=== PATIENT | female | born 1940 | race Caucasian/White ===

== ENCOUNTER → 2019-04-14 12:28 | Outpatient (BNVA) | payer MEDICARE, BC, SELFPAY | PROVIDERS: PCP Family Medicine; Visit Provider Nurse Practitioner Gerontology | DX: R31.29 Other microscopic hematuria (principal) | CPT/HCPCS: 81003; 99213 ==

== ENCOUNTER 2019-04-14 14:59 | Outpatient (REF) | payer MEDICARE, BC, SELFPAY ==
[2019-04-14 16:39] LABS: Bacteria Few HPF (Negative); C & S Indicated? No; Casts Negative LPF (Negative); Crystals Negative HPF (Negative); Epithelial Cells Few HPF (Negative); Mucus Moderate (Negative); RBC 0-2 (0-2); WBC 0-2 HPF (0-5)
== END 2019-04-14 15:19 ==
LOC: LBN 14:59
PROVIDERS: PCP Family Medicine; Visit Provider Nurse Practitioner Gerontology
DX: R31.29 Other microscopic hematuria (principal)
CPT/HCPCS: 81015

== ENCOUNTER → 2020-04-12 12:43 | Outpatient (BNVA) | payer MEDICARE, BC, SELFPAY | PROVIDERS: PCP Family Medicine; Visit Provider Nurse Practitioner Gerontology | DX: R31.29 Other microscopic hematuria (principal) | CPT/HCPCS: 81003; 99213 ==

== ENCOUNTER 2020-04-12 13:47 | Outpatient (REF) | payer MEDICARE, BC, SELFPAY ==
[2020-04-12 14:37] LABS: Bilirubin Negative (Negative); Blood Trace-intact (Negative); Clarity Clear (Clear); Glucose Negative (Negative); Ketones Negative (Negative); Leukocyte Esterase Trace (Negative); Nitrite Negative (Negative); Specific Gravity 1.015 (1.005-1.025); Urobilinogen 0.2 EU/dL (Up TO 0.2); pH 5.5 (5-8)
[2020-04-12 14:48] LABS: RBC 0-2 HPF (0-2)
[2020-04-12 14:49] LABS: Bacteria Few HPF (Negative); C & S Indicated? No/Sq. Contamination; Casts Negative LPF (Negative); Crystals Negative HPF (Negative); Epithelial Cells Moderate HPF (Negative); Mucus Negative (Negative)
== END 2020-04-12 14:07 ==
LOC: LBN 13:47
PROVIDERS: PCP Family Medicine; Visit Provider Nurse Practitioner Gerontology
DX: R31.29 Other microscopic hematuria (principal)
CPT/HCPCS: 81003; 81015

== ENCOUNTER 2020-09-28 21:17 | Outpatient (REF) | payer MEDICARE, BC, SELFPAY ==
[2020-09-28 21:44] LABS: Bilirubin Negative (Negative); Blood Small (Negative); Clarity Cloudy (Clear); Glucose Negative (Negative); Ketones Negative (Negative); Leukocyte Esterase Negative (Negative); Nitrite Negative (Negative); Urobilinogen 0.2 EU/dL (Up TO 0.2)
[2020-09-28 21:56] LABS: Bacteria Negative HPF (Negative); C & S Indicated? No; Casts Negative LPF (Negative); Crystals Negative HPF (Negative); Epithelial Cells Few HPF (Negative); Mucus Negative (Negative); RBC 0-2 HPF (0-2); WBC 0-2 HPF (0-5)
== END 2020-09-28 21:37 ==
LOC: LBN 21:17
PROVIDERS: PCP Family Medicine; Visit Provider Nurse Practitioner Family
DX: R35.0 Frequency of micturition (principal)
CPT/HCPCS: 81003; 81015; 87086

== ENCOUNTER 2020-10-09 13:55 | Outpatient (REF) | payer MEDICARE, BC, SELFPAY ==
[2020-10-12 15:09] LABS: HSV 1 DNA Result Negative (Negative); Specimen Description Vaginal Lesion
[2020-10-12 15:10] LABS: HSV 2 DNA Result Positive (Negative)
== END 2020-10-09 14:15 ==
LOC: LBN 13:55
PROVIDERS: PCP Family Medicine
DX: N89.8 Other specified noninflammatory disorders of vagina (principal)
CPT/HCPCS: 87529

== ENCOUNTER 2020-11-21 02:35 | Outpatient (CLI) | payer MEDICARE, BC, SELFPAY ==
[2020-11-22 04:04] LABS: COVID-19 RT-PCR UVMMC Result Negative (Negative)
== END 2020-11-21 02:55 ==
PROVIDERS: PCP Family Medicine; Visit Provider Internal Medicine Cardiovascular Disease
DX: Z11.59 Encounter for screening for other viral diseases (principal); Z01.810 Encounter for preprocedural cardiovascular examination
CPT/HCPCS: U0003

== ENCOUNTER 2020-11-27 00:44 | Outpatient (CLI) | payer MEDICARE, BC, SELFPAY ==
--- NOTE | 2020-11-27 06:45 | DI.NM_ITS ---
APPROVED REPORT Exam: Pharmacologic Patient Location: Out-Patient Room/Bed: Stress Nurse: Asia Colindres RN Ordering Provider:KENNY GARCIA, Contact Number: BMI: 24.97 Baseline Rhythm: LBBB, 1DHB Indications: Dyspnea on exertion, chest pain, HTN, reduced EF. Medical History Medical History: Anxiety, reduced EF, MICHEL, Cardiomyopathy, HTN Cardiac Medications: Losartan, Metoprolol tartrate, Omeprazole. Allergies: Sertraline. Cardiac Risk Factors: FHX of CAD, HTN, Smoking (former) Previous Cardiac Procedures: None. Pretest Chest Pain Characteristics: None. Exercise History: Sedentary Physical Disabilities: None. Lung Sounds: Clear to auscultation Heart Sounds: Regular Stress Test Details Test: Pharmacologic stress testing performed using 0.4 mg of regadenoson per 5 mL given IV over 10 s econds. Reason for pharmacologic stress test: LBBB. Nuclear Acquisition: Rest Tc-99m/Stress Tc-99m 1 day Rest Isotope: Tc-99m Sestamibi. Dose: 10.3 Date: 11/27/50 Injection Time: 0835 Stress Isotope: Tc-99m Sestamibi. Dose: 31.5 Date: 11/27/20 Injection Time: 1000 HR Resting HR Supine: 63 bpm Max Heart Rate (APMHR): 139.530293 bpm Target HR (85% APMHR): 118.092426 bpm Max HR Achieved: 80 bpm % of APMHR: 57.55 Recovery HR: 77 bpm BP Resting BP Supine: 130/80 mmHg Max BP: 134/80 mmHg Recovery BP: 134/80 mmHg ECG Resting ECst degree AV block, LBBB Ectopy: None. Stress ECst degree AV block, LBBB ST Change: No significant ST segment changes noted. Arrhythmia: None. Recovery ECst degree AV block, LBBB Recovery ST Change: No significant ST segment changes noted. Recovery Arrhythmia: None. Stress ECG Conclusion 1. This is a pharmacological stress test. 2. The patient no symptoms suggestive of ischemia during injection. 3. The ECG portion of this exam is nondiagnostic. Stress Test Summary STAGE HR BP Symptoms NOTES Supine 63 130/80 1 min post Lexiscan injection 79 MENG, nausea, chest tightness 3 min post Lexiscan injection 80 128/86 Symptoms resolved. 6 min post Lexiscan injection 77 134/80 MPI Conclusion The ejection fraction was 44% with stress. There were no wall motion abnormalities. There was no evidence of ischemia on the imaging portion of the exam. This represents a normal SPECT stress test. Radiologist Interpretation Radiologist Interpretation by: George Marshall MD Interpretation Date/Time: 11/27/2020 15:36:15
--- NOTE | 2020-11-27 06:45 | DI.US_ITS ---
APPROVED REPORT EXAM: Comprehensive 2D, Doppler, and color-flow Echocardiogram Patient Location: Out-Patient Daycare Worker: Delores Coyle RDCS (AE) Indications: Reduced EF, Hypokinesis, Hypertension, SOB, Chest Pain Other Information Study Quality: Fair Conclusion Left Ventricle : The left ventricle is normal size. Left ventricular systolic function is mildly redu yolanda. There is normal left ventricular wall thickness. There is global hypokinesis of the left ventric le. The diastolic function is abnormal. LVEF is 42%. Right Ventricle : The right ventricle is normal size. The right ventricular systolic function is norm al. The RVSP is 20.7 mmHg. Atria : The left atrium size is normal. The right atrium size is normal. Mitral Valve : Mild mitral annular calcification. Mild mitral regurgitation. No evidence of mitral va lve stenosis. Great Vessels : The aortic root is normal in size. The ascending aorta is mildly dilated. IVC is norm al in size and collapses >50% with inspiration. Please see remainder of study for further details. Paired to study from 12/29/2017, there is no significant change. Wall motion Left Ventricle The left ventricle is normal size. Left ventricular systolic function is mildly reduced. There is nor mal left ventricular wall thickness. There is global hypokinesis of the left ventricle. The diastolic function is abnormal. There is no ventricular septal defect visualized. LVEF is 42%. Right Ventricle The right ventricle is normal size. The right ventricular systolic function is normal. The RVSP is 20 .7 mmHg. Atria The left atrium size is normal. The right atrium size is normal. The interatrial septum is intact wit h no evidence for an atrial septal defect. Aortic Valve Aortic valve is thickened but has adequate excursion. There is no aortic valvular stenosis. No aortic regurgitation is present. Mitral Valve Mild mitral annular calcification. No evidence of mitral valve stenosis. Mild mitral regurgitation. Tricuspid Valve The tricuspid valve is normal in structure. There is no tricuspid valve stenosis. Mild tricuspid regu rgitation. Pulmonic Valve The pulmonary valve is normal in structure. There is no pulmonic valvular stenosis. Trace pulmonic re gurgitation. Great Vessels The aortic root is normal in size. The ascending aorta is mildly dilated. IVC is normal in size and c ollapses >50% with inspiration. Pericardium There is no pericardial effusion. 2D Dimensions IVSD d PLAX 1.02 cm F: 0.6-1.0 LV Vol A2C d MOD 74.5 mL LVPW d PLAX 0.99 cm F: 0.6 - 1.0 LV Vol A4C d MOD 86.1 mL LVID d PLAX 4.44 cm F: 3.8 - 5.2 LA vol/ BSA A2C s A-L 21.0 mL/m2 LVDs 3.60 cm F: 2.2 - 3.5 LA vol/ BSA A4C s A-L 22.7 mL/m2 Ao Root d 3.10 cm F: 2.7 - 3.3 LA Vol/ BSA Biplane s A-L 22.6 mL/m2 RA Area A4C 10.75 cm2 LA Area A4C s MOD 13.80 cm2 RA Vol/ BSA A4C s A-L 14.6 mL/m2 LA Area A2C s MOD 13.74 cm2 Ao Asc Diam d 3.50 cm F: 2.3 - 3.1 LV EF A4C MOD 41.4 % LV EF Teichholz 39.1 % LV EF A2C MOD 42.9 % LVEF (Bailey's) 43.08 % F: 54 - 74 LV EF Biplane MOD 43.1 % LV Volume 65.60 mL F: 46 - 106 SV 35.44 mL LV Volume Index 39.04 mL/m2 F: 29 - 61 SV Index 21.08 mL/m2 LV Vol Biplane MOD 82.3 mL FS 18.80 % M-Mode TAPSE 1.67 cm (M/F) >1.7 LV Diastology MV E' medial 0.049 (>0.07 m/s) E/A Ratio 0.7 LV E/e MED 9.55 (<14) MV E Vmax 0.47 (0.4-1.3 m/s) MV E' lateral 0.063 (>0.1 m/s) MV A Vmax 0.65 (0.4-1.3 m/s) LV E/e LAT 7.45 (<14) MV E/A Ratio 0.72 MV E/E' medial 9.56 MV E/E' lateral 7.45 Aortic Valve LVOT Area 3.16 cm2 AoV Area Vmax 2.37 cm2 LVOT Vmax 0.91 m/s AoV Area/ BSA (Vmax) 1.41 cm2/m2 LVOT Mean Greg. 0.58 m/s FELIX Mean Greg. 2.11 cm2 LVOT Peak Grad 3.3 mmHg FELIX Mean Greg. Index 1.26 cm2/m2 LVOT Mean Grad 1.6 mmHg LVOT VTI 0.197 m LVOT Diam s 2.00 cm AoV Vmax 1.21 m/s Velocity Ratio 0.75 AoV Mean Greg. 0.86 m/s AoV Peak Grad 5.9 mmHg LVOT SV 62.13 mL AoV Mean Grad 3.3 mmHg AoV VTI 0.248 m AoV Area VTI 2.50 cm2 AoV Area/ BSA (VTI) 1.49 cm/m2 Mitral Valve MV DT 240 (160-240 msec) MV PHT 70 msec MV Area PHT 3.16 cm2 MV VTI 0.187 m MV Area VTI 3.32 (4.0-6.0 cm2) Pulmonary Valve PV Vmax 0.99 (0.5-1.5 m/s) RVOT Peak Gr. 1.50 mmHg PV Peak Grad 4.0 mmHg RVOT Mean Gr. 0.80 mmHg PV Mean Grad 2.0 mmHg RVOT VTI 0.133 m PV VTI 0.207 m RVOT Vmax 0.61 m/s Tricuspid Valve TR Peak Grad 17.6 mmHg TR Vmax 2.10 m/s RA Pressure 3.00 mmHg RVSP (TR) 20.7 mmHg
[2020-11-27] MEDS: Regadenoson 0.4 MG/5 ML SYR IVP (10:22)
== END 2020-11-27 01:04 ==
PROVIDERS: PCP Family Medicine; Visit Provider Family Medicine
DX: I11.0 Hypertensive heart disease with heart failure (principal); R07.9 Chest pain, unspecified; I34.0 Nonrheumatic mitral (valve) insufficiency; R06.09 Other forms of dyspnea; I50.20 Unspecified systolic (congestive) heart failure
CPT/HCPCS: 78452; 93016; 93018; 93306; 93017; J2785

== ENCOUNTER → 2021-04-15 13:19 | Outpatient (BNVA) | payer MEDICARE, BC, SELFPAY | PROVIDERS: PCP Family Medicine; Referring Provider Family Medicine; Visit Provider Nurse Practitioner Gerontology | DX: R31.29 Other microscopic hematuria (principal) | CPT/HCPCS: 81003; 99213 ==

== ENCOUNTER 2021-11-19 03:03 | Outpatient (CLI) | payer MEDICARE, BC, SELFPAY ==
[2021-11-19 09:19] LABS: ESR 15 mm/hr (0-30)
[2021-11-19 09:20] LABS: HCT 38.5 % (36.0-46.0); HGB 11.9 g/dL (11.2-15.7); MCH 27.2 pg (27.0-33.0); MCHC 30.9 % (32.0-36.0); MCV 88.1 fL (80-95); MPV 10.7 fL (8.0-11.0); Platelet Count 265 10^3/uL (130-400); RBC 4.37 10^6/uL (3.93-5.22); RDW 13.2 % (11.7-14.6); RDW-SD 43.1 fL; WBC 4.83 10^3/uL (4.4-10.8)
[2021-11-19 10:06] LABS: Anion Gap 6.9 mmol/L (3-11); BUN 20 mg/dL (7-18); CO2 32.1 mmol/L (21.0-32.0); CREATININE 0.9 mg/dL (0.55-1.02); Calcium 9.4 mg/dL (8.5-10.1); Calculated LDL 199 mg/dL (<100); Chloride 103 mmol/L (98-107); Cholesterol 276 mg/dL (<200); Estimated GFR 59.94 (mL/min/1.73m2); Glucose 105 mg/dL (74-106); HDL Cholesterol 63 mg/dL (40-60); Potassium 4.5 mmol/L (3.5-5.1); Sodium 142 mmol/L (136-145); Triglyceride 71 mg/dL (<150)
== END 2021-11-19 03:04 | disposition home or self-care (01) ==
LOC: LBO 03:03
PROVIDERS: PCP Family Medicine; Visit Provider Family Medicine
DX: E78.5 Hyperlipidemia, unspecified (principal); E87.1 Hypo-osmolality and hyponatremia; R53.83 Other fatigue; R51.9 Headache, unspecified
CPT/HCPCS: 36415; 80048; 80061; 85027; 85652

== ENCOUNTER 2021-11-22 02:03 | Outpatient (CLI) | payer MEDICARE, BC, SELFPAY ==
[2021-11-22 10:23] LABS: Source Nasal/Nares
[2021-11-22 16:48] LABS: COVID-19 PCR Negative (Negative)
== END 2021-11-22 02:04 | disposition home or self-care (01) ==
LOC: LBO 02:04
PROVIDERS: PCP Family Medicine; Visit Provider Ophthalmology
DX: Z20.822 Contact with and (suspected) exposure to COVID-19 (principal); Z01.818 Encounter for other preprocedural examination
CPT/HCPCS: 87635

== ENCOUNTER 2021-11-25 08:52 | Day surgery (SDC) | payer MEDICARE, BC, SELFPAY ==
[2021-11-25 09:20] VITALS: BP 164/84; PULSE 63; RESP 16; TEMP 35.9; O2SAT 99
[2021-11-25] MEDS: Tropicam./Phenyleph. (1/2.5%) 5 ML BTL OD ×3 (09:27→09:43)
--- NOTE | 2021-11-25 09:47 | ANES.PREOP_ITS ---
General Info Date of Service Date Performed: 11/25/21 Height: 5 ft 3.5 in Weight: 64.1 kg Body Mass Index (BMI): 24.6 Surgical Procedure: Operation Date: 11/25/21 11:40 Proposed Procedures Side Surgeon p Cataract Extraction with IOL Implant Right Khoa Albarado MD Meds Allergies and Home Medications Allergies Allergy/AdvReac Type Severity Reaction Status Date / Time sertraline AdvReac Ineffective Verified 11/25/21 09:22 Home Medication Medication Instructions Recorded fluticasone propionate 2 spray NS DAILY 03/02/18 alprazolam 0.25 mg tablet 0.25 mg PO BID PRN #10 tab 08/07/20 omeprazole 40 mg capsule,delayed 40 mg PO DAILY #90 tab-cap 08/06/21 release acyclovir 400 mg tablet 400 mg PO TID PRN #30 tab 08/20/21 halobetasol propionate 0.05 % 1 applic TOPICAL BID PRN #50 g 08/20/21 topical cream duloxetine 20 mg capsule,delayed 20 mg PO DAILY #90 tab-cap 08/28/21 release losartan 100 mg tablet 100 mg PO DAILY #90 tab-cap 08/28/21 metoprolol tartrate 25 mg tablet 25 mg PO DAILY #90 tab 08/28/21 Current Visit Medications: Current Medications Generic Name Dose Route Start Last Admin Trade Name Freq PRN Reason Stop Dose Admin Acetaminophen 1,000 mg 11/25/21 06:00 Acetaminophen 500 Mg Tab PO Q4H PRN PRN Miscellaneous Medication 0 ml 11/25/21 06:00 Prednisolone 1%, Moxifloxacin 0.5%, Nepafenac 0.1% 5ml Btl OD DIRECTED FOR[facility] Miscellaneous Medication 0 ml 11/25/21 06:00 11/25/21 09:43 Tropicam./Phenyleph. (1/2.5%) 5 Ml Btl OD 1 drp DIRECTED DIAN Administration Tetracaine HCl 0 ml 11/25/21 06:00 Tetracaine 0.5% 4 Ml Btl OD DIRECTED [facility] PFSH Active Problems Active Problems: Problem Status Onset Code Age-related macular degeneration H35.30 Anxiety 03/29/13 F41.9 Bundle branch block I45.4 Cardiomyopathy I42.9 Depressive disorder F32.9 Gastroesophageal reflux disease K21.9 Hyperlipidemia 02/15/13 E78.5 Hypertension I10 Idiopathic scoliosis M41.20 Malignant neoplasm of female breast 10/22/01 C50.919 Microscopic hematuria 02/02/18 R31.29 Osteopenia M85.80 Mood disorder F39 Right knee meniscal tear S83.206A Status post breast lumpectomy Z98.890 History of esophagogastroduodenoscopy Z98.890 Graves' disease 03/29/13 E05.00 Alcohol abuse F10.10 Vaginitis and vulvovaginitis N76.0 Herpetic lesion B00.9 MICHEL (dyspnea on exertion) R06.00 Pain, joint, knee, right M25.561 Stress incontinence N39.3 Pain in left hip M25.552 Temporal headache R51.9 Medical History Medical History Comments:: Pt. states that she can easily faint with anxiety in anticipation of surgery or when discussing details thereof. Surgical History Surgical History (Updated 11/25/21 @ 09:20 by Margie Martinez) Breast, Lumpectomy right lumpectomy-infiltration ductal; radiation and chemo Cystoscopy 03/04/18 NEGATIVE Hx of appendectomy Hx of tubal ligation Tobacco Smoking/Tobacco Use Status: Former Tobacco Use Alcohol Alcohol Intake: never Substance Use Substance use: Never Substance use type: does not use Vital Signs and Lab Results Vital Signs Most Recent Vital Signs in EMR: Most Recent Vital Signs Temp Pulse Resp BP Pulse Ox 35.9 C L 63 16 164/84 H 99 11/25/21 09:20 11/25/21 09:20 11/25/21 09:20 11/25/21 09:20 11/25/21 09:20 Lab Results Blood Type / Crossmatch: No Data to Display Complete Blood Count: White Blood Count 4.83 10^3/uL (4.4-10.8) 11/19/21 09:12 11/19/21 Red Blood Count 4.37 10^6/uL (3.93-5.22) 11/19/21 09:12 11/19/21 Hemoglobin 11.9 g/dL (11.2-15.7) 11/19/21 09:12 11/19/21 Hematocrit 38.5 % (36.0-46.0) 11/19/21 09:12 11/19/21 Platelet Count 265 10^3/uL (130-400) 11/19/21 09:12 11/19/21 Complete Metabolic Panel: Sodium Level 142 mmol/L (136-145) 11/19/21 09:12 11/19/21 Potassium Level 4.5 mmol/L (3.5-5.1) 11/19/21 09:12 11/19/21 Chloride Level 103 mmol/L (98-107) 11/19/21 09:12 11/19/21 Carbon Dioxide Level 32.1 mmol/L (21.0-32.0) H 11/19/21 09:12 11/19/21 Blood Urea Nitrogen 20 mg/dL (7-18) H 11/19/21 09:12 11/19/21 Creatinine 0.9 mg/dL (0.55-1.02) 11/19/21 09:12 11/19/21 Estimated GFR/1.73 m2 59.94 (mL/min/1.73m2) 11/19/21 09:12 11/19/21 Calcium Level 9.4 mg/dL (8.5-10.1) 11/19/21 09:12 11/19/21 Glucose Level 105 mg/dL (74-106) 11/19/21 09:12 11/19/21 Liver Function Panel: No Data to Display Coagulation Panel: No Data to Display Cardiac Panel: No Data to Display Arterial Blood Gas: No Data to Display Venous Blood Gas: No Data to Display Pancreas Panel: No Data to Display Thyroid Panel: No Data to Display Infectious Disease: Coronavirus (COVID-19)(PCR) Negative (Negative) 11/22/21 08:43 11/22/21 Coronavirus 2019 Source Nasal/Nares 11/22/21 08:43 11/22/21 Blood Cultures: No Data to Display Toxicology Panel: No Data to Display Imaging and Studies Imaging and Studies Study information below may be from another EMR and interpreted by another provider. Please see original notes in EMR for more complete details. Stress Test Summary: Date of Exam: 11/27/20Sex: F Admission Date: 11/27/20 : 1940 Indications: Dyspnea on exertion, chest pain, HTN, reduced EF. Stress ECG Conclusion 1. This is a pharmacological stress test. 2. The patient no symptoms suggestive of ischemia during injection. 3. The ECG portion of this exam is nondiagnostic. Stress Test Summary STAGEHRBPSymptomsNOTES [id number] 1 min post Lexiscan [id number], nausea, chest tightness 3 min post Lexiscan [id number] resolved. 6 min post Lexiscan [id number]/80 MPI Conclusion The ejection fraction was 44% with stress. There were no wall motion abnormalities. There was no evidence of ischemia on the imaging portion of the exam. This represents a normal SPECT stress test. Echocardiogram Summary: Date of Exam: 11/27/20Sex: F Admission Date: 11/27/20 : 1940 Age: 79 Indications: Reduced EF, Hypokinesis, Hypertension, SOB, Chest Pain Conclusion Left Ventricle : The left ventricle is normal size. Left ventricular systolic function is mildly reduced. There is normal left ventricular wall thickness. There is global hypokinesis of the left ventricle. The diastolic function is abnormal. LVEF is 42%. Right Ventricle : The right ventricle is normal size. The right ventricular systolic function is normal. The RVSP is 20.7 mmHg. Atria : The left atrium size is normal. The right atrium size is normal. Mitral Valve : Mild mitral annular calcification. Mild mitral regurgitation. No evidence of mitral valve stenosis. Great Vessels : The aortic root is normal in size. The ascending aorta is mildly dilated. IVC is normal in size and collapses >50% with inspiration. Please see remainder of study for further details. Paired to study from 12/29/2017, there is no significant change. Anesthesia Assessment and Plan Anesthesia History Personal History: No History of Anesthesia Complications Family History: No Family History of Anesthesia Complications Exercise Tolerance Exercise Tolerance: Metabolic Equivalents>4 Pertinent Negatives Pertinent Negatives: No Symptoms of GERD and No Major Pulmonary Symptoms or Complaints Cardiac & Pulmonary Exam Cardiac Exam: Normal S1/S2 Heart Sounds Pulmonary Exam: Clear Bilateral Breath Sounds Implantable Cardiac Device Does patient have a Pacemaker or an ICD?: No Airway Exam Known Difficult Airway: No Mallampati Class: 2 Mouth Opening: Normal (> 3cm) Thyromental Distance: Greater than 3 cm Neck Range of Motion: Full ROM Neck Circumference: Normal Teeth Condition: Normal Dentition ASA Classification ASA Score: ASA 3 Emergency Case?: No NPO Status NPO Status: NPO Clears >2 hours, Solids >8 hours Anesthesia Plan Resuscitation Status: Full Code Anesthesia Technique: MAC Anesthesia Airway Planned: Natural Airway Monitors Used: Standard Monitors
[2021-11-25 10:13] VITALS: BMI 24.6
[2021-11-25] MEDS: Trypan Blue 0.06% 0.5 ML SYR (10:34)
[2021-11-25] MEDS: Balanced Salt Soln.-PLUS 500 ML BAG (10:36)
[2021-11-25] MEDS: Tetracaine 0.5% 4 ML BTL OD (10:36)
[2021-11-25] MEDS: Duovisc Viscoelastic System EACH 1 EACH (10:37)
[2021-11-25] MEDS: Lidocaine 2% Jelly 6 ML SYR (10:38)
[2021-11-25] MEDS: Povidone-Iodine Ophth 30 ML BTL (10:39)
[2021-11-25 11:00] VITALS: BP 136/83; PULSE 68; RESP 16; TEMP 36.6; O2SAT 100
--- NOTE | 2021-11-25 11:01 | W.PM.DSUDISC ---
Discharge Plan Disposition Patient Disposition: HOME Condition: Good Discharge Details Attending Provider: Khoa Albarado Primary Care Provider: Kushal Noyola Home Meds and New Rx's Prescriptions: No Action losartan 100 mg tablet 100 mg PO DAILY Qty: 90 RF: 3 metoprolol tartrate 25 mg tablet 25 mg PO DAILY Qty: 90 RF: 4 duloxetine 20 mg capsule,delayed release(DR/EC) 20 mg PO DAILY Qty: 90 RF: 3 halobetasol propionate 0.05 % cream 1 applic topical BID PRN (Reason: inflammation) Qty: 50 RF: 1 acyclovir 400 mg tablet 400 mg PO TID PRN (Reason: genital herpes) Qty: 30 RF: 1 alprazolam 0.25 mg tablet 0.25 mg PO BID PRN (Reason: anxiety) Qty: 10 RF: 0 omeprazole 40 mg capsule,delayed release(DR/EC) 40 mg PO DAILY Qty: 90 RF: 3 fluticasone propionate 16 GM spray,suspension 2 spray NS DAILY RF: 0 Discharge Instructions Stand Alone Forms: Post-op Topical Cataract, [place] Rojo (DSU) Discharge Orders Discharge Orders: Discharge Order (Routine); Ordered 11/25/21 Ordered By: Khoa Albarado DS: Diagnosis Discharge Diagnosis (1) Nuclear sclerotic cataract of right eye: Status: Resolved
--- NOTE | 2021-11-25 11:02 | ROE_ITS ---
Date of service: 11/25/21 Time of Service: 11:02 Operative Note Operative Note DATE OF PROCEDURE: 11/25/21 PRE-OP DIAGNOSIS: Dense nuclear cataract, right eye Poor red reflex, right eye secondary to cataract POST-OP DIAGNOSIS: same PROCEDURE: Cataract extraction using phacoemulsification with intraocular lens implantation, right eye, using capsular staining with Vision Blue SURGEON: Khoa Albarado ANESTHESIA TYPE: Local By Surgeon and MAC Refer to Anesthesia Record PATHOLOGY: none sent COMPLICATIONS: None Patient was transported to: same day Patient's condition: stable Implants: [employer] / [employer] Tecnis [id number] Indications: Progressive visual loss due to cataract, right eye Procedure Description: CATARACT SURGERY OPERATIVE REPORT PREOPERATIVE DIAGNOSIS: 1. Dense nuclear cataract, right eye 2. Poor red reflex secondary to #1 POSTOPERATIVE DIAGNOSIS: Same OPERATION: 1. Cataract extraction using phacoemulsification with posterior chamber intraocular lens implant, right eye. 2. Capsular staining with Vision Blue IOL: IOL Vice President Of Contracts/Model: [employer] Rashel / VINH Tecnis [id number] IOL Power: + 20.0 diopters IOL Serial Number: [id number] Optic Diameter: 6.0mm Haptic/Overall Diameter: 13.0mm PHACO INFO: Jl Vakasturion Vision System with OZil and [employer] Cumulative Dispersed Energy (CDE): 35.99 seconds SURGEON: Khoa Albarado MD, LEO ANESTHESIA: Monitored Anesthesia Care (MAC), with local sub-tenon's anesthetic infiltration COMPLICATIONS: None SPECIMENS: None INDICATIONS FOR PROCEDURE: The patient is a 80-year-old lady with history of diminished visual acuity in her right eye. She is noted to have a dense nuclear cataract in the right eye. The option of cataract surgery was offered to the patient and she wished to proceed. PROCEDURE: The correct surgical eye was identified and marked as the right eye and the pupil was dilated in the preoperative area using mydriatics and cycloplegics. The dilated pupil size was 7.0 mm. She elected to proceed without oral sedation. The patient was brought to the operating room where cardiopulmonary monitoring was instituted and surgical time-out was performed, confirming the correct operative eye and IOL power. Topical anesthesia was administered and ophthalmic povidone-iodine 5% was instilled into the conjunctival fornices. Lidocaine gel was applied to the cornea and the abhijit-ocular area was prepped with Betadine 10% solution and draped in the usual sterile fashion for intraocular surgery, including an aperture drape. A Tegaderm transparent film dressing was cut in half and used to cover the lashes and lid margins. Care was taken to sequester the lashes and lid margins under the Tegaderm dressing. A lid speculum was placed between the lids of the operative eye and the Yeyo-Madyson operating microscope was maneuvered into position. Nasra scissors were then used to make a conjunctival buttonhole approximately 6mm posterior to the limbus in the inferonasal quadrant. Blunt dissection was carried out to expose bare sclera, and a blunt-tipped sub-tenon?s anesthesia cannula was introduced and passed posteriorly along the globe where non- preserved plain lidocaine was injected into posterior sub-Tenon?s space. A sideport knife was used to make a paracentesis port inferotemporally. Intraocular phenylephrine/lidocaine was injected into the anterior chamber. Air was injected into the anterior chamber, followed by Vision Blue, which was painted over the anterior capsule and then irrigated out with BSS. The anterior chamber was filled with viscoelastic. A 2.4mm keratome knife was used to create a half-thickness groove at the limbus and then to construct a three-plane near- clear corneal tunnel extending 2.0mm into clear cornea superiortemporally. A flap was raised on the anterior capsule and capsulorhexis forceps were used to complete a continuous curvilinear capsulorhexis of 5.0 mm. Balanced salt solution was then used to perform cortical cleaving hydrodissection and nuclear hydrodelineation until the lens could be freely rotated within the capsular bag. The lens nucleus was then disassembled and removed within the capsular bag and iris plane using phacoemulsification. Residual cortical material was removed using the I/A handpiece. The posterior capsule was carefully polished to remove as much residual lens epithelial cells as safely possible. The capsular bag was then inflated and the anterior chamber deepened with viscoelastic. The lens implant described above was inserted into the capsular bag using the VINH [place] Injector. A Kuglen hook was used to dial the IOL into position. Residual viscoelastic was then removed first from posterior to the IOL, then from the anterior chamber using the I/A handpiece. The lens implant was noted to center nicely within the capsular bag. The incisions were stromally hydrated, and the anterior chamber was reformed using BSS. Then 0.5cc of moxifloxacin 1.0mg/ml were injected into the capsular bag and anterior chamber. The incisions were checked with a Weck spear and found to be secure. Several drops of ophthalmic povidone-iodine 5% were then applied to the eye followed by two drops of Imprimis combination prednisolone/moxifloxacin/nepafenac solution. The drapes were removed and a clear plastic protective eye shield was placed over the eye. The patient was then returned to Same Day Surgery in stable condition.
--- NOTE | 2021-11-25 11:08 | W.ANESPOSTOP ---
Postoperative Evaluation Date, Time and Location Date Performed: 11/25/21 Time Performed: 11:08 Patient Location: Day Surgery Unit Vital Signs Most Recent Imported Vital Signs: Most Recent Vital Signs Temp Pulse Resp BP Pulse Ox 36.6 C 68 16 136/83 100 11/25/21 11:00 11/25/21 11:00 11/25/21 11:00 11/25/21 11:00 11/25/21 11:00 Pain Score Most Recent Pain Score: Most Recent Pain Score Pain Level 0 11/25/21 11:00 Assessment Mental Status: Awake (Alert & Oriented to Patient Baseline) Airway and Respiratory Function: Patent airway with normal (patient baseline) respiratory exam Cardiovascular Function: Hemodynamically Stable Hydration Status: Adequately Hydrated Nausea & Vomiting: No Nausea or Vomiting Pain: Pt. Denies Any Pain Peripheral Nerve Block: Patient did not receive a nerve block
== END 2021-11-25 11:21 | disposition home or self-care (01) ==
PROVIDERS: PCP Family Medicine; Visit Provider Ophthalmology
PROC: (CPT 66984; principal; 2021-11-25 11:30)
DX: H25.11 Age-related nuclear cataract, right eye (principal); I42.9 Cardiomyopathy, unspecified; K21.9 Gastro-esophageal reflux disease without esophagitis; I10 Essential (primary) hypertension; E78.5 Hyperlipidemia, unspecified
CPT/HCPCS: 66984; V2632

== ENCOUNTER 2021-12-06 03:41 | Outpatient (CLI) | payer MEDICARE, BC, SELFPAY ==
[2021-12-06 11:59] LABS: Source Nasal/Nares
[2021-12-06 15:42] LABS: COVID-19 PCR Negative (Negative)
== END 2021-12-06 03:42 | disposition home or self-care (01) ==
LOC: LBO 03:41
PROVIDERS: PCP Family Medicine; Visit Provider Ophthalmology
DX: Z20.822 Contact with and (suspected) exposure to COVID-19 (principal); Z01.818 Encounter for other preprocedural examination
CPT/HCPCS: 87635

== ENCOUNTER 2021-12-09 09:29 | Day surgery (SDC) | payer MEDICARE, BC, SELFPAY ==
[2021-12-09] MEDS: Tropicam./Phenyleph. (1/2.5%) 5 ML BTL OS ×3 (10:13→10:30)
[2021-12-09 10:14] VITALS: BP 161/83; PULSE 65; RESP 16; TEMP 36.2; O2SAT 98
--- NOTE | 2021-12-09 10:51 | W.ANESPRE ---
General Info Date of Service Date Performed: 12/09/21 Height: 5 ft 3.5 in Weight: 65.4 kg Body Mass Index (BMI): 25.1 Surgical Procedure: Operation Date: 12/09/21 12:40 Proposed Procedures Side Surgeon p Cataract Extraction with IOL Implant Left Khoa Albarado MD Meds Allergies and Home Medications Allergies Allergy/AdvReac Type Severity Reaction Status Date / Time sertraline AdvReac Ineffective Verified 12/09/21 10:06 Home Medication Medication Instructions Recorded fluticasone propionate 2 spray NS DAILY 03/02/18 alprazolam 0.25 mg tablet 0.25 mg PO BID PRN #10 tab 08/07/20 omeprazole 40 mg capsule,delayed 40 mg PO DAILY #90 tab-cap 08/06/21 release halobetasol propionate 0.05 % 1 applic TOPICAL BID PRN #50 g 08/20/21 topical cream duloxetine 20 mg capsule,delayed 20 mg PO DAILY #90 tab-cap 08/28/21 release losartan 100 mg tablet 100 mg PO DAILY #90 tab-cap 08/28/21 metoprolol tartrate 25 mg tablet 25 mg PO DAILY #90 tab 08/28/21 atorvastatin 20 mg tablet 20 mg PO QPM #90 tab 11/27/21 Current Visit Medications: Current Medications Generic Name Dose Route Start Last Admin Trade Name Freq PRN Reason Stop Dose Admin Acetaminophen 1,000 mg 12/09/21 06:00 Acetaminophen 500 Mg Tab PO Q4H PRN PRN Miscellaneous Medication 0 ml 12/09/21 06:00 Prednisolone 1%, Moxifloxacin 0.5%, Nepafenac 0.1% 5ml Btl [facility] Miscellaneous Medication 0 ml 12/09/21 06:00 12/09/21 10:30 Tropicam./Phenyleph. (1/2.5%) 5 Ml Btl OS 1 drp [facility] Administration Tetracaine HCl 0 ml 12/09/21 06:00 Tetracaine 0.5% 4 Ml Btl [facility] PFSH Active Problems Active Problems: Problem Status Onset Code Age-related macular degeneration H35.30 Anxiety 03/29/13 F41.9 Bundle branch block I45.4 Cardiomyopathy I42.9 Depressive disorder F32.9 Gastroesophageal reflux disease K21.9 Hyperlipidemia 03/26/13 E78.5 Hypertension I10 Idiopathic scoliosis M41.20 Malignant neoplasm of female breast 10/22/01 C50.919 Microscopic hematuria 02/02/18 R31.29 Osteopenia M85.80 Mood disorder F39 Right knee meniscal tear S83.206A Status post breast lumpectomy Z98.890 History of esophagogastroduodenoscopy Z98.890 Graves' disease 03/29/13 E05.00 Alcohol abuse F10.10 Vaginitis and vulvovaginitis N76.0 Herpetic lesion B00.9 MICHEL (dyspnea on exertion) R06.00 Pain, joint, knee, right M25.561 Stress incontinence N39.3 Pain in left hip M25.552 Temporal headache R51.9 Nuclear sclerotic cataract of right eye H25.11 Medical History Medical History Comments:: Reported by preop screening, Pt. states that she can easily faint with anxiety in anticipation of surgery or when discussing details thereof. Surgical History Surgical History (Updated 12/09/21 @ 10:06 by Margie Mratinez) Breast, Lumpectomy right lumpectomy-infiltration ductal; radiation and chemo Cystoscopy 03/04/18 NEGATIVE Hx of appendectomy Hx of cataract removal with insertion of prosthetic lens Hx of tubal ligation Tobacco Smoking/Tobacco Use Status: Former Tobacco Use Alcohol Alcohol Intake: never Substance Use Substance use: Never Substance use type: does not use Vital Signs and Lab Results Vital Signs Most Recent Vital Signs in EMR: Most Recent Vital Signs Temp Pulse Resp BP Pulse Ox 36.2 C L 65 16 161/83 H 98 12/09/21 10:14 12/09/21 10:14 12/09/21 10:14 12/09/21 10:14 12/09/21 10:14 Lab Results Blood Type / Crossmatch: No Data to Display Complete Blood Count: White Blood Count 4.83 10^3/uL (4.4-10.8) 11/19/21 09:12 11/19/21 Red Blood Count 4.37 10^6/uL (3.93-5.22) 11/19/21 09:12 11/19/21 Hemoglobin 11.9 g/dL (11.2-15.7) 11/19/21 09:12 11/19/21 Hematocrit 38.5 % (36.0-46.0) 11/19/21 09:12 11/19/21 Platelet Count 265 10^3/uL (130-400) 11/19/21 09:12 11/19/21 Complete Metabolic Panel: Sodium Level 142 mmol/L (136-145) 11/19/21 09:12 11/19/21 Potassium Level 4.5 mmol/L (3.5-5.1) 11/19/21 09:12 11/19/21 Chloride Level 103 mmol/L (98-107) 11/19/21 09:12 11/19/21 Carbon Dioxide Level 32.1 mmol/L (21.0-32.0) H 11/19/21 09:12 11/19/21 Blood Urea Nitrogen 20 mg/dL (7-18) H 11/19/21 09:12 11/19/21 Creatinine 0.9 mg/dL (0.55-1.02) 11/19/21 09:12 11/19/21 Estimated GFR/1.73 m2 59.94 (mL/min/1.73m2) 11/19/21 09:12 11/19/21 Calcium Level 9.4 mg/dL (8.5-10.1) 11/19/21 09:12 11/19/21 Glucose Level 105 mg/dL (74-106) 11/19/21 09:12 11/19/21 Liver Function Panel: No Data to Display Coagulation Panel: No Data to Display Cardiac Panel: No Data to Display Arterial Blood Gas: No Data to Display Venous Blood Gas: No Data to Display Pancreas Panel: No Data to Display Thyroid Panel: No Data to Display Infectious Disease: Coronavirus (COVID-19)(PCR) Negative (Negative) 12/06/21 10:20 12/06/21 Coronavirus 2019 Source Nasal/Nares 12/06/21 10:20 12/06/21 Blood Cultures: No Data to Display Toxicology Panel: No Data to Display Imaging and Studies Imaging and Studies Study information below may be from another EMR and interpreted by another provider. Please see original notes in EMR for more complete details. Stress Test Summary: Date of Exam: 11/27/20Sex: F Admission Date: 11/27/20 : 1940 Indications: Dyspnea on exertion, chest pain, HTN, reduced EF. Stress ECG Conclusion 1. This is a pharmacological stress test. 2. The patient no symptoms suggestive of ischemia during injection. 3. The ECG portion of this exam is nondiagnostic. Stress Test Summary STAGEHRBPSymptomsNOTES [id number] 1 min post Lexiscan [id number], nausea, chest tightness 3 min post Lexiscan [id number] resolved. 6 min post Lexiscan [id number] MPI Conclusion The ejection fraction was 44% with stress. There were no wall motion abnormalities. There was no evidence of ischemia on the imaging portion of the exam. This represents a normal SPECT stress test. Echocardiogram Summary: Date of Exam: 11/27/20Sex: F Admission Date: 11/27/20 : 1940 Age: 79 Indications: Reduced EF, Hypokinesis, Hypertension, SOB, Chest Pain Conclusion Left Ventricle : The left ventricle is normal size. Left ventricular systolic function is mildly reduced. There is normal left ventricular wall thickness. There is global hypokinesis of the left ventricle. The diastolic function is abnormal. LVEF is 42%. Right Ventricle : The right ventricle is normal size. The right ventricular systolic function is normal. The RVSP is 20.7 mmHg. Atria : The left atrium size is normal. The right atrium size is normal. Mitral Valve : Mild mitral annular calcification. Mild mitral regurgitation. No evidence of mitral valve stenosis. Great Vessels : The aortic root is normal in size. The ascending aorta is mildly dilated. IVC is normal in size and collapses >50% with inspiration. Please see remainder of study for further details. Paired to study from 12/29/2017, there is no significant change. Anesthesia Assessment and Plan Anesthesia History Personal History: No History of Anesthesia Complications Family History: No Family History of Anesthesia Complications Exercise Tolerance Exercise Tolerance: Metabolic Equivalents>4 Cardiac & Pulmonary Exam Cardiac Exam: Normal S1/S2 Heart Sounds Pulmonary Exam: Clear Bilateral Breath Sounds Implantable Cardiac Device Does patient have a Pacemaker or an ICD?: No Airway Exam Known Difficult Airway: No Mallampati Class: 2 Mouth Opening: Normal (> 3cm) Thyromental Distance: Greater than 3 cm Neck Range of Motion: Full ROM Neck Circumference: Normal Teeth Condition: Normal Dentition ASA Classification ASA Score: ASA 3 Emergency Case?: No NPO Status NPO Status: NPO Clears >2 hours, Solids >8 hours Anesthesia Plan Resuscitation Status: Full Code Anesthesia Technique: MAC Anesthesia Airway Planned: Natural Airway Monitors Used: Standard Monitors
[2021-12-09 10:53] VITALS: BMI 25.1
[2021-12-09] MEDS: Balanced Salt Soln.-PLUS 500 ML BAG (11:18)
[2021-12-09] MEDS: Tetracaine 0.5% 4 ML BTL OS (11:18)
[2021-12-09] MEDS: Duovisc Viscoelastic System EACH 1 EACH (11:18)
[2021-12-09] MEDS: Trypan Blue 0.06% 0.5 ML SYR (11:35)
[2021-12-09] MEDS: Lidocaine 2% Jelly 6 ML SYR (11:40)
[2021-12-09] MEDS: Povidone-Iodine Ophth 30 ML BTL (11:40)
[2021-12-09 11:49] VITALS: BP 135/77; PULSE 62; RESP 16; TEMP 36.4; O2SAT 96
--- NOTE | 2021-12-09 11:49 | W.PM.DSUDISC ---
Discharge Plan Disposition Patient Disposition: HOME Condition: Good Discharge Details Attending Provider: Khoa Albarado Primary Care Provider: Kushal Noyola Home Meds and New Rx's Prescriptions: No Action losartan 100 mg tablet 100 mg PO DAILY Qty: 90 RF: 3 metoprolol tartrate 25 mg tablet 25 mg PO DAILY Qty: 90 RF: 4 duloxetine 20 mg capsule,delayed release(DR/EC) 20 mg PO DAILY Qty: 90 RF: 3 halobetasol propionate 0.05 % cream 1 applic topical BID PRN (Reason: inflammation) Qty: 50 RF: 1 alprazolam 0.25 mg tablet 0.25 mg PO BID PRN (Reason: anxiety) Qty: 10 RF: 0 omeprazole 40 mg capsule,delayed release(DR/EC) 40 mg PO DAILY Qty: 90 RF: 3 atorvastatin 20 mg tablet 20 mg PO QPM Qty: 90 RF: 3 fluticasone propionate 16 GM spray,suspension 2 spray NS DAILY RF: 0 Discharge Instructions Stand Alone Forms: Post-op Topical Cataract, [place] Rojo ([facility]) Discharge Orders Discharge Orders: Discharge Order (Routine); Ordered 12/09/21 Ordered By: Khoa Albarado DS: Diagnosis Discharge Diagnosis (1) Nuclear sclerotic cataract of left eye: Status: Resolved
[2021-12-09 11:50] VITALS: BP 135/77; PULSE 62; RESP 12; TEMPC 36.7; O2SAT 97
--- NOTE | 2021-12-09 11:50 | ROE_ITS ---
Date of service: 12/09/21 Time of Service: 11:51 Operative Note Operative Note DATE OF PROCEDURE: 12/09/21 PRE-OP DIAGNOSIS: Nuclear cataract, left eye Poor red reflex, left eye secondary to cataract POST-OP DIAGNOSIS: same PROCEDURE: Cataract extraction using phacoemulsification with intraocular lens implant, left eye, using capsular staining with Vision Blue SURGEON: Khoa Albarado ANESTHESIA TYPE: Local By Surgeon and MAC Refer to Anesthesia Record COMPLICATIONS: None Patient was transported to: same day Patient's condition: stable Implants: [employer] / [employer] Tecnis [id number] Indications: Progressive decreased vision due to cataract, left eye, with poor red reflex Procedure Description: CATARACT SURGERY OPERATIVE REPORT PREOPERATIVE DIAGNOSIS: 1. Nuclear cataract, left eye 2. Poor red reflex secondary to #1 POSTOPERATIVE DIAGNOSIS: Same OPERATION: 1. Cataract extraction using phacoemulsification with posterior chamber intraocular lens implant, left eye. 2. Capsular staining with Vision Blue IOL: IOL Superintendent Generating Plant/Model: [employer] / VINH Tecnis [id number] IOL Power: + 20.0 diopters IOL Serial Number: [id number] Optic Diameter: 6.0 mm Haptic/Overall Diameter: 13.0 mm PHACO INFO: Jl [employer] Vision System with OZil and [employer]ics Cumulative Dispersed Energy (CDE): 20.40 seconds SURGEON: Khoa Albarado MD, LEO ANESTHESIA: Monitored [facility] (MAC), with local sub-tenon's anesthetic infiltration COMPLICATIONS: None SPECIMENS: None INDICATIONS FOR PROCEDURE: The patient is an 81-year-old lady with history of diminished visual acuity in both eyes secondary to the development of bilateral nuclear cataract, right eye worse than left. She has already undergone cataract surgery in the right eye and is doing well postoperatively. She now presents for cataract surgery in the left eye. PROCEDURE: The correct surgical eye was identified and marked as the left eye and the pupil was dilated in the preoperative area using mydriatics and cycloplegics. The dilated pupil size was 7.0 mm. Oral sedation was administered in the form of an Imprimis MKO Melt (midazolam 3mg/ketamine 25mg/ondansetron 2mg). The patient was brought to the operating room where cardiopulmonary monitoring was instituted and surgical time-out was performed, confirming the correct operative eye and IOL power. Topical anesthesia was administered and ophthalmic povidone-iodine 5% was instilled into the conjunctival fornices. Lidocaine gel was applied to the cornea and the abhijit-ocular area was prepped with Betadine 10% solution and draped in the usual sterile fashion for intraocular surgery, including an aperture drape. A Tegaderm transparent film dressing was cut in half and used to cover the lashes and lid margins. Care was taken to sequester the lashes and lid margins under the Tegaderm dressing. A lid speculum was placed between the lids of the operative eye and the Yeyo-Madyson operating microscope was maneuvered into position. Nasra scissors were then used to make a conjunctival buttonhole approximately 6mm posterior to the limbus in the inferonasal quadrant. Blunt dissection was carried out to expose bare sclera, and a blunt-tipped sub-tenon?s anesthesia cannula was introduced and passed posteriorly along the globe where non- preserved plain lidocaine was injected into posterior sub-Tenon?s space. A sideport knife was used to make a paracentesis port superiorly/superiortemporally. Intraocular phenylephrine/lidocaine was injected int the anterior chamber.. Air was then injected into the anterior chamber, followed by Vision Blue, which was painted over the anterior capsule and then irrigated out using BSS. The anterior chamber was filled with viscoelastic. A 2.4mm keratome knife was used to create a half-thickness groove at the limbus and then to construct a three-plane near-clear corneal tunnel extending 2.0mm into clear cornea at the 3:00 position. A flap was raised on the anterior capsule and capsulorhexis forceps were used to complete a continuous curvilinear capsulorhexis of 5.0 mm. Balanced salt solution was then used to perform cortical cleaving hydrodissection and nuclear hydrodelineation until the lens could be freely rotated within the capsular bag. The lens nucleus was then disassembled and removed within the capsular bag and iris plane using phacoemulsification. Residual cortical material was removed using the 45-degree angled silicone I/A tip with 0.3mm port. The posterior capsule was carefully polished to remove as much residual lens epithelial cells as safely possible. The capsular bag was then inflated and the anterior chamber deepened with viscoelastic. The lens implant described above was inserted into the capsular bag using the VINH [place] Injector. A Kuglen hook was used to dial the IOL into position. Residual viscoelastic was then removed first from posterior to the IOL, then from the anterior chamber using the I/A handpiece. The lens implant was noted to center nicely within the capsular bag. The incisions were stromally hydrated, and the anterior chamber was reformed using BSS. Then 0.5cc of moxifloxacin 1.0mg/ml were injected into the capsular bag and anterior chamber. The incisions were checked with a Weck spear and found to be secure. Several drops of ophthalmic povidone-iodine 5% were then applied to the eye followed by two drops of Imprimis combination prednisolone/moxifloxacin/nepafenac solution. The drapes were removed and a clear plastic protective eye shield was placed over the eye. The patient was then returned to Same Day Surgery in stable condition.
--- NOTE | 2021-12-09 11:50 | W.ANESPOSTOP ---
Postoperative Evaluation Date, Time and Location Date Performed: 12/09/21 Time Performed: 11:51 Patient Location: Day Surgery Unit Vital Signs Most Recent Imported Vital Signs: Most Recent Vital Signs Temp Pulse Resp BP Pulse Ox 36.2 C L 65 16 161/83 H 98 12/09/21 10:14 12/09/21 10:14 12/09/21 10:14 12/09/21 10:14 12/09/21 10:14 Most Recent Manually Entered Vital Signs: Adult Blood Pressure: 135/77 Heart Rate: 62 Respirations: 12 Oxygen Saturation (%): 97 Temperature (C): 36.7 C Pain Score (0-10 Scale): 0 Pain Score Most Recent Pain Score: Most Recent Pain Score Pain Level 0 12/09/21 10:14 Assessment Mental Status: Awake (Alert & Oriented to Patient Baseline) Airway and Respiratory Function: Patent airway with normal (patient baseline) respiratory exam Cardiovascular Function: Hemodynamically Stable Hydration Status: Adequately Hydrated Nausea & Vomiting: No Nausea or Vomiting Pain: Pt. Denies Any Pain Peripheral Nerve Block: Patient did not receive a nerve block
== END 2021-12-09 12:11 | disposition home or self-care (01) ==
PROVIDERS: PCP Family Medicine; Visit Provider Ophthalmology
PROC: (CPT 66984; principal; 2021-12-09 12:30)
DX: H25.12 Age-related nuclear cataract, left eye (principal); I10 Essential (primary) hypertension; E78.5 Hyperlipidemia, unspecified
CPT/HCPCS: 66984; V2632

== ENCOUNTER 2022-02-05 02:39 | Outpatient (CLI) | payer MEDICARE, BC, SELFPAY ==
[2022-02-05 10:42] LABS: ALT 24 U/L (14-59); AST 17 U/L (15-37); Calculated LDL 93 mg/dL (<100); Cholesterol 172 mg/dL (<200); HDL Cholesterol 64 mg/dL (40-60); Triglyceride 78 mg/dL (<150)
== END 2022-02-05 02:40 | disposition home or self-care (01) ==
LOC: LBO 02:39
PROVIDERS: PCP Family Medicine; Visit Provider Family Medicine
DX: E78.5 Hyperlipidemia, unspecified (principal); K76.0 Fatty (change of) liver, not elsewhere classified
CPT/HCPCS: 36415; 80061; 84450; 84460

== ENCOUNTER 2022-03-22 07:32 | Inpatient (IN) | payer MEDICARE, BC, SELFPAY ==
[2022-03-22] VITALS (57 sets, daily range): BP systolic 122–187; BP diastolic 53–129; PULSE 53–83; RESP 8–28; TEMP 36.2–36.8; O2SAT 95–99
--- NOTE | 2022-03-22 07:30 | RT.EKG_ITS ---
APPROVED REPORT Exam: Resting ECG Reason for Exam: dizzy weak Patient Location: E HR:68 bpm ECG Measurements Heart Rate 68 AXIS MT 215 P 43 QRSd 152 QRS -36 QT 455 T 125 QTc 484 Conclusion Sinus rhythm...normal P axis, V-rate 60- 99 Borderline prolonged MT interval...MT >212, V-rate 50- 90 Left bundle branch block...QRSd>120, broad/notched R ST elevation secondary to IVCD...Multiple VCG criteria. Sinus. LBBB. No STEMI. No significant change from previous EKG. I have reviewed and interpreted ECG and agree with software generated interpretation.
[2022-03-22 07:49] LABS: Absolute Basophil Count 0.04 10^3/uL (0.0-0.2); Absolute Eosinophil Count 0.13 10^3/uL (0.0-0.7); Absolute Lymphocyte Count 1.27 10^3/uL (1.2-3.4); Absolute Monocyte Count 0.48 10^3/uL (0.1-0.8); Absolute Neutrophil Count 2.14 10^3/uL (1.2-6.7); Eosinophils % 3.2; HCT 41.1 % (36.0-46.0); HGB 12.8 g/dL (11.2-15.7); Lymphocytes % 31.3; MCH 27.5 pg (27.0-33.0); MCHC 31.1 % (32.0-36.0); MCV 88 fL (80-95); MPV 10.7 fL (8.0-11.0); Monocytes % 11.8; Neutrophils % 52.7; Platelet Count 286 10^3/uL (130-400); RBC 4.65 10^6/uL (3.93-5.22); RDW 14.6 % (11.7-14.6); RDW-SD 47.1 fL; WBC 4.06 10^3/uL (4.4-10.8)
--- NOTE | 2022-03-22 08:03 | W.ED.GENAD ---
Discharge Plan Disposition Patient Disposition: [facility] INPATIENT Condition: Stable Discharge Details Chief Complaint: Dizzy/Sync Clinical Impression: Dizziness, Hypertensive urgency, Left leg weakness, UTI (urinary tract infection) Primary Care Provider: Kushal Noyola ED Provider: Sonia Rodriguez Home Meds and New Rx's Prescriptions: No Action losartan 100 mg tablet 100 mg PO DAILY Qty: 90 3RF metoprolol tartrate 25 mg tablet 25 mg PO DAILY Qty: 90 4RF duloxetine 20 mg capsule,delayed release(DR/EC) 20 mg PO DAILY Qty: 90 3RF Rx Instructions: dose reduction 08/28/21 alprazolam 0.25 mg tablet 0.25 mg PO BID PRN (Reason: anxiety) Qty: 10 0RF omeprazole 40 mg capsule,delayed release(DR/EC) 40 mg PO DAILY Qty: 90 3RF atorvastatin 20 mg tablet 20 mg PO QPM Qty: 90 3RF fluticasone propionate 16 GM spray,suspension 2 spray NS DAILY 0RF Medical Decision Making 0740 -- 81-year-old female with a history of hypertension, hyperlipidemia, GERD, anxiety, depression, breast cancer who presents for dizziness since yesterday with a brief episode of left arm heaviness yesterday and left leg heaviness that has been constant since yesterday. Denies any symptoms at present. Does admit to feeling anxiety and stress while listening about the war in [place] on the news a few days ago which she states bothered me very much . EKG notes a rate of 68, sinus, left bundle branch block, no STEMI. Vitals within normal limits. Patient appears slightly anxious but nontoxic. She has significant dry mucous membranes. She otherwise has no focal deficits on exam. No meningeal signs. Differential diagnosis includes dehydration, UTI, electrolyte abnormality, ACS, CVA. History and presentation does not appear consistent with PE or dissection. Labs ordered on arrival by nursing and findings consistent with UTI. She has a normal white blood cell count, hemoglobin and electrolytes. Troponin is negative. Will give IV fluids and obtain CTA head and neck and chest x-ray. 1000 --imaging reviewed and negative for acute findings. Orthostatics negative. Significant increase in blood pressure upon standing, 185/103. Patient states she took both of her blood pressure medications last night but did miss 2 days this week. She appears anxious. We will give a dose of Ativan and reassess. 1130 -- Pt feels much better. BP significantly improved, now 122/84. Pt feels much better and has no acute complaints. Will feed and attempt to ambulate. 1245 -- patient ambulated and still complained of dizziness and left leg weakness and needed assistance with ambulating. concerned with patient going home. Will admit for continued monitoring, treatment of UTI, physical therapy, blood pressure monitoring with consideration for MRI brain if left leg weakness persists. Repeat troponin negative. Case discussed with hospitalist who accepts patient for admission. Medical Records Medical records reviewed: Yes I reviewed the patient's medical records. Imaging Data Radiologic Study: Radiologist's impression: CT Head Without Contrast Exam date and time: 03/22/2022 8:49 AM Age: 81 years old Clinical indication: Weakness TECHNIQUE: Imaging protocol: Computed tomography of the head without contrast. COMPARISON: CT HEAD AND CSPINE W/O CONTRAST 03/31/2017 9:23 AM FINDINGS: Brain: Area of encephalomalacia in the right basal ganglia related to old infarct. Subcortical, periventricular, and subinsular white matter hypoattenuation likely consistent with mild chronic microvascular ischemic disease. No acute hemorrhage identified. No acute ischemic infarct identified. Cerebral ventricles: The ventricles are within normal limits. Paranasal sinuses: The visualized sinuses are unremarkable.? Mastoid air cells: The visualized mastoid air cells are well aerated. Bones/joints: The osseous structures are intact. Soft tissues: Unremarkable. IMPRESSION: 1. No acute intracranial abnormality identified. 2. 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 3. Mild chronic microvascular ischemic disease. CT Angiography Head With Contrast, Arteriography Exam date and time: 03/22/2022 8:49 AM Age: 81 years old Clinical indication: Weakness TECHNIQUE: Imaging protocol: Computed tomography angiography of the head with contrast. Exam focused on the arteries. 3D rendering (Not supervised by radiologist): MIP and/or 3D reconstructed images were created by the technologist. COMPARISON: CT HEAD AND CSPINE W/O CONTRAST 03/31/2017 9:23 AM FINDINGS: ANTERIOR CIRCULATION: Right internal carotid artery: Venous contamination in the region of the cavernous portion of the ICAs, limiting evaluation. The remainder of the ICAs are unremarkable. Right middle cerebral artery: Unremarkable. No occlusion or significant stenosis. No aneurysm.? Right anterior cerebral artery: The right A1 segment is diminutive. The remainder of the right anterior cerebral artery is patent without significant abnormality or stenosis. Anterior communicating artery: The anterior communicating artery is patent. Left internal carotid artery: Unremarkable. Intracranial segment is patent with no significant stenosis. No aneurysm. Left middle cerebral artery: Unremarkable. No occlusion or significant stenosis. No aneurysm.? Left anterior cerebral artery: Unremarkable. No occlusion or significant stenosis. No aneurysm.? POSTERIOR CIRCULATION: Right vertebral artery: Unremarkable. No occlusion or significant stenosis. No aneurysm.? Left vertebral artery: Unremarkable. No occlusion or significant stenosis. No aneurysm.? Basilar artery: Unremarkable. No occlusion or significant stenosis. No aneurysm. Right posterior cerebral artery: Unremarkable. No occlusion or significant stenosis. No aneurysm.? Left posterior cerebral artery: Unremarkable. No occlusion or significant stenosis. No aneurysm.? Brain: No definite mass, mass effect, or midline shift. Cerebral ventricles: No ventriculomegaly. Bones/joints: Unremarkable. No acute fracture. Soft tissues: Unremarkable. IMPRESSION: 1. The right A1 segment is diminutive. The remainder of the right anterior cerebral artery is patent without significant abnormality or stenosis. 2. The remainder of the intracerebral arterial circulation is unremarkable. CT Angiography Neck With Contrast Exam date and time: 03/22/2022 8:49 AM Age: 81 years old Clinical indication: Weakness TECHNIQUE: Imaging protocol: Computed tomography angiography of the neck with contrast. 3D rendering (Not supervised by radiologist): MIP and/or 3D reconstructed images were created by the technologist. COMPARISON: CT HEAD AND CSPINE W/O CONTRAST 03/31/2017 9:23 AM FINDINGS: Right common carotid artery: No stenosis. No dissection or occlusion. Right internal carotid artery: No stenosis of the extracranial segment. No dissection or occlusion. Right external carotid artery: No occlusion or stenosis of the origin.? Left common carotid artery: No stenosis. No dissection or occlusion. Left internal carotid artery: No stenosis of the extracranial segment. No dissection or occlusion. Left external carotid artery: No occlusion or stenosis of the origin.? Right vertebral artery: No stenosis. No dissection or occlusion. Left vertebral artery: No stenosis. No dissection or occlusion. Soft tissues: Normal. No significant soft tissue swelling. Bones/joints: Mild bilateral facet arthropathy. Lungs: Biapical pulmonary scarring noted. IMPRESSION: No significant arterial abnormality identified in the neck. Lab Data Lab results reviewed: Yes I reviewed the patient's lab results. Labs: 03/22/22 08:05 Urine - Reflex from Ua Urine Culture - Pending Laboratory Tests Range/Units 03/22/22 03/22/22 03/22/22 07:40 07:40 07:40 WBC (4.4-10.8) 10^3/uL 4.06 L RBC (3.93-5.22) 10^6/uL 4.65 Hgb (11.2-15.7) g/dL 12.8 Hct (36.0-46.0) % 41.1 MCV (80-95) fL 88 MCH (27.0-33.0) pg 27.5 MCHC (32.0-36.0) % 31.1 L RDW (11.7-14.6) % 14.6 Plt Count (130-400) 10^3/uL 286 MPV (8.0-11.0) fL 10.7 Immature Gran % 0.0 Neutrophils % 52.7 Lymphocytes % 31.3 Monocytes % 11.8 Eosinophils % 3.2 Basophils % 1.0 Nucleated RBC % (0.0-0.3) % 0.0 Absolute Neutrophils (1.2-6.7) 10^3/uL 2.14 Absolute Lymphocytes (1.2-3.4) 10^3/uL 1.27 Absolute Monocytes (0.1-0.8) 10^3/uL 0.48 Absolute Eosinophils (0.0-0.7) 10^3/uL 0.13 Absolute Basophils (0.0-0.2) 10^3/uL 0.04 Sodium (136-145) mmol/L 140 Potassium (3.5-5.1) mmol/L 3.9 Chloride (98-107) mmol/L 103 Carbon Dioxide (21.0-32.0) mmol/L 30.2 Anion Gap (3-11) mmol/L 6.8 BUN (7-18) mg/dL 12 Creatinine (0.55-1.02) mg/dL 0.9 Estimated GFR/1.73 m2 (mL/min/1.73m2) 59.80 Glucose (74-106) mg/dL 120 H Calcium (8.5-10.1) mg/dL 9.0 Magnesium (1.8-2.4) mg/dL 1.9 Total Bilirubin (0.2-1.0) mg/dL 0.4 AST (15-37) U/L 17 ALT (14-59) U/L 22 Alkaline Phosphatase (46-116) U/L 73 Troponin I (<or=60) ng/L < 50 Total Protein (6.4-8.2) g/dL 8.1 Albumin (3.4-5.0) g/dL 4.0 TSH (0.36-3.74) uIU/mL 3.98 H Free T4 (0.76-1.46) ng/dL 0.83 Urine Color (Yellow) Urine Clarity (Clear) Urine pH (5-8) Ur Specific [place] (1.005-1.025) Urine Protein (Negative) mg/dL Urine Ketones (Negative) mg/dL Urine Blood (Negative) Urine Nitrite (Negative) Urine Bilirubin (Negative) Urine Urobilinogen (Up TO 0.2) EU/dL Ur Leukocyte Esterase (Negative) Urine RBC (0-2) HPF Urine WBC (0-5) HPF Ur Epithelial Cells (Negative) HPF Urine Crystals (Negative) HPF Urine Bacteria (Negative) HPF Urine Casts (Negative) LPF Urine Mucus (Negative) Ur Culture Indicated? Urine Glucose (Negative) mg/dL COVID-19 Source Range/Units 03/22/22 03/22/22 03/22/22 08:05 12:00 13:20 WBC (4.4-10.8) 10^3/uL RBC (3.93-5.22) 10^6/uL Hgb (11.2-15.7) g/dL Hct (36.0-46.0) % MCV (80-95) fL MCH (27.0-33.0) pg MCHC (32.0-36.0) % RDW (11.7-14.6) % Plt Count (130-400) 10^3/uL MPV (8.0-11.0) fL Immature Gran % Neutrophils % Lymphocytes % Monocytes % Eosinophils % Basophils % Nucleated RBC % (0.0-0.3) % Absolute Neutrophils (1.2-6.7) 10^3/uL Absolute Lymphocytes (1.2-3.4) 10^3/uL Absolute Monocytes (0.1-0.8) 10^3/uL Absolute Eosinophils (0.0-0.7) 10^3/uL Absolute Basophils (0.0-0.2) 10^3/uL Sodium (136-145) mmol/L Potassium (3.5-5.1) mmol/L Chloride (98-107) mmol/L Carbon Dioxide (21.0-32.0) mmol/L Anion Gap (3-11) mmol/L BUN (7-18) mg/dL Creatinine (0.55-1.02) mg/dL Estimated GFR/1.73 m2 (mL/min/1.73m2) Glucose (74-106) mg/dL Calcium (8.5-10.1) mg/dL Magnesium (1.8-2.4) mg/dL Total Bilirubin (0.2-1.0) mg/dL AST (15-37) U/L ALT (14-59) U/L Alkaline Phosphatase (46-116) U/L Troponin I (<or=60) ng/L < 50 Total Protein (6.4-8.2) g/dL Albumin (3.4-5.0) g/dL TSH (0.36-3.74) uIU/mL Free T4 (0.76-1.46) ng/dL Urine Color (Yellow) Yellow Urine Clarity (Clear) Clear Urine pH (5-8) 6.0 Ur Specific [place] (1.005-1.025) 1.020 Urine Protein (Negative) mg/dL Negative Urine Ketones (Negative) mg/dL Negative Urine Blood (Negative) Moderate H Urine Nitrite (Negative) Negative Urine Bilirubin (Negative) Negative Urine Urobilinogen (Up TO 0.2) EU/dL 0.2 Ur Leukocyte Esterase (Negative) Moderate H Urine RBC (0-2) HPF 5-10 H Urine WBC (0-5) HPF 10-20 H Ur Epithelial Cells (Negative) HPF Moderate Urine Crystals (Negative) HPF Negative Urine Bacteria (Negative) HPF Moderate Urine Casts (Negative) LPF Negative Urine Mucus (Negative) Trace Ur Culture Indicated? Yes Urine Glucose (Negative) mg/dL Negative COVID-19 Source Nasal/Nares ECG Data Attestation: I personally reviewed and interpreted this ECG (s) as follows: Interpretation: Rate of 68, sinus, left bundle branch block, no STEMI, no significant change from previous EKG. HPI General Mode of arrival: ambulatory. Date/Time Provider Initiated Documentation: 03/22/22 07:35. Limitations to Documentation: no limitations. Information obtained by: patient. HPI Narrative: Pt is an 81yo F w/ a medical history of anxiety, hypertension, hyperlipidemia, GERD, Grave's disease, breast cancer who presents to the ED w/ a c/o dizziness since yesterday with a brief episode of left arm heaviness yesterday and left leg heaviness that has been constant since yesterday. She states the dizziness is worse when she stands up and walks around and feels like a lightheaded sensation. She states she first noted the dizziness when getting out of bed yesterday morning and this morning. She states she chronically has a sensation of feeling off balance when walking at baseline but states this has been more intense than usual since yesterday. She denies any spinning sensation. She also states she had a brief episode of left arm heaviness that lasted a few minutes while sitting down yesterday. She also states she felt that her left leg has been heavy, and more specifically in her left knee since yesterday. She states she feels that she wants to scuffle her left leg while walking. She states she does not drink much water throughout the day and states she only takes a sip of water with her pills at nighttime. She states she thought she was dehydrated so she drank more water yesterday. She does admit to increased urinary frequency over the past few days. She does state that she had a feeling of anxiety and stress a few days ago while sitting watching the news. She states while hearing about the war in she became anxious while taking a nap and that made her head feel foggy . She denies any significant headache, blurry vision, chest pain, shortness of breath, abdominal pain, nausea, vomiting, diarrhea, fever, cough or any other recent illness. She denies any recent change in her medications. She does states she missed 2 days of her medications this week because I did not feel like taking them. Related Data Home Medications Medication Instructions Recorded Confirmed fluticasone propionate 50 2 spray NS DAILY 03/02/18 03/22/22 mcg/actuation nasal spray,suspension alprazolam 0.25 mg tablet 0.25 mg PO BID PRN #10 tab 08/07/20 03/22/22 omeprazole 40 mg capsule,delayed 40 mg PO DAILY #90 tab-cap 08/06/21 03/22/22 release duloxetine 20 mg capsule,delayed 20 mg PO DAILY #90 tab-cap 08/28/21 03/22/22 release losartan 100 mg tablet 100 mg PO DAILY #90 tab-cap 08/28/21 03/22/22 metoprolol tartrate 25 mg tablet 25 mg PO DAILY #90 tab 08/28/21 03/22/22 atorvastatin 20 mg tablet 20 mg PO QPM #90 tab 11/27/21 03/22/22 Previous Rx's Medication Instructions Recorded alprazolam 0.25 mg tablet 0.25 mg PO BID PRN #10 tab 08/07/20 omeprazole 40 mg capsule,delayed 40 mg PO DAILY #90 tab-cap 08/06/21 release duloxetine 20 mg capsule,delayed 20 mg PO DAILY #90 tab-cap 08/28/21 release losartan 100 mg tablet 100 mg PO DAILY #90 tab-cap 08/28/21 metoprolol tartrate 25 mg tablet 25 mg PO DAILY #90 tab 08/28/21 atorvastatin 20 mg tablet 20 mg PO QPM #90 tab 11/27/21 Allergies Allergy/AdvReac Type Severity Reaction Status Date / Time sertraline AdvReac Ineffective Verified 03/22/22 07:39 General Stated Complaint: Dizzy/Sync MAULIK: 3 Review of Systems All systems reviewed & are unremarkable except as noted in HPI and below Constitutional Constitutional: Denies chills, Denies excessive sweating, Denies fatigue, Denies fever(s), Denies weakness and Denies weight loss Eyes Eyes: Reports system reviewed and no additional complaints, except as documented and Denies blurry vision ENT Ears, Nose, Mouth, and Throat: Denies vertigo, Reports dizziness, Denies otalgia, Denies nasal congestion, Denies sore throat and Denies throat swelling Cardiovascular Cardiovascular: Denies chest pain, Denies syncope, Denies rapid heart rate and Denies dyspnea Respiratory Respiratory: Denies chest congestion, Denies cough, Denies pain on inspiration and Denies dyspnea Gastrointestinal Gastrointestinal: Denies abdominal pain, Denies diarrhea and Denies vomiting Genitourinary Genitourinary: Denies hematuria, Denies dysuria and Denies flank pain Musculoskeletal Musculoskeletal: Denies back pain and Denies joint swelling Integumentary/Breasts Skin/Breast: Denies lesions and Denies rash Neurologic Neurologic: Denies behavioral changes, Denies confusion, Denies vertigo, Reports dizziness, Denies syncope, Reports localized weakness and Denies weakness Psychiatric Psychiatric: Denies behavioral changes, Denies confusion and Denies depression Endocrine Endocrine: Denies excessive sweating and Denies fatigue Hematologic/Lymphatic Hematologic/Lymphatic: Denies easy bruising and Denies lymphadenopathy Allergic/Immunologic Allergic/Immunologic: Denies throat swelling PFSH All Active Problems (Updated 03/22/22 @ 13:28 by Sonia Rodriguez DO) Dizziness (Acute) Hypertensive urgency (Acute) Left leg weakness (Acute) UTI (urinary tract infection) (Acute) Essential hypertension (Acute) Age-related macular degeneration (Acute) Anxiety (Acute 03/29/13) panic Bundle branch block (Acute) left bundle branch block; Cardiomyopathy (Acute) echo 12/31 EF43% echo 2010 EF35-40% echo 06/04 EF45-50% diastolic dysfunction nonischemic Gastroesophageal reflux disease (Chronic) 07/07/14; EGD; [facility] Malignant neoplasm of female breast (Acute 10/22/01) stage 2 IDC RIGHT BREAST lumpectomy radiation chemo Followed at [facility] Microscopic hematuria (Acute 02/02/18) 03/04/18; NEGATIVE CYSTOSCOPY Osteopenia (Acute) Risk factors: Graves; Arimidex D/C'd Fosamax Dexa in 2011; repeat in 2 years Mood disorder (Acute) improved w/ cymbalta Right knee meniscal tear (Chronic) Status post breast lumpectomy (Acute) History of esophagogastroduodenoscopy (Acute) Vaginitis and vulvovaginitis (Acute) Herpetic lesion (Acute) inside left labia MICHEL (dyspnea on exertion) (Acute) Pain, joint, knee, right (Acute) Pain in left hip (Acute) Temporal headache (Acute) Medical History (Updated 03/22/22 @ 13:28 by Sonia Rodriguez DO) Alcohol abuse Anxiety Breast cancer Depressive disorder GERD (gastroesophageal reflux disease) Graves' disease (03/29/13) Hyperlipidemia (02/15/13) Hypertension Idiopathic scoliosis Nonischemic cardiomyopathy Stress incontinence Surgical History (Updated 12/09/21 @ 11:50 by Khoa Albarado MD) Breast, Lumpectomy right lumpectomy-infiltration ductal; radiation and chemo Cystoscopy 03/04/18 NEGATIVE Hx of appendectomy Hx of cataract removal with insertion of prosthetic lens Hx of tubal ligation Family History Mother Essential hypertension Heart disease Myocardial infarction Father Diabetes Heart disease Sister Alzheimer disease Brother Essential hypertension Heart disease Grandfather Heart disease Grandfather Personal history of malignant neoplasm Grandmother Heart disease Grandmother Heart disease Maternal Uncle Stroke Son No problems noted. Son No problems noted. Son No problems noted. Son No problems noted. Daughter No problems noted. Daughter No problems noted. Social History Smoking/Tobacco Use Status: Former Tobacco Use Quit Date: 11/23/95 Smoking risk assessment performed?: Yes Alcohol Intake: never Drug use: Never Substance use type: does not use Household members: other Details: 2 Frequency: daily Do you feel safe at home: Yes Do you feel safe in your relationship?: Yes Exam Const General: cooperative and no acute distress Orientation: alert, awake and oriented x3 HENMT Head: normal to inspection Ears: hearing grossly normal bilaterally, external ears normal and TM's normal bilaterally General nose exam: external nose normal Face and sinus: normal facial exam Mouth: mucous membranes dry Teeth and gingiva: dentition normal Throat: posterior oropharynx normal Eyes General: appearance normal, both eyes and all related structures Eyelids: eyelids normal Pupils: PERRL EOM: EOM intact bilaterally Neck Neck: normal visual inspection Lymphatic: no lymphadenopathy noted Chest Chest: normal inspection of the chest Resp Effort & Inspection: normal respiratory effort and able to speak in complete sentences Auscultation: clear to auscultation bilaterally Cardio Rate: regular rate Rhythm: regular rhythm GI Inspection: normal to inspection Palpation: soft, not firm, no guarding, no hepatosplenomegaly, no masses and nontender Auscultation: normal bowel sounds Back/Spine/Pelvis Back: no CVA tenderness Skin General skin exam: no rashes or lesions noted Neuro General: patient alert, patient awake, moves all extremities, no meningeal signs and no focal motor deficits Cranial Nerves: CN's II-XI intact bilaterally Cognition: normal cognition Speech: speech normal Gait: normal gait Motor: muscle tone normal throughout, strength not 5/5 throughout, no pronator drift and no movement abnormalities noted Sensory Exam: no sensory deficits noted Extrem General: normal to inspection, full ROM, capillary refill normal and no edema Psych Appearance: grossly normal Mental Status: mental status grossly normal Speech and Movement: speech and movement normal Affect: normal affect Thought Process: normal Course Vital Signs Vital signs: Vital Signs Temperature 98 F 03/22/22 07:35 Pulse 75 03/22/22 07:35 Respiratory Rate 12 03/22/22 07:35 Blood Pressure 174/68 H 03/22/22 07:35 Pulse Oximetry 97 03/22/22 07:35 Temperature 98 F 03/22/22 07:35 Temperature Source Temporal Artery Scan 03/22/22 07:35 Pulse 67 03/22/22 07:46 Pulse 67 03/22/22 07:46 Respiratory Rate 16 03/22/22 07:46 Respiratory Effort 03/22/22 07:41 Respiratory Depth Normal 03/22/22 07:41 Respiratory Pattern Normal 03/22/22 07:41 Blood Pressure 159/85 H 03/22/22 07:46 Blood Pressure Mean 105 03/22/22 07:46 Blood Pressure Position Supine 03/22/22 07:35 Pulse Oximetry 97 03/22/22 07:46 Oxygen Delivery Method Room Air 03/22/22 07:35 Oxygen Flow Rate 0 03/22/22 07:35 Pain Level 0 03/22/22 07:35 Lab/Test Results Lab/Test Results: Laboratory Tests Range/Units 03/22/22 07:40 WBC (4.4-10.8) 10^3/uL 4.06 L RBC (3.93-5.22) 10^6/uL 4.65 Hgb (11.2-15.7) g/dL 12.8 Hct (36.0-46.0) % 41.1 MCV (80-95) fL 88 MCH (27.0-33.0) pg 27.5 MCHC (32.0-36.0) % 31.1 L RDW (11.7-14.6) % 14.6 Plt Count (130-400) 10^3/uL 286 MPV (8.0-11.0) fL 10.7 Immature Gran % 0.0 Neutrophils % 52.7 Lymphocytes % 31.3 Monocytes % 11.8 Eosinophils % 3.2 Basophils % 1.0 Nucleated RBC % (0.0-0.3) % 0.0 Absolute Neutrophils (1.2-6.7) 10^3/uL 2.14 Absolute Lymphocytes (1.2-3.4) 10^3/uL 1.27 Absolute Monocytes (0.1-0.8) 10^3/uL 0.48 Absolute Eosinophils (0.0-0.7) 10^3/uL 0.13 Absolute Basophils (0.0-0.2) 10^3/uL 0.04
[2022-03-22 08:11] LABS: Troponin I < 50 ng/L (<or=60)
[2022-03-22 08:13] LABS: Bilirubin Negative (Negative); Blood Moderate (Negative); Clarity Clear (Clear); Glucose Negative (Negative); Ketones Negative (Negative); Leukocyte Esterase Moderate (Negative); Nitrite Negative (Negative); Urobilinogen 0.2 EU/dL (Up TO 0.2)
[2022-03-22 08:14] LABS: ALT 22 U/L (14-59); AST 17 U/L (15-37); Alkaline Phosphatase 73 U/L (46-116); Anion Gap 6.8 mmol/L (3-11); BUN 12 mg/dL (7-18); Bilirubin, Total 0.4 mg/dL (0.2-1.0); CO2 30.2 mmol/L (21.0-32.0); CREATININE 0.9 mg/dL (0.55-1.02); Chloride 103 mmol/L (98-107); Glucose 120 mg/dL (74-106); Magnesium 1.9 mg/dL (1.8-2.4); Potassium 3.9 mmol/L (3.5-5.1); Sodium 140 mmol/L (136-145); TSH (W/Ref FT4) 3.98 uIU/mL (0.36-3.74); Total Protein 8.1 g/dL (6.4-8.2)
[2022-03-22 08:19] LABS: Bacteria Moderate HPF (Negative); C & S Indicated? Yes; Casts Negative LPF (Negative); Crystals Negative HPF (Negative); Epithelial Cells Moderate HPF (Negative); Mucus Trace (Negative)
--- NOTE | 2022-03-22 08:30 | DI.CT_ITS ---
Exam(s) CT BRAIN NECK CTA EXAM: CT BRAIN NECK CTA CLINICAL HISTORY: L arm/leg weakness, r/o cva. TECHNIQUE: Imaging Protocol: Axial CT angiography was performed with multi-slice acquisition and mu lti-planar and 3D reconstructions. CONTRAST MATERIAL: Intravenous: Omnipaque 350 Contrast volume:85 ml COMPARISON: CT CHEST ABD PELVIS WO CONTRAST from 05/23/2016 FINDINGS: CT Head W/O and W contrast: Ventricles and Extra axial spaces: Normal in size and morphology for the patient's age. Hemorrhage: None. Cerebral parenchyma: Mild atrophy. Old right basal ganglia lacunar infarct. Mild white matter barroso es of small vessel disease. Midline shift: None. Brainstem/Cerebellum: Normal. Calvarium: Normal. Visualized Paranasal sinuses/Mastoids: Clear. Soft Tissues: Unremarkable. Enhancement: Normal. CTA Brain W: Internal Carotid Arteries: Petrous: Normal. Cavernous: Normal. Cerebral: Normal. Middle Cerebral Arteries: Right: No aneurysm, occlusion or significant stenosis. Left: No aneurysm, occlusion or significant stenosis. Anterior Cerebral Arteries: Right: Diminutive right A1 segment. No aneurysm, occlusion or significant stenosis. Left: No aneurysm, occlusion or significant stenosis. Posterior cerebral Arteries: Right: No aneurysm, occlusion or significant stenosis. Left: No aneurysm, occlusion or significant stenosis. Vertebral Arteries: Right: No aneurysm, occlusion or significant stenosis. Left: No aneurysm, occlusion or significant stenosis. Basilar Artery: No aneurysm, occlusion or significant stenosis. CTA Neck W: Common Carotid: Right: No aneurysm, occlusion or significant stenosis. Left: Calcification at bulb. No aneurysm, occlusion or significant stenosis. External Carotid: Right: No aneurysm, occlusion or significant stenosis. Left: No aneurysm, occlusion or significant stenosis. Internal Carotid: Right: No aneurysm, occlusion or significant stenosis. Left: Proximal calcification. No aneurysm, occlusion or significant stenosis. Vertebral Artery: Right: No aneurysm, occlusion or significant stenosis. Left: No aneurysm, occlusion or significant stenosis. Lung Apices: Increased interstitial changes Bones: Degenerative disc changes at C5-6. Facet degenerative changes. Soft Tissues: Normal. IMPRESSION: 1. Diminutive right A1 segment, otherwise normal CTA examination of the [place]. 2. Head CT: Old right basal ganglion infarct. No acute abnormality. 3. Calcific plaque at the left common carotid bulb and proximal left internal carotid artery without evidence of significant stenosis.. RADIATION DOSE DELIVERED: 1,510.85mGy.cm Total DLP DATA REPOSITORY: All CT scans at this facility are submitted to the National Radiology Data Registry (NRDR) Dose Index Registry (DIR) with the [employer] (ACR). RADIATION OPTIMIZATION: All CT scans at this facility use at least one of these dose optimization te chniques: automated exposure control; mA and/or kV adjustment per patient size (includes targeted exa ms where dose is matched to clinical indication); or iterative reconstruction.
--- NOTE | 2022-03-22 08:30 | DI.RAD_ITS ---
Exam(s) XR CHEST 2V PA LATERAL EXAM: XR CHEST 2V PA LATERAL CLINICAL HISTORY: dizziness, r/o acute disease TECHNIQUE: 2D digital imaging was performed. COMPARISON: CT CHEST ABD PELVIS WO CONTRAST from 05/23/2016 FINDINGS: MEDIASTINUM: Normal. HEART: Normal. Aorta calcified. PULMONARY VASCULATURE: Normal. LUNGS: Interstitial changes greater in the upper lobes. PLEURAL SPACE: No pleural effusion or pneumothorax. BONE:Unremarkable for age. IMPRESSION: No acute abnormality. DATA REPOSITORY: RADIATION DOSE DELIVERED:
[2022-03-22 08:31] LABS: FREE T4 0.83 ng/dL (0.76-1.46)
[2022-03-22] MEDS: Normal Saline 500 ML IV ×2 (08:36→12:39)
[2022-03-22] MEDS: Omnipaque 350 MG/ML 100 ML BTL IJ (09:01)
--- NOTE | 2022-03-22 10:01 | DI.VRAD_ITS ---
PROCEDURE INFORMATION: Exam: CT Head Without Contrast Exam date and time: 03/22/2022 8:49 AM Age: 81 years old Clinical indication: Weakness TECHNIQUE: Imaging protocol: Computed tomography of the head without contrast. COMPARISON: CT HEAD AND CSPINE W/O CONTRAST 03/31/2017 9:23 AM FINDINGS: Brain: Area of encephalomalacia in the right basal ganglia related to old infarct. Subcortical, periventricular, and subinsular white matter hypoattenuation likely consistent with mild chronic microvascular ischemic disease. No acute hemorrhage identified. No acute ischemic infarct identified. Cerebral ventricles: The ventricles are within normal limits. Paranasal sinuses: The visualized sinuses are unremarkable. Mastoid air cells: The visualized mastoid air cells are well aerated. Bones/joints: The osseous structures are intact. Soft tissues: Unremarkable. IMPRESSION: 1. No acute intracranial abnormality identified. 2. 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 3. Mild chronic microvascular ischemic disease. PROCEDURE INFORMATION: Exam: CT Angiography Head With Contrast, Arteriography Exam date and time: 03/22/2022 8:49 AM Age: 81 years old Clinical indication: Weakness TECHNIQUE: Imaging protocol: Computed tomography angiography of the head with contrast. Exam focused on the arteries. 3D rendering (Not supervised by radiologist): MIP and/or 3D reconstructed images were created by the technologist. COMPARISON: CT HEAD AND CSPINE W/O CONTRAST 03/31/2017 9:23 AM FINDINGS: ANTERIOR CIRCULATION: Right internal carotid artery: Venous contamination in the region of the cavernous portion of the ICAs, limiting evaluation. The remainder of the ICAs are unremarkable. Right middle cerebral artery: Unremarkable. No occlusion or significant stenosis. No aneurysm. Right anterior cerebral artery: The right A1 segment is diminutive. The remainder of the right anterior cerebral artery is patent without significant abnormality or stenosis. Anterior communicating artery: The anterior communicating artery is patent. Left internal carotid artery: Unremarkable. Intracranial segment is patent with no significant stenosis. No aneurysm. Left middle cerebral artery: Unremarkable. No occlusion or significant stenosis. No aneurysm. Left anterior cerebral artery: Unremarkable. No occlusion or significant stenosis. No aneurysm. POSTERIOR CIRCULATION: Right vertebral artery: Unremarkable. No occlusion or significant stenosis. No aneurysm. Left vertebral artery: Unremarkable. No occlusion or significant stenosis. No aneurysm. Basilar artery: Unremarkable. No occlusion or significant stenosis. No aneurysm. Right posterior cerebral artery: Unremarkable. No occlusion or significant stenosis. No aneurysm. Left posterior cerebral artery: Unremarkable. No occlusion or significant stenosis. No aneurysm. Brain: No definite mass, mass effect, or midline shift. Cerebral ventricles: No ventriculomegaly. Bones/joints: Unremarkable. No acute fracture. Soft tissues: Unremarkable. IMPRESSION: 1. The right A1 segment is diminutive. The remainder of the right anterior cerebral artery is patent without significant abnormality or stenosis. 2. The remainder of the intracerebral arterial circulation is unremarkable. PROCEDURE INFORMATION: Exam: CT Angiography Neck With Contrast Exam date and time: 03/22/2022 8:49 AM Age: 81 years old Clinical indication: Weakness TECHNIQUE: Imaging protocol: Computed tomography angiography of the neck with contrast. 3D rendering (Not supervised by radiologist): MIP and/or 3D reconstructed images were created by the technologist. COMPARISON: CT HEAD AND CSPINE W/O CONTRAST 03/31/2017 9:23 AM FINDINGS: Right common carotid artery: No stenosis. No dissection or occlusion. Right internal carotid artery: No stenosis of the extracranial segment. No dissection or occlusion. Right external carotid artery: No occlusion or stenosis of the origin. Left common carotid artery: No stenosis. No dissection or occlusion. Left internal carotid artery: No stenosis of the extracranial segment. No dissection or occlusion. Left external carotid artery: No occlusion or stenosis of the origin. Right vertebral artery: No stenosis. No dissection or occlusion. Left vertebral artery: No stenosis. No dissection or occlusion. Soft tissues: Normal. No significant soft tissue swelling. Bones/joints: Mild bilateral facet arthropathy. Lungs: Biapical pulmonary scarring noted. IMPRESSION: No significant arterial abnormality identified in the neck. REFERENCES: NASCET CRITERIA. The degree of internal carotid artery stenosis is based on NASCET criteria. Normal is no stenosis. Mild is less than 50% stenosis. Moderate is 50-69% stenosis. Severe is 70% to 99% stenosis. Total occlusion is no detectable patent lumen. Dictated and Authenticated by: William Gamez MD. Ordering:ANTIHA Scott MD
--- NOTE | 2022-03-22 10:02 | DI.VRAD_ITS ---
PROCEDURE INFORMATION: Exam: XR Chest Exam date and time: 03/22/2022 9:05 AM Age: 81 years old Clinical indication: Other: Left side weakness TECHNIQUE: Imaging protocol: XR of the chest. Views: 2 views. COMPARISON: CT CHEST ABD PELVIS WO CONTRAST 05/23/2016 5:05 PM FINDINGS: Lungs: The lung parenchyma is clear. Pleural spaces: No pneumothorax. No pleural effusion. Heart/Mediastinum: The cardiomediastinal silhouette is within normal limits. Diaphragm: Elevation of the right hemidiaphragm again noted, unchanged from prior exam in 2015. Bones/joints: Unremarkable. IMPRESSION: No acute cardiopulmonary abnormality. Dictated and Authenticated by: William Gamez MD. Ordering:ANITHA Scott MD
[2022-03-22] MEDS: LORazepam 0.5 MG TAB PO (10:11)
[2022-03-22 12:28] LABS: Troponin I < 50 ng/L (<or=60)
--- NOTE | 2022-03-22 13:01 | HPE_ITS ---
Date of service: 03/22/22 Time of Service: 15:43 Assessment and Plan Assessment and plan (1) Dizziness: Status: Acute Assessment and plan: Vertiginous in nature. Positional vs CVA related. 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 She is on atorvastin; not high dose. Start ASA 81mg daily. PT/OT. MRI head on Thursday. (2) Hypertensive urgency: Status: Acute Assessment and plan: Cont losartan and metoprolol. She did miss 2 days of taking her meds this week. BP temporarily improved from the 180 range to 150-160's. May need to add another medication; diuretic vs amlodipine. Monitor. (3) UTI (urinary tract infection): Status: Acute Assessment and plan: Cont Rocephin 1 gram daily. Cx pending. (4) Essential hypertension: Status: Acute (5) Anxiety: Status: Acute Assessment and plan: See above. (6) Nonischemic cardiomyopathy: Assessment and plan: Echocardiogram on 11/27/20: There is global hypokinesis of the left ventricle. The diastolic function is abnormal. LVEF is 42%. Cont ARB and BB. NM MPID 11/27/20: The ejection fraction was 44% with stress.? There were no wall motion abnormalities. There was no evidence of ischemia on the imaging portion of the exam. This represents a normal SPECT stress test. (7) Discharge planning issues: Status: Acute Assessment and plan: Likely home; possible with PT. (8) DVT prophylaxis: Status: Acute Assessment and plan: Lovenox SQ History of Present Illness History of Present Illness Chief Complaint: Dizziness and LLE heaviness Narrative: This is an 81 yo female with a PMH of HTN, HLD, Grave's disease, breast cancer, anxiety. She presented to the ED with c/o dizziness since the previous day (feeling as if she is moving / adeg-oh-piip). Also experienced an episode of left arm and leg heaviness the day prior to presention. The heaviness in the left leg (knee area) has persisted. The dizziness was first noted when getting out of bed. No difficulty with speech, clumsiness of a hand, visual changes. No F/C. + urinary frequency. + anxiety; stressed recently after watching the news about the war in [facility]. Temperature ?98 F ?03/22/22 07:35 Pulse ?75 ?04/30/22 07:35 Respiratory Rate ?12 ?03/22/22 07:35 Blood Pressure ?174/68 H ?03/22/22 07:35 Pulse Oximetry ?97 ?03/22/22 07:35 EKG with LBBB, no STEMI. Rate 68. Normal WBC count, Hgb, Lytes. Orthostatic BP normal. D/T to the elevated BP and some notable anxiety, a dose of Ativan given and her BP improved. UA positive; Rocephin initiated. CT head: 1. No acute intracranial abnormality identified. 2. 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 3. Mild chronic microvascular ischemic disease. CTA head and neck was unremarkable. She was given IV fluids and then attempted to walk. Her gait was unsteady; she attributed this to dizziness and the heaviness of the LLE. Admitted for further stroke evaluation, PT/OT, telemetry. Review of Systems All systems reviewed & are unremarkable except as noted in HPI and below PFSH All Active Problems (Updated 03/22/22 @ 16:03 by Khoa Bashir MD) DVT prophylaxis (Acute) Discharge planning issues (Acute) Dizziness (Acute) Hypertensive urgency (Acute) Left leg weakness (Acute) UTI (urinary tract infection) (Acute) Essential hypertension (Acute) Age-related macular degeneration (Acute) Anxiety (Acute 03/29/13) panic Bundle branch block (Acute) left bundle branch block; Cardiomyopathy (Acute) echo 12/31 EF43% echo 2010 EF35-40% echo 06/04 EF45-50% diastolic dysfunction nonischemic Gastroesophageal reflux disease (Chronic) 07/07/14; EGD; González BURNETT Malignant neoplasm of female breast (Acute 10/22/01) stage 2 IDC RIGHT BREAST lumpectomy radiation chemo Followed at [facility] Microscopic hematuria (Acute 02/02/18) 03/04/18; NEGATIVE CYSTOSCOPY Osteopenia (Acute) Risk factors: Graves; Arimidex D/C'd Fosamax Dexa in 2011; repeat in 2 years Mood disorder (Acute) improved w/ cymbalta Right knee meniscal tear (Chronic) Status post breast lumpectomy (Acute) History of esophagogastroduodenoscopy (Acute) Vaginitis and vulvovaginitis (Acute) Herpetic lesion (Acute) inside left labia MICHEL (dyspnea on exertion) (Acute) Pain, joint, knee, right (Acute) Pain in left hip (Acute) Temporal headache (Acute) Medical History Alcohol abuse Anxiety Breast cancer Depressive disorder GERD (gastroesophageal reflux disease) Graves' disease (03/29/13) Hyperlipidemia (02/15/13) Hypertension Idiopathic scoliosis Nonischemic cardiomyopathy Stress incontinence Surgical History Breast, Lumpectomy right lumpectomy-infiltration ductal; radiation and chemo Cystoscopy 03/04/18 NEGATIVE Hx of appendectomy Hx of cataract removal with insertion of prosthetic lens Hx of tubal ligation Family History Mother Essential hypertension Heart disease Myocardial infarction Father Diabetes Heart disease Sister Alzheimer disease Brother Essential hypertension Heart disease Grandfather Heart disease Grandfather Personal history of malignant neoplasm Grandmother Heart disease Grandmother Heart disease Maternal Uncle Stroke Son No problems noted. Son No problems noted. Son No problems noted. Son No problems noted. Daughter No problems noted. Daughter No problems noted. Social History Smoking/Tobacco Use Status: Former Tobacco Use Quit Date: 11/23/95 Smoking risk assessment performed?: Yes Alcohol Intake: never Drug use: Never Substance use type: does not use Household members: other Details: 2 Frequency: daily Do you feel safe at home: Yes Do you feel safe in your relationship?: Yes Meds Allergies and Home Medications Allergies Allergy/AdvReac Type Severity Reaction Status Date / Time sertraline AdvReac Ineffective Verified 03/22/22 07:39 Home Medications Medication Instructions Recorded Confirmed Type fluticasone propionate 50 2 spray NS DAILY 03/02/18 03/22/22 History mcg/actuation nasal spray,suspension alprazolam 0.25 mg tablet 0.25 mg PO BID PRN #10 tab 08/07/20 03/22/22 Rx omeprazole 40 mg capsule,delayed 40 mg PO DAILY #90 tab-cap 08/06/21 03/22/22 Rx release duloxetine 20 mg capsule,delayed 20 mg PO DAILY #90 tab-cap 08/28/21 03/22/22 Rx release losartan 100 mg tablet 100 mg PO DAILY #90 tab-cap 08/28/21 03/22/22 Rx metoprolol tartrate 25 mg tablet 25 mg PO DAILY #90 tab 08/28/21 03/22/22 Rx atorvastatin 20 mg tablet 20 mg PO QPM #90 tab 11/27/21 03/22/22 Rx Exam Narrative Exam Narrative: Pleasant, conversant female lying in bed. Const General: cooperative and no acute distress Nutritional Appearance: average body habitus Orientation: alert and oriented x3 HENMT Head: atraumatic Ears: hearing grossly normal bilaterally Eyes General: appearance normal, both eyes and all related structures Sclera: sclerae normal Neck Neck: full ROM and no JVD Resp Effort & Inspection: normal respiratory effort Auscultation: clear to auscultation bilaterally Cardio Rate: regular rate Rhythm: regular rhythm Heart Sounds: S1 normal and S2 normal GI Palpation: soft and nontender Auscultation: normal bowel sounds Skin General skin exam: no rashes or lesions noted Neuro General: no focal motor deficits Cranial Nerves: facial strength normal and tongue midline Cognition: normal cognition Speech: speech normal Extrem General: no joint enlargement, no pedal edema and no calf tenderness Psych Appearance: grossly normal Mental Status: mental status grossly normal Affect: normal affect Results Labs Result diagrams: 03/22/22 07:40 03/22/22 07:40 Labs: Laboratory Results - last 24 hr 03/22/22 03/22/22 03/22/22 07:40 07:40 07:40 WBC 4.06 L RBC 4.65 Hgb 12.8 Hct 41.1 MCV 88 MCH 27.5 MCHC 31.1 L RDW 14.6 Plt Count 286 MPV 10.7 Immature Gran % 0.0 Neutrophils % 52.7 Lymphocytes % 31.3 Monocytes % 11.8 Eosinophils % 3.2 Basophils % 1.0 Nucleated RBC % 0.0 Absolute Neutrophils 2.14 Absolute Lymphocytes 1.27 Absolute Monocytes 0.48 Absolute Eosinophils 0.13 Absolute Basophils 0.04 Sodium 140 Potassium 3.9 Chloride 103 Carbon Dioxide 30.2 Anion Gap 6.8 BUN 12 Creatinine 0.9 Estimated GFR/1.73 m2 59.80 Glucose 120 H Calcium 9.0 Magnesium 1.9 Total Bilirubin 0.4 AST 17 ALT 22 Alkaline Phosphatase 73 Troponin I < 50 Total Protein 8.1 Albumin 4.0 TSH 3.98 H Free T4 0.83 Urine Color Urine Clarity Urine pH Ur Specific [place] Urine Protein Urine Ketones Urine Blood Urine Nitrite Urine Bilirubin Urine Urobilinogen Ur Leukocyte Esterase Urine RBC Urine WBC Ur Epithelial Cells Urine Crystals Urine Bacteria Urine Casts Urine Mucus Ur Culture Indicated? Urine Glucose 03/22/22 03/22/22 08:05 12:00 WBC RBC Hgb Hct MCV MCH MCHC RDW Plt Count MPV Immature Gran % Neutrophils % Lymphocytes % Monocytes % Eosinophils % Basophils % Nucleated RBC % Absolute Neutrophils Absolute Lymphocytes Absolute Monocytes Absolute Eosinophils Absolute Basophils Sodium Potassium Chloride Carbon Dioxide Anion Gap BUN Creatinine Estimated GFR/1.73 m2 Glucose Calcium Magnesium Total Bilirubin AST ALT Alkaline Phosphatase Troponin I < 50 Total Protein Albumin TSH Free T4 Urine Color Yellow Urine Clarity Clear Urine pH 6.0 Ur Specific [place] 1.020 Urine Protein Negative Urine Ketones Negative Urine Blood Moderate H Urine Nitrite Negative Urine Bilirubin Negative Urine Urobilinogen 0.2 Ur Leukocyte Esterase Moderate H Urine RBC 5-10 H Urine WBC 10-20 H Ur Epithelial Cells Moderate Urine Crystals Negative Urine Bacteria Moderate Urine Casts Negative Urine Mucus Trace Ur Culture Indicated? Yes Urine Glucose Negative Last Vital Signs Temp 36.6 C 03/22/22 07:35 Pulse 58 L 03/22/22 12:35 Resp 16 03/22/22 12:30 BP 156/80 H 03/22/22 12:35 Pulse Ox 98 03/22/22 12:35
[2022-03-22] MEDS: cefTRIAXone 1 GM/50 ML BAG IVPB (13:05)
[2022-03-22 14:16] LABS: COVID-19 PCR Negative (Negative); Source Nasal/Nares
[2022-03-22] MEDS: Enoxaparin 40 MG/0.4 ML SYR SC (15:58)
[2022-03-22] MEDS: Aspirin 81 MG CHEW PO (15:58)
[2022-03-22] MEDS: Atorvastatin 20 MG TAB PO (21:28)
[2022-03-23] VITALS (10 sets, daily range): BP systolic 151–170; BP diastolic 72–101; PULSE 62–71; RESP 16–18; TEMP 36.3–36.9; O2SAT 97–100
[2022-03-23] MEDS: Aspirin 81 MG CHEW PO (07:39)
[2022-03-23] MEDS: Omeprazole 20 MG CAPCR 40 MG PO (07:39)
[2022-03-23] MEDS: Metoprolol 25 MG TAB PO (07:39)
[2022-03-23] MEDS: Losartan 50 MG TAB 100 MG PO (07:39)
[2022-03-23] MEDS: cefTRIAXone 1 GM/50 ML BAG IVPB (07:39)
[2022-03-23] MEDS: DULoxetine 20 MG CAP PO (07:39)
[2022-03-23] MEDS: Fluticasone NASAL SPRAY 16 GM BTL NS (07:41)
--- NOTE | 2022-03-23 08:39 | INITIAL_ITS ---
- If Service Date Differs Date of service: 03/23/22 Time of Service: 08:39 Care Management Initial Assess REASON FOR HOSPITALIZATION:: UTI, dizziness. PAST MEDICAL HISTORY/PAST SURGICAL HISTORY:: All Active Problems: DVT prophylaxis (Acute), Discharge planning issues (Acute), Dizziness (Acute), Hypertensive urgency (Acute), Left leg weakness (Acute), UTI (urinary tract infection) (Acute), Essential hypertension (Acute), Age-related macular degeneration (Acute), Anxiety (Acute 03/29/13) - panic, Bundle branch block (Acute) - left bundle branch block; Cardiomyopathy (Acute) - echo 12/31 EF43%, echo 2010 EF35-40%,. echo 06/04 EF45-50% diastolic dysfunction, nonischemic, Gastroesophageal reflux disease (Chronic) - 07/07/14; EGD; González BURNETT, Malignant neoplasm of female breast (Acute 10/22/01) - stage 2 IDC RIGHT BREAST, lumpectomy radiation chemo - Followed at [facility], Microscopic hematuria (Acute 02/02/18) - 03/04/18; NEGATIVE CYSTOSCOPY, Osteopenia (Acute) - Risk factors: Graves; Arimidex - D/C'd Fosamax - Dexa in 2011; repeat in 2 years, Mood disorder (Acute) - improved w/ cymbalta, Right knee meniscal tear (Chronic), Status post breast lumpectomy (Acute), History of esophagogastroduodenoscopy (Acute), Vaginitis and vulvovaginitis (Acute), Herpetic lesion (Acute) - inside left labia, MICHEL (dyspnea on exertion) (Acute), Pain, joint, knee, right (Acute), Pain in left hip (Acute), and Temporal headache (Acute). Medical History: Alcohol abuse, Anxiety, Breast cancer, Depressive disorder, GERD (gastroesophageal reflux disease), Graves' disease (03/29/13), Hyperlipidemia (02/15/13), Hypertension, Idiopathic scoliosis,. Nonischemic cardiomyopathy, and Stress incontinence. Surgical History: Breast, Lumpectomy - right lumpectomy-infiltration ductal; radiation and chemo, Cystoscopy - 03/04/18 NEGATIVE, Hx of appendectomy, Hx of cataract removal with insertion of prosthetic lens, and Hx of tubal ligation. PREVIOUS FUNCTIONAL STATUS/SOCIAL/FAMILY SUPPORTS:: Amy lives in [place] with Valeriy, her of 60 years. They have 6 grown children; 4 of whom are scattered across [place], 1 son in [place], and 1 daughter in [place]. 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 She now spends her days caring for her cat (Brenden), her horse, and her home. Amy is independent at baseline. CURRENT FUNCTIONAL STATUS:: Amy is sitting on the side of the bed when CM stops by to see her. Her , Valeriy, is present in the room. Amy is pleasant and easily engages in conversation. She shares her fears that her health will deteriorate and she will lose some of her independence. ADVANCE DIRECTIVES:: None on file; Amy accepts a form from CM. Has patient been provided with info about the portal/API?: Yes Did the patient sign up for the portal?: No CODE STATUS:: Full Code INSURANCE COVERAGE / FINANCIAL ISSUES:: BCBS and Medicare. CURRENT HOME/COMMUNITY SERVICES/EQUIPMENT:: None. PRIMARY CARE PHYSICIAN:: Kushal Noyola MD ([facility]). POTENTIAL DISCHARGE NEEDS:: Follow up appointment with PCP and plan of care. PATIENT/FAMILY EDUCATION NEEDS:: Review discharge instructions; discuss Ask Me Three. ANTICIPATED BARRIERS TO DISCHARGE:: No anticipated barriers at this time. TRANSPORTATION:: Via private vehicle with her . PLAN:: Amy will likely return home with no services when medically cleared by provider. She will follow up with her PCP and discharge plan of care as instructed. She will be transported home by her via private vehicle when ready. CM will continue to follow.
--- NOTE | 2022-03-23 10:59 | W.PM.PROGNOT ---
Date of Service Date of service: 03/23/22 Time of Service: 11:02 Assessment and Plan Assessment and plan (1) Dizziness: Status: Acute Assessment and plan: Vertiginous in nature. Positional vs CVA related. 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 She is on atorvastin; not high dose. Start ASA 81mg daily. PT/OT. MRI head on Thursday. Today, her LLE symptom of heaviness has resolved. (2) Hypertensive urgency: Status: Acute Assessment and plan: Cont losartan and metoprolol. SBP generally in the 150's now. She did miss 2 days of taking her meds this week. May need to add another medication; diuretic vs amlodipine, but OK with moderate elevations given possible CVA vs TIA. Monitor. (3) UTI (urinary tract infection): Status: Acute Assessment and plan: Cont Rocephin 1 gram daily. Cx pending. (4) Essential hypertension: Status: Acute (5) Anxiety: Status: Acute Assessment and plan: See above. (6) Nonischemic cardiomyopathy: Assessment and plan: Echocardiogram on 11/27/20: There is global hypokinesis of the left ventricle. The diastolic function is abnormal. LVEF is 42%. Cont ARB and BB. NM MPID 11/27/20: The ejection fraction was 44% with stress.? There were no wall motion abnormalities. There was no evidence of ischemia on the imaging portion of the exam. This represents a normal SPECT stress test. (7) Discharge planning issues: Status: Acute Assessment and plan: Likely home; possible with PT. (8) DVT prophylaxis: Status: Acute Assessment and plan: Lovenox SQ Subjective Subjective Patient reports: no new complaints, feels better and afebrile; denies shortness of breath Interval history since last seen: She has ambulated with a steady gait today; per pt. No LLE heaviness. No dysuria. Exam Narrative Exam Narrative: Pleasant, conversant female sitting in recliner. Const General: cooperative, no acute distress and not ill appearing Nutritional Appearance: average body habitus Orientation: alert and oriented x3 HENMT Head: atraumatic Ears: hearing grossly normal bilaterally Eyes General: appearance normal, both eyes and all related structures Sclera: sclerae normal Neck Neck: full ROM and no JVD Resp Effort & Inspection: normal respiratory effort Auscultation: clear to auscultation bilaterally Cardio Rate: regular rate Rhythm: regular rhythm Heart Sounds: S1 normal and S2 normal GI Palpation: soft and nontender Auscultation: normal bowel sounds Skin General skin exam: no rashes or lesions noted Neuro General: no focal motor deficits Cranial Nerves: facial strength normal and tongue midline Cognition: normal cognition Speech: speech normal Extrem General: no joint enlargement, no pedal edema and no calf tenderness Psych Appearance: grossly normal Mental Status: mental status grossly normal Affect: normal affect Objective Last Vital Signs Temp 36.4 C L 03/23/22 07:30 Pulse 66 03/23/22 09:53 Resp 18 03/23/22 07:30 BP 152/101 H 03/23/22 07:30 Pulse Ox 100 03/23/22 07:30 Laboratory Results - last 24 hr 03/22/22 03/22/22 12:00 13:20 Troponin I < 50 COVID-19 Source Nasal/Nares SARS-CoV-2 (PCR) Negative
[2022-03-23] MEDS: Enoxaparin 40 MG/0.4 ML SYR SC (15:15)
[2022-03-23] MEDS: Atorvastatin 20 MG TAB PO (19:39)
[2022-03-24] VITALS (10 sets, daily range): BP systolic 121–151; BP diastolic 71–87; PULSE 52–76; RESP 12–17; TEMP 35.9–36.7; O2SAT 96–100
--- NOTE | 2022-03-24 | DI.MRI_ITS ---
Exam(s) MR BRAIN WO EXAM: MR BRAIN WO CLINICAL HISTORY: LLE weakness and vertigo TECHNIQUE: Multiplanar multisequence MRI of the brain was performed. COMPARISON: CT CT BRAIN NECK CTA from 03/22/2022 FINDINGS: VENTRICLES AND EXTRA AXIAL SPACES: Normal in size and morphology for the patient's age. MIDLINE SHIFT: None. CEREBRAL PARENCHYMA: Small focus of restricted diffusion adjacent to the right lateral ventricle, kathy suring 9 millimeters in size, consistent with an acute infarct. Old right thalamic infarct. No spac e-occupying lesion identified. Atrophy and white matter changes microvascular disease. HEMORRHAGE: None. BRAINSTEM/CEREBELLUM: Normal. VISUALIZED PARANASAL SINUSES/MASTOIDS:Clear. [place]: Normal flow void. PITUITARY GLAND: Unremarkable. IMPRESSION: 1. Small focus acute infarct in the white matter adjacent to the right lateral ventricle. 2. Old right thalamic infarct. DATA REPOSITORY:
[2022-03-24 06:06] LABS: HCT 36.5 % (36.0-46.0); HGB 11.4 g/dL (11.2-15.7); MCH 26.8 pg (27.0-33.0); MCHC 31.2 % (32.0-36.0); MCV 86 fL (80-95); MPV 10.8 fL (8.0-11.0); Platelet Count 245 10^3/uL (130-400); RBC 4.25 10^6/uL (3.93-5.22); RDW 14.4 % (11.7-14.6); RDW-SD 45.1 fL; WBC 4.58 10^3/uL (4.4-10.8)
[2022-03-24] MEDS: DULoxetine 20 MG CAP PO (07:34)
[2022-03-24] MEDS: Metoprolol 25 MG TAB PO (07:34)
[2022-03-24] MEDS: Omeprazole 20 MG CAPCR 40 MG PO (07:34)
[2022-03-24] MEDS: Losartan 50 MG TAB 100 MG PO (07:34)
[2022-03-24] MEDS: Aspirin 81 MG CHEW PO (07:34)
[2022-03-24] MEDS: Fluticasone NASAL SPRAY 16 GM BTL NS (07:35)
--- NOTE | 2022-03-24 08:40 | OT.INDS ---
Occupational Therapy Notes 03/24/22 OT consult received and pts chart was reviewed. OT went in to see pt who was sitting in her chair. She is pleasant and reports that she is independent. She states that she is dizzy but that seems to be improving. She states that she has no steps into her home. She lives with her and they are both retired. She was willing to allow OT to assess some of her ADLs today. LE dressing (I), UE dressing (I), she denies bathing as she is going down for testing but is able to perform this with AROM. She denies the need for OT services at this time because she states that if she wasn't dizzy she wouldn't be here. She states that she does not feel that her functional (I) in her ADLs has changed since admission. She has AROM for (B) UE WFL and ideal strength. Due to pt feeling that she is at her baseline level and her ability to perform her ADLs with OT today, OT will plan to discharge pts order from skilled OT services at this time. If pt declines or requires further ADLs in the future, OT will be happy to work with pt. Aruna Nielson, OTR/[facility]
--- NOTE | 2022-03-24 10:15 | IN_ITS ---
Date of service: 03/24/22 Time of Service: 10:59 PT Notes Visit Reasons: UTI,Dizziness Physical Therapy Inpatient Initial Evaluation Date: 03/24/2022 Referring Doctor: Khoa Lazcano MD PT Orders: PT CONSULT: Eval/treat Precautions: Fall. Standard. Activity as tolerated. Patient Profile/Admitting Diagnosis: Amy is an 81-year-old female who presented to the ED on 03/22/2022 due to complaints of dizziness and brief episode of left leg weakness. Patient is diagnosed with dizziness with a history of right basal ganglia infarct with an MRI ordered to determine cause of dizziness whether central or peripheral, hypertensive urgency, urinary tract infection, essential hypertension, and anxiety. PMHX: All Active Problems?(Updated 03/22/22 @ 16:03 by Khoa Bashir MD) DVT prophylaxis (Acute) Discharge planning issues (Acute) Dizziness (Acute) Hypertensive urgency (Acute) Left leg weakness (Acute) UTI (urinary tract infection) (Acute) Essential hypertension (Acute) Age-related macular degeneration (Acute) Anxiety (Acute 03/29/13) panic Bundle branch block (Acute) left bundle branch block; Cardiomyopathy (Acute) echo 12/31? EF43% echo 2010 EF35-40% echo 06/04 EF45-50% diastolic dysfunction nonischemic Gastroesophageal reflux disease (Chronic) 07/07/14; EGD; Gonz[facility]lez BURNETT Malignant neoplasm of female breast (Acute 10/22/01) stage 2 IDC RIGHT BREAST lumpectomy radiation chemo Followed at [facility] [email or web address]] Microscopic hematuria (Acute 02/02/18) 03/04/18; NEGATIVE CYSTOSCOPY Osteopenia (Acute) Risk factors: Graves; Arimidex D/C'd Fosamax Dexa in 2011; repeat in 2 years Mood disorder (Acute) improved w/ cymbaltaRight knee meniscal tear (Chronic) Status post breast lumpectomy (Acute) History of esophagogastroduodenoscopy (Acute) Vaginitis and vulvovaginitis (Acute) Herpetic lesion (Acute) nside left labiaDOE (dyspnea on exertion) (Acute) Pain, joint, knee, right (Acute) Pain in left hip (Acute) Temporal headache (Acute) Medical History? Alcohol abuse Anxiety Breast cancer Depressive disorder GERD (gastroesophageal reflux disease) Graves' disease (03/29/13) Hyperlipidemia (02/15/13) Hypertension Idiopathic scoliosis Nonischemic cardiomyopathy Stress incontinence Surgical History? Breast, Lumpectomy right lumpectomy-infiltration ductal; radiation and chemoCystoscopy 03/04/18 NEGATIVEHx of appendectomy Hx of cataract removal with insertion of prosthetic lens Hx of tubal ligation Social History/Home Situation: Lives with in a private home with a ramp to enter. Has a dog with disability for which the ramp was built. Independent with all mobility ADLs without an assistive device prior to admission. Has had no falls in the past year. Denies headache and chest pain. Equipment Owned/DME: None Subjective: Agreeable to PT consult. Continues to report feeling stuffy in the nose and full in the head today but of significantly less intensity as she did on admission. Still reports being a little off balance. Agreeable to bringign home FWW if needed for safety. Objective: General Observation: Seated at edge of bed. In NAD. Mental Status: Alert and oriented as to person, place, time, and purpose. Able to pay attention, focus, and respond appropriately. Pain: Denies Vital Signs: Blood pressure softening from 159 systolically earlier this morning at 3 AM compared to 141 mmHg systolically at time of PT evaluation ROM: Right Upper Extremity: Shoulder Flexion WFL. Shoulder abduction WFL. Elbow flexion WFL. Wrist flexion WFL. Functional opening and closing of hand WFL. Left Upper Extremity: Shoulder Flexion WFL. Shoulder abduction WFL. Elbow flexion WFL. Wrist flexion WFL. Functional opening and closing of hand WFL. Right Lower Extremity: Hip flexion WFL. Hip abduction WFL. Knee flexion WFL. Ankle dorsiflexion to neutral only. Ankle plantarflexion WFL. Left Lower Extremity: Hip flexion WFL. Hip abduction WFL. Knee flexion WFL. Ankle dorsiflexion to neutral only. Ankle plantarflexion WFL. Strength: Right Upper Extremity: Shoulder flexors 5/5. Shoulder abductors 5/5. Elbow flexors 5/5. Elbow extensors 5/5. Utility Operator Yarn strong. Left Upper Extremity: Shoulder flexors 5/5. Shoulder abductors 5/5. Elbow flexors 5/5. Elbow extensors 5/5. Utility Operator Yarn strong. Right Lower Extremity: Hip flexors 4-/5. Hip abductors 4-/5. Knee flexors 4/5. Knee extensors 4-/5. Ankle dorsiflexors 3-/5. Ankle plantarflexors 5/5. Left Lower Extremity: Hip flexors 5/5. Hip abductors 5/5. Knee flexors 5/5. Knee extensors 5/5. Ankle dorsiflexors 3-/5. Ankle plantarflexors 5/5. Bed Mobility/Transfers: Sit to stand with contact-guard assist Stand to sit with standby assist Gait: Instructed patient with level surface ambulation of 200 feet requiring contact- guard assist. Christine decreased. Complained of R knee being heavy. Positive drag on R foot. Reported that she still is not back to how she was previously. Thankful that she has the FWW. No loss of balance. No path deviation. Needed to slow down during directional changes. Balance: Static Sitting: Normal Dynamic Sitting: Normal Static Standing: Fair Dynamic Standing: Fair NEURO tests: 4-stage Balance test: Unable to do all 4 positions without being off balance. Romberg Test: Mild posterior sway during test Coordination: No issues with B UE, [id number] somewhat slower with the L foot Special Tests: Mobility Limitations Standardized Measure [facility] AM-PAC 6 clicks Basic Mobility Inpatient Short Form: Raw Score: 19 CMS Score: 42% deficit Informed Consent/Education: Patient was instructed in purpose of PT consult and plan of care. Agreeable to proceed with established PT POC to achieve personal goals. Assessment: Persistent balance impairment which requires use of FWW to allow for improved stability of walking. Subjective report of dysequilibrium persistent albeit of less intensity compared to day of admission. Patient presents with clinical signs and symptoms consistent with current/admitting diagnoses that have resulted to mobility limitations, gait instability, generalized weakness, and overall ADL decline as demonstrated by the following impairment level findings: 1. Decreased strength to R hip flexors and extensors 2. Impaired standing balance 3. Impaired activity tolerance 4. Persistent sende of being off-balance Impairments are contributing to the following functional limitations: 1. Difficulty with ambulation without assistive device and physical assistance 2. Increased completion time for mobility ADL performance 3. Increased risk for falls 4. Difficulty with managing steps alone safely Patient is assessed as a 74317 moderatecomplexity based on the following: History: 81-year-old female with past medical history as indicated above Examination: Demonstrable impairment in strength, balance, and mobility level with underlying impairments and functional limitations as exhibited above as well as deficit score of 42% utilizing the [facility] Mobility Inpatient Short Form Presentation: Evolving Decision Makin moderate complexity Goals: Goals X1 week 1. Supine-Sit independent 2. Sit-Supine independent 3. Sit-Stand independent 4. Stand-Sit independent with no AD 5. Bed-Chair independent with no AD 6. Chair-Bed independent with no AD 7. Independent gait on level surface with use of no ADfor at least 500 feet without report of pain nor dyspnea 8. Good static and dynamic standing balance/tolerance Plan of Care/Treatment Plan: 1-2x/day, 7 days/week x 1 week. Plan of care has been reviewed with the SUPERVISOR [employer] providing the service under Physical Therapy direction. Initiate Physical Therapy intervention for pain management as needed, strengthening, bed mobility, transfers, gait, stairs, balance training, and use of assistive device. DISCHARGE RECOMMENDATIONS: [] Home with no services [] [X] Home with services. Home when medically cleared by hospitalist. Patient will benefit from home health PT services in order to progress mobility level using least restrictive assistive ambulatory device, assess home safety, identify additional equipment needs, and establish a functional maintenance program that will increase ability of patient to remain at home. [] Home with outpatient PT [] [] SNF for continued rehabilitation [] [] Senior Care Care [] [] SNF versus LTC based on ability to participate and progress [] TREATMENT CODE/TIME: 9716 2 x 20 minutes, 9753 0 x 16 minutes beginning at 10:15 AM. Thank you for the opportunity to participate in the care of this patient. Lashon Hayes PT, DPT, CLT [facility] [place], [place]
--- NOTE | 2022-03-24 10:45 | PDOC.CMDIS ---
- If Service Date Differs Date of service: 03/24/22 Time of Service: 10:45 LACE Index Scoring Tool - Questions: Length of Stay (in days): 2 Acuity (Admit via E.D.?): Yes Comorbidities: Any Tumor E.D. Visits: 1 - Answers: Total Score: 8 Risk of Readmission: Low Risk Care Management Discharge Reason for Hospitalization: UTI, dizziness. Discharge Plan: Amy will return home with no services when medically cleared by provider. She will follow up with her PCP and discharge plan of care as instructed. She will be transported home by her via private vehicle when ready. Patient/Family Education Needs: Review discharge instructions, discuss Ask Me Three.
--- NOTE | 2022-03-24 15:08 | DI.US_ITS ---
APPROVED REPORT EXAM: Comprehensive 2D, Doppler, and color-flow Echocardiogram Patient Location: In-Patient Room/Bed: [facility] [place] Sex Therapist: Delores Coyle RDCS (AE) Other Information Study Quality: Adequate Conclusion Normal left ventricular chamber size. Borderline concentric left ventricular hypertrophy. Estimated ejection fraction is 50 to 55%. There are no segmental wall motion abnormalities Normal right ventricular size and systolic function Both atria are normal in size Aortic valve is trileaflet, very mildly sclerotic without stenosis or regurgitation Mild mitral annular calcification. Trace to mild mitral regurgitation Normal tricuspid valve with mild regurgitation. Estimated right ventricular systolic pressure is 16 mmHg Wall motion Left Ventricle The left ventricle is normal size. Left ventricular systolic function is mildly decreased. Borderline concentric left ventricular hypertrophy. There are no segmental wall motion abnormalities LVEF is 50 -55%. Right Ventricle The right ventricle is normal size. The right ventricular systolic function is normal. The RVSP is 16 .5mmHg. Atria The left atrium size is normal. The right atrium size is normal. The interatrial septum is intact wit h no evidence for an atrial septal defect. Aortic Valve The aortic valve is very mildly sclerotic Aortic valve is trileaflet. There is no aortic valvular smooth nosis. No aortic regurgitation is present. Mitral Valve Mild mitral annular calcification. No evidence of mitral valve stenosis. Trace to mild mitral regurgi tation. Tricuspid Valve The tricuspid valve is normal in structure. There is no tricuspid valve stenosis. Mild tricuspid regu rgitation. Pulmonic Valve The pulmonary valve is normal in structure. There is no pulmonic valvular stenosis. Trace pulmonic re gurgitation. Great Vessels The aortic root is normal in size. The ascending aorta is normal in size. Aortic arch is normal in ca liber. IVC is normal in size and collapses >50% with inspiration. Pericardium There is no pericardial effusion. 2D Dimensions IVSD d PLAX 1.06 cm F: 0.6-1.0 LV Vol A2C d MOD 86.5 mL LVPW d PLAX 1.06 cm F: 0.6 - 1.0 LV Vol A4C d MOD 103.5 mL LVID d PLAX 4.07 cm F: 3.8 - 5.2 LA vol/ BSA A2C s A-L 32.7 mL/m2 LVDs 3.05 cm F: 2.2 - 3.5 LA vol/ BSA A4C s A-L 28.0 mL/m2 Ao Root d 3.09 cm F: 2.7 - 3.3 LA Vol/ BSA Biplane s A-L 32.5 mL/m2 RA Area A4C 11.11 cm2 LA Area A4C s MOD 15.63 cm2 RA Vol/ BSA A4C s A-L 15.4 mL/m2 LA Area A2C s MOD 18.18 cm2 Ao Asc Diam d 3.16 cm F: 2.3 - 3.1 LV EF A4C MOD 50.2 % LV EF Teichholz 49.4 % LV EF A2C MOD 50.2 % LVEF (Bailey's) 51.14 % F: 54 - 74 LV EF Biplane MOD 51.1 % LV Volume 79.49 mL F: 46 - 106 SV 50.92 mL LV Volume Index 47.59 mL/m2 F: 29 - 61 SV Index 30.38 mL/m2 LV Vol Biplane MOD 99.6 mL FS 24.65 % M-Mode TAPSE 1.67 cm (M/F) >1.7 LV Diastology MV E' medial 0.047 (>0.07 m/s) E/A Ratio 0.8 LV E/e MED 9.70 (<14) MV E Vmax 0.46 (0.4-1.3 m/s) MV E' lateral 0.055 (>0.1 m/s) MV A Vmax 0.60 (0.4-1.3 m/s) LV E/e LAT 8.40 (<14) MV E/A Ratio 0.74 MV E/E' medial 9.72 MV E/E' lateral 8.42 Aortic Valve LVOT Area 3.11 cm2 AoV Area Vmax 2.29 cm2 LVOT Vmax 0.97 m/s AoV Area/ BSA (Vmax) 1.36 cm2/m2 LVOT Mean Greg. 0.66 m/s FELIX Mean Greg. 2.08 cm2 LVOT Peak Grad 3.8 mmHg FELIX Mean Greg. Index 1.24 cm2/m2 LVOT Mean Grad 2.0 mmHg LVOT VTI 0.202 m LVOT Diam s 1.95 cm AoV Vmax 1.32 m/s Velocity Ratio 0.73 AoV Mean Greg. 0.99 m/s AoV Peak Grad 7.0 mmHg LVOT SV 62.89 mL AoV Mean Grad 4.2 mmHg AoV VTI 0.242 m AoV Area VTI 2.60 cm2 AoV Area/ BSA (VTI) 1.55 cm/m2 Mitral Valve MV DT 315 (160-240 msec) MV PHT 91 msec MV Area PHT 2.41 cm2 Pulmonary Valve PV Vmax 0.87 (0.5-1.5 m/s) RVOT Peak Gr. 2.15 mmHg PV Peak Grad 3.0 mmHg RVOT Mean Gr. 1.00 mmHg PV Mean Grad 1.7 mmHg RVOT VTI 0.143 m PV VTI 0.180 m RVOT Vmax 0.73 m/s Tricuspid Valve TR Peak Grad 13.5 mmHg TR Vmax 1.84 m/s RA Pressure 3.00 mmHg RVSP (TR) 16.5 mmHg
--- NOTE | 2022-03-24 15:10 | PT.INTREAT ---
Date of service: 03/24/22 Time of Service: 14:36 PT Notes Visit Reasons: UTI,Dizziness Inpatient Physical Therapy Treatment Note [facility] Date: 03/24/2022 PRECAUTIONS: Activity as tolerated, left-sided hemiparesis SUBJECTIVE: Amy is pleasant and agreeable to participating in PT. She reports continued heaviness in left extremeties. She states that she would like to go home and feels that she could safely do so today. OBJECTIVE: PAIN: No c/o pain BED MOBILITY/TRANSFERS Supine-sit: I Sit-supine: I Sit-stand: S Stand-sit: S GAIT Assistive Device: FWW Weight bearing: Full Assist: S Distance: 300' Deviation: Per patient report: extra effort not to drag L LE NEURO RE-ED: Patient was instructed in a dynamic standing balance retraining program, to include: tandem walking, lateral walking and backward walking. All performed with CGA for safety. She requires B UE support for completion of most balance retraining activities. She was also instructed in functional [id number] exercise without UE support. ASSESSMENT: Patient demonstrates appropriate gait and pacing with FWW support. She demonstrates impaired dynamic balance during balance retraining exercises and would benefit from follow up with outpatient PT. PLAN: Continue with gait training with least restrictive device as well as balance retraining for improved safety. TREATMENT CODE/TIME: 25 minutes; 08082 x2 (14:36)
[2022-03-24] MEDS: Enoxaparin 40 MG/0.4 ML SYR SC (16:17)
[2022-03-24] MEDS: Clopidogrel 300 MG TAB PO (17:31)
--- NOTE | 2022-03-24 17:56 | W.PM.DS.N ---
Date of service: 03/24/22 Time of Service: 17:56 DS: Diagnosis Discharge Diagnosis (1) Acute CVA (cerebrovascular accident): Status: Acute Asessment and Plan: Patient initially presented with symptoms of dizziness gait imbalance and left arm and left leg heaviness and left leg weakness. The symptoms all resolved. Patient was started on Plavix with initial loading dose of 300 mg and then discharged home on 75 mg daily. She was kept on her usual dose of atorvastatin 20 mg daily as this has been controlling her lipid profile. Home physical therapy was ordered to follow her to assess her home conditions and her performance of her ADLs at home. Visiting nurse was also requested to monitor her her progression in her stroke recovery as well as monitor her medications and answer any questions that she and her might have. Both nursing and physical therapy will help coordinate services with her primary care provider as well as any consulting physicians. (2) Dizziness: Status: Resolved (3) Essential hypertension: Status: Acute Asessment and Plan: Initially patient's blood pressure was significantly elevated at 175/68 and reached levels as high as 185/103 but it was determined that she had missed a couple doses of her blood pressure medicines including Toprol-XL and losartan. Once these were instituted her blood pressure settled down at the time of discharge her blood pressure was normotensive at 124/73. Orthostatic vitals have been checked on the morning of discharge and were normal. (4) Nonischemic cardiomyopathy: Asessment and Plan: Echocardiogram was performed on the day of discharge as part of her stroke work-up. This demonstrated normal left ventricular size and function with an ejection fraction of 50 to 55% with no wall motion abnormalities. She has borderline concentric LVH. Normal right ventricular size and function. Normal right and left atria. Aortic valve is trileaflet and mildly sclerotic without stenosis or regurgitation. She has mild mitral annular calcification with trace to mild mitral vegetation. She has a normal tricuspid valve with mild regurgitation with normal RVSP of 60 mm. No changes were made in her blood pressure medications. Discharge Plan Disposition Patient Disposition: HOME W/HOME HEALTH SERVICE Condition: Improving Discharge Details Reason For Visit: UTI,Dizziness Admit Date/Time: 03/22/22 13:02 Admit Provider: Khoa Bashir Attending Provider: Khoa Bashir Primary Care Provider: Kushal Noyola Hospital Course Hospital Course: is an 81-year-old female history of essential hypertension, hyperlipidemia, Graves' disease, breast cancer, anxiety disorder who presented to the emergency department on 02/23/2022 with complaints of dizziness onset occurring the day prior to admission which she had experienced when she was feeling like she was moving sideways. This was also associated with episode left arm and left leg heaviness that also began the day prior to admission. Heaviness in the left leg persisted. She had no symptoms of speech difficulty or clumsiness with her hands or acute visual changes. She was evaluated in the emergency department work-up included routine labs as well as CT scan including CT angiogram of her head and neck chest x-ray and EKG. Chest x-ray showed no acute abnormality. CT of the head and neck showed evidence of an old right basal ganglion infarct. She had calcific plaques of the left common carotid bulb and proximal left internal carotid artery without hemodynamic significant stenosis. [place] of [place] was patent. Urinalysis was suspicious for UTI and she was started on Rocephin. On admission her blood pressure was elevated at 174/68 and remained persistently elevated throughout the morning of admission and into the evening of her admission. This was attributed to her missing a couple days of her blood pressure medications which include losartan and Toprol-XL. According to her admission H&P and ER examination she had no focal motor or sensory deficits and had normal gait. She reportedly takes aspirin at home and was continued on aspirin 81 mg daily and monitored on telemetry was kept on her usual dose of atorvastatin. She was monitored over the weekend had no significant arrhythmias rhythm was sinus rhythm with first-degree AV block. Physical therapy was consulted and Occupational Therapy was also consulted. Occupational Therapy did an evaluation on 03/24/2022 and found that she was at her baseline in ADL performance. Physical therapy also did an evaluation on 03/24/2022 see their detailed note. In summary they cleared the patient to return home with home services felt she would benefit from home health physical therapy services to progress in her mobility using least restrictive amatory devices and to assess home safety and to identify any additional equipment needs to establish a functional maintenance program that will increase her independence. Patient was walking independently with use of a walker. Their assessment included evidence of decreased strength to right hip flexors and extensors impaired standing balance impaired activity tolerance and persistent sense of being off balance. Completion of her work-up was delayed over the weekend as services for echocardiography and MRI were not available over the weekend. These were finished on 03/24/2022. MRI did confirm small focus of an acute infarct in the white matter adjacent to the right lateral ventricle as well as an old right thalamic infarct which had been seen on her CT scan. Echocardiogram was performed and showed normal left ventricular size with borderline concentric LVH. LVEF 50 to 55% with no wall motion abnormalities. Normal RV size and function. Both atria were normal in size. Aortic valve is trileaflet with mild sclerosis without stenosis or regurgitation. Mild mitral annular calcification was present with trace to mild mitral regurgitation. Tricuspid valve with mild regurgitation with normal RVSP of 60 mm. Patient was desiring to return home as she felt that she was back to her baseline function. I went over her MRI and echocardiogram and CTA findings in detail with her and her explaining that she did experience a stroke as a probable cause of her imbalance and symptoms of left leg and arm heaviness. At present time she was demonstrating good movement of her left arm and leg with no evidence for dropfoot. I felt that she can be safely discharged on an increased regimen including Plavix. Plavix was not initiated on admission. She was given a loading dose of 300 mg prior to discharge and discharged home on 75 mg of Plavix daily. She is told to continue aspirin 81 mg daily for the next 30 days. A lipid profile was not done during this admission but had been recently accomplished by her primary care provider which I reviewed. As of 02/05/2022 her lipid profile was well controlled with a triglyceride of 78, total cholesterol 172, LDL 93, HDL 64. This was a marked improvement over previous values from October 2021. Patient was told to continue her current dose of atorvastatin 20 mg daily. She is told to continue her current blood pressure regimen as her blood pressure had improved without further treatment. At the time of discharge her blood pressure was down to 124/73 with a heart rate of 76 with a sinus rhythm with first-degree AV block. She was told to not only follow-up with her primary care provider Dr. Kushal Noyola but she should also see a neurologist Dr. Kitty Alcantara and was told that we would call their office to request follow-up. She was discharged home in markedly improved condition. Of note while initially her urinalysis was suspicious for UTI and that it had moderate blood 5-10 red cells 10-20 white cells and also had moderate epithelial cells as well as moderate bacteria. Think this was a contamination as her final urine culture showed mixed gram-positive anabela between 50-100,000 colonies. She was treated with Rocephin for couple of days at the time of discharge she had no urinary tract symptoms. Home Meds and New Rx's Prescriptions: New clopidogrel [Plavix] 75 mg tablet 75 mg PO DAILY Qty: 30 3RF aspirin 81 mg capsule 81 mg PO DAILY Qty: 30 0RF Continued losartan 100 mg tablet 100 mg PO DAILY Qty: 90 3RF metoprolol tartrate 25 mg tablet 25 mg PO DAILY Qty: 90 4RF duloxetine 20 mg capsule,delayed release(DR/EC) 20 mg PO DAILY Qty: 90 3RF Rx Instructions: dose reduction 08/28/21 alprazolam 0.25 mg tablet 0.25 mg PO BID PRN (Reason: anxiety) Qty: 10 0RF atorvastatin 20 mg tablet 20 mg PO QPM Qty: 90 3RF fluticasone propionate 16 GM spray,suspension 2 spray NS DAILY 0RF Discontinued omeprazole 40 mg capsule,delayed release(DR/EC) 40 mg PO DAILY Qty: 90 3RF Discharge Instructions Instructions: Ischemic Stroke (DC) Additional Instructions: You had a recent stroke and have evidence of an old lacunar stroke (the type that occur from hypertension and small blood vessel ischemia). You did not have any bleeding or swelling of the brain and CT angiogram of your vessels of your neck and brain did not show any significant narrowing. Your echocardiogram ([place] of your heart) demonstrated normal left ventricular and right ventricular function and you have no significant valvular disease. During your hospital stay you did not have any significant heart arrhythmias which would predispose you to a stroke. However, you should get a prolonged traffic monitor specialist as an outpatient. We have put an order for this to be done through our respiratory care dept. They will call to set this up in the next week. You also have been started on Plavix (clopidogrel) which is an antiplatelet blood thinner that helps to prevent strokes. You should continue this indefinitely. For the next 30 days you should also take an aspirin 81 mg daily along with the Plavix. After 30 days you may stop the aspirin and just take the Plavix. You should follow up with your primary care physician to monitor your blood pressure and lipids. You recently had a lipid profile that looked very good. Please stay on your atorvastatin. You should get an outpatient glycohemoglobin A1c next week to screen for diabetes mellitus. We will call Dr. Kitty Alcantara's office to get you a follow up office visit. She is a neurologist who can assist your primary care provider in helping to prevent future strokes. If you have any worsening symptoms such as headache, acute weakness of a leg/foot, arm/hand or trouble talking or visual loss or severe headache or dizziness, please call 911 to be brought to the ER. Stand Alone Forms: Nursing Discharge Form Referrals: Kushal Noyola MD [Primary Care Provider] - (We will call you tomorrow with appointment.) Kitty Alcantara MD [[facility] STAFF PHYSICIAN] - (they will call you with a follow up appointment) Activity:: Activity as Tolerated Equipment/Supplies:: Walker Diet:: Low Sodium Discharge Orders Discharge Orders: Discharge Order (Routine); Ordered 03/24/22 Ordered By: Manuel Bailon Other Ambulatory Orders: Cardiac Event Recorder (Routine) Timeframe: 1 Week Facility: [facility] - Location: Respiratory Therapy Ordered By: Manuel Bailon Discharge Data Discharge Date/Time-TO BE ENTERED AT DEPARTURE: 03/24/22 18:48 DS: Summary Time Spent with Patient providing and/or coordinating discharge services: Greater than 30 minutes Status at Discharge Functional status at discharge: uses cane/walker Overall status at discharge: patient is progressing back to baseline Mental Status: mental status grossly normal Speech and Movement: speech and movement normal Mood: congruent mood Affect: normal affect Quality: AMI Contraindication for No Fibrinolytic Therapy: Treatment delay - patient choice Exam Narrative Exam Narrative: Amy sitting up at the bedside dressed and talking with her . She denies any current dizziness. HEENT shows normal facial symmetry normal facial mimetic muscle movement normal movement of her tongue and her palate. Speech is clear and coherent. She is alert and oriented x3. Neck is supple nontender no JVD normal carotid pulses no bruits Lungs are clear to auscultation Heart is regular rate and rhythm no appreciable murmur rub Extremities show normal range of motion and strength in both upper and lower extremities. She had normal hip flexion and extension bilaterally normal knee extension and flexion and normal dorsiflexion plantarflexion of her feet was able to resist against my hand. I watched her ambulate with use of a walker she had good balance good aiden and watched her turn around and walk from her room out to the hallway and make a turn and walk back into her room. Psych Mental Status: mental status grossly normal Speech and Movement: speech and movement normal Mood: congruent mood Affect: normal affect DS: Data Vitals/I&O Vitals and I&O: Vital Signs Temperature 35.9 C L 03/24/22 15:04 Temperature Source Tympanic 03/24/22 15:04 Pulse 68 03/24/22 15:04 Pulse Rhythm Irregular 03/24/22 09:03 Pulse 79 03/22/22 13:50 Respiratory Rate 15 03/24/22 15:04 Respiratory Effort 03/24/22 09:03 Respiratory Depth Normal 03/24/22 09:03 Respiratory Pattern Normal 03/24/22 09:03 Blood Pressure 124/73 03/24/22 15:04 Blood Pressure Mean 92 03/22/22 13:46 Blood Pressure Position Supine 03/22/22 07:35 Pulse Oximetry 100 03/24/22 15:04 Oxygen Delivery Method Room Air 03/24/22 15:04 Oxygen Flow Rate 0 03/24/22 15:04 Pain Level 0 03/24/22 11:15 Intake & Output 03/23/22 03/24/22 03/24/22 23:59 11:59 23:59 Intake Total 240 / 480 240 / 480 Output Total 650 / 1300 Balance -650 / -1300 240 / 480 240 / 480 Weight 63.1 kg Intake: Oral 240 / 480 240 / 480 Output: Urine 650 / 1300 Other: Urine Color Straw Urine Appearance Clear Urine Odor Normal Comment Patient voided in the toilet, no hat. Unable to measure amount. pT stated she only voided. Voiding Methods Toilet Toilet Toilet Data Completed and Pending Labs on day of discharge: Labs from last 24 hours 03/24/22 05:53 WBC 4.58 RBC 4.25 Hgb 11.4 Hct 36.5 MCV 86 MCH 26.8 L MCHC 31.2 L RDW 14.4 Plt Count 245 MPV 10.8 PFSH All Active Problems (Updated 03/25/22 @ 00:05 by DARLENE SHEIKH) Acute CVA (cerebrovascular accident) (Acute) Left leg weakness (Acute) Essential hypertension (Acute) Age-related macular degeneration (Acute) Anxiety (Acute 03/29/13) panic Bundle branch block (Acute) left bundle branch block; Cardiomyopathy (Acute) echo 12/31 EF43% echo 2010 EF35-40% echo 06/04 EF45-50% diastolic dysfunction nonischemic Gastroesophageal reflux disease (Chronic) 07/07/14; EGD; González BURNETT Malignant neoplasm of female breast (Acute 10/22/01) stage 2 IDC RIGHT BREAST lumpectomy radiation chemo Followed at [facility] Microscopic hematuria (Acute 02/02/18) 03/04/18; NEGATIVE CYSTOSCOPY Osteopenia (Acute) Risk factors: Graves; Arimidex D/C'd Fosamax Dexa in 2011; repeat in 2 years Mood disorder (Acute) improved w/ cymbalta Right knee meniscal tear (Chronic) Status post breast lumpectomy (Acute) History of esophagogastroduodenoscopy (Acute) Vaginitis and vulvovaginitis (Acute) Herpetic lesion (Acute) inside left labia MICHEL (dyspnea on exertion) (Acute) Pain, joint, knee, right (Acute) Pain in left hip (Acute) Temporal headache (Acute) Medical History Alcohol abuse Anxiety Breast cancer Depressive disorder GERD (gastroesophageal reflux disease) Graves' disease (03/29/13) Hyperlipidemia (02/15/13) Hypertension Idiopathic scoliosis Nonischemic cardiomyopathy Stress incontinence Surgical History Breast, Lumpectomy right lumpectomy-infiltration ductal; radiation and chemo Cystoscopy 03/04/18 NEGATIVE Hx of appendectomy Hx of cataract removal with insertion of prosthetic lens Hx of tubal ligation Family History Mother Essential hypertension Heart disease Myocardial infarction Father Diabetes Heart disease Sister Alzheimer disease Brother Essential hypertension Heart disease Grandfather Heart disease Grandfather Personal history of malignant neoplasm Grandmother Heart disease Grandmother Heart disease Maternal Uncle Stroke Son No problems noted. Son No problems noted. Son No problems noted. Son No problems noted. Daughter No problems noted. Daughter No problems noted. Social History Smoking/Tobacco Use Status: Former Tobacco Use Quit Date: 11/23/95 Smoking risk assessment performed?: Yes Alcohol Intake: never Drug use: Never Substance use type: does not use Household members: other Details: 2 Frequency: daily Do you feel safe at home: Yes Do you feel safe in your relationship?: Yes
--- NOTE | 2022-03-24 18:00 | INDS_ITS ---
Date of service: 03/24/22 PT Notes Visit Reasons: UTI,Dizziness Physical Therapy Inpatient Discharge Summary Date: 03/24/2022 Dates of service: 03/24/2022 only This is a clinical summary of care provided for the duration of dates listed above. No charge was made in the completion of this documentation. Referring Doctor: Khoa Lazcano MD PT Orders: PT CONSULT: Eval/treat Precautions: Fall. Standard. Activity as tolerated. Patient Profile/Admitting Diagnosis: Amy is an 81-year-old female who presented to the ED on 03/22/2022 due to complaints of dizziness and brief episode of left leg weakness.? Patient is diagnosed with dizziness with a history of right basal ganglia infarct with an MRI ordered to determine cause of dizziness whether central or peripheral, hypertensive urgency, urinary tract infection, essential hypertension, and anxiety. PMHX: All Active Problems?(Updated 03/22/22 @ 16:03 by Khoa Bashir MD) DVT prophylaxis (Acute) Discharge planning issues (Acute) Dizziness (Acute) Hypertensive urgency (Acute) Left leg weakness (Acute) UTI (urinary tract infection) (Acute) Essential hypertension (Acute) Age-related macular degeneration (Acute) Anxiety (Acute 03/29/13) panic Bundle branch block (Acute) left bundle branch block; Cardiomyopathy (Acute) echo 12/31? EF43% echo 2010 EF35-40% echo 06/04 EF45-50% diastolic dysfunction nonischemic Gastroesophageal reflux disease (Chronic) 07/07/14; EGD; González BURNETT Malignant neoplasm of female breast (Acute 10/22/01) stage 2 IDC RIGHT BREAST lumpectomy radiation chemo Followed at [facility] Microscopic hematuria (Acute 02/02/18) 03/04/18; NEGATIVE CYSTOSCOPY Osteopenia (Acute) Risk factors: Graves; Arimidex D/C'd Fosamax Dexa in 2011; repeat in 2 years Mood disorder (Acute) improved w/ cymbaltaRight knee meniscal tear (Chronic) Status post breast lumpectomy (Acute) History of esophagogastroduodenoscopy (Acute) Vaginitis and vulvovaginitis (Acute) Herpetic lesion (Acute) nside left labiaDOE (dyspnea on exertion) (Acute) Pain, joint, knee, right (Acute) Pain in left hip (Acute) Temporal headache (Acute) Medical History? Alcohol abuse Anxiety Breast cancer Depressive disorder GERD (gastroesophageal reflux disease) Graves' disease (03/29/13) Hyperlipidemia (02/15/13) Hypertension Idiopathic scoliosis Nonischemic cardiomyopathy Stress incontinence Surgical History? Breast, Lumpectomy right lumpectomy-infiltration ductal; radiation and chemoCystoscopy 03/04/18 NEGATIVEHx of appendectomy Hx of cataract removal with insertion of prosthetic lens Hx of tubal ligation Social History/Home Situation: Lives with in a private home with a ramp to enter.? Has a dog with disability for which the ramp was built.? Independent with all mobility ADLs without an assistive device prior to admission.? Has had no falls in the past year.? Denies headache and chest pain. Equipment Owned/DME: None Subjective: NT. See most recent DOPE HOUSE OPERATOR HELPER notes. Objective: General Observation: NT. See most recent DOPE HOUSE OPERATOR HELPER notes. Mental Status: NT. See most recent DOPE HOUSE OPERATOR HELPER notes. Pain: NT. See most recent DOPE HOUSE OPERATOR HELPER notes. Vital Signs: NT. See most recent DOPE HOUSE OPERATOR HELPER notes. ROM: Right Upper Extremity: ? Shoulder Flexion WFL. Shoulder abduction WFL. Elbow flexion WFL. Wrist flexion WFL. Functional opening and closing of hand WFL. Left Upper Extremity:? Shoulder Flexion WFL. Shoulder abduction WFL. Elbow flexion WFL. Wrist flexion WFL. Functional opening and closing of hand WFL. Right Lower Extremity: Hip flexion WFL. Hip abduction WFL. Knee flexion WFL. Ankle dorsiflexion to neutral only. Ankle plantarflexion WFL. Left Lower Extremity: Hip flexion WFL. Hip abduction WFL. Knee flexion WFL. Ankle dorsiflexion to neutral only. Ankle plantarflexion WFL. Strength: Right Upper Extremity: Shoulder flexors 5/5. Shoulder abductors 5/5. Elbow flexors 5/5. Elbow extensors 5/5. Deployment Manager strong. Left Upper Extremity: Shoulder flexors 5/5. Shoulder abductors 5/5. Elbow flexors 5/5. Elbow extensors 5/5. Deployment Manager strong. Right Lower Extremity: Hip flexors 4-/5. Hip abductors 4-/5. Knee flexors 4/5. Knee extensors 4-/5. Ankle dorsiflexors 3-/5. Ankle plantarflexors 5/5. Left Lower Extremity: Hip flexors 5/5. Hip abductors 5/5. Knee flexors 5/5. Knee extensors 5/5. Ankle dorsiflexors 3-/5. Ankle plantarflexors 5/5. Bed Mobility/Transfers: Sit to stand with contact-guard assist Stand to sit with standby assist Gait: Instructed patient with level surface ambulation of 200 feet requiring contact- guard assist. Christine decreased. Complained of R knee being heavy.? Positive drag on R foot.? Reported that she still is not back to how she was previously.? Thankful that she has the FWW.? No loss of balance. No path deviation.? Needed to slow down during directional changes. Balance: Static Sitting: Normal Dynamic Sitting: Normal Static Standing: Fair Dynamic Standing: Fair NEURO tests: 4-stage Balance test: Unable to do all 4 positions without being off balance. Romberg Test: Mild posterior sway during test Coordination:? No issues with B UE,? [id number] somewhat slower with the L foot Assessment:? Persistent balance impairment which requires use of FWW to allow for improved stability of walking.? Subjective report of dysequilibrium persistent albeit of less intensity compared to day of admission.? Patient presents with clinical signs and symptoms consistent with current/admitting diagnoses that have resulted to mobility limitations, gait instability, generalized weakness, and overall ADL decline as demonstrated by the following impairment level findings: 1.? Decreased strength to R hip flexors and extensors 2.? Impaired standing balance 3.? Impaired activity tolerance 4.? Persistent sende of being off-balance Impairments are contributing to the following functional limitations: 1.? Difficulty with ambulation without assistive device and physical assistance 2.? Increased completion time for mobility ADL performance 3.? Increased risk for falls 4.? Difficulty with managing steps alone safely Goals: Goals X1 week 1. Supine-Sit independent NOT MET 2. Sit-Supine independent NOT MET 3. Sit-Stand independent NOT MET 4. Stand-Sit independent with no AD NOT MET 5. Bed-Chair independent with no AD NOT MET 6. Chair-Bed independent with no AD NOT MET 7. Independent gait on level surface with use of no ADfor at least 500 feet without report of pain nor dyspnea NOT MET 8. Good static and dynamic standing balance/tolerance NOT MET DISCHARGE RECOMMENDATIONS: [] ? Home with no services [] [X] ? Home with services.? Home when medically cleared by hospitalist.? Patient will benefit from home health PT services in order to progress mobility level using least restrictive assistive ambulatory device, assess home safety, identify additional equipment needs, and establish a functional maintenance program that will increase ability of patient to remain at home.? [] ? Home with outpatient PT [] [] ? SNF for continued rehabilitation [] [] ? Maintenance Man Care [] [] ? SNF versus LTC based on ability to participate and progress [] TREATMENT CODE/TIME: NC Thank you for the opportunity to participate in the care of this patient. Lashon Hayes PT, DPT, CLT [facility] [place], [place]
--- NOTE | 2022-03-24 18:13 | PDOC.HHF2F_ITS ---
Home Health Certification Home Health Certification: 1. Encounter Date and Reason I certify that Amy Taylor was seen by Manuel Bailon on 03/24/22 and that I had a [id number] encounter with this patient that meets the physician face to face encounter requirements. 2. Clinical Findings Supporting Skilled Need and Homebound Status I certify that home health services are medically necessary, include either intermittent care home and/or physical/speech therapy, and that this patient is homebound in that absences from the home require considerable and taxing effort and are infrequent or of short duration, or are attributable to the need to receive medical care. [X] (a) Attached documentation from encounter provides clinical findings supporting skilled need and homebound status (including what assistance patient requires to leave the home). The encounter with the patient was in whole, or in part, for the following medical condition, which is the primary reason for home health care: UTI,Dizziness Long Term: evaluate and treat for recent CVA. Physical Therapy: evaluate and treat for recent CVA w/ symptoms of left leg/foot weakness Speech Therapy: Homebound: patient's gait dysfunction from recent CVA makes travel outside her home to seek medical serivces at increased risk for injury 3. Certification and Authentication I certify that I composed the above information based on my clinical judgement relating to this patient's medical condition and, if applicable, clinical findings communicated to me by the NPP or inpatient physician who performed the Home Health Referral. All further orders will be obtained through Kushal Noyola (Community Based Physician - PCP)
== END 2022-03-24 18:48 | disposition home health service (06) | DRG 65 ==
LOC: ER 13:28 → MS 14:02
PROVIDERS: Emergency Medicine; Admitting Provider Family Medicine; Emergency Provider Physician Assistant; PCP Family Medicine; Visit Provider Family Medicine
DX: I63.9 Cerebral infarction, unspecified (principal); I42.8 Other cardiomyopathies; I16.0 Hypertensive urgency; F32.A Depression, unspecified; F10.10 Alcohol abuse, uncomplicated; E05.00 Thyrotoxicosis with diffuse goiter without thyrotoxic crisis or storm; I10 Essential (primary) hypertension; I08.0 Rheumatic disorders of both mitral and aortic valves; E78.5 Hyperlipidemia, unspecified; Z86.73 Personal history of transient ischemic attack (TIA), and cerebral infarction without residual deficits; Z79.82 Long term (current) use of aspirin; F41.0 Panic disorder [episodic paroxysmal anxiety]; I44.7 Left bundle-branch block, unspecified; K21.9 Gastro-esophageal reflux disease without esophagitis; Z85.3 Personal history of malignant neoplasm of breast; H35.3190 Nonexudative age-related macular degeneration, unspecified eye, stage unspecified; N39.3 Stress incontinence (female) (male); Z87.891 Personal history of nicotine dependence
CPT/HCPCS: 36415; 70496; 70498; 80053; 85027; 87635; 93005; 93306; 96361; 96365; 97162; 97530; 99285; J1650; 70551; 71046; 81003; 81015; 83735; 84439; 84443; 84484; 85025; 87086; 93010; 99223; 99232; 99239; J0696; J3490

== ENCOUNTER → 2022-04-03 13:16 | Outpatient (BNVA) | payer MEDICARE, BC, SELFPAY | PROVIDERS: PCP Family Medicine; Referring Provider Internal Medicine; Visit Provider Psychiatry & Neurology Neurology | DX: I69.354 Hemiplegia and hemiparesis following cerebral infarction affecting left non-dominant side (principal); I69.318 Other symptoms and signs involving cognitive functions following cerebral infarction; F41.8 Other specified anxiety disorders | CPT/HCPCS: 99215; G2212 ==

== ENCOUNTER 2022-04-04 01:25 | Outpatient (CLI) | payer MEDICARE, BC, SELFPAY ==
--- NOTE | 2022-07-14 14:24 | W.CARDEVENT ---
Date of service: 07/18/22 Time of Service: 08:39 Cardiac Event Recorder Referring Provider:: Manuel Bailon Indications:: Stroke Cardiac Event Note: This is a cardiac event recorder that was performed from April 04 through April 24, 2022 Predominant rhythm was sinus. Average heart rate was 66. Minimum was 57, maximum 103 There were no significant ventricular or supraventricular dysrhythmias. No atrial fibrillation was recorded. There were no apparent patient's symptom
== END 2022-04-04 01:26 | disposition home or self-care (01) ==
LOC: RT 01:25
PROVIDERS: PCP Family Medicine; Visit Provider Internal Medicine
DX: I63.9 Cerebral infarction, unspecified (principal)
CPT/HCPCS: 93270

== ENCOUNTER 2022-04-30 10:21 | Emergency (ER) | payer MEDICARE, BC, SELFPAY ==
[2022-04-30 10:24] VITALS: BP 154/74; PULSE 65; RESP 16; TEMP 36.8; O2SAT 97
--- NOTE | 2022-04-30 10:30 | RT.EKG_ITS ---
APPROVED REPORT Exam: Resting ECG Reason for Exam: stroke Patient Location: E HR:64 bpm ECG Measurements Heart Rate 64 AXIS MN 224 P 36 QRSd 152 QRS -60 QT 462 T 164 QTc 477 Conclusion Sinus rhythm...normal P axis, V-rate 60- 99 Prolonged MN interval...MN >220, V-rate 50- 90 Left bundle branch block...QRSd>120, broad/notched R ST elevation secondary to IVCD...Multiple VCG criteria no STEMI, non-diagnostic EKG I have reviewed and interpreted ECG and agree with software generated interpretation.
--- NOTE | 2022-04-30 10:45 | DI.CT_ITS ---
Exam(s) CT HEAD WO EXAM: CT HEAD WO CLINICAL HISTORY: Old Right CVA, Worsening MENG and loss of balance. TECHNIQUE: Imaging Protocol: Axial computed tomography images with coronal and sagittal reformatted images were created and reviewed COMPARISON: CT CT BRAIN NECK CTA from 03/22/2022 MR MR BRAIN WO from 03/24/2022 FINDINGS: There are no skull fractures nor fluid in the visualized paranasal sinuses. There is no evidence of intracranial hemorrhage, mass effect, or shift of midline structures. There are no extra-axial fluid collections. The ventricles are not enlarged or shifted and there is no blo od within the ventricular system nor within the basal cisterns. Large nonacute lacunar infarct on the right side is again noted. More acute lacunar infarcts seen in the immediate right periventricular white matter (restricted diffusion on MRI scan 03/24/2022) is no ricky and exhibits similar size to the MRI. There is no new obvious lacunar infarct nor territorial in farction evident. IMPRESSION: Right-sided lacunar infarcts as described above the smaller and immediate periventricular right lacun ar infarct measures 5 x 5 millimeters and corresponds to the lacunar infarct which was evident on the recent MRI scan of 03/24/2022. If clinically indicated repeat MRI with diffusion imaging can be performed RADIATION DOSE DELIVERED: 691.61mGy.cm Total DLP DATA REPOSITORY: All CT scans at this facility are submitted to the National Radiology Data Registry (NRDR) Dose Index Registry (DIR) with the [employer] (ACR). RADIATION OPTIMIZATION: All CT scans at this facility use at least one of these dose optimization te chniques: automated exposure control; mA and/or kV adjustment per patient size (includes targeted exa ms where dose is matched to clinical indication); or iterative reconstruction.
--- NOTE | 2022-04-30 10:58 | ED.GENADUL_ITS ---
Discharge Plan Disposition Patient Disposition: HOME Condition: Stable Discharge Details Clinical Impression: Headache, Unsteadiness Primary Care Provider: Kushal Noyola ED Provider: Hazel Lomax Home Meds and New Rx's Prescriptions: Continued losartan 100 mg tablet 100 mg PO DAILY Qty: 90 3RF metoprolol tartrate 25 mg tablet 25 mg PO DAILY Qty: 90 4RF alprazolam 0.25 mg tablet 0.25 mg PO BID PRN (Reason: anxiety) Qty: 10 0RF famotidine 20 mg tablet 20 mg PO DAILY Qty: 90 3RF duloxetine 40 mg capsule,delayed release(DR/EC) 40 mg PO DAILY Qty: 90 3RF atorvastatin 20 mg tablet 20 mg PO QPM Qty: 90 3RF fluticasone propionate 16 GM spray,suspension 2 spray NS DAILY aspirin 81 mg capsule 81 mg PO DAILY Qty: 30 0RF Discharge Instructions Instructions: General Headache (ED) Additional Instructions: At this time there is no change from your previous MRI. Please continue to take your medication as previously prescribed. You may take Tylenol as needed for headache. Please make sure you take the aspirin every day and blood pressure medication every day as prescribed. Follow up with NEUROLOGY or primary care provider in 1-2 weeks. Return to ED sooner if any worsening or concerns. Increase oral fluids. Please take Tylenol or Ibuprofen with food every 4-6 hours as needed for pain and swelling. Referrals: Kushal Noyola MD [Primary Care Provider] - Kitty Alcantara MD [ [facility] STAFF PHYSICIAN] - 2 weeks Medical Decision Making 81-year-old female presents to the ER chief complaint of worsening headache over the last 2 to 3 days, nausea, urinary frequency, and loss of balance which began today. Patient presents with her who reports that he had to help her walk today which he has not had to do previously. Denies any vomiting diarrhea,no chest pain, no shortness of breath. He endorsed mild cough per her . She denies any recent falls or head injuries. Patient was recently admitted discharged on March 24 for a old infarct of the right basal ganglia, she was seen by speech therapy yesterday and was seen by neurology on April 03 Upon initial examination she has a negative stroke scale, slight weakness noted to her left lower extremity no foot drop no leg drop, no pronator drift. She has no facial droop no focal neurodeficits. She is alert and oriented x4. Past medical history includes acute CVA, hypertension,breast cancer, Grave's disease, hyperlipidemia, hypertension, idiopathic scoliosis, stress incontinence, macular degeneration, anxiety, bundle branch block, cardiomyopathy, GERD, osteopenia She takes a daily aspirin but she did not take today. Work-up ordered including CBC, CMP, urinalysis, PT PTT which is all within normal limits. Urinalysis is pending at this time. CT result shows the previous right lacunar infarct which is similar to the MRI on March 24. May consider MRI due to the patient's worsening headache and report of loss of balance. After discussing with neurology. 1205:: Neurology paged. 1220: Spoke with Kitty Alcantara regarding patient case and details she does also recommend an MRI to rule out worsening or new CVA due to patient's symptoms. I did discuss this with patient and family they verbalized unde rstanding. They are in agreement with the plan. MRI brain without contrast ordered. 1420: Spoke with radiologist regarding MRI brain without contrast no new changes. Urinalysis shows no evidence for UTI. I will encourage patient to take her medications as prescribed today. At this time patient is stable to be discharged home. Discussed strict return instructions and home care patient and family verbalized understanding. Imaging Data Radiologic Study: Imaging: CT Scan Radiologist's impression: COMPARISON: CT CT BRAIN NECK CTA from 03/22/2022 MR MR BRAIN WO from 03/24/2022 FINDINGS: There are no skull fractures nor fluid in the visualized paranasal sinuses. There is no evidence of intracranial hemorrhage, mass effect, or shift of midline structures. There are no extra-axial fluid collections. The ventricles are not enlarged or shifted and there is no blood within the ventricular system nor within the basal cisterns. Large nonacute lacunar infarct on the right side is again noted. More acute lacunar infarcts seen in the immediate right periventricular white matter (restricted diffusion on MRI scan 03/24/2022) is noted and exhibits similar size to the MRI. There is no new obvious lacunar infarct nor territorial infarction evident. IMPRESSION: Right-sided lacunar infarcts as described above the smaller and immediate periventricular right lacunar infarct measures 5 x 5 millimeters and corresponds to the lacunar infarct which was evident on the recent MRI scan of 03/24/2022. If clinically indicated repeat MRI with diffusion imaging can be performed HPI General Mode of arrival: ambulatory . Date/Time Provider Initiated Documentation: 04/30/22 10:37 . Limitations to Documentation: no limitations . Information obtained by: patient, family (), RN notes reviewed and old records reviewed . HPI Narrative: 81-year-old female presents to the ER chief complaint of worsening headache over the last 2 to 3 days, nausea, urinary frequency, and loss of balance which began today. Patient presents with her who reports that he had to help her walk today which he has not had to do previously. Denies any vomiting diarrhea,no chest pain, no shortness of breath. He endorsed mild cough per her . She denies any recent falls or head injuries. Patient was recently admitted discharged on March 24 for a old infarct of the right basal ganglia, she was seen by speech therapy yesterday and was seen by neurology on April 03 Upon initial examination she has a negative stroke scale, slight weakness noted to her left lower extremity no foot drop no leg drop, no pronator drift. She has no facial droop no focal neurodeficits. She is alert and oriented x4. Past medical history includes acute CVA, hypertension,breast cancer, Grave's disease, hyperlipidemia, hypertension, idiopathic scoliosis, stress incontinence, macular degeneration, anxiety, bundle branch block, cardiomyopathy, GERD, osteopenia She takes a daily aspirin but she did not take today. Related Data Home Medications Medication Instructions Recorded Confirmed fluticasone propionate 50 2 spray NS DAILY 03/02/18 04/30/22 mcg/actuation nasal spray,suspension alprazolam 0.25 mg tablet 0.25 mg PO BID PRN anxiety #10 tabs 08/07/20 04/30/22 losartan 100 mg tablet 100 mg PO DAILY #90 tab-caps 08/28/21 04/30/22 metoprolol tartrate 25 mg tablet 25 mg PO DAILY #90 tabs 08/28/21 04/30/22 atorvastatin 20 mg tablet 20 mg PO QPM #90 tabs 11/27/21 04/30/22 aspirin 81 mg capsule 81 mg PO DAILY #30 caps 03/24/22 04/30/22 famotidine 20 mg tablet 20 mg PO DAILY #90 tabs 03/27/22 04/30/22 duloxetine 40 mg capsule,delayed 40 mg PO DAILY #90 caps 04/03/22 04/30/22 release Previous Rx's Medication Instructions Recorded alprazolam 0.25 mg tablet 0.25 mg PO BID PRN anxiety #10 tabs 08/07/20 losartan 100 mg tablet 100 mg PO DAILY #90 tab-caps 08/28/21 metoprolol tartrate 25 mg tablet 25 mg PO DAILY #90 tabs 08/28/21 atorvastatin 20 mg tablet 20 mg PO QPM #90 tabs 11/27/21 aspirin 81 mg capsule 81 mg PO DAILY #30 caps 03/24/22 famotidine 20 mg tablet 20 mg PO DAILY #90 tabs 03/27/22 duloxetine 40 mg capsule,delayed 40 mg PO DAILY #90 caps 04/03/22 release Allergies Allergy/AdvReac Type Severity Reaction Status Date / Time sertraline AdvReac Ineffective Verified 04/30/22 10:31 General Stated Complaint: Headache MAULIK: 3 Review of Systems All systems reviewed & are unremarkable except as noted in HPI and below Constitutional Constitutional: Reports as per HPI and Reports headache(s) ENT Ears, Nose, Mouth, and Throat: Reports headache(s) Neurologic Neurologic: Reports headache(s) PFSH All Active Problems (Updated 04/30/22 @ 14:22 by Hazel Lomax) Headache (Acute) Unsteadiness (Acute) Memory loss (Acute) Acute CVA (cerebrovascular accident) (Acute) Essential hypertension (Acute) Age-related macular degeneration (Acute) Anxiety (Acute 03/29/13) panic Bundle branch block (Acute) left bundle branch block; Cardiomyopathy (Acute) echo 12/31 EF43% echo 2010 EF35-40% echo 06/04 EF45-50% diastolic dysfunction nonischemic Gastroesophageal reflux disease (Chronic) 07/07/14; EGD; [facility] Malignant neoplasm of female breast (Acute 10/22/01) stage 2 IDC RIGHT BREAST lumpectomy radiation chemo Followed at [facility] Microscopic hematuria (Acute 02/02/18) 03/04/18; NEGATIVE CYSTOSCOPY Osteopenia (Acute) Risk factors: Graves; Arimidex D/C'd Fosamax Dexa in 2011; repeat in 2 years Mood disorder (Acute) improved w/ cymbalta Right knee meniscal tear (Chronic) Status post breast lumpectomy (Acute) History of esophagogastroduodenoscopy (Acute) Vaginitis and vulvovaginitis (Acute) Herpetic lesion (Acute) inside left labia MICHEL (dyspnea on exertion) (Acute) Pain, joint, knee, right (Acute) Pain in left hip (Acute) Temporal headache (Acute) Medical History Alcohol abuse Anxiety Breast cancer Depressive disorder GERD (gastroesophageal reflux disease) Graves' disease (03/29/13) Hyperlipidemia (02/15/13) Hypertension Idiopathic scoliosis Nonischemic cardiomyopathy Stress incontinence Surgical History Breast, Lumpectomy right lumpectomy-infiltration ductal; radiation and chemo Cystoscopy 03/04/18 NEGATIVE Hx of appendectomy Hx of cataract removal with insertion of prosthetic lens Hx of tubal ligation Family History Mother Essential hypertension Heart disease Myocardial infarction Father Diabetes Heart disease Sister Alzheimer disease Brother Essential hypertension Heart disease Grandfather Heart disease Grandfather Personal history of malignant neoplasm Grandmother Heart disease Grandmother Heart disease Maternal Uncle Stroke Son No problems noted. Son No problems noted. Son No problems noted. Son No problems noted. Daughter No problems noted. Daughter No problems noted. Social History Smoking/Tobacco Use Status: Former Tobacco Use Quit Date: 11/23/95 Smoking risk assessment performed?: Yes Alcohol Intake: never Drug use: Never Substance use type: does not use Household members: other Details: 2 Frequency: daily Do you feel safe at home: Yes Do you feel safe in your relationship?: Yes Exam Narrative Exam Narrative: Constitutional: Alert and oriented x3. Appears stated age. Normal body habitus. Head: Normocephalic, no trauma. Eyes: Pupils PERRL, Red reflex noted, EOM's intact. Eyelids symmetrical without lesions, discharge, or swelling. ENT: Bilateral TM's WNL, External ear normal to inspection, no mastoid TTP, swelling, or erythema, Nasal turbinates WNL, no nasal discharge. Normal dentition, Posterior pharynx WNL, no exudate. Chest: RRR, Normal S1, S2, distal pulses intact. Resp: Lungs clear to auscultation bilaterally, no wheezes, rales, or rhonchi. Abdomen: Soft, non-distended, no masses palpated nontender to palpation all 4 quadrants. Musculoskeletal: Was ambulatory here in the department, 4/5 strength to all four extremities. Skin: No suspicious rashes or lesions. Capillary refill less than 2 sec. Neurologic: Cranial nerves II-XII intact. Alert and oriented x 3. Motor: No deficits noted. Sensory: Intact bilaterally all 4 extremities. 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 Hematologic/Lymphatic: No ecchymosis, no lymphadenopathy. Course Vital Signs Vital signs: Vital Signs Temperature 36.8 C 04/30/22 10:24 Pulse 65 04/30/22 10:24 Respiratory Rate 16 04/30/22 10:24 Blood Pressure 154/74 H 04/30/22 10:24 Pulse Oximetry 97 04/30/22 10:24 Temperature 36.8 C 04/30/22 10:24 Pulse 65 04/30/22 10:24 Respiratory Rate 16 04/30/22 10:24 Respiratory Effort 04/30/22 10:34 Blood Pressure 154/74 H 04/30/22 10:24 Pulse Oximetry 97 04/30/22 10:24 Lab/Test Results Lab/Test Results: Laboratory Tests Range/Units 04/30/22 10:38 Ethyl Alcohol Cancelled
[2022-04-30 11:03] LABS: Abs Immature Grans 0.01 10^3/uL (0.0-0.06); Absolute Basophil Count 0.04 10^3/uL (0.0-0.2); Absolute Eosinophil Count 0.12 10^3/uL (0.0-0.7); Absolute Lymphocyte Count 1.59 10^3/uL (1.2-3.4); Absolute Monocyte Count 0.49 10^3/uL (0.1-0.8); Absolute Neutrophil Count 2.49 10^3/uL (1.2-6.7); Basophils % 0.8; Eosinophils % 2.5; HCT 38.1 % (36.0-46.0); HGB 12.2 g/dL (11.2-15.7); Immature Grans % 0.2; Lymphocytes % 33.5; MCH 27.8 pg (27.0-33.0); MCV 87 fL (80-95); MPV 10.5 fL (8.0-11.0); Monocytes % 10.3; Neutrophils % 52.7; Platelet Count 242 10^3/uL (130-400); RBC 4.39 10^6/uL (3.93-5.22); RDW 13.9 % (11.7-14.6); RDW-SD 44.1 fL; WBC 4.74 10^3/uL (4.4-10.8)
[2022-04-30 11:22] LABS: PTT Activated 23.4 sec (21.0-27.5); Prothrombin Time 10.2 sec (9.3-11.0)
[2022-04-30 11:31] LABS: ALT 22 U/L (14-59); AST 16 U/L (15-37); Albumin 3.7 g/dL (3.4-5.0); Alkaline Phosphatase 58 U/L (46-116); Anion Gap 7.2 mmol/L (3-11); BUN 12 mg/dL (7-18); Bilirubin, Total 0.4 mg/dL (0.2-1.0); CO2 28.8 mmol/L (21.0-32.0); CREATININE 0.9 mg/dL (0.55-1.02); Chloride 103 mmol/L (98-107); Glucose 100 mg/dL (74-106); Potassium 4.2 mmol/L (3.5-5.1); Sodium 139 mmol/L (136-145); Total Protein 7.5 g/dL (6.4-8.2)
--- NOTE | 2022-04-30 12:15 | DI.MRI_ITS ---
Exam(s) MR BRAIN WO EXAM: MR BRAIN WO CLINICAL HISTORY: R/O Worsening, new CVA TECHNIQUE: Multiplanar multisequence MRI of the brain was performed. COMPARISON: MR MR BRAIN WO from 03/24/2022 FINDINGS: CEREBRAL PARENCHYMA: There is no evidence of acute intracranial hemorrhage, mass effect, or shift of midline structures. There are no extra-axial fluid collections. Ventricles are not enlarged or shifted. There is no significant focal signal abnormality in the cerebellar hemispheres. Previously described periventricular foci of signal abnormality are again noted. However, on diffusi on imaging the previously present acute lacunar infarct in the right periventricular white matter see n on 03/24/2022 does not presently exhibit restricted diffusion and there is no other area of signal abnormality on diffusion imaging on today's study. SWI: There is a solitary tiny hypointense signal in left supra ventricular white matter which represe nts previous microhemorrhage but is unchanged from the 03/24/2022 study. PITUITARY GLAND: No mass nor parasellar abnormality. No obvious abnormality in the cavernous sinuses. FLOW VOIDS: The expected flow void are noted. No evidence of obvious aneurysm nor obvious vascular ma lformation. PARANASAL SINUSES: The visualized paranasal sinuses appear unremarkable. No obvious finding ORBITS: No new obvious abnormalities. IMPRESSION: No evidence of intracranial hemorrhage nor acute infarct. The recently described lacunar infarct in the immediate right periventricular white matter was acute on 03/24/2022 no longer exhibits restricte d diffusion on DWI. Indeed, there are no areas of focal signal abnormality on diffusion imaging to s uggest acute ischemic event at this time. Other findings as above. Report called by myself to ER provider. DATA REPOSITORY:
[2022-04-30 12:43] LABS: Bilirubin Negative (Negative); Blood Trace-intact (Negative); Clarity Clear (Clear); Glucose Negative (Negative); Ketones Negative (Negative); Leukocyte Esterase Negative (Negative); Nitrite Negative (Negative); Urobilinogen 0.2 EU/dL (Up TO 0.2)
[2022-04-30 12:53] LABS: RBC 0-2 HPF (0-2); WBC Negative HPF (0-5)
[2022-04-30 12:54] LABS: Bacteria Negative HPF (Negative); C & S Indicated? No; Casts Negative LPF (Negative); Crystals Negative HPF (Negative); Epithelial Cells Few HPF (Negative); Mucus Trace (Negative)
[2022-04-30 13:27] VITALS: BP 151/68; PULSE 62; TEMP 37.1; O2SAT 99
[2022-04-30 13:56] VITALS: BP 150/52; PULSE 61; TEMP 36.6; O2SAT 98
[2022-04-30 14:47] VITALS: BP 161/84; PULSE 66; RESP 14; TEMP 36.6; O2SAT 98
== END 2022-04-30 15:08 | disposition home or self-care (01) ==
PROVIDERS: Emergency Provider Registered Nurse Emergency; PCP Family Medicine
DX: R51.9 Headache, unspecified (principal); R26.81 Unsteadiness on feet; I25.2 Old myocardial infarction; I10 Essential (primary) hypertension
CPT/HCPCS: 36415; 80053; 93005; 99284; 70450; 70551; 80320; 81003; 81015; 85025; 85610; 85730; 93010; 99283

== ENCOUNTER → 2022-05-01 12:46 | Outpatient (BNVA) | payer MEDICARE, BC, SELFPAY | PROVIDERS: PCP Family Medicine; Referring Provider Family Medicine; Visit Provider Psychiatry & Neurology Neurology | DX: I69.354 Hemiplegia and hemiparesis following cerebral infarction affecting left non-dominant side (principal); I69.318 Other symptoms and signs involving cognitive functions following cerebral infarction; G43.009 Migraine without aura, not intractable, without status migrainosus | CPT/HCPCS: 99215 ==

== ENCOUNTER 2022-05-19 08:22 | Emergency (ER) | payer MEDICARE, BC, SELFPAY ==
[2022-05-19 08:27] VITALS: BP 158/83; PULSE 72; RESP 18; TEMP 36; O2SAT 98
--- NOTE | 2022-05-19 08:45 | RT.EKG_ITS ---
APPROVED REPORT Exam: Resting ECG Reason for Exam: headache/hx of CVA Patient Location: E HR:65 bpm ECG Measurements Heart Rate 65 AXIS MT 227 P 23 QRSd 151 QRS -39 QT 476 T 136 QTc 495 Conclusion Sinus rhythm...normal P axis, V-rate 60- 99 Prolonged MT interval...MT >220, V-rate 50- 90 LVH with secondary repolarization abnormality...multi-LVH criteria, abnrm ST-T Inferior infarct, old...Q >35mS, II III aVF no STEMI, non-diagnostic EKG I have reviewed and interpreted ECG and agree with software generated interpretation.
[2022-05-19 08:57] VITALS: RESP 17
[2022-05-19 09:24] LABS: Abs Immature Grans 0.01 10^3/uL (0.0-0.06); Absolute Basophil Count 0.03 10^3/uL (0.0-0.2); Absolute Eosinophil Count 0.18 10^3/uL (0.0-0.7); Absolute Lymphocyte Count 1.28 10^3/uL (1.2-3.4); Absolute Monocyte Count 0.46 10^3/uL (0.1-0.8); Absolute Neutrophil Count 2.46 10^3/uL (1.2-6.7); Basophils % 0.7; Eosinophils % 4.1; HCT 36.3 % (36.0-46.0); HGB 11.5 g/dL (11.2-15.7); Immature Grans % 0.2; MCH 27.9 pg (27.0-33.0); MCHC 31.7 % (32.0-36.0); MCV 88 fL (80-95); MPV 10.8 fL (8.0-11.0); Monocytes % 10.4; Neutrophils % 55.6; Platelet Count 237 10^3/uL (130-400); RBC 4.12 10^6/uL (3.93-5.22); RDW 14.3 % (11.7-14.6); RDW-SD 46.1 fL; WBC 4.42 10^3/uL (4.4-10.8)
--- NOTE | 2022-05-19 09:43 | DI.CT_ITS ---
Exam(s) CT HEAD WO EXAM: CT HEAD WO CLINICAL HISTORY: headache. TECHNIQUE: Imaging Protocol: Axial computed tomography images with coronal and sagittal reformatted images were created and reviewed COMPARISON: CT CT HEAD WO from 04/30/2022 FINDINGS: There are no skull fractures nor fluid in the visualized paranasal sinuses. There is no evidence of intracranial hemorrhage, mass effect, or shift of midline structures. There are no extra-axial fluid collections. The ventricles are not enlarged or shifted and there is no blo od within the ventricular system nor within the basal cisterns. Previously described right-sided lacunar infarcts are again noted, the smaller of the 2 which is imme diate periventricular apparently revealed restricted diffusion on MRI scan of 03/24/2022. It has not increased in size and remains nonhemorrhagic. No new additional lacunar infarcts evident on the pre sent study. IMPRESSION: Right-sided lacunar infarcts appearing basically unchanged from prior CT scan of 04/30/2022. If clinically indicated follow-up MRI with diffusion imaging can be performed. Discussed with ER provider RADIATION DOSE DELIVERED: 688.77mGy.cm Total DLP DATA REPOSITORY: All CT scans at this facility are submitted to the National Radiology Data Registry (NRDR) Dose Index Registry (DIR) with the [employer] (ACR). RADIATION OPTIMIZATION: All CT scans at this facility use at least one of these dose optimization te chniques: automated exposure control; mA and/or kV adjustment per patient size (includes targeted exa ms where dose is matched to clinical indication); or iterative reconstruction.
[2022-05-19 09:48] LABS: ALT 24 U/L (14-59); AST 16 U/L (15-37); Albumin 3.6 g/dL (3.4-5.0); Alkaline Phosphatase 66 U/L (46-116); Anion Gap 6.5 mmol/L (3-11); BUN 15 mg/dL (7-18); Bilirubin, Total 0.5 mg/dL (0.2-1.0); CO2 28.5 mmol/L (21.0-32.0); CREATININE 0.9 mg/dL (0.55-1.02); Calcium 9.1 mg/dL (8.5-10.1); Chloride 103 mmol/L (98-107); Glucose 113 mg/dL (74-106); Magnesium 2.2 mg/dL (1.8-2.4); Potassium 4.2 mmol/L (3.5-5.1); Sodium 138 mmol/L (136-145); Total Protein 7.4 g/dL (6.4-8.2)
[2022-05-19 10:25] LABS: Bilirubin Negative (Negative); Blood Trace-intact (Negative); Clarity Clear (Clear); Glucose Negative (Negative); Ketones Negative (Negative); Leukocyte Esterase Trace (Negative); Nitrite Negative (Negative); Urobilinogen 0.2 EU/dL (Up TO 0.2)
[2022-05-19 10:37] LABS: Bacteria Rare HPF (Negative); C & S Indicated? No/Sq. Contamination; Casts Negative LPF (Negative); Crystals Negative HPF (Negative); Epithelial Cells Moderate HPF (Negative); Mucus Negative (Negative); RBC 0-2 HPF (0-2); WBC 0-2 HPF (0-5)
[2022-05-19 11:15] VITALS: BP 142/80; PULSE 78; RESP 17; O2SAT 97
--- NOTE | 2022-05-19 11:29 | W.ED.GENAD ---
Discharge Plan Disposition Patient Disposition: HOME Condition: Improving Discharge Details Clinical Impression: Anxiety, Headache Primary Care Provider: Kushal Noyola ED Provider: Teddy Morgan Home Meds and New Rx's Prescriptions: New duloxetine 60 mg capsule,delayed release(DR/EC) 60 mg PO DAILY Qty: 60 0RF Continued losartan 100 mg tablet 100 mg PO DAILY Qty: 90 3RF metoprolol tartrate 25 mg tablet 25 mg PO DAILY Qty: 90 4RF alprazolam 0.25 mg tablet 0.25 mg PO BID PRN (Reason: anxiety) Qty: 10 0RF famotidine 20 mg tablet 20 mg PO DAILY Qty: 90 3RF atorvastatin 20 mg tablet 20 mg PO QPM Qty: 90 3RF fluticasone propionate 16 GM spray,suspension 2 spray NS DAILY aspirin 81 mg capsule 81 mg PO DAILY Qty: 30 0RF Discontinued duloxetine 40 mg capsule,delayed release(DR/EC) 40 mg PO DAILY Qty: 90 3RF Discharge Instructions Instructions: Anxiety (ED), General Headache (ED) Additional Instructions: If you have any new or significant worsening of symptoms please feel free to return the emergency department for reassessment. Otherwise follow-up with your primary care provider as needed and see neurology on the as previously arranged. Referrals: Kitty Alcantara MD [ [facility]YSICIAN] - 06/12/22 Discharge Data Discharge Date/Time-TO BE ENTERED AT DEPARTURE: 05/19/22 11:49 Medical Decision Making Patient presenting to the emergency department for chief complaint of headache, jaw pain, and neck discomfort that she woke up this morning with. Patient had this happen also yesterday and she took 2 aspirin which temporarily relieves symptoms but having it 2 days a row patient was concerned. Patient denies fever chills, chest pain, shortness of breath, or GI symptoms. Physical exam shows a completely normal neurologic exam with normal cardiac respiratory exam as well. Suspect that this is a difficult tension headache that is exacerbated by stress but given patient's recent CVA the beginning of March we will do thorough work-up. Please see physician interpretation of EKG but patient is in sinus rhythm with no worrisome acute findings. Review of labs are overall unremarkable nondiagnostic none worrisome, urinalysis without obvious signs of infection, review of head CT scan in speaking with radiologist shows no acute findings from previous head CT. Before performing MRI imaging will talk to neurology who is familiar with patient. Pending on speaking with neurology did reassess patient and patient states that she has now asymptomatic and improving. Spoke to Dr. Alcantara whom agreed with plan of care to not perform further imaging but to have patient monitor symptoms and return for any new or change in symptoms. We will increase patient's duloxetine at recommendation of neurologist due to patient's significant and contributing anxiety and that patient had decreased this medication but we will return back to dose of 60 mg. Patient is in agreement with this plan of care at the time. After discussion of diagnosis and plan of care patient and has no further needs, questions, or concerns and states clear understanding to return to the emergency department for any worsening symptoms. This documentation was generated using [employer] system, please disregard any oddities of phrase or misspellings. Medical Records Medical records reviewed: Yes I reviewed the patient's medical records. Lab Data Lab results reviewed: Yes I reviewed the patient's lab results. HPI General Mode of arrival: ambulatory. Date/Time Provider Initiated Documentation: 05/19/22 08:53. Limitations to Documentation: no limitations. Information obtained by: patient, family, RN notes reviewed and old records reviewed. History of Present Illness 81 year old F presents to the emergency department with the chief complaint of Headache, described as moderate and similar to prior episodes, with intensity rated at 8. Quality is described as aching and sharp, and is localized to the head. Patient neck. Patient started experiencing this hour(s) (1) and it has been constant. No relieving factors improve symptom(s), No exacerbating factors reported . Patient notes no other symptoms.. Patient did receive the following treatments prior to arrival, Aspirin Related Data Home Medications Medication Instructions Recorded Confirmed fluticasone propionate 50 2 spray NS DAILY 03/02/18 05/19/22 mcg/actuation nasal spray,suspension alprazolam 0.25 mg tablet 0.25 mg PO BID PRN anxiety #10 tabs 08/07/20 05/19/22 losartan 100 mg tablet 100 mg PO DAILY #90 tab-caps 08/28/21 05/19/22 metoprolol tartrate 25 mg tablet 25 mg PO DAILY #90 tabs 08/28/21 05/19/22 atorvastatin 20 mg tablet 20 mg PO QPM #90 tabs 11/27/21 05/19/22 aspirin 81 mg capsule 81 mg PO DAILY #30 caps 03/24/22 05/19/22 famotidine 20 mg tablet 20 mg PO DAILY #90 tabs 03/27/22 05/19/22 duloxetine 60 mg capsule,delayed 60 mg PO DAILY #60 caps 05/19/22 release Previous Rx's Medication Instructions Recorded alprazolam 0.25 mg tablet 0.25 mg PO BID PRN anxiety #10 tabs 08/07/20 losartan 100 mg tablet 100 mg PO DAILY #90 tab-caps 08/28/21 metoprolol tartrate 25 mg tablet 25 mg PO DAILY #90 tabs 08/28/21 atorvastatin 20 mg tablet 20 mg PO QPM #90 tabs 11/27/21 aspirin 81 mg capsule 81 mg PO DAILY #30 caps 03/24/22 famotidine 20 mg tablet 20 mg PO DAILY #90 tabs 03/27/22 duloxetine 60 mg capsule,delayed 60 mg PO DAILY #60 caps 05/19/22 release Allergies Allergy/AdvReac Type Severity Reaction Status Date / Time sertraline AdvReac Ineffective Verified 05/19/22 09:09 General Stated Complaint: CVA/TIA MAULIK: 3 Review of Systems Constitutional Constitutional: Denies body ache(s), Denies chills, Denies fever(s) and Reports headache(s) Eyes Eyes: Denies change in vision ENT Ears, Nose, Mouth, and Throat: Denies dizziness and Reports headache(s) Cardiovascular Cardiovascular: Denies chest pain, Denies syncope and Denies dyspnea Respiratory Respiratory: Denies dyspnea Gastrointestinal Gastrointestinal: Denies abdominal pain, Denies nausea and Denies vomiting Integumentary/Breasts Skin/Breast: Denies rash Neurologic Neurologic: Reports as per HPI, Denies dizziness, Denies syncope, Reports headache(s), Denies localized weakness, Denies sensory deficit and Denies paresthesias Psychiatric Psychiatric: Reports anxiety PFSH All Active Problems Migraine headache without aura (Acute) Medication overuse headache (Acute) Chronic headache (Acute) Headache (Acute) Unsteadiness (Acute) Memory loss (Acute) Acute CVA (cerebrovascular accident) (Acute) Essential hypertension (Acute) Age-related macular degeneration (Acute) Anxiety (Acute 03/29/13) panic Bundle branch block (Acute) left bundle branch block; Cardiomyopathy (Acute) echo 12/31 EF43% echo 2010 EF35-40% echo 06/04 EF45-50% diastolic dysfunction nonischemic Gastroesophageal reflux disease (Chronic) 07/07/14; EGD; González BURNETT Malignant neoplasm of female breast (Acute 10/22/01) stage 2 IDC RIGHT BREAST lumpectomy radiation chemo Followed at [facility] Microscopic hematuria (Acute 02/02/18) 03/04/18; NEGATIVE CYSTOSCOPY Osteopenia (Acute) Risk factors: Graves; Arimidex D/C'd Fosamax Dexa in 2011; repeat in 2 years Mood disorder (Acute) improved w/ cymbalta Right knee meniscal tear (Chronic) Status post breast lumpectomy (Acute) History of esophagogastroduodenoscopy (Acute) Vaginitis and vulvovaginitis (Acute) Herpetic lesion (Acute) inside left labia MICHEL (dyspnea on exertion) (Acute) Pain, joint, knee, right (Acute) Pain in left hip (Acute) Temporal headache (Acute) Medical History Alcohol abuse Anxiety Breast cancer Depressive disorder GERD (gastroesophageal reflux disease) Graves' disease (03/29/13) Hyperlipidemia (02/15/13) Hypertension Idiopathic scoliosis Nonischemic cardiomyopathy Stress incontinence Surgical History Breast, Lumpectomy right lumpectomy-infiltration ductal; radiation and chemo Cystoscopy 03/04/18 NEGATIVE Hx of appendectomy Hx of cataract removal with insertion of prosthetic lens Hx of tubal ligation Family History Mother Essential hypertension Heart disease Myocardial infarction Father Diabetes Heart disease Sister Alzheimer disease Brother Essential hypertension Heart disease Grandfather Heart disease Grandfather Personal history of malignant neoplasm Grandmother Heart disease Grandmother Heart disease Maternal Uncle Stroke Son No problems noted. Son No problems noted. Son No problems noted. Son No problems noted. Daughter No problems noted. Daughter No problems noted. Social History Smoking/Tobacco Use Status: Former Tobacco Use Quit Date: 11/23/95 Smoking risk assessment performed?: Yes Alcohol Intake: never Drug use: Never Substance use type: does not use Household members: other Details: 2 Frequency: daily Do you feel safe at home: Yes Do you feel safe in your relationship?: Yes Exam Const General: cooperative, healthy appearing, no acute distress and well groomed Orientation: alert, awake and oriented x3 HENMT Head: normal to inspection Ears: hearing grossly normal bilaterally and TM's normal bilaterally Mouth: oral mucosae normal and moist mucous membranes Throat: posterior oropharynx normal Eyes Visual Campbell: normal visual campbell by confrontation Alignment and Position: alignment normal Periorbital: periorbital findings normal Eyelids: eyelids normal Sclera: sclerae normal Pupils: PERRL EOM: EOM intact bilaterally Neck Neck: normal visual inspection, full ROM, no lymphadenopathy and no meningeal signs Resp Effort & Inspection: normal respiratory effort and able to speak in complete sentences Auscultation: clear to auscultation bilaterally Cardio Rate: regular rate Rhythm: regular rhythm Heart Sounds: S1 normal and S2 normal Neuro General: patient alert, patient awake, patient oriented x3, gait normal, tone normal, moves all extremities, CN's II-XI intact bilaterally and not confused Cognition: normal cognition Speech: speech normal Motor: muscle tone normal throughout, strength 5/5 throughout, no pronator drift, no movement abnormalities noted and no fasciculations Sensory Exam: no sensory deficits noted Coordination: [id number] test normal, Romberg test normal, Does not sway with eyes open, rapid alternating movement UE normal and rapid alternating movement LE normal Course Vital Signs Vital signs: Vital Signs Temperature 36 C L 05/19/22 08:27 Pulse 72 05/19/22 08:27 Respiratory Rate 18 05/19/22 08:27 Blood Pressure 158/83 H 05/19/22 08:27 Pulse Oximetry 98 05/19/22 08:27 Temperature 36 C L 05/19/22 08:27 Temperature Source Temporal Artery Scan 05/19/22 11:15 Pulse 78 05/19/22 11:15 Respiratory Rate 17 05/19/22 11:15 Respiratory Effort Non-Labored 05/19/22 08:57 Respiratory Depth Normal 05/19/22 08:57 Respiratory Pattern Normal 05/19/22 08:57 Blood Pressure 142/80 H 05/19/22 11:15 Blood Pressure Position Sitting 05/19/22 08:27 Pulse Oximetry 97 05/19/22 11:15 Oxygen Delivery Method Room Air 05/19/22 11:15 Oxygen Flow Rate 0 05/19/22 11:15 Lab/Test Results Lab/Test Results: Laboratory Tests Range/Units 05/19/22 05/19/22 05/19/22 09:14 09:14 10:13 WBC (4.4-10.8) 10^3/uL 4.42 RBC (3.93-5.22) 10^6/uL 4.12 Hgb (11.2-15.7) g/dL 11.5 Hct (36.0-46.0) % 36.3 MCV (80-95) fL 88 MCH (27.0-33.0) pg 27.9 MCHC (32.0-36.0) % 31.7 L RDW (11.7-14.6) % 14.3 Plt Count (130-400) 10^3/uL 237 MPV (8.0-11.0) fL 10.8 Immature Gran % 0.2 Neutrophils % 55.6 Lymphocytes % 29.0 Monocytes % 10.4 Eosinophils % 4.1 Basophils % 0.7 Nucleated RBC % (0.0-0.3) % 0.0 Absolute Neutrophils (1.2-6.7) 10^3/uL 2.46 Absolute Lymphocytes (1.2-3.4) 10^3/uL 1.28 Absolute Monocytes (0.1-0.8) 10^3/uL 0.46 Absolute Eosinophils (0.0-0.7) 10^3/uL 0.18 Absolute Basophils (0.0-0.2) 10^3/uL 0.03 Sodium (136-145) mmol/L 138 Potassium (3.5-5.1) mmol/L 4.2 Chloride (98-107) mmol/L 103 Carbon Dioxide (21.0-32.0) mmol/L 28.5 Anion Gap (3-11) mmol/L 6.5 BUN (7-18) mg/dL 15 Creatinine (0.55-1.02) mg/dL 0.9 Estimated GFR/1.73 m2 (mL/min/1.73m2) 59.80 Glucose (74-106) mg/dL 113 H Calcium (8.5-10.1) mg/dL 9.1 Magnesium (1.8-2.4) mg/dL 2.2 Total Bilirubin (0.2-1.0) mg/dL 0.5 AST (15-37) U/L 16 ALT (14-59) U/L 24 Alkaline Phosphatase (46-116) U/L 66 Total Protein (6.4-8.2) g/dL 7.4 Albumin (3.4-5.0) g/dL 3.6 Urine Color (Yellow) Yellow Urine Clarity (Clear) Clear Urine pH (5-8) 7.0 Ur Specific [place] (1.005-1.025) 1.020 Urine Protein (Negative) mg/dL Negative Urine Ketones (Negative) mg/dL Negative Urine Blood (Negative) Trace-intact H Urine Nitrite (Negative) Negative Urine Bilirubin (Negative) Negative Urine Urobilinogen (Up TO 0.2) EU/dL 0.2 Ur Leukocyte Esterase (Negative) Trace H Urine RBC (0-2) HPF 0-2 Urine WBC (0-5) HPF 0-2 Ur Epithelial Cells (Negative) HPF Moderate Urine Crystals (Negative) HPF Negative Urine Bacteria (Negative) HPF Rare Urine Casts (Negative) LPF Negative Urine Mucus (Negative) Negative Ur Culture Indicated? No/Sq. Contamination Urine Glucose (Negative) mg/dL Negative
== END 2022-05-19 11:49 | disposition home or self-care (01) ==
PROVIDERS: Emergency Provider Nurse Practitioner Family; PCP Family Medicine
DX: R51.9 Headache, unspecified (principal); F41.9 Anxiety disorder, unspecified; Z86.73 Personal history of transient ischemic attack (TIA), and cerebral infarction without residual deficits; E78.5 Hyperlipidemia, unspecified
CPT/HCPCS: 36416; 80053; 82962; 93005; 96374; 99284; 70450; 81003; 81015; 83735; 85025; 93010; J0131

== ENCOUNTER → 2022-06-12 10:55 | Outpatient (BNVA) | payer MEDICARE, BC, SELFPAY | PROVIDERS: PCP Family Medicine; Referring Provider Family Medicine; Visit Provider Psychiatry & Neurology Neurology | DX: I69.354 Hemiplegia and hemiparesis following cerebral infarction affecting left non-dominant side (principal); I69.318 Other symptoms and signs involving cognitive functions following cerebral infarction; Z79.02 Long term (current) use of antithrombotics/antiplatelets; G89.29 Other chronic pain; G44.40 Drug-induced headache, not elsewhere classified, not intractable | CPT/HCPCS: 99214 ==

== ENCOUNTER 2022-06-26 14:46 | Outpatient (CLI) | payer MEDICARE, BC, SELFPAY ==
[2022-06-26 10:54] LABS: Hemoglobin A1C 6.3 % (<5.7)
[2022-06-26 11:27] LABS: TSH (W/Ref FT4) 3.61 uIU/mL (0.36-3.74)
[2022-06-26 12:07] LABS: Vitamin B12 217 pg/mL (193-986)
== END 2022-06-26 14:47 | disposition home or self-care (01) ==
LOC: LBO 14:47
PROVIDERS: PCP Family Medicine; Visit Provider Psychiatry & Neurology Neurology
DX: R41.3 Other amnesia (principal); R73.9 Hyperglycemia, unspecified
CPT/HCPCS: 36415; 82607; 83036; 84443

== ENCOUNTER → 2022-08-14 11:14 | Outpatient (BNVA) | payer MEDICARE, BC, SELFPAY | PROVIDERS: PCP Family Medicine; Referring Provider Family Medicine; Visit Provider Psychiatry & Neurology Neurology | DX: I69.315 Cognitive social or emotional deficit following cerebral infarction (principal); I69.354 Hemiplegia and hemiparesis following cerebral infarction affecting left non-dominant side; Z79.02 Long term (current) use of antithrombotics/antiplatelets; Z79.82 Long term (current) use of aspirin; E53.8 Deficiency of other specified B group vitamins; R73.03 Prediabetes; F41.9 Anxiety disorder, unspecified; F32.A Depression, unspecified; G44.40 Drug-induced headache, not elsewhere classified, not intractable; G43.009 Migraine without aura, not intractable, without status migrainosus | CPT/HCPCS: 99214 ==

== ENCOUNTER 2022-11-12 02:17 | Outpatient (CLI) | payer MEDICARE, BC, SELFPAY ==
[2022-11-12 13:22] LABS: Vitamin B12 738 pg/mL (193-986)
== END 2022-11-12 02:18 | disposition home or self-care (01) ==
LOC: LOS 02:17
PROVIDERS: PCP Family Medicine; Visit Provider Psychiatry & Neurology Neurology
DX: R41.3 Other amnesia; E53.8 Deficiency of other specified B group vitamins; G62.89 Other specified polyneuropathies
CPT/HCPCS: 36415; 82607

== ENCOUNTER 2022-12-01 15:40 | Outpatient (REF) | payer MEDICARE, SELFPAY ==
[2022-12-01 20:49] LABS: HCT 36.9 % (36.0-46.0); HGB 11.6 g/dL (11.2-15.7); MCH 27.8 pg (27.0-33.0); MCHC 31.4 % (32.0-36.0); MCV 89 fL (80-95); MPV 11.2 fL (8.0-11.0); Platelet Count 262 10^3/uL (130-400); RBC 4.17 10^6/uL (3.93-5.22); RDW 13.8 % (11.7-14.6); RDW-SD 44.7 fL; WBC 4.92 10^3/uL (4.4-10.8)
[2022-12-01 20:54] LABS: Anion Gap 6.6 mmol/L (3-11); BUN 11 mg/dL (7-18); CO2 30.4 mmol/L (21.0-32.0); CREATININE 0.9 mg/dL (0.55-1.02); Calcium 9.3 mg/dL (8.5-10.1); Chloride 101 mmol/L (98-107); Estimated GFR 63.43 (mL/min/1.73m2); Glucose 102 mg/dL (74-106); Potassium 4.8 mmol/L (3.5-5.1); Sodium 138 mmol/L (136-145)
[2022-12-02 16:57] LABS: Lab Add On Test DONE
[2022-12-02 17:05] LABS: Bilirubin Negative (Negative); Blood Negative (Negative); Clarity Clear (Clear); Glucose Negative (Negative); Ketones Negative (Negative); Leukocyte Esterase Negative (Negative); Nitrite Negative (Negative); Urobilinogen 0.2 EU/dL (Up TO 0.2); pH 6.5 (5-8)
== END 2022-12-01 15:41 | disposition home or self-care (01) ==
LOC: LBN 15:40
PROVIDERS: PCP Family Medicine; Visit Provider Nurse Practitioner Family
DX: N13.70 Vesicoureteral-reflux, unspecified (principal); R31.9 Hematuria, unspecified
CPT/HCPCS: 80048; 85027; 81003; 87086

== ENCOUNTER → 2022-12-15 11:05 | Outpatient (BNVA) | payer MEDICARE, SELFPAY | PROVIDERS: PCP Family Medicine; Referring Provider Family Medicine; Visit Provider Psychiatry & Neurology Neurology | DX: I69.318 Other symptoms and signs involving cognitive functions following cerebral infarction (principal); I69.354 Hemiplegia and hemiparesis following cerebral infarction affecting left non-dominant side; Z79.82 Long term (current) use of aspirin; Z79.02 Long term (current) use of antithrombotics/antiplatelets; F32.A Depression, unspecified; F41.9 Anxiety disorder, unspecified; R31.0 Gross hematuria; I10 Essential (primary) hypertension; G89.29 Other chronic pain; G44.40 Drug-induced headache, not elsewhere classified, not intractable; G43.009 Migraine without aura, not intractable, without status migrainosus | CPT/HCPCS: 99215 ==

== ENCOUNTER → 2023-06-15 10:57 | Outpatient (BNVA) | payer MEDICARE, SELFPAY | PROVIDERS: PCP Family Medicine; Referring Provider Family Medicine; Visit Provider Psychiatry & Neurology Neurology | DX: I69.318 Other symptoms and signs involving cognitive functions following cerebral infarction (principal); I69.354 Hemiplegia and hemiparesis following cerebral infarction affecting left non-dominant side; Z79.82 Long term (current) use of aspirin; Z79.02 Long term (current) use of antithrombotics/antiplatelets; E53.8 Deficiency of other specified B group vitamins; F41.9 Anxiety disorder, unspecified; G44.40 Drug-induced headache, not elsewhere classified, not intractable; G43.009 Migraine without aura, not intractable, without status migrainosus | CPT/HCPCS: 99214 ==

== ENCOUNTER 2023-07-29 16:47 | Emergency (ER) | payer MEDICARE, SELFPAY ==
[2023-07-29] VITALS (16 sets, daily range): BP systolic 108–161; BP diastolic 59–78; PULSE 68–75; RESP 13–20; TEMP 36.3; O2SAT 96–100
--- NOTE | 2023-07-29 16:44 | ED.GENADUL_ITS ---
Discharge Plan Disposition Patient Disposition: Home Discharge Details Clinical Impression: Acute UTI, Normocytic anemia, Hematuria, Bacteriuria Primary Care Provider: Kushal Noyola ED Provider: Dinesh Reddy [place] Meds and New Rx's Prescriptions: New cephalexin 250 mg capsule 250 mg PO QID 5 Days Qty: 20 0RF Continued duloxetine 60 mg capsule,delayed release(DR/EC) 60 mg PO DAILY Qty: 90 3RF losartan 100 mg tablet 100 mg PO DAILY Qty: 90 3RF metoprolol tartrate 25 mg tablet 25 mg PO DAILY Qty: 90 4RF omeprazole 40 mg capsule,delayed release(DR/EC) 40 mg PO DAILY PRN (Reason: acid reflux) Qty: 90 3RF famotidine 20 mg tablet 20 mg PO DAILY Qty: 90 3RF atorvastatin 20 mg tablet 20 mg PO QPM Qty: 90 3RF fluticasone propionate 16 GM spray,suspension 2 spray NS DAILY aspirin 81 mg capsule 81 mg PO DAILY Qty: 30 0RF Discharge Instructions Additional Instructions: You were seen in the emergency department for your decreased energy today. Your urinalysis was concerning for the possibility of a urinary tract infection for which you are receiving antibiotics that you should take as directed. You are also noted to have a mildly low hemoglobin for which you should follow-up with your primary care provider. Please return to the emergency department if you develop any black or bloody stools. Discharge Data Discharge Date/Time-TO BE ENTERED AT DEPARTURE: 07/29/23 19:25 Medical Decision Making This is an overall very well-appearing afebrile and not tachycardic 82-year-old female with general malaise history of urinary tract infections with presentation concerning for recurrent UTI given increased urinary frequency. Patient has no focal neurological deficits and though she does have a history of CVA I do not feel that she is having a CVA at the moment so I do not feel that she will be able candidate for lytics as the risks outweigh the benefits. No tonic-clonic activity to suggest seizures so I do not feel that the patient requires an EEG. No fevers so my suspicion for meningitis is low so I do not feel that the patient requires a lumbar puncture. No pain out of proportion to suggest necrotizing soft tissue infection. Given weakness will obtain a single troponin to ensure that she does not have myocardial injury given her age and possibility of an atypical presentation of ACS. No history of falling to suggest increased risk for intracranial hemorrhage so will defer CT head. No flank pain to suggest increased risk for uretheralithiasis. Given no cough, fevers, nor hypoxia my suspicion is exceedingly low for PNA so will defer CXR. Will provide a 250 cc crystalloid bolus and reassess following labs and ECG. 6:15 PM Mild normocytic anemia. No leukocytosis. No thrombocytopenia. Basic metabolic panel with no OTTO. Mild hyponatremia. No anion gap. Urinalysis with moderate blood. Nitrite and leuk esterase negative. Rare bacteria. 7 PM Patient felt improved in the ED. Given her symptoms, her hematuria and bacteriuria we will treat for UTI with 5 days of cephalexin 250 mg 4 times daily. I to advised patient of her normocytic anemia. She denies any black or bloody stools. I met patient, her son, and her daughter in-law to review her ED course, plan of care and return indications. I advised that she should return to the ED if she develops any black or bloody stools, worsening fatigue, fevers, nausea or vomiting with prevented her from tolerating her abx. I also advised PCP follow-up within the week. HPI General Date/Time Provider Initiated Documentation: 07/29/23 16:56 . HPI Narrative: This is an 82-year-old female with remote history of prior CVA arriving via paramedics in the setting of reported episode of confusion. Paramedics reports that family members thought that the patient had a spell. They said that she had been in bed all day which is not typical for her. Her symptoms are reminiscent of prior UTIs. Patient reports that she does not feel confused. She does report decreased energy today but denies chest pain, shortness of breath, fevers, chills, cough, nausea, and vomiting. Related Data Home Medications Medication Instructions Recorded Confirmed fluticasone propionate 50 2 spray NS DAILY 03/02/18 07/29/23 mcg/actuation nasal spray,suspension aspirin 81 mg capsule 81 mg PO DAILY #30 caps 03/24/22 07/29/23 atorvastatin 20 mg tablet 20 mg PO QPM #90 tabs 12/23/22 07/29/23 famotidine 20 mg tablet 20 mg PO DAILY #90 tabs 02/10/23 07/29/23 duloxetine 60 mg capsule,delayed 60 mg PO DAILY #90 caps 05/11/23 07/29/23 release losartan 100 mg tablet 100 mg PO DAILY #90 tab-caps 05/11/23 07/29/23 metoprolol tartrate 25 mg tablet 25 mg PO DAILY #90 tabs 05/11/23 07/29/23 omeprazole 40 mg capsule,delayed 40 mg PO DAILY PRN acid reflux #90 05/11/23 07/29/23 release tab-caps cephalexin 250 mg capsule 250 mg PO QID 5 days #20 caps 07/29/23 Previous Rx's Medication Instructions Recorded aspirin 81 mg capsule 81 mg PO DAILY #30 caps 03/24/22 atorvastatin 20 mg tablet 20 mg PO QPM #90 tabs 12/23/22 famotidine 20 mg tablet 20 mg PO DAILY #90 tabs 02/10/23 duloxetine 60 mg capsule,delayed 60 mg PO DAILY #90 caps 05/11/23 release losartan 100 mg tablet 100 mg PO DAILY #90 tab-caps 05/11/23 metoprolol tartrate 25 mg tablet 25 mg PO DAILY #90 tabs 05/11/23 omeprazole 40 mg capsule,delayed 40 mg PO DAILY PRN acid reflux #90 05/11/23 release tab-caps cephalexin 250 mg capsule 250 mg PO QID 5 days #20 caps 07/29/23 Allergies Allergy/AdvReac Type Severity Reaction Status Date / Time sertraline AdvReac Ineffective Verified 07/29/23 18:02 General MAULIK: 3 PFSH All Active Problems (Updated 07/30/23 @ 12:08 by Dinesh Reddy MD) Acute UTI (Acute) Normocytic anemia (Acute) Hematuria (Acute) Bacteriuria (Acute) Hematuria (Acute) Syncopal episodes (Chronic) Prediabetes (Acute) Migraine headache without aura (Acute) Medication overuse headache (Acute) Chronic headache (Acute) Memory loss (Acute) Acute CVA (cerebrovascular accident) (Acute) Essential hypertension (Acute) Age-related macular degeneration (Acute) Anxiety (Acute 03/29/13) panic Bundle branch block (Acute) left bundle branch block; Cardiomyopathy (Acute) echo 12/31 EF43% echo 2010 EF35-40% echo 06/04 EF45-50% diastolic dysfunction nonischemic Gastroesophageal reflux disease (Chronic) 07/07/14; EGD; González BURNETT Malignant neoplasm of female breast (Acute 10/22/01) stage 2 IDC RIGHT BREAST lumpectomy radiation chemo Followed at [facility] Microscopic hematuria (Acute 02/02/18) 03/04/18; NEGATIVE CYSTOSCOPY Osteopenia (Acute) Risk factors: Graves; Arimidex D/C'd Fosamax Dexa in 2011; repeat in 2 years Mood disorder (Acute) improved w/ cymbalta Right knee meniscal tear (Chronic) Status post breast lumpectomy (Acute) History of esophagogastroduodenoscopy (Acute) Vaginitis and vulvovaginitis (Acute) Herpetic lesion (Acute) inside left labia MICHLE (dyspnea on exertion) (Acute) Pain, joint, knee, right (Acute) Pain in left hip (Acute) Temporal headache (Acute) Medical History Alcohol abuse Anxiety Breast cancer Depressive disorder GERD (gastroesophageal reflux disease) Graves' disease (03/29/13) Hyperlipidemia (02/15/13) Hypertension Idiopathic scoliosis Nonischemic cardiomyopathy Stress incontinence Surgical History Breast, Lumpectomy right lumpectomy-infiltration ductal; radiation and chemo Cystoscopy 03/04/18 NEGATIVE Hx of appendectomy Hx of cataract removal with insertion of prosthetic lens Hx of tubal ligation Family History Mother Essential hypertension Heart disease Myocardial infarction Father Diabetes Heart disease Sister Alzheimer disease Brother Essential hypertension Heart disease Grandfather Heart disease Grandfather Personal history of malignant neoplasm Grandmother Heart disease Grandmother Heart disease Maternal Uncle Stroke Son No problems noted. Son No problems noted. Son No problems noted. Son No problems noted. Daughter No problems noted. Daughter No problems noted. Social History Smoking/Tobacco Use Status: Former Tobacco Use Quit Date: 11/23/95 Smoking risk assessment performed?: Yes Alcohol Intake: never Drug use: Never Substance use type: does not use Household members: other Details: 2 Frequency: daily Do you feel safe at home: Yes Do you feel safe in your relationship?: Yes Exam Narrative Exam Narrative: General: Chronically ill-appearing in no acute distress speaking in complete sentences. Head: Normocephalic, atraumatic. Eye: Extraocular eye movements intact. No conjunctival injection. No scleral icterus. Ear, nose, mouth, throat: Grossly normal inspection. Normal voice, handling secretions normally. Neck: Trachea midline. Cardiovascular: Well-perfused distal extremities. Regular rhythm and rate Respiratory: Nonlabored respiration. Clear lungs bilaterally. Gastrointestinal: Nondistended abdomen. Soft nontender abdomen. Musculoskeletal: No edema. Moving all 4 extremities spontaneously. Skin: Normal for age and race, grossly normal temperature and turgor. No acute rash. Neurologic: Alert and appropriate, no apparent acute deficits. Cranial nerves II through XII intact grossly. No dysmetria. No dysdiadochokinesia. No pronator drift. Bilateral upper and lower extremities with 5 out of 5 strength. Psychiatric: Mood and manner are appropriate. Grooming and personal hygiene are appropriate.
--- NOTE | 2023-07-29 16:45 | RT.EKG_ITS ---
APPROVED REPORT Exam: Resting ECG Reason for Exam: BRUE Patient Location: E HR:73 bpm ECG Measurements Heart Rate 73 AXIS DE 198 P 52 QRSd 152 QRS -10 QT 450 T 131 QTc 496 Conclusion Sinus rhythm...normal P axis, V-rate 60- 99 Left bundle branch block...QRSd>120, broad/notched R ST elevation secondary to IVCD...Multiple VCG criteria Sinus rhythm at a rate of 73 with left bundle branch block pattern. QTc within normal limits. DE wi thin normal limits. Not meeting Sgarbossa criteria nor modified Marshall criteria for ischemia. Appear s similar to prior with the exception of more pronounced left bundle branch block pattern in V2.
[2023-07-29 17:44] LABS: Bilirubin Negative (Negative); Blood Moderate (Negative); Clarity Clear (Clear); Glucose Negative (Negative); Ketones Negative (Negative); Leukocyte Esterase Negative (Negative); Nitrite Negative (Negative); Urobilinogen 0.2 mg/dL (Up to 0.2)
[2023-07-29 17:50] LABS: Abs Immature Grans 0.03 10^3/uL (0.0-0.06); Absolute Basophil Count 0.04 10^3/uL (0.0-0.2); Absolute Eosinophil Count 0.25 10^3/uL (0.0-0.7); Absolute Lymphocyte Count 0.97 10^3/uL (1.2-3.4); Absolute Monocyte Count 0.84 10^3/uL (0.1-0.8); Absolute Neutrophil Count 5.05 10^3/uL (1.2-6.7); Basophils % 0.6; Eosinophils % 3.5; HGB 10.5 g/dL (11.2-15.7); Immature Grans % 0.4; Lymphocytes % 13.5; MCH 27.6 pg (27.0-33.0); MCHC 31.8 % (32.0-36.0); MCV 87 fL (80-95); MPV 10.4 fL (8.0-11.0); Monocytes % 11.7; Neutrophils % 70.3; Platelet Count 253 10^3/uL (130-400); RBC 3.81 10^6/uL (3.93-5.22); RDW 14.3 % (11.7-14.6); RDW-SD 45.5 fL; WBC 7.18 10^3/uL (4.4-10.8)
[2023-07-29 17:53] LABS: Bacteria Rare HPF (Negative); C & S Indicated? No; Casts 0-2 Hyaline LPF (Negative); Crystals Negative HPF (Negative); Epithelial Cells Few HPF (Negative); Mucus Trace (Negative); RBC 0-2 HPF (0-2); WBC Negative HPF (0-5)
[2023-07-29 18:02] LABS: Anion Gap 7.1 mmol/L (3-11); BUN 13 mg/dL (7-18); CO2 29.9 mmol/L (21.0-32.0); CREATININE 0.8 mg/dL (0.55-1.02); Calcium 8.9 mg/dL (8.5-10.1); Chloride 97 mmol/L (98-107); Estimated GFR 72.61 (mL/min/1.73m2); Glucose 103 mg/dL (74-106); Potassium 3.7 mmol/L (3.5-5.1); Sodium 134 mmol/L (136-145)
[2023-07-29] MEDS: Normal Saline 500 ML 250 ML IV (18:06)
[2023-07-29 18:11] LABS: Troponin I < 50 ng/L (<or=60)
[2023-07-29] MEDS: Cephalexin 250 MG CAP PO (19:01)
== END 2023-07-29 19:25 | disposition home or self-care (01) ==
PROVIDERS: Emergency Provider Emergency Medicine; PCP Family Medicine
DX: R41.0 Disorientation, unspecified (principal); N39.0 Urinary tract infection, site not specified; D64.9 Anemia, unspecified; R31.9 Hematuria, unspecified; R82.71 Bacteriuria; R53.1 Weakness; Z86.73 Personal history of transient ischemic attack (TIA), and cerebral infarction without residual deficits
CPT/HCPCS: 36415; 51701; 80048; 93005; 96360; 99284; 81003; 81015; 84484; 85025; 93010

== ENCOUNTER → 2023-12-14 10:51 | Outpatient (BNVA) | payer MEDICARE, SELFPAY | PROVIDERS: PCP Family Medicine; Referring Provider Family Medicine; Visit Provider Psychiatry & Neurology Neurology | DX: I63.9 Cerebral infarction, unspecified (principal); R41.3 Other amnesia; G43.009 Migraine without aura, not intractable, without status migrainosus; G89.29 Other chronic pain; R26.9 Unspecified abnormalities of gait and mobility | CPT/HCPCS: 99214 ==

== ENCOUNTER 2024-01-04 10:21 | Observation (INO) | payer MEDICARE, SELFPAY ==
[2024-01-04] VITALS (21 sets, daily range): BP systolic 142–197; BP diastolic 69–106; PULSE 58–71; RESP 11–21; TEMP 36.1–37.2; O2SAT 97–99
--- NOTE | 2024-01-04 10:30 | DI.CT_ITS ---
Exam(s) CT HEAD - STROKE PROTOCOL EXAM: CT HEAD - STROKE PROTOCOL CLINICAL HISTORY: Left sided numbness/Tingling. TECHNIQUE: Imaging Protocol: Axial computed tomography images with coronal and sagittal reformatted images were created and reviewed COMPARISON: CT CT HEAD WO from 05/19/2022 FINDINGS: Ventricles and Extra axial spaces: Normal in size and morphology for the patient's age. Hemorrhage: None. Cerebral parenchyma: No evidence of acute infarct. 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 Atrophy. White matter changes consistent with small vessel disease. Midline shift: None. Brainstem/Cerebellum: Normal. Calvarium: Normal. Visualized Paranasal sinuses/Mastoids: Clear. IMPRESSION: No acute abnormality.Old right-sided lacunar infarcts. RADIATION DOSE DELIVERED: 723.85mGy.cm Total DLP 723.85mGy.cm Total DLP DATA REPOSITORY: All CT scans at this facility are submitted to the National Radiology Data Registry (NRDR) Dose Index Registry (DIR) with the [employer] ([employer]). RADIATION OPTIMIZATION: All CT scans at this facility use at least one of these dose optimization te chniques: automated exposure control; mA and/or kV adjustment per patient size (includes targeted exa ms where dose is matched to clinical indication); or iterative reconstruction.
--- NOTE | 2024-01-04 10:30 | RT.EKG_ITS ---
APPROVED REPORT Exam: Resting ECG Reason for Exam: possible stroke Patient Location: E HR:66 bpm ECG Measurements Heart Rate 66 AXIS IA 217 P 19 QRSd 151 QRS -35 QT 466 T 141 QTc 488 Conclusion Sinus rhythm...normal P axis, V-rate 60- 99 Borderline prolonged IA interval...IA >212, V-rate 50- 90 Left bundle branch block...QRSd>120, broad/notched R ST elevation secondary to IVCD...Multiple VCG criteria
--- OUTSIDE RECORDS SUMMARY | 2024-01-04 10:31 | XMS_ITS | Continuity of Care Document ---
Author Name Unknown Organization [facility] Address [address] [place] [address] Encounter [facility] FIN NBR [id number] Date(s): 10/06/22 - 10/06/22 [facility] [address], [place] [address] Encounter Diagnosis Accidental drug overdose(Discharge Diagnosis) - 10/06/22 Discharge Disposition: Home or Self Care Attending Physician: Christina Holly MD Admitting Physician: Christina Holly MD Allergies, Adverse Reactions, Alerts No Known Allergies Mental Status 10/06/22 Eye Opening Response Aisha Spontaneous ly Best Verbal Response Aisha Oriented Best Motor Response Aisha Obeys comman ds Aisha Coma Score 15 Results Laboratory List Name Date Acetaminophen Level 10/06/22 Alcohol Lvl (ETOH Level) 10/06/22 Comprehensive Metabolic Panel (CMP) 09/23 03/14 Salicylate Level 10/06/22 TSH w/ Rflx to Free T4 10/06/22 SARS-CoV-2 (COVID-19) PCR (GeneXpert) CBC w/ Diff 10/06/22 Automated Diff 10/06/22 Most recent to oldest [Reference Range]: 1 WBC [4.8-10.8 K/mcL] 6.8 K/mcL (10/06/22 4:54 PM) RBC [4.20-6.10 Million/mcL] 3.80 Million /mcL *LOW* (10/06/22 4:54 PM) Neutro Auto [42.2-75.2 %] 66.4 % (10/06/22 4:54 PM) Lymph Auto [20.5-51.1 %] 21.1 % (10/06/22 4:54 PM) Marquette Auto [1.7-9.3 %] 10.0 % *HI* (10/06/22 4:54 PM) Basophil Auto [0.0-0.2 %] 0.6 % *HI* (10/06/22 4:54 PM) BUN [8-26 mg/dL] 14 mg/dL (10/06/22 5:25 PM) Glucose Level [74-106 mg/dL] 199 mg/dL *HI* (10/06/22 5:25 PM) Potassium Level [3.5-5.1 mmol/L] 3.7 mmo l/L (10/06/22 5:25 PM) Baso Absolute [0.0-0.2 K/mcL] 0.0 K/mcL (10/06/22 4:54 PM) MCV [80.0-99.0 fL] 91.3 fL (10/06/22 4:54 PM) AST [15-41 IntlUnit/L] 26 IntlUnit/L (10/06/22 5:25 PM) ALT [14-54 IntlUnit/L] 19 IntlUnit/L (10/06/22 5:25 PM) MCHC [32.0-36.0 g/dL] 31.4 g/dL *LOW* (10/06/22 4:54 PM) Osmolality [275-295 mOsm/kg] 272 mOsm/kg *LOW* (10/06/22 5:25 PM) Sodium Level [134-143 mmol/L] 133 mmol/L *LOW* (10/06/22 5:25 PM) Lymph Absolute [1.2-3.4 K/mcL] 1.4 K/mcL (10/06/22 4:54 PM) Hct [37.0-52.0 %] 34.7 % *LOW* (10/06/22 4:54 PM) Calcium Level [8.9-10.3 mg/dL] 9.2 mg/dL (10/06/22 5:25 PM) Marquette Absolute [0.1-0.6 K/mcL] 0.7 K/mcL *HI* (10/06/22 4:54 PM) Albumin Level [3.5-5.0 g/dL] 4.1 g/dL (10/06/22 5:25 PM) Protein Total [6.5-8.1 g/dL] 7.7 g/dL (10/06/22 5:25 PM) MCH [27.0-31.0 pg] 28.7 pg (10/06/22 4:54 PM) Neutro Absolute [1.4-6.5 K/mcL] 4.5 K/mc L (10/06/22 4:54 PM) Bilirubin Total [0.2-1.2 mg/dL] 0.4 mg/d L (10/06/22 5:25 PM) Hgb [12.0-18.0 g/dL] 10.9 g/dL *LOW* (10/06/22 4:54 PM) Alk Phos [38-130 IntlUnit/L] 60 IntlUnit /L (10/06/22 5:25 PM) MPV [7.4-10.4 fL] 11.2 fL *HI* (10/06/22 4:54 PM) Salicylate Level [<=30.0 mg/dL] <4.0 mg/ dL (10/06/22 5:25 PM) Ethanol Level [0.00-0.08 g/dL] see comme nt g/dL 1 *NA* (10/06/22 5:25 PM) Platelets [130-400 K/mcL] 227 K/mcL (10/06/22 4:54 PM) CO2 [22-32 mmol/L] 27 mmol/L (10/06/22 5:25 PM) Eos Absolute [0.0-0.2 K/mcL] 0.1 K/mcL (10/06/22 4:54 PM) TSH [0.45-5.33 mIntlUnit/mL] 4.43 mIntlU nit/mL (10/06/22 5:25 PM) eGFR Non-AA 75 *NA* (10/06/22 5:25 PM) eGFR AA 75 *NA* (10/06/22 5:25 PM) Acetaminophen Level [10.0-30.0 ug/mL] <1 0.0 ug/mL (10/06/22 5:25 PM) Chloride Level [98-111 mmol/L] 95 mmol/L *LOW* (10/06/22 5:25 PM) RDW-CV [11.5-14.5 %] 14.4 % (10/06/22 4:54 PM) A/G Ratio 1.1 *NA* (10/06/22 5:25 PM) BUN/Creat Ratio [8.0-20.0] 17.9 (10/06/22 5:25 PM) Globulin 3.6 *NA* (10/06/22 5:25 PM) Imm Gran Absolute 0.03 *NA* (10/06/22 4:54 PM) Imm Gran Auto [0.0-0.5 %] 0.4 % (10/06/22 4:54 PM) SARS-CoV-2 (COVID-19) PCR (GeneXpert) [N egative] Negative (10/06/22 5:06 PM) Creatinine Level [0.44-1.00 mg/dL] 0.78 mg/dL (10/06/22 5:25 PM) Employed in healthcare? Unknown *NA* (10/06/22 5:06 PM) Symptomatic as defined by CDC? No *NA* (10/06/22 5:06 PM) Hospitalized due to COVID-19? No *NA* (10/06/22 5:06 PM) In ICU? No *NA* (10/06/22 5:06 PM) Group care resident? No *NA* (10/06/22 5:06 PM) status? Not *NA* (10/06/22 5:06 PM) Anion Gap [3.0-12.0] 11.0 (10/06/22 5:25 PM) Eos, Auto [0.00-3.00 %] 1.50 % (10/06/22 4:54 PM) 1Result Comment: result less than linearity unable to calculate Radiology Reports * Exam Date Time Procedure Performing Provider Status 10/06/22 4:[address] Head w/o Contrast Ehsan Brannon [facility] (Verified) Notes: (CT Head w/o Contrast) Reason For Exam: syncope? intoxication CT Head w/o Contrast PROCEDURE INFORMATION: Exam: CT Head Without Contrast Exam date and time: 10/06/2022 4:53 PM Age: 81 years old Clinical indication: Other: Intoxication? ; Additional info: Syncope? Intoxication TECHNIQUE: Imaging protocol: Computed tomography of the head without contrast. Radiation optimization: All CT scans at this facility use at least one of these dose optimization techniques: automated exposure control; mA and/or kV adjustment per patient size (includes targeted exams where dose is matched to clinical indication); or iterative reconstruction. COMPARISON: No relevant prior studies available. FINDINGS: Brain: There is no acute cortical infarction, intracranial hemorrhage or mass. 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 Cerebral ventricles: The ventricles appear enlarged, but not out of proportion to the degree of parenchymal volume loss. Paranasal sinuses: Visualized sinuses are unremarkable. No fluid levels. Mastoid air cells: Visualized mastoid air cells are well aerated. Bones/joints: Unremarkable. No acute fracture. Soft tissues: Unremarkable. Vasculature: Atherosclerosis. IMPRESSION: No acute intracranial findings. THIS DOCUMENT HAS BEEN ELECTRONICALLY SIGNED BY ZACH PARIS MD on 10/06/2022 05:11 PM Final Signed by: Zach Paris MD Signed (Electronic Signature): 10/06/2022 5:11 pm Vital Signs Most recent to oldest [Reference Range]: 1 2 3 Temperature Temporal Artery [36-38 Deg C] 37.0 Deg C (10/06/22 4:28 PM) Peripheral Pulse Rate [60-100 bpm] 114 bpm *HI* (10/06/22 6:00 PM) 105 bpm *HI* (10/06/22 5:33 PM) 108 bpm *HI* (10/06/22 5:15 PM) Heart Rate Monitored [60-100 bpm] 115 bpm *HI* (10/06/22 6:00 PM) 107 bpm *HI* (10/06/22 5:33 PM) 107 bpm *HI* (10/06/22 5:15 PM) Respiratory Rate [12-24 br/min] 41 br/min *HI* (10/06/22 6:00 PM) 21 br/min (10/06/22 5:33 PM) 20 br/min (10/06/22 5:15 PM) Blood Pressure [90-140/60-90 mmHg] 133/76mmHg (10/06/22 6:00 PM) 149/57mmHg *HI* (10/06/22 5:33 PM) 131/88mmHg (10/06/22 5:15 PM) Mean Arterial Pressure Cuff 95 mmHg (10/06/22 6:00 PM) 83 mmHg (10/06/22 5:33 PM) 101 mmHg (10/06/22 5:15 PM) Weight Dosing 64.00 kg (10/06/22 6:09 PM) Weight Estimated 64.00 kg (10/06/22 4:28 PM) Height/Length Dosing 163.000 cm (10/06/22 6:09 PM) Height/Length Estimated 163.000 cm (10/06/22 4:28 PM) Social History Social History Type Response Tobacco Never tobacco user T obacco Use:. Sex Hospital Discharge Instructions Patient Education 10/06/2022 18:10:19 Accidental Drug Poisoning, Adult Accidental Drug Poisoning, Adult Accidental drug poisoning happens when a person accidentally takes too much of a substance, such asa prescription medicine, an xpzr-gzv-goofvpb medicine, a vitamin, a supplement, or an illegal drug.The effects of drug poisoning can be mild, dangerous, or even deadly. What are the causes? This condition is caused by taking too much of a medicine, illegal drug, or other substance. It often results from: ??? Lack of knowledge about a substance. ??? Using more than one substance at the same time. ??? An error made by the health care provider who prescribed the substance. ??? An error made by the pharmacist who filled the prescription. ??? A lapse in memory, such as forgetting that you have already taken a dose of the medicine. ??? Suddenly using a substance after a long period of not using it. The following substances and medicines are more likely to cause an accidental drug poisoning: ??? Medicines that treat mental problems (psychotropic medicines). ??? Pain medicines. ??? Cocaine. ??? Heroin. ??? Multivitamins that contain iron. ??? Vuit-nyu-fiadcmx cold and cough medicines. What increases the risk? This condition is more likely to occur in: ??? Elderly adults. Elderly adults are at risk because they may: ??? Be taking many different medicines. ??? Have difficulty reading labels. ??? Forget when they last took their medicine. ??? People who use illegal drugs. ??? People who drink alcohol while using illegal drugs or certain medicines. ??? People with certain mental health conditions. What are the signs or symptoms? Symptoms of this condition depend on the substance and the amount that was taken. Common symptoms include: ??? Behavior changes, such as confusion. ??? Sleepiness. ??? Weakness. ??? Slowed breathing. ??? Nausea and vomiting. ??? Seizures. ??? Very large or small eye pupil size. A drug poisoning can cause a very serious condition in which your blood pressure drops to a low level (shock). Symptoms of shock include: ??? Cold and clammy skin. ??? Pale skin. ??? Blue lips. ??? Very slow breathing. ??? Extreme sleepiness. ??? Severe confusion. ??? Dizziness or fainting. How is this diagnosed? This condition is diagnosed based on: ??? Your symptoms. You will be asked about the substances you took and when you took them. ??? A physical exam. You may also have other tests, including: ??? Urine tests. ??? Blood tests. ??? An electrocardiogram (ECG). How is this treated? This condition may need to be treated right away at the hospital. Treatment may involve: ??? Getting fluids and electrolytes through an IV. ??? Having a breathing tube inserted in your airway (endotracheal tube) to help you breathe. ??? Taking medicines. These may include medicines that: ??? Absorb any substance that is in your digestive system. ??? Block or reverse the effect of the substance that caused the drug poisoning. ??? Having your blood filtered through an artificial kidney machine (hemodialysis). ??? Ongoing counseling and mental health support. This may be provided if you used an illegal drug. Follow these instructions at home: Medicines ??? Take ztjd-xiz-onaimtg and prescription medicines only as told by your health care provider. ??? Before taking a new medicine, ask your health care provider whether the medicine: ??? May cause side effects. ??? Might react with other medicines. ??? Keep a list of all the medicines that you take, including ypjo-ezs-dqzfdez medicines, vitamins,supplements, and herbs. Bring this list with you to all of your medical visits. General instructions ??? Drink enough fluid to keep your urine pale yellow. ??? If you are working with a counselor or mental health professional, make sure to follow his or her instructions. ??? Do not drink alcohol if: ??? Your health care provider tells you not to drink. ??? You are , may be , or are planning to become . ??? If you drink alcohol, limit how much you have: ??? 0???1 drink a day for women. ??? 0???2 drinks a day for men. ??? Be aware of how much alcohol is in your drink. In the [place] one drink equals one typical bottleof beer (12 oz), one-half glass of wine (5 oz), or one shot of hard liquor (1?? oz). ??? Keep all follow-up visits as told by your health care provider. This is important. How is this prevented? Get help if you are struggling with: ??? Alcohol or drug use. ??? Depression or another mental health problem. ??? Keep the phone number of your local poison control center near your phone or on your cell phone. The hotline of the [place] [employer] Poison Control Centers is . ??? Store all medicines in safety containers that are out of the reach of children. ??? Read the drug inserts that come with your medicines. ??? Create a system for taking your medicine, such as a pillbox, that will help you avoid taking too much of the medicine. ??? Do not drink alcohol while taking medicines unless your health care provider approves. ??? Do not use illegal drugs. ??? Do not take medicines that are not prescribed for you. Contact a health care provider if: ??? Your symptoms return. ??? You develop new symptoms or side effects after taking a medicine. ??? You have questions about possible drug poisoning. Call your local poison control center at . Get help right away if: ??? You think that you or someone else may have taken too much of a substance. ??? You or someone else is having symptoms of drug poisoning. Summary ??? Accidental drug poisoning happens when a person accidentally takes too much of a substance, such as a prescription medicine, an jsyu-ggc-pfndopt medicine, a vitamin, a supplement, or an illegal drug. ??? This condition is diagnosed based on your symptoms and a physical exam. You will be asked to tell your health care provider which substances you took and when you took them. ??? The effects of drug poisoning can be mild, dangerous, or even deadly. ??? This condition may need to be treated right away at the hospital. This information is not intended to replace advice given to you by your health care provider. Make sure you discuss any questions you have with your health care provider. Document Revised: 09/30/2021 Document Reviewed: 09/30/2021 Elsevier Patient Education ?? 2021 [employer]. Follow Up Care 10/06/2022 16:28:24 With:Follow up with primary care provider Address: When:2 to 4 days Discharge instructions * Event Display: Discharge Instructions Physician Emergency department Note * Christina Holly MD: PERFORM Event Display: ED Note Physician Authored Date: [id number] NEERAJ WATERS :1940 Age:81 years Sex:Female Visit Date:10/06/2022 Basic Information Time Seen: Christina Holly MD / 10/06/2022 16:32 Chief Complaint Pt comes by EMS w/ reports of being found unresponsive by her after eating 7 gummies. ??Pt is A/Ox2 w/ flight of ideas. History Of Present Illness: This patient is a 81-year-old female presents today for evaluation of??possible intoxication.?? Patient states that she had gotten some??Gummies from a friend??that likely contained THC although she is unclear on what else they contained.?? She states that she took??5 or 6 of them because she was feeling stressed out. ??She states that she did not know how many to take??and thinks that she took too many.?? Patient dates that she was not doing this with the intent of harming herself.?? She just wanted to feel less stressed out.?? Apparently the patient was found unresponsive by??her and EMS was called. Review of Systems: CONSTITUTIONAL:??No fevers or chills. EYES:??No change in vision. ENT:??No sore throat. ??No headache. ??No neck pain. ??Dry mouth. CARDIOVASCULAR:??No chest pain, palpitations or passing out episodes. RESPIRATORY:??No cough, shortness of breath or hemoptysis. GI:??No abdominal pain. No nausea, vomiting or diarrhea. :??No change in urination. SKIN:??No rash. NEUROLOGIC:??No numbness or weakness. MUSCULOSKELETAL:??No swelling or pain. PSYCHIATRIC:??No depression. LYMPH:??No swelling. Review of systems otherwise as stated in HPI Physical Exam Vitals & Measurements T:??37.0?C ??(Temporal Artery)?? HR:??114??(Peripheral)?? HR:??115??(Monitored)?? RR:??41?? BP:??133/76?? SpO2:??99%?? HT:??163.000??cm?? WT:??64.00??kg??(Estimated)?? O2 Therapy:??Room air?? General: ??AAOx3. ??GCS15. ??No acute distress, answering questions appropriately. Head: ??Atraumatic; Normocephalic Eye: ??PERRLA; EOMI; no scleral icterus / pallor ENT: moist mucous membranes; no epistaxis. No stridor. Neck: ??Active ROM intact; Trachea Midline.?No meningismus appreciated. Skin: Warm, dry Chest: ??Equal BS bilaterally. ??Clear to auscultation bilaterally. Heart: RRR; no murmur, rub, or gallop Abdomen: ??Soft, non-tender, non-distended, no guarding, rebound, or rigidity. No Hepatosplenomegaly Musculoskeletal: ??ROM intact of all extremities/joints without discomfort. ??Sensation grossly intact throughout. ??No obvious deformity. ??Strength Intact 5/5 throughout. ?? Neuro: Alert and oriented??although keeps her eyes closed while answering questions.. Answering questions appropriately with clear speech??with a mild stutter to her speech. Motor and sensory grosslynormal in all extremities.?? Medical Decision Making: This patient is a 81-year-old female who presented to the emergency department today??after she wasfound unresponsive by her . ??When EMS arrived??patient was telling them that she had taken??more than??the usual dose of??marijuana Gummies.?? The patient??had complaints of a dry mouth andsome stuttering of her speech.?? Lab work for the patient was grossly unremarkable other than some mild mild anemia.?? Patient's Tylenol, salicylate and alcohol levels were unremarkable.?? Patient was mildly tachycardic so was given some IV fluids.?? On reexamination at 6:14 PM, the patient is starting to clear??and is becoming more talkative. ??Her family is at the bedside. ??We discussed??that s he should refrain from using any THC Gummies in the future as it would make her increased risk for situation such as falls. ??Family discussed getting her to follow-up with her??PCP for treatment of her stress.?? Patient had some mild tachycardia and EKG shows a sinus tachycardia with a rate of 106. ??Think this is likely due to the??THC consumption.?? Patient stuttering is??progressively improving I think this is very unlikely to represent stroke.?? I think this is likely due to intoxication. ??Family agrees that it is improving.?? On examination at 7:15 PM, the patient has no word findingdifficulties and is able to label objects.?? When telling a story she will get off track but I think that this is??likely related to the??THC intoxication.?? The patient's??family members are presentfeel comfortable plan for discharge home and he will stay with her tonight??and hopefully discard the rest of the THC Gummies. Procedure No Qualifying Data Assessment/Plan 1.??Accidental drug overdose??T50.901A Orders: Sodium Chloride 0.9% 1,000 mL, Total Volume (mL): 1,000, 1,000 mL, Soln-IV, Hydration Bolus, 999 mL/hr, Order Duration: 1 doses, Start Date: 10/06/22 18:13:00 EST, Stop Date: 10/06/22 19:12:00 EST, 64 kg, Populate Charting Weight From Order, 1.7, m2 Cardiac Monitoring, 10/06/22 16:42:00 EST, May be off for activity: No Drug Screen Urine, Urine, Stat Collect, 10/06/22 16:42:00 EST, Once, Nurse collect, Print Label Patient Education Accidental Drug Poisoning, Adult Follow Up With When Contact Information Follow up with primary care provider Within 2 to 4 days Additional Instructions: Problem List/Past Medical History Ongoing No qualifying data Historical No qualifying data Medication Administration Given Sodium Chloride 0.9%, 1000 mL, Hydration Bolus Allergies No Known Allergies Social History Electronic Cigarette/Vaping Electronic Cigarette Use: Never. Substance Use Marijuana Tobacco Never tobacco user Tobacco Use:. Diagnostic Results CT Head w/o Contrast 10/06/2022 17:[address] Head w/o Contrast ?? 10/06/22 16:53:50 PROCEDURE INFORMATION: Exam: CT Head Without Contrast Exam date and time: 10/06/2022 4:53 PM Age: 81 years old Clinical indication: Other: Intoxication? ; Additional info: Syncope? Intoxication ?? TECHNIQUE: Imaging protocol: Computed tomography of the head without contrast. Radiation optimization: All CT scans at this facility use at least one of these dose optimization techniques: automated exposure control; mA and/or kV adjustment per patient size (includes targeted exams where dose is matched to clinical indication); or iterative reconstruction. ?? COMPARISON: No relevant prior studies available. ?? FINDINGS: Brain: There is no acute cortical infarction, intracranial hemorrhage or mass. 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 Cerebral ventricles: The ventricles appear enlarged, but not out of proportion to the degree of parenchymal volume loss. Paranasal sinuses: Visualized sinuses are unremarkable. No fluid levels. Mastoid air cells: Visualized mastoid air cells are well aerated. ?? Bones/joints: Unremarkable. No acute fracture. Soft tissues: Unremarkable. Vasculature: Atherosclerosis. ?? IMPRESSION: No acute intracranial findings. ? THIS DOCUMENT HAS BEEN ELECTRONICALLY SIGNED BY ZACH PARIS MD on 10/06/2022 05:11 PM ?? Signed By: Zach Paris MD Lab Results CBC and Differential?? LATEST RESULTS?? WBC?? 10/06/22 16:54?? 6.8?? RBC?? 10/06/22 16:54?? 3.80 ??Low?? Hgb?? 10/06/22 16:54?? 10.9 ??Low?? Hct?? 10/06/22 16:54?? 34.7 ??Low?? MCV?? 10/06/22 16:54?? 91.3?? MCH?? 10/06/22 16:54?? 28.7?? MCHC?? 10/06/22 16:54?? 31.4 ??Low?? RDW-CV?? 10/06/22 16:54?? 14.4?? Platelets?? 10/06/22 16:54?? 227?? MPV?? 10/06/22 16:54?? 11.2 ??High?? Neutro Auto?? 10/06/22 16:54?? 66.4?? Lymph Auto?? 10/06/22 16:54?? 21.1?? Marquette Auto?? 10/06/22 16:54?? 10.0 ??High?? Eos, Auto?? 10/06/22 16:54?? 1.50?? Basophil Auto?? 10/06/22 16:54?? 0.6 ??High?? Imm Gran Auto?? 10/06/22 16:54?? 0.4?? Neutro Absolute?? 10/06/22 16:54?? 4.5?? Lymph Absolute?? 10/06/22 16:54?? 1.4?? Marquette Absolute?? 10/06/22 16:54?? 0.7 ??High?? Eos Absolute?? 10/06/22 16:54?? 0.1?? Baso Absolute?? 10/06/22 16:54?? 0.0?? Imm Gran Absolute?? 10/06/22 16:54?? 0.03? Routine Chemistry?? LATEST RESULTS?? Sodium Level?? 10/06/22 17:25?? 133 ??Low?? Potassium Level?? 10/06/22 17:25?? 3.7?? Chloride Level?? 10/06/22 17:25?? 95 ??Low?? CO2?? 10/06/22 17:25?? 27?? Alk Phos?? 10/06/22 17:25?? 60?? AST?? 10/06/22 17:25?? 26?? ALT?? 10/06/22 17:25?? 19?? BUN?? 10/06/22 17:25?? 14?? Glucose Level?? 10/06/22 17:25?? 199 ??High?? Creatinine Level?? 10/06/22 17:25?? 0.78?? BUN/Creat Ratio?? 10/06/22 17:25?? 17.9?? eGFR AA?? 10/06/22 17:25?? 75?? eGFR Non-AA?? 10/06/22 17:25?? 75?? Calcium Level?? 10/06/22 17:25?? 9.2?? Protein Total?? 10/06/22 17:25?? 7.7?? Albumin Level?? 10/06/22 17:25?? 4.1?? Globulin?? 10/06/22 17:25?? 3.6?? A/G Ratio?? 10/06/22 17:25?? 1.1?? Bilirubin Total?? 10/06/22 17:25?? 0.4?? Anion Gap?? 10/06/22 17:25?? 11.0?? Osmolality?? 10/06/22 17:25?? 272 ??Low? Thyroid Studies?? LATEST RESULTS?? TSH?? 10/06/22 17:25?? 4.43? Serum Toxicology?? LATEST RESULTS?? Acetaminophen Level?? 10/06/22 17:25?? <10.0?? Salicylate Level?? 10/06/22 17:25?? <4.0?? Ethanol Level?? 10/06/22 17:25?? see comment? Infectious Disease?? LATEST RESULTS?? SARS-CoV-2 (COVID-19) PCR ([facility])?? 10/06/22 17:06?? Negative?? Employed in healthcare??? 10/06/22 17:06?? Unknown?? Symptomatic as defined by CDC??? 10/06/22 17:06?? No?? Hospitalized due to COVID-19??? 10/06/22 17:06?? No?? In ICU??? 10/06/22 17:06?? No?? Group care resident??? 10/06/22 17:06?? No?? status??? 10/06/22 17:06?? Not ? Electronically Signed on 10/06/22 07:16 PM Christina Holly MD Emergency department Discharge instructions * Christina Holly MD: PERFORM Event Display: ED Discharge Information Authored Date: [id number] NEERAJ WATERS :1940 Age:81 years Sex:Female Visit Date:10/06/2022 Discharge Instructions We would like to thank you for allowing us to assist you with your healthcare needs. The following includes patient education materials and information regarding your injury/illness. Diagnosis from Today's Visit Accidental drug overdose Discharge Vitals Temperature??(Temporal Artery) 98.6 ??F (37.0 ??C) Heart Rate??(Peripheral) 114 Heart Rate??(Monitored) 115 Respiratory Rate?? 41 Blood Pressure?? 133/76?? Height?? 64.17 in (163.000 cm) Weight??(Estimated) 141.12 lb (64.00 kg) Allergies No Known Allergies What to Do Next You Need to Schedule the Following Appointments Follow Up with??Follow up with primary care provider When:??Within 2 to 4 days You were treated today on an emergency basis; it may be webb to contact your primary care provider to notify them of your visit today. You may have been referred to your regular doctor or a specialist, please follow up as instructed. If your condition worsens or you can't get in to see the doctor, contact the Emergency Department. Education Materials Accidental Drug Poisoning, Adult Accidental drug poisoning happens when a person accidentally takes too much of a substance, such asa prescription medicine, an zuen-xsv-mdxtgna medicine, a vitamin, a supplement, or an illegal drug.The effects of drug poisoning can be mild, dangerous, or even deadly. What are the causes? This condition is caused by taking too much of a medicine, illegal drug, or other substance. It often results from: ? Lack of knowledge about a substance. ? Using more than one substance at the same time. ? An error made by the health care provider who prescribed the substance. ? An error made by the pharmacist who filled the prescription. ? A lapse in memory, such as forgetting that you have already taken a dose of the medicine. ? Suddenly using a substance after a long period of not using it. The following substances and medicines are more likely to cause an accidental drug poisoning: ? Medicines that treat mental problems (psychotropic medicines). ? Pain medicines. ? Cocaine. ? Heroin. ? Multivitamins that contain iron. ? Faoz-wyj-jxattvj cold and cough medicines. What increases the risk? This condition is more likely to occur in: ? Elderly adults. Elderly adults are at risk because they may: ? Be taking many different medicines. ? Have difficulty reading labels. ? Forget when they last took their medicine. ? People who use illegal drugs. ? People who drink alcohol while using illegal drugs or certain medicines. ? People with certain mental health conditions. What are the signs or symptoms? Symptoms of this condition depend on the substance and the amount that was taken. Common symptoms include: ? Behavior changes, such as confusion. ? Sleepiness. ? Weakness. ? Slowed breathing. ? Nausea and vomiting. ? Seizures. ? Very large or small eye pupil size. A drug poisoning can cause a very serious condition in which your blood pressure drops to a low level (shock). Symptoms of shock include: ? Cold and clammy skin. ? Pale skin. ? Blue lips. ? Very slow breathing. ? Extreme sleepiness. ? Severe confusion. ? Dizziness or fainting. How is this diagnosed? This condition is diagnosed based on: ? Your symptoms. You will be asked about the substances you took and when you took them. ? A physical exam. You may also have other tests, including: ? Urine tests. ? Blood tests. ? An electrocardiogram (ECG). How is this treated? This condition may need to be treated right away at the hospital. Treatment may involve: ? Getting fluids and electrolytes through an IV. ? Having a breathing tube inserted in your airway (endotracheal tube) to help you breathe. ? Taking medicines. These may include medicines that: ? Absorb any substance that is in your digestive system. ? Block or reverse the effect of the substance that caused the drug poisoning. ? Having your blood filtered through an artificial kidney machine (hemodialysis). ? Ongoing counseling and mental health support. This may be provided if you used an illegal drug. Follow these instructions at home: Medicines ? Take poul-cdl-uqkoyzr and prescription medicines only as told by your health care provider. ? Before taking a new medicine, ask your health care provider whether the medicine: ? May cause side effects. ? Might react with other medicines. ? Keep a list of all the medicines that you take, including vfww-xfo-ggpcvkp medicines, vitamins, supplements, and herbs. Bring this list with you to all of your medical visits. General instructions ? Drink enough fluid to keep your urine pale yellow. ? If you are working with a counselor or mental health professional, make sure to follow his or her instructions. ? Do not drink alcohol if: ? Your health care provider tells you not to drink. ? You are , may be , or are planning to become . ? If you drink alcohol, limit how much you have: ? 0???1 drink a day for women. ? 0???2 drinks a day for men. ? Be aware of how much alcohol is in your drink. In the [place] one drink equals one typical bottle of beer (12 oz), one-half glass of wine (5 oz), or one shot of hard liquor (1?? oz). ? Keep all follow-up visits as told by your health care provider. This is important. How is this prevented? Get help if you are struggling with: ? Alcohol or drug use. ? Depression or another mental health problem. ? Keep the phone number of your local poison control center near your phone or on your cell phone. The hotline of the [place] [employer] Centers is . ? Store all medicines in safety containers that are out of the reach of children. ? Read the drug inserts that come with your medicines. ? Create a system for taking your medicine, such as a pillbox, that will help you avoid taking too much of the medicine. ? Do not drink alcohol while taking medicines unless your health care provider approves. ? Do not use illegal drugs. ? Do not take medicines that are not prescribed for you. Contact a health care provider if: ? Your symptoms return. ? You develop new symptoms or side effects after taking a medicine. ? You have questions about possible drug poisoning. Call your local poison control center at . Get help right away if: ? You think that you or someone else may have taken too much of a substance. ? You or someone else is having symptoms of drug poisoning. Summary ? Accidental drug poisoning happens when a person accidentally takes too much of a substance, such asa prescription medicine, an azmp-vgn-phfbpsl medicine, a vitamin, a supplement, or an illegal drug. ? This condition is diagnosed based on your symptoms and a physical exam. You will be asked to tell your health care provider which substances you took and when you took them. ? The effects of drug poisoning can be mild, dangerous, or even deadly. ? This condition may need to be treated right away at the hospital. This information is not intended to replace advice given to you by your health care provider. Make sure you discuss any questions you have with your health care provider. Document Revised: 09/30/2021 Document Reviewed: 09/30/2021 [email or web address] Patient Education ?? 2021 [employer] Tests Performed Radiology CT Head w/o Contrast 10/06/2022 17:12 EST Medications and Immunizations Administered Given Sodium Chloride 0.9%, 1000 mL, Hydration Bolus Lab Test Name Test Result Date/Time WBC 6.8 K/mcL 10/06/2022 16:54 EST RBC 3.80 Million/mcL 10/06/2022 16:54 EST Hgb 10.9 g/dL 10/06/2022 16:54 EST Hct 34.7 % 10/06/2022 16:54 EST MCV 91.3 fL 10/06/2022 16:54 EST MCH 28.7 pg 10/06/2022 16:54 EST MCHC 31.4 g/dL 10/06/2022 16:54 EST RDW-CV 14.4 % 10/06/2022 16:54 EST Platelets 227 K/mcL 10/06/2022 16:54 EST MPV 11.2 fL 10/06/2022 16:54 EST Neutro Auto 66.4 % 10/06/2022 16:54 EST Lymph Auto 21.1 % 10/06/2022 16:54 EST [place] Auto 10.0 % 10/06/2022 16:54 EST Eos, Auto 1.50 % 10/06/2022 16:54 EST Basophil Auto 0.6 % 10/06/2022 16:54 EST Imm Gran Auto 0.4 % 10/06/2022 16:54 EST Neutro Absolute 4.5 K/mcL 10/06/2022 16:54 EST Lymph Absolute 1.4 K/mcL 10/06/2022 16:54 EST [place] Absolute 0.7 K/mcL 10/06/2022 16:54 EST Eos Absolute 0.1 K/mcL 10/06/2022 16:54 EST Baso Absolute 0.0 K/mcL 10/06/2022 16:54 EST Imm Gran Absolute 0.03 10/06/2022 16:54 EST Sodium Level 133 mmol/L 10/06/2022 17:25 EST Potassium Level 3.7 mmol/L 10/06/2022 17:25 EST Chloride Level 95 mmol/L 10/06/2022 17:25 EST CO2 27 mmol/L 10/06/2022 17:25 EST Alk Phos 60 IntlUnit/L 10/06/2022 17:25 EST AST 26 IntlUnit/L 10/06/2022 17:25 EST ALT 19 IntlUnit/L 10/06/2022 17:25 EST BUN 14 mg/dL 10/06/2022 17:25 EST Glucose Level 199 mg/dL 10/06/2022 17:25 EST Creatinine Level 0.78 mg/dL 10/06/2022 17:25 EST BUN/Creat Ratio 17.9 10/06/2022 17:25 EST eGFR AA 75 10/06/2022 17:25 EST eGFR Non-AA 75 10/06/2022 17:25 EST Calcium Level 9.2 mg/dL 10/06/2022 17:25 EST Protein Total 7.7 g/dL 10/06/2022 17:25 EST Albumin Level 4.1 g/dL 10/06/2022 17:25 EST Globulin 3.6 10/06/2022 17:25 EST A/G Ratio 1.1 10/06/2022 17:25 EST Bilirubin Total 0.4 mg/dL 10/06/2022 17:25 EST Anion Gap 11.0 10/06/2022 17:25 EST Osmolality 272 mOsm/kg 10/06/2022 17:25 EST TSH 4.43 mIntlUnit/mL 10/06/2022 17:25 EST Acetaminophen Level <10.0 ug/mL 10/06/2022 17:25 EST Salicylate Level <4.0 mg/dL 10/06/2022 17:25 EST Ethanol Level see comment 10/06/2022 17:25 EST SARS-CoV-2 (COVID-19) PCR (GeneXpert) Neg-GeneXPert 10/06/2022 17:06 EST Employed in healthcare? Unknown 10/06/2022 17:06 EST Symptomatic as defined by CDC? No 10/06/2022 17:06 EST Hospitalized due to COVID-19? No 10/06/2022 17:06 EST In ICU? No 10/06/2022 17:06 EST Group care resident? No 10/06/2022 17:06 EST status? Not 10/06/2022 17:06 EST Patient/Pigs Feet Cleaner Signature Patient Name:NEERAJ WATERS I have received this information and my questions have been answered. Patient/Pigs Feet Cleaner Name: Patient/Pigs Feet Cleaner Signature: Relationship to Patient: Witness Name/Signature: Date: Electronically Signed on: 10/06/2022 19:16 ESTSigned by:AF CT Head WO contrast * Zach Paris MD: VERIFY, VERIFY Event Display: Report PROCEDURE INFORMATION: Exam: CT Head Without Contrast Exam date and time: 10/06/2022 4:53 PM Age: 81 years old Clinical indication: Other: Intoxication? ; Additional info: Syncope? Intoxication TECHNIQUE: Imaging protocol: Computed tomography of the head without contrast. Radiation optimization: All CT scans at this facility use at least one of these dose optimization techniques: automated exposure control; mA and/or kV adjustment per patient size (includes targeted exams where dose is matched to clinical indication); or iterative reconstruction. COMPARISON: No relevant prior studies available. FINDINGS: Brain: There is no acute cortical infarction, intracranial hemorrhage or mass. 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 Cerebral ventricles: The ventricles appear enlarged, but not out of proportion to the degree of parenchymal volume loss. Paranasal sinuses: Visualized sinuses are unremarkable. No fluid levels. Mastoid air cells: Visualized mastoid air cells are well aerated. Bones/joints: Unremarkable. No acute fracture. Soft tissues: Unremarkable. Vasculature: Atherosclerosis. IMPRESSION: No acute intracranial findings. THIS DOCUMENT HAS BEEN ELECTRONICALLY SIGNED BY ZACH PARIS MD on 10/06/2022 05:11 PM Final Signed by: Zach Paris MD Signed (Electronic Signature): 10/06/2022 5:11 pm Patient Care team information Care Team Personnel Name: Zaina Workman APRN Position: Physician Member Role: Nurse Practitioner Name: Christina Holly MD Position: Physician Member Role: Admitting Physician Address: Address: [address] [place] [address] Name: Dary Jimenez Position: Nurse Member Role: ED Nurse
--- NOTE | 2024-01-04 10:59 | ED.GENADUL_ITS ---
HPI General Mode of arrival: ambulatory . Date/Time Provider Initiated Documentation: 01/04/24 10:43 . Limitations to Documentation: no limitations . Information obtained by: patient, family, RN notes reviewed and old records rev iewed . HPI Narrative: 83-year-old female presents to the ER with a chief complaint of left-sided jaw numbness which has been happening transiently today began around 730 and was constant moved up the left side of her face with a headache describes as fullness in her sinuses and the top of her head hurts. She reports that it is getting better upon arrival. She does have a history of a CVA 1 year ago which her granddaughter said that she had some leg weakness foot drop and dragging they are unsure of left or right-sided residual. She does have chronic a ppearing left eyelid ptosis, slightly will weaker on the left lower extremity with dorsiflexion. Boiler Technician are 4+ bilateral strong and equal. No facial droop noted. She is alert and oriented x 4. She does have other past medical history of cardiomyopathy, anxiety GERD alcohol abuse, Graves' disease hypertension hyperlipidemia and depression. Surgical history includes appendectomy, tubal ligation and right sided breast lumpectomy. Denies any other associated symptoms she did take aspirin this morning 81 mg. She also took her normal daily medications. Related Data Home Medications Medication Instructions Recorded Confirmed fluticasone propionate 50 2 spray NS DAILY 03/02/18 01/04/24 mcg/actuation nasal spray,suspension aspirin 81 mg capsule 81 mg PO DAILY #30 caps 03/24/22 01/04/24 famotidine 20 mg tablet 20 mg PO DAILY #90 tabs 02/10/23 01/04/24 duloxetine 60 mg capsule,delayed 60 mg PO DAILY #90 caps 05/11/23 01/04/24 release losartan 100 mg tablet 100 mg PO DAILY #90 tab-caps 05/11/23 01/04/24 metoprolol tartrate 25 mg tablet 25 mg PO DAILY #90 tabs 05/11/23 01/04/24 omeprazole 40 mg capsule,delayed 40 mg PO DAILY PRN acid reflux #90 05/11/23 01/04/24 release tab-caps atorvastatin 20 mg tablet 20 mg PO QPM #90 tabs 10/28/23 01/04/24 mirtazapine 7.5 mg tablet 7.5 mg PO DAILY 01/04/24 01/04/24 Previous Rx's Medication Instructions Recorded aspirin 81 mg capsule 81 mg PO DAILY #30 caps 03/24/22 famotidine 20 mg tablet 20 mg PO DAILY #90 tabs 02/10/23 duloxetine 60 mg capsule,delayed 60 mg PO DAILY #90 caps 05/11/23 release losartan 100 mg tablet 100 mg PO DAILY #90 tab-caps 05/11/23 metoprolol tartrate 25 mg tablet 25 mg PO DAILY #90 tabs 05/11/23 omeprazole 40 mg capsule,delayed 40 mg PO DAILY PRN acid reflux #90 05/11/23 release tab-caps atorvastatin 20 mg tablet 20 mg PO QPM #90 tabs 10/28/23 Allergies Allergy/AdvReac Type Severity Reaction Status Date / Time sertraline AdvReac Ineffective Verified 12/14/23 11:17 General Stated Complaint: CVA/TIA MAULIK: 3 Review of Systems All systems reviewed & are unremarkable except as noted in HPI and below Constitutional Constitutional: Reports as per HPI and Reports headache(s) ENT Ears, Nose, Mouth, and Throat: Reports headache(s) Cardiovascular Cardiovascular: Denies chest pain, Denies rapid heart rate, Denies leg edema and Denies dyspnea Respiratory Respiratory: Denies cough and Denies dyspnea Gastrointestinal Gastrointestinal: Denies abdominal pain, Denies diarrhea, Denies nausea and Denies vomiting Musculoskeletal Musculoskeletal: Reports numbness (0730, beginning to resolve) and Reports tingling Neurologic Neurologic: Reports as per HPI, Reports headache(s), Reports numbness (0730, beginning to resolve) and Reports tingling Exam Narrative Exam Narrative: Constitutional: Alert and oriented x3. Appears stated age. Normal body habitus. Head: Normocephalic, no trauma. Eyes: Pupils PERRL, Red reflex noted, EOM's intact. Eyelids symmetrical without lesions, discharge, or swelling. ENT: Bilateral TM's WNL, External ear normal to inspection, no mastoid TTP, swelling, or erythema, Nasal turbinates WNL, no nasal discharge. Normal dentition, Posterior pharynx WNL, no exudate. Chest: RRR, Normal S1, S2, distal pulses intact. Resp: Lungs clear to auscultation bilaterally, no wheezes, rales, or rhonchi. Abdomen: Soft, non-distended, Normoactive bowel sounds all 4 quads. Musculoskeletal: Normal gait, 5/5 strength to all four extremities. Skin: No suspicious rashes or lesions. Capillary refill less than 2 sec. Neurologic: Cranial nerves II-XII intact. Alert and oriented x 4. Motor: Chronic appearing left upper eyelid ptosis, slightly weak left lower extremity dorsiflexion. Boiler Technician are equal bilaterally, sensory: Intact bilaterally all 4 extremities. Reflexes: DTR's intact bilaterally.. Hematologic/Lymphatic: No ecchymosis, no lymphadenopathy. Course Vital Signs Vital signs: Vital Signs Temperature 37.2 C 01/04/24 10:29 Pulse 71 01/04/24 10:29 Respiratory Rate 16 01/04/24 10:29 Blood Pressure 165/105 H 01/04/24 10:29 Pulse Oximetry 98 01/04/24 10:29 Temperature 37.2 C 01/04/24 10:29 Temperature Source Temporal Artery Scan 01/04/24 10:29 Pulse 71 01/04/24 10:29 Respiratory Rate 16 01/04/24 10:29 Blood Pressure 165/105 H 01/04/24 10:29 Blood Pressure Position Sitting 01/04/24 10:29 Pulse Oximetry 98 01/04/24 10:29 Oxygen Delivery Method Room Air 01/04/24 10:29 Oxygen Flow Rate 0 01/04/24 10:29 Medical Decision Making 83-year-old female presents to the ER with a chief complaint of left-sided jaw numbness which has been happening transiently today began around 730 and was constant moved up the left side of her face with a headache describes as fullness in her sinuses and the top of her head hurts. She reports that it is getting better upon arrival. She does have a history of a CVA 1 year ago which her granddaughter said that she had some leg weakness foot drop and dragging they are unsure of left or right-sided residual. She does have chronic appearing left eyelid ptosis, slightly will weaker on the left lower extremity with dorsiflexion. Boiler Technician are 4+ bilateral strong and equal. No facial droop noted. She is alert and oriented x 4. She does have other past medical history of cardiomyopathy, anxiety GERD alcohol abuse, Graves' disease hypertension hyperlipidemia and depression. Surgical history includes appendectomy, tubal ligation and right sided breast lumpectomy. Denies any other associated symptoms she did take aspirin this morning 81 mg. She also took her normal daily medications. Workup ordered including serial troponins, PT PTT, urinalysis, 1145: Spoke with Dr. Bailon regarding patient case in details and request for admission for TIA symptoms. They request MRI ordered and consult with neurology. MRI brain ordered. CT shows old right-sided lacunar infarcts consistent with small vessel disease. Spoke with Dr. Bailon who agrees to accept patient for admission for further evaluation including stress test and MRI, MRI and MRA of brain and neck ordered at his request. Patient and family informed of plan of care and decision for admission and they verbalized understanding and are agreement with plan. This text was generated using [employer] system, please disregard any oddities of phrase or misspellings. Medical Records Medical records reviewed: Yes I reviewed the patient's medical records. Medical records narrative: History of CVA approximately a year ago with presumed left-sided deficits. There are past medical history includes nonischemic cardiomyopathy breast cancer anxiety GERD Graves' disease scoliosis hypertension hyperlipidemia and depression. Surgical history includes lumpectomy tubal ligation appendectomy. Imaging Data Radiologic Study: Imaging: CT Scan Radiologist's impression: TECHNIQUE: Imaging Protocol: Axial computed tomography images with coronal and sagittal reformatted images were created and reviewed COMPARISON: CT CT HEAD WO from 05/19/2022 FINDINGS: Ventricles and Extra axial spaces: Normal in size and morphology for the patient's age. Hemorrhage: None. Cerebral parenchyma: No evidence of acute infarct. 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 Atrophy. White matter changes consistent with small vessel disease. Midline shift: None. Brainstem/Cerebellum: Normal. Calvarium: Normal. Visualized Paranasal sinuses/Mastoids: Clear. IMPRESSION: No acute abnormality.Old right-sided lacunar infarcts. Lab Data Lab results reviewed: Yes I reviewed the patient's lab results. Labs: Laboratory Tests Range/Units 01/04/24 10:55 WBC (4.4-10.8) 10^3/uL 5.07 RBC (3.93-5.22) 10^6/uL 4.48 Hgb (11.2-15.7) g/dL 12.4 Hct (36.0-46.0) % 39.2 MCV (80-95) fL 88 MCH (27.0-33.0) pg 27.7 MCHC (32.0-36.0) % 31.6 L RDW (11.7-14.6) % 14.0 Plt Count (130-400) 10^3/uL 271 MPV (8.0-11.0) fL 11.0 Immature Gran % 0.2 Neutrophils % 52.5 Lymphocytes % 31.6 Monocytes % 11.0 Eosinophils % 3.7 Basophils % 1.0 Nucleated RBC % (0.0-0.3) % 0.0 Absolute Neutrophils (1.2-6.7) 10^3/uL 2.66 Absolute Lymphocytes (1.2-3.4) 10^3/uL 1.60 Absolute Monocytes (0.1-0.8) 10^3/uL 0.56 Absolute Eosinophils (0.0-0.7) 10^3/uL 0.19 Absolute Basophils (0.0-0.2) 10^3/uL 0.05 PT (9.1-11.1) sec 10.5 INR (0.9-1.1) 1.0 Sodium (136-145) mmol/L 139 Potassium (3.5-5.1) mmol/L 4.0 Chloride (98-107) mmol/L 102 Carbon Dioxide (21.0-32.0) mmol/L 29.7 Anion Gap (3-11) mmol/L 7.3 BUN (7-18) mg/dL 14 Creatinine (0.55-1.02) mg/dL 0.9 Est GFR (CKD-EPI 2020) (mL/min/1.73m2) 62.65 Glucose (74-106) mg/dL 103 Calcium (8.5-10.1) mg/dL 9.6 Magnesium (1.8-2.4) mg/dL 2.1 Total Bilirubin (0.2-1.0) mg/dL 0.5 AST (15-37) U/L 22 ALT (14-59) U/L 22 Alkaline Phosphatase (46-116) U/L 88 Troponin I (< or =60) ng/L < 50 Total Protein (6.4-8.2) g/dL 8.3 H Albumin (3.4-5.0) g/dL 3.8 Quality:SDOH Health Related Social Needs: No Data to Display PFSH All Active Problems (Updated 01/04/24 @ 12:11 by Jessy Anderson NP) Left facial numbness (Acute) Gait disturbance (Acute) Hematuria (Acute) Syncopal episodes (Chronic) Prediabetes (Acute) Migraine headache without aura (Acute) Medication overuse headache (Acute) Chronic headache (Acute) Memory loss (Acute) Acute CVA (cerebrovascular accident) (Acute) Essential hypertension (Acute) Age-related macular degeneration (Acute) Anxiety (Acute 03/29/13) panic Bundle branch block (Acute) left bundle branch block; Cardiomyopathy (Acute) echo 12/31 EF43% echo 2010 EF35-40% echo 06/04 EF45-50% diastolic dysfunction nonischemic Gastroesophageal reflux disease (Chronic) 07/07/14; EGD; [facility]URNET[facility] Malignant neoplasm of female breast (Acute 10/22/01) stage 2 IDC RIGHT BREAST lumpectomy radiation chemo Followed at [facility] Microscopic hematuria (Acute 02/02/18) 03/04/18; NEGATIVE CYSTOSCOPY Osteopenia (Acute) Risk factors: Graves; Arimidex D/C'd Fosamax Dexa in 2011; repeat in 2 years Mood disorder (Acute) improved w/ cymbalta Right knee meniscal tear (Chronic) Status post breast lumpectomy (Acute) History of esophagogastroduodenoscopy (Acute) Vaginitis and vulvovaginitis (Acute) Herpetic lesion (Acute) inside left labia MICHEL (dyspnea on exertion) (Acute) Pain, joint, knee, right (Acute) Pain in left hip (Acute) Temporal headache (Acute) Medical History Nonischemic cardiomyopathy Breast cancer Anxiety GERD (gastroesophageal reflux disease) Stress incontinence Alcohol abuse Graves' disease (03/29/13) Idiopathic scoliosis Hypertension Hyperlipidemia (02/15/13) Depressive disorder Surgical History Hx of cataract removal with insertion of prosthetic lens Hx of tubal ligation Hx of appendectomy Cystoscopy 03/04/18 NEGATIVE Breast, Lumpectomy right lumpectomy-infiltration ductal; radiation and chemo Family History Mother Essential hypertension Heart disease Myocardial infarction Father Diabetes Heart disease Sister Alzheimer disease Brother Essential hypertension Heart disease Grandfather Heart disease Grandfather Personal history of malignant neoplasm Grandmother Heart disease Grandmother Heart disease Maternal Uncle Stroke Son No problems noted. Son No problems noted. Son No problems noted. Son No problems noted. Daughter No problems noted. Daughter No problems noted. Social History Smoking/Tobacco Use Status: Former Tobacco Use Quit Date: 11/23/95 Smoking risk assessment performed?: Yes Alcohol Intake: never Drug use: Never Substance use type: does not use Household members: other Details: 2 Housing: house Frequency: daily Do you feel safe at home: Yes Do you feel safe in your relationship?: Yes Discharge Plan Discharge Details Chief Complaint: CVA/TIA Admit Date/Time: 01/04/24 11:49 Admit Provider: Manuel Bailon Attending Provider: Manuel Bailon Primary Care Provider: Kushal Noyola ED Provider: Hazel Lomax
[2024-01-04 11:07] LABS: Abs Immature Grans 0.01 10^3/uL (0.0-0.06); Absolute Basophil Count 0.05 10^3/uL (0.0-0.2); Absolute Eosinophil Count 0.19 10^3/uL (0.0-0.7); Absolute Monocyte Count 0.56 10^3/uL (0.1-0.8); Absolute Neutrophil Count 2.66 10^3/uL (1.2-6.7); Eosinophils % 3.7; HCT 39.2 % (36.0-46.0); HGB 12.4 g/dL (11.2-15.7); Immature Grans % 0.2; Lymphocytes % 31.6; MCH 27.7 pg (27.0-33.0); MCHC 31.6 % (32.0-36.0); MCV 88 fL (80-95); Neutrophils % 52.5; Platelet Count 271 10^3/uL (130-400); RBC 4.48 10^6/uL (3.93-5.22); RDW-SD 44.7 fL; WBC 5.07 10^3/uL (4.4-10.8)
[2024-01-04 11:20] LABS: Prothrombin Time 10.5 sec (9.1-11.1)
[2024-01-04 11:26] LABS: ALT 22 U/L (14-59); AST 22 U/L (15-37); Albumin 3.8 g/dL (3.4-5.0); Alkaline Phosphatase 88 U/L (46-116); Anion Gap 7.3 mmol/L (3-11); BUN 14 mg/dL (7-18); Bilirubin, Total 0.5 mg/dL (0.2-1.0); CO2 29.7 mmol/L (21.0-32.0); CREATININE 0.9 mg/dL (0.55-1.02); Calcium 9.6 mg/dL (8.5-10.1); Chloride 102 mmol/L (98-107); Estimated GFR 62.65 (mL/min/1.73m2); Glucose 103 mg/dL (74-106); Magnesium 2.1 mg/dL (1.8-2.4); Sodium 139 mmol/L (136-145); Total Protein 8.3 g/dL (6.4-8.2); Troponin I < 50 ng/L (< or =60)
--- NOTE | 2024-01-04 11:30 | DI.MRI_ITS ---
Exam(s) MR BRAIN WO EXAM: MR BRAIN WO CLINICAL HISTORY: TIA symptoms, left jaw numbness TECHNIQUE: Multiplanar multisequence MRI of the brain was performed. COMPARISON: MR MR BRAIN WO from 04/30/[address] HEAD - STROKE PROTOCOL from 01/04/2024 FINDINGS: VENTRICLES AND EXTRA AXIAL SPACES: Normal in size and morphology for the patient's age. MIDLINE SHIFT: None. CEREBRAL PARENCHYMA: No focus of restricted diffusion to suggest acute infarct. No space-occupying le jacob identified. Mild to moderate atrophy consistent with the patient's age. Mild scattered foci of high signal in the white matter consistent with sequela of chronic microvascular disease. Old right lacunar infarcts. HEMORRHAGE: None. BRAINSTEM/CEREBELLUM: Normal. VISUALIZED PARANASAL SINUSES/MASTOIDS:Clear. Vasculature: Normal flow void. PITUITARY GLAND: Unremarkable. ORBITS: Unremarkable. IMPRESSION: No evidence of acute infarct. 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 DATA REPOSITORY:
--- NOTE | 2024-01-04 11:45 | DI.MRI_ITS ---
Exam(s) MR ANGIO NECK WO EXAM: MR ANGIO NECK WO CLINICAL HISTORY: TIA. TECHNIQUE: Multiplanar multisequence MRA of the Neck was performed. COMPARISON: No exams were available for comparison FINDINGS: There is marked patient motion artifact present. This does limit the examination. Common Carotid: Right: No dissection, occlusion or significant stenosis. Left: No dissection, occlusion or significant stenosis. External Carotid: Right: No evidence of occlusion or significant stenosis. Left: No evidence of occlusion or significant stenosis. Internal Carotid: There is tortuosity of the internal carotid arteries bilaterally. Right: No evidence of occlusion. There does appear to be approximately 50 percent narrowing of the p roximal right internal carotid artery. Left: No occlusion or significant stenosis. Vertebral Artery: Right: No dissection, occlusion or significant stenosis. Left: No dissection, occlusion or significant stenosis. IMPRESSION: 1. Examination limited by patient motion artifact. 2. Findings suggestive of approximately 50 percent narrowing of the proximal right internal carotid a rtery. 3. No occlusion is identified. DATA REPOSITORY:
--- NOTE | 2024-01-04 11:45 | DI.MRI_ITS ---
Exam(s) MR ANGIO BRAIN WO CLINICAL HISTORY: TIA. TECHNIQUE: 3D [id number] study was performed without contrast. COMPARISON: None. FINDINGS: Carotid Arteries: Petrous: Normal. Cavernous: Normal. Cerebral: Normal. Middle Cerebral Arteries: Right: No aneurysm or significant stenosis. Left: No aneurysm or significant stenosis. Anterior Cerebral Arteries: Right: No aneurysm or significant stenosis. Left: No aneurysm or significant stenosis. Posterior cerebral arteries: Right: No aneurysm or significant stenosis Left: No aneurysm or significant stenosis Vertebral Arteries: Right: No aneurysm or significant stenosis. No dissection. Left: No aneurysm or significant stenosis. No dissection.. Basilar Artery: No aneurysm or significant stenosis. Small Vessels: No evidence of beading. IMPRESSION: Normal MRA examination of the [place] of [place]. DATA REPOSITORY:
--- NOTE | 2024-01-04 12:08 | W.PM.HP.N ---
Date of service: 01/04/24 Time of Service: 12:08 Assessment and Plan Assessment and plan (1) Left facial numbness: Status: Acute Assessment and plan: Acute CVA ruled out by MRI. MRA of brain and neck unremarkable. Echocardiogram shows sinus rhythm with no significant valvular disease. She has been in sinus rhythm. Symptoms possibly due to atypical migraine versus hypertension. These have resolved at this time and she is at baseline we will continue to monitor on telemetry overnight to evaluate for dysrhythmia. (2) Essential hypertension: Status: Acute Assessment and plan: Blood pressures have been elevated since arriving to the hospital. Will give her dose of Lopressor and losartan and continue to monitor use hydralazine if needed discussed with DR Bailon History of Present Illness History of Present Illness Chief Complaint: facial numbness Narrative: This is a pleasant 83-year-old female with a past medical history significant for CVA cardiomyopathy migraine prediabetes Graves' disease alcohol abuse depression who presented to the emergency department with transient left sided jaw numbness and headache. Her symptoms resolved and her ED workup was unremarkable. Due to her history of previous CVA hospitalist services was requested observation admission for stroke rule out. Her MRI showed no evidence of an acute infarct old right-sided lacunar infarcts were noted. MRA of the neck showed 50% diameter reduction in her RCA left with no significant stenosis or occlusion. She was in normal sinus rhythm with no significant wall motion abnormalities or significant valvular disease. RVSP is 21. She has remained stable in the emergency department and will be admitted overnight observation on telemetry Review of Systems All systems reviewed & are unremarkable except as noted in HPI and below PFSH All Active Problems (Updated 01/04/24 @ 12:11 by Jessy Anderson NP) Left facial numbness (Acute) Gait disturbance (Acute) Hematuria (Acute) Syncopal episodes (Chronic) Prediabetes (Acute) Migraine headache without aura (Acute) Medication overuse headache (Acute) Chronic headache (Acute) Memory loss (Acute) Acute CVA (cerebrovascular accident) (Acute) Essential hypertension (Acute) Age-related macular degeneration (Acute) Anxiety (Acute 03/29/13) panic Bundle branch block (Acute) left bundle branch block; Cardiomyopathy (Acute) echo 12/31 EF43% echo 2010 EF35-40% echo 06/04 EF45-50% diastolic dysfunction nonischemic Gastroesophageal reflux disease (Chronic) 07/07/14; EGD; González BURNETT Malignant neoplasm of female breast (Acute 10/22/01) stage 2 IDC RIGHT BREAST lumpectomy radiation chemo Followed at [facility] Microscopic hematuria (Acute 02/02/18) 03/04/18; NEGATIVE CYSTOSCOPY Osteopenia (Acute) Risk factors: Graves; Arimidex D/C'd Fosamax Dexa in 2011; repeat in 2 years Mood disorder (Acute) improved w/ cymbalta Right knee meniscal tear (Chronic) Status post breast lumpectomy (Acute) History of esophagogastroduodenoscopy (Acute) Vaginitis and vulvovaginitis (Acute) Herpetic lesion (Acute) inside left labia MICHEL (dyspnea on exertion) (Acute) Pain, joint, knee, right (Acute) Pain in left hip (Acute) Temporal headache (Acute) Medical History Nonischemic cardiomyopathy Breast cancer Anxiety GERD (gastroesophageal reflux disease) Stress incontinence Alcohol abuse Graves' disease (03/29/13) Idiopathic scoliosis Hypertension Hyperlipidemia (02/15/13) Depressive disorder Surgical History Hx of cataract removal with insertion of prosthetic lens Hx of tubal ligation Hx of appendectomy Cystoscopy 03/04/18 NEGATIVE Breast, Lumpectomy right lumpectomy-infiltration ductal; radiation and chemo Family History Mother Essential hypertension Heart disease Myocardial infarction Father Diabetes Heart disease Sister Alzheimer disease Brother Essential hypertension Heart disease Grandfather Heart disease Grandfather Personal history of malignant neoplasm Grandmother Heart disease Grandmother Heart disease Maternal Uncle Stroke Son No problems noted. Son No problems noted. Son No problems noted. Son No problems noted. Daughter No problems noted. Daughter No problems noted. Social History Smoking/Tobacco Use Status: Former Tobacco Use Quit Date: 11/23/95 Smoking risk assessment performed?: Yes Alcohol Intake: never Drug use: Never Substance use type: does not use Household members: other Details: 2 Housing: house Frequency: daily Do you feel safe at home: Yes Do you feel safe in your relationship?: Yes Meds Allergies and Home Medications Allergies Allergy/AdvReac Type Severity Reaction Status Date / Time sertraline AdvReac Ineffective Verified 12/14/23 11:17 Home Medications Medication Instructions Recorded Confirmed Type fluticasone propionate 50 2 spray NS DAILY 03/02/18 01/04/24 History mcg/actuation nasal spray,suspension aspirin 81 mg capsule 81 mg PO DAILY #30 caps 03/24/22 01/04/24 Rx famotidine 20 mg tablet 20 mg PO DAILY #90 tabs 02/10/23 01/04/24 Rx duloxetine 60 mg capsule,delayed 60 mg PO DAILY #90 caps 05/11/23 01/04/24 Rx release losartan 100 mg tablet 100 mg PO DAILY #90 tab-caps 05/11/23 01/04/24 Rx metoprolol tartrate 25 mg tablet 25 mg PO DAILY #90 tabs 05/11/23 01/04/24 Rx omeprazole 40 mg capsule,delayed 40 mg PO DAILY PRN acid reflux #90 05/11/23 01/04/24 Rx release tab-caps atorvastatin 20 mg tablet 20 mg PO QPM #90 tabs 10/28/23 01/04/24 Rx mirtazapine 7.5 mg tablet 7.5 mg PO DAILY 01/04/24 01/04/24 History Exam Const General: cooperative, comfortable and no acute distress Nutritional Appearance: average body habitus Orientation: alert, awake and oriented x3 HENMT Head: normal to inspection and normocephalic Mouth: oral mucosae normal Results Labs 01/04/24 10:55 01/04/24 10:55 Labs: Laboratory Results - last 24 hr 01/04/24 10:55 WBC 5.07 RBC 4.48 Hgb 12.4 Hct 39.2 MCV 88 MCH 27.7 MCHC 31.6 L RDW 14.0 Plt Count 271 MPV 11.0 Immature Gran % 0.2 Neutrophils % 52.5 Lymphocytes % 31.6 Monocytes % 11.0 Eosinophils % 3.7 Basophils % 1.0 Nucleated RBC % 0.0 Absolute Neutrophils 2.66 Absolute Lymphocytes 1.60 Absolute Monocytes 0.56 Absolute Eosinophils 0.19 Absolute Basophils 0.05 PT 10.5 INR 1.0 Sodium 139 Potassium 4.0 Chloride 102 Carbon Dioxide 29.7 Anion Gap 7.3 BUN 14 Creatinine 0.9 Est GFR (CKD-EPI 2020) 62.65 Glucose 103 Calcium 9.6 Magnesium 2.1 Total Bilirubin 0.5 AST 22 ALT 22 Alkaline Phosphatase 88 Troponin I < 50 Total Protein 8.3 H Albumin 3.8 Last Vital Signs Temp 37.2 C 01/04/24 10:29 Pulse 71 01/04/24 10:29 Resp 16 01/04/24 11:22 BP 165/105 H 01/04/24 10:29 Pulse Ox 98 01/04/24 10:29 Time Spent Time spent with Patient: 55-74 minutes Time was spent: preparing to see the patient(eg.review tests), obtaining and/or reviewing separately otained hiistory, ordering medications,tests, procedures, indepentently interpreting results and counseling the patient
--- NOTE | 2024-01-04 12:15 | DI.US_ITS ---
APPROVED REPORT EXAM: Comprehensive 2D, Doppler, and color-flow Echocardiogram Patient Location: ER Room/Bed: 5 Hairspring I Inspector: Ray Lynne RDCS (AE) Indications: stroke workup Conclusion Normal left ventricular size and systolic function. Ejection fraction is 50-55%. There are no segme ntal wall motion abnormalities Normal right ventricular size and systolic function Mildly dilated left atrium. Normal right atrial size Trileaflet aortic valve with trace regurgitation Normal mitral valve with trace to mild regurgitation Normal tricuspid valve with mild regurgitation. . Estimated right ventricular systolic pressure is 2 1 mmHg Wall motion Left Ventricle The left ventricle is normal size. Left ventricular systolic function is borderline. There is normal left ventricular wall thickness. There is no ventricular septal defect visualized. LVEF is 52%. Right Ventricle The right ventricle is normal size. The right ventricular systolic function is normal. Atria The left atrium size is mildly dilated The right atrium size is normal. The interatrial septum is int act with no evidence for an atrial septal defect. Aortic Valve Aortic valve is trileaflet. There is no aortic valvular stenosis. Trace aortic regurgitation. Mitral Valve The mitral valve is normal in structure. No evidence of mitral valve stenosis. Trace to mild mitral r egurgitation. Tricuspid Valve The tricuspid valve is normal in structure. There is no tricuspid valve stenosis. Mild tricuspid regu rgitation. The RVSP is 20.7 mmHg. Pulmonic Valve The pulmonary valve is normal in structure. There is no pulmonic valvular stenosis. Mild pulmonic reg urgitation. Great Vessels The aortic root is normal in size. The ascending aorta is normal in size. Aortic arch is not well vis ualized. IVC is normal in size and collapses >50% with inspiration. Pericardium There is no pericardial effusion. 2D Dimensions IVSD d PLAX 0.79 cm F: 0.6-1.0 Ao Root d 3.30 cm F: 2.7 - 3.3 LVPW d PLAX 0.82 cm F: 0.6 - 1.0 Ao Asc Diam d 3.10 cm F: 2.3 - 3.1 LVID d PLAX 4.66 cm F: 3.8 - 5.2 LVDs 3.42 cm F: 2.2 - 3.5 LV EF Teichholz 51.8 % FS 26.48 % LV EDV (Teich) 100.2 mL LV ESV (Teich) 48.2 mL Stroke Vol Index (Teich) 30.55 M-Mode TAPSE 1.34 cm (M/F) >1.7 Auto EF LV EDV A4C 74.6 mL LV EDV A2C 85.6 mL LV EDV BP 82.4 mL LV ESV A4C 36.9 mL LV ESV A2C 41.3 mL LV ESV BP 38.3 mL LVEF(%) A4C 50.5 % LVEF(%) A2C 51.7 % LVEF(%) BP 53.5 % LV SV A4C 37.7 ml LV SV A2C 44.3 ml LV SV BP 44.1 ml LV CO A4C 2.2 L/min LV CO A2C 2.6 L/min LV CO BP 2.4 L/min HR A4C 58.52 BPM HR A2C 58.90 BPM LV EDV Index (BP) LA Volume LA Length A4C 3.4 cm LA Length A2C 3.9 cm LA Area A4C s 9.28 cm2 LA Area A2C s 9.06 cm2 LA Vol A4C A-L 21.63 mL LA Vol A2C A-L 18.08 mL LA Vol Biplane A-L 21.1 mL LA Vol/BSA A4C A-L LA Vol/BSA A2C A-L LA Vol/BSA BP A-L 12.4 mL/m2 LA Vol A4C MOD 21.2 mL LA Vol A2C MOD 17.5 mL LA Vol BP MOD 20.4 mL LV Diastology MV E' medial 0.054 (>0.07 m/s) MV E Vmax 0.25 (0.4-1.3 m/s) MV E/E' MED 4.59 (<14) MV A Vmax 0.85 (0.4-1.3 m/s) MV E' lateral 0.071 (>0.1 m/s) E/A Ratio 0.3 MV E/E' LAT 3.50 (<14) MV E' Average 0.063 m/s MV E/E'(average) 3.97 Aortic Valve AoV Vmax 1.05 m/s LVOT Vmax 0.86 m/s AoV Peak Grad 4.4 mmHg LVOT Peak Grad 3.0 mmHg AoV Area (Vmax) 2.22 cm2 LVOT VTI 0.210 m AoV VTI 0.266 m LVOT Mean Grad 1.5 mmHg AoV Mean Greg. 0.76 m/s LVOT SV 56.65 mL AoV Mean Grad 2.6 mmHg LVOT Diam s 1.85 cm AoV Area (VTI) 2.13 cm2 Velocity Ratio 0.82 Mitral Valve MV DT 170 (160-240 msec) Pulmonary Valve PV Vmax 0.92 (0.5-1.5 m/s) RVOT Vmax 0.47 m/s PV Peak Grad 3.4 mmHg RVOT Peak Gr. 0.9 mmHg PV Mean Greg 0.56 m/s RVOT VTI 0.112 m PV Mean Grad 1.5 mmHg RVOT Mean Gr. 0.6 mmHg Tricuspid Valve RA Pressure 3.00 mmHg TR Vmax 2.10 m/s TR Peak Grad 17.6 mmHg RVSP (TR) 20.7 mmHg
[2024-01-04 13:40] LABS: Bilirubin Negative (Negative); Blood Trace-lysed (Negative); Clarity Clear (Clear); Glucose Negative (Negative); Ketones Negative (Negative); Leukocyte Esterase Negative (Negative); Nitrite Negative (Negative); Urobilinogen 0.2 mg/dL (Up to 0.2)
[2024-01-04 14:16] LABS: Bacteria Negative HPF (Negative); C & S Indicated? No; Casts Negative LPF (Negative); Crystals Negative HPF (Negative); Epithelial Cells Negative HPF (Negative); Mucus Negative (Negative); RBC Negative HPF (0-2); WBC Negative HPF (0-5)
[2024-01-04] MEDS: Metoprolol 12.5 MG TAB 25 MG PO (18:09)
[2024-01-04] MEDS: Normal Saline Flush 10 ML SYR IVP (19:30)
[2024-01-04] MEDS: Atorvastatin 20 MG TAB PO (19:38)
[2024-01-05 07:31] VITALS: BP 160/81; PULSE 62; RESP 18; TEMP 36.7; O2SAT 96
--- NOTE | 2024-01-05 09:05 | PDOC.CMIN ---
Date of service: 01/05/24 Time of Service: 11:51 Care Management Initial Assmt Initial Assessment REASON FOR HOSPITALIZATION:: TIA PREVIOUS FUNCTIONAL STATUS/SOCIAL/FAMILY SUPPORTS:: Amy lives in [place] with her of 62 years, Corby; the family calls him Daniel. Daughter Veronica was present in the room bedside and lives in [facility], son Arturo lives in [place], a son in [place], a daughter in [place], a son in [place], and a son in [place]. Veronica described the couple has long-term neighbors that are supportive; doesnt ask for things but they would be there for them if they did ask. She is independent at baseline and able to perform all ASLs. CURRENT FUNCTIONAL STATUS:: Amy was laying in bed when meeting with CM. Daughter Veronica was present in the room bedside and would be visiting for the next hour or so, otherwise, it was said that [facility] would transport once home once discharged. Per MD TIA ruled out. 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 Veronica described having a monitor last time where Amy had to use the phone so expressed hoping it was not the same monitoring system; CM let them know MD will advise. Amy described being independent and not in need of services and having everything that she needs and is looking forward to going home. ADVANCE DIRECTIVES:: COLST/DNR form [employer] Has patient been provided with info about the portal/API?: Yes Did the patient sign up for the portal?: Yes CODE STATUS:: Full Code INSURANCE COVERAGE / FINANCIAL ISSUES:: BC/BS [place] [facility] Ad[facility] CURRENT HOME/COMMUNITY SERVICES/EQUIPMENT:: None PRIMARY CARE PHYSICIAN:: Kushal Noyola M.D POTENTIAL DISCHARGE NEEDS:: Follow up appointments- Per Pt, has an appointment already scheduled with PCP coming up soon PATIENT/FAMILY EDUCATION NEEDS:: Review discharge instructions and limitations, discussion of self care needs including Ask Me Three TRANSPORTATION:: via private vehicle by family daughter Veronica or [facility] Morris. PLAN:: Amy will return home with no services. She will follow up with PCP and discharge plan of care. CM will continue to follow. PFSH All Active Problems (Updated 01/04/24 @ 12:11 by Jessy Anderson NP) Left facial numbness (Acute) Gait disturbance (Acute) Hematuria (Acute) Syncopal episodes (Chronic) Prediabetes (Acute) Migraine headache without aura (Acute) Medication overuse headache (Acute) Chronic headache (Acute) Memory loss (Acute) Acute CVA (cerebrovascular accident) (Acute) Essential hypertension (Acute) Age-related macular degeneration (Acute) Anxiety (Acute 03/29/13) panic Bundle branch block (Acute) left bundle branch block; Cardiomyopathy (Acute) echo 12/31 EF43% echo 2010 EF35-40% echo 06/04 EF45-50% diastolic dysfunction nonischemic Gastroesophageal reflux disease (Chronic) 07/07/14; EGD; González BURNETT Malignant neoplasm of female breast (Acute 10/22/01) stage 2 IDC RIGHT BREAST lumpectomy radiation chemo Followed at [facility] Microscopic hematuria (Acute 02/02/18) 03/04/18; NEGATIVE CYSTOSCOPY Osteopenia (Acute) Risk factors: Graves; Arimidex D/C'd Fosamax Dexa in 2011; repeat in 2 years Mood disorder (Acute) improved w/ cymbalta Right knee meniscal tear (Chronic) Status post breast lumpectomy (Acute) History of esophagogastroduodenoscopy (Acute) Vaginitis and vulvovaginitis (Acute) Herpetic lesion (Acute) inside left labia IMCHEL (dyspnea on exertion) (Acute) Pain, joint, knee, right (Acute) Pain in left hip (Acute) Temporal headache (Acute) Medical History Nonischemic cardiomyopathy Breast cancer Anxiety GERD (gastroesophageal reflux disease) Stress incontinence Alcohol abuse Graves' disease (03/29/13) Idiopathic scoliosis Hypertension Hyperlipidemia (02/15/13) Depressive disorder Surgical History Hx of cataract removal with insertion of prosthetic lens Hx of tubal ligation Hx of appendectomy Cystoscopy 03/04/18 NEGATIVE Breast, Lumpectomy right lumpectomy-infiltration ductal; radiation and chemo Family History Mother Essential hypertension Heart disease Myocardial infarction Father Diabetes Heart disease Sister Alzheimer disease Brother Essential hypertension Heart disease Grandfather Heart disease Grandfather Personal history of malignant neoplasm Grandmother Heart disease Grandmother Heart disease Maternal Uncle Stroke Son No problems noted. Son No problems noted. Son No problems noted. Son No problems noted. Daughter No problems noted. Daughter No problems noted. Social History Smoking/Tobacco Use Status: Former Tobacco Use Quit Date: 11/23/95 Smoking risk assessment performed?: Yes Alcohol Intake: never Drug use: Never Substance use type: does not use Household members: other Details: 2 Housing: house Frequency: daily Do you feel safe at home: Yes Do you feel safe in your relationship?: Yes SDOH(Care Management) Screening Will the Patient Participate in the Screening?: Yes Do you worry about having a steady place to live?: no In the past 12 months, have you had to go without electric, gas, oil or water in your home?: no Have you or anyone in your house had to go without enough food to eat?: no Has lack of transportation kept you from medical appointments or from doing things needed for daily living?: no Has anyone in your support network made you feel unsafe for any reason?: no
[2024-01-05] MEDS: Omeprazole 20 MG CAPCR 40 MG PO (09:30)
[2024-01-05] MEDS: Normal Saline Flush 10 ML SYR IVP (09:32)
[2024-01-05] MEDS: Famotidine 20 MG TAB PO (09:33)
[2024-01-05] MEDS: Metoprolol 12.5 MG TAB 25 MG PO (09:33)
[2024-01-05] MEDS: Losartan 50 MG TAB 100 MG PO (09:34)
[2024-01-05] MEDS: DULoxetine 30 MG CAP 60 MG PO (09:34)
[2024-01-05] MEDS: Mirtazapine 15 MG TAB 7.5 MG PO (09:34)
[2024-01-05] MEDS: Aspirin 81 MG CHEW CH (09:34)
[2024-01-05] MEDS: Fluticasone NASAL SPRAY 16 GM BTL NS (09:55)
[2024-01-05 10:36] VITALS: BP 145/80; PULSE 71; RESP 18; TEMP 36.5; O2SAT 99
--- NOTE | 2024-01-05 12:06 | W.PM.DS.N ---
Date of service: 01/05/24 Time of Service: 12:06 DS: Diagnosis Discharge Diagnosis (1) Left facial numbness: Status: Acute (2) Essential hypertension: Status: Acute Discharge Plan Disposition Patient Disposition: Home Condition: Stable Discharge Details Reason For Visit: TIA Admit Date/Time: 01/04/24 11:49 Admit Provider: Manuel Bailon Attending Provider: Manuel Bailon Primary Care Provider: Kushal Noyola Hospital Course Hospital Course: This is a pleasant 83-year-old female with a past medical history significant for CVA cardiomyopathy migraine prediabetes Graves' disease alcohol abuse depression who presented to the emergency department with transient left sided jaw numbness and headache. Her symptoms resolved and her ED workup was unremarkable. Due to her history of previous CVA hospitalist services was requested observation admission for stroke rule out. Her MRI showed no evidence of an acute infarct old right-sided lacunar infarcts were noted. MRA of the neck showed 50% diameter reduction in her RCA left with no significant stenosis or occlusion. She was in normal sinus rhythm with no significant wall motion abnormalities or significant valvular disease. RVSP is 21. She has remained stable in the emergency department and will be admitted overnight observation on telemetry. Echocardiogram shows sinus rhythm with no significant valvular disease. She has been in sinus rhythm. Symptoms possibly due to atypical migraine versus hypertension. These have resolved at this time and she is at baseline, we continued to monitor on telemetry overnight and she remained in normal sinus rhythm with no dysrhythmias. She remained asymptomatic. She was eating and drinking and voiding without difficulty. She felt at her baseline was safely really ambulated. Did discuss cardiac event recorder at discharge which she adamantly declined. She was discharged to home with no new services she was advised to resume her previous medications as directed. She was also recommended to follow-up with her primary care provider to have her blood pressure reevaluated for possible medication adjustment. Discharge is discussed with Dr. Bailon Home Meds and New Rx's Prescriptions: Continued duloxetine 60 mg capsule,delayed release(DR/EC) 60 mg PO DAILY Qty: 90 3RF losartan 100 mg tablet 100 mg PO DAILY Qty: 90 3RF metoprolol tartrate 25 mg tablet 25 mg PO DAILY Qty: 90 4RF omeprazole 40 mg capsule,delayed release(DR/EC) 40 mg PO DAILY PRN (Reason: acid reflux) Qty: 90 3RF famotidine 20 mg tablet 20 mg PO DAILY Qty: 90 3RF atorvastatin 20 mg tablet 20 mg PO QPM Qty: 90 3RF fluticasone propionate 16 GM spray,suspension 2 spray NS DAILY mirtazapine 7.5 mg tablet 7.5 mg PO DAILY Patient Comments: TAKE ONE TABLET BY MOUTH AT BEDTIME aspirin 81 mg capsule 81 mg PO DAILY Qty: 30 0RF Discharge Instructions Instructions: Migraine Headache (ED), Paresthesia (ED), Hypertension (DC) Additional Instructions: your work up shows no evidence of acute stroke. you are being discharged with a playground monitor to wear as instructed to rule out paroxysmal atrial fibrillation. your blood pressure was also noted to be elevated, please follow up with your doctor for recheck. Stand Alone Forms: Nursing Discharge Form Referrals: Kushal Noyola MD [Primary Care Provider] - (Message left with office to call you to make a follow up appointment. If you do not hear back from them this afternoon please give them a call to make a follow up for 1-2 weeks ) Activity:: Activity as Tolerated Equipment/Supplies:: No Equipment Needed Diet:: As Tolerated Discharge Orders Discharge Orders: Discharge Order (Routine); Ordered 01/05/24 Ordered By: Jessy Anderson Other Ambulatory Orders: Cardiac Event Recorder (Routine) Timeframe: 20240105 Facility: [facility] - Location: Respiratory Therapy Ordered By: Jessy Anderson Discharge Data Discharge Date/Time-TO BE ENTERED AT DEPARTURE: 01/05/24 13:15 DS: Summary Time Spent with Patient providing and/or coordinating discharge services: Less than 30 minutes Status at Discharge Functional status at discharge: uses cane/walker Overall status at discharge: patient is back to baseline Mental Status: mental status grossly normal Speech and Movement: speech and movement normal Mood: congruent mood Affect: normal affect Quality:SDOH Health Related Social Needs: No Data to Display Exam Const General: cooperative, comfortable and no acute distress Nutritional Appearance: average body habitus Orientation: alert, awake and oriented x3 HENMT Head: normal to inspection and normocephalic Mouth: oral mucosae normal Neck Neck: normal visual inspection, full ROM and no JVD Chest Chest: normal inspection of the chest Resp Effort & Inspection: normal respiratory effort Auscultation: clear to auscultation bilaterally Cardio Rate: regular rate Rhythm: regular rhythm GI Inspection: normal to inspection Skin General skin exam: no rashes or lesions noted Neuro General: patient alert, patient awake and patient oriented x3 Extrem General: normal to inspection and no pedal edema Psych Mental Status: mental status grossly normal Speech and Movement: speech and movement normal Mood: congruent mood Affect: normal affect DS: Data Vitals/I&O Vitals and I&O: Vital Signs Temperature 36.5 C 01/05/24 10:36 Temperature Source Tympanic 01/05/24 10:36 Pulse 71 01/05/24 10:36 Pulse Rhythm Regular 01/05/24 08:30 Pulse 59 L 01/04/24 12:50 Respiratory Rate 18 01/05/24 10:36 Respiratory Effort Normal 01/05/24 08:30 Respiratory Depth Normal 01/05/24 08:30 Respiratory Pattern Normal 01/05/24 08:30 Blood Pressure 145/80 H 01/05/24 10:36 Blood Pressure Mean 110 01/04/24 12:31 Blood Pressure Position Sitting 01/04/24 10:29 Pulse Oximetry 99 01/05/24 10:36 Oxygen Delivery Method Room Air 01/05/24 10:36 Oxygen Flow Rate 0 01/05/24 10:36 Pain Level 0 01/05/24 10:36 Comment Nurse notified about BP. 01/04/24 16:58 Intake & Output 01/04/24 01/05/24 01/05/24 23:59 11:59 23:59 Output Total 400 / 400 Balance -400 / -400 Output: Urine 400 / 400 Other: Urine Color Yellow Yellow Urine Appearance Clear Clear Voiding Methods Toilet Toilet Data Completed and Pending Labs on day of discharge: Labs from last 24 hours 01/04/24 01/04/24 13:44 13:32 Troponin I Cancelled Urine Color Yellow Urine Clarity Clear Urine pH 7.0 Ur Specific Paige 1.010 Urine Protein Negative Urine Ketones Negative Urine Blood Trace-lysed H Urine Nitrite Negative Urine Bilirubin Negative Urine Urobilinogen 0.2 Ur Leukocyte Esterase Negative Urine RBC Negative Urine WBC Negative Ur Epithelial Cells Negative Urine Crystals Negative Urine Bacteria Negative Urine Casts Negative Urine Mucus Negative Ur Culture Indicated? No Urine Glucose Negative PFSH All Active Problems (Updated 01/04/24 @ 12:11 by Jessy Anderson NP) Left facial numbness (Acute) Gait disturbance (Acute) Hematuria (Acute) Syncopal episodes (Chronic) Prediabetes (Acute) Migraine headache without aura (Acute) Medication overuse headache (Acute) Chronic headache (Acute) Memory loss (Acute) Acute CVA (cerebrovascular accident) (Acute) Essential hypertension (Acute) Age-related macular degeneration (Acute) Anxiety (Acute 03/29/13) panic Bundle branch block (Acute) left bundle branch block; Cardiomyopathy (Acute) echo 12/31 EF43% echo 2010 EF35-40% echo 06/04 EF45-50% diastolic dysfunction nonischemic Gastroesophageal reflux disease (Chronic) 07/07/14; EGD; González BURNETT Malignant neoplasm of female breast (Acute 10/22/01) stage 2 IDC RIGHT BREAST lumpectomy radiation chemo Followed at [facility] Microscopic hematuria (Acute 02/02/18) 03/04/18; NEGATIVE CYSTOSCOPY Osteopenia (Acute) Risk factors: Graves; Arimidex D/C'd Fosamax Dexa in 2011; repeat in 2 years Mood disorder (Acute) improved w/ cymbalta Right knee meniscal tear (Chronic) Status post breast lumpectomy (Acute) History of esophagogastroduodenoscopy (Acute) Vaginitis and vulvovaginitis (Acute) Herpetic lesion (Acute) inside left labia MICHEL (dyspnea on exertion) (Acute) Pain, joint, knee, right (Acute) Pain in left hip (Acute) Temporal headache (Acute) Medical History Nonischemic cardiomyopathy Breast cancer Anxiety GERD (gastroesophageal reflux disease) Stress incontinence Alcohol abuse Graves' disease (03/29/13) Idiopathic scoliosis Hypertension Hyperlipidemia (02/15/13) Depressive disorder Surgical History Hx of cataract removal with insertion of prosthetic lens Hx of tubal ligation Hx of appendectomy Cystoscopy 03/04/18 NEGATIVE Breast, Lumpectomy right lumpectomy-infiltration ductal; radiation and chemo Family History Mother Essential hypertension Heart disease Myocardial infarction Father Diabetes Heart disease Sister Alzheimer disease Brother Essential hypertension Heart disease Grandfather Heart disease Grandfather Personal history of malignant neoplasm Grandmother Heart disease Grandmother Heart disease Maternal Uncle Stroke Son No problems noted. Son No problems noted. Son No problems noted. Son No problems noted. Daughter No problems noted. Daughter No problems noted. Social History Smoking/Tobacco Use Status: Former Tobacco Use Quit Date: 11/23/95 Smoking risk assessment performed?: Yes Alcohol Intake: never Drug use: Never Substance use type: does not use Household members: other Details: 2 Housing: house Frequency: daily Do you feel safe at home: Yes Do you feel safe in your relationship?: Yes Time Spent with Patient Time Spent with Patient: 45-69 minutes Time was spent: preparing to see the patient(eg.review tests), obtaining and/or reviewing separately otained hiistory, ordering medications,tests, procedures, indepentently interpreting results and counseling the patient
--- NOTE | 2024-01-05 12:38 | RESPIRATORY ---
RT attempted to place 30 day cardiac event recorder on patient and patient refused stating she had been sent home with one before and removed it on day 3 as she is electronically illiterate. Patient's daughter was also in the room and confirmed story. Provider and charge nurse notified.
== END 2024-01-05 13:15 | disposition home or self-care (01) ==
LOC: ER 10:44 → MS 13:26
PROVIDERS: Admitting Provider Internal Medicine; Emergency Provider Registered Nurse Emergency; PCP Family Medicine; Visit Provider Internal Medicine
DX: R20.0 Anesthesia of skin (principal); G43.009 Migraine without aura, not intractable, without status migrainosus; Z86.73 Personal history of transient ischemic attack (TIA), and cerebral infarction without residual deficits; F42.9 Obsessive-compulsive disorder, unspecified; R73.03 Prediabetes; E05.00 Thyrotoxicosis with diffuse goiter without thyrotoxic crisis or storm; F10.10 Alcohol abuse, uncomplicated; F32.A Depression, unspecified; R26.9 Unspecified abnormalities of gait and mobility; Z85.3 Personal history of malignant neoplasm of breast; K21.9 Gastro-esophageal reflux disease without esophagitis; I44.7 Left bundle-branch block, unspecified; Z79.899 Other long term (current) drug therapy
CPT/HCPCS: 00123; 36416; 70544; 70547; 80053; 82962; 93005; 93306; 99285; 70450; 70551; 81003; 81015; 83735; 84484; 85025; 85610; 93010; 99223; 99239; G0378; J3490

== ENCOUNTER 2024-01-31 12:25 | Emergency (ER) | payer MEDICARE, SELFPAY ==
[2024-01-31 12:34] VITALS: BP 136/94; PULSE 94; RESP 16; TEMP 36.9; O2SAT 97
--- NOTE | 2024-01-31 12:45 | DI.RAD_ITS ---
Exam(s) XR FOREARM RT XR HUMERUS RT XR WRIST RT COMPLETE EXAM: XR HUMERUS RT and XR forearm RT and XR wrist RT complete CLINICAL HISTORY: fall, arm pain. TECHNIQUE: 2D digital imaging was performed of the right humerus, forearm and wrist. Seven images w ere obtained. AP, oblique and lateral views were obtained. COMPARISON: CR XR WRIST RT COMPLETE from 01/31/2024 CR XR FOREARM RT from 01/31/2024 FINDINGS: BONES: No acute fracture is present. No bony destructive lesion is seen. There are degenerative barroso es seen in the wrist particularly at the 1st carpometacarpal joint. The distal radius appears smooth without evidence of a acute fracture. SOFT TISSUE: There is soft tissue swelling in the forearm and wrist. There is a tiny density seen in the soft tissues anterior to the forearm distally which appears chronic. IMPRESSION: No acute fracture or dislocation is seen in the right humerus, forearm or wrist. If there is continu ed clinical concern, a follow-up examination may be obtained in 10-14 days. DATA REPOSITORY: RADIATION DOSE DELIVERED:
--- NOTE | 2024-01-31 12:45 | DI.RAD_ITS ---
Exam(s) XR SHOULDER RT COMPLETE 2+V EXAM: XR SHOULDER RT COMPLETE 2+V CLINICAL HISTORY: fall. TECHNIQUE: 2D digital imaging was performed of the right shoulder. Four images were obtained. AP, Grashey and Y views were obtained. COMPARISON: No exams were available for comparison FINDINGS: BONES: No acute fracture is present. No bony destructive lesion is seen. JOINTS: No dislocation present. Mild degenerative changes are seen at the acromioclavicular and gleno humeral joints. SOFT TISSUE: Normal. IMPRESSION: No acute fracture or dislocation. DATA REPOSITORY: RADIATION DOSE DELIVERED:
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
[2024-01-31] MEDS: Ibuprofen 400 MG TAB PO (12:51)
[2024-01-31] MEDS: Acetaminophen 325 MG TAB 650 MG PO (12:51)
== END 2024-01-31 14:25 | disposition home or self-care (01) ==
PROVIDERS: Emergency Provider Emergency Medicine; PCP Family Medicine
DX: M25.531 Pain in right wrist (principal); M25.511 Pain in right shoulder; I10 Essential (primary) hypertension; E78.5 Hyperlipidemia, unspecified; Z79.82 Long term (current) use of aspirin; W18.39XA Other fall on same level, initial encounter
CPT/HCPCS: 99283; 73030; 73060; 73090; 73110

== ENCOUNTER 2024-02-09 09:32 | Emergency (ER) | payer MEDICARE, SELFPAY ==
[2024-02-09] VITALS (28 sets, daily range): BP systolic 152–213; BP diastolic 62–99; PULSE 64–80; RESP 10–22; TEMP 36.3; O2SAT 97–99
--- NOTE | 2024-02-09 10:07 | ED.GENADUL_ITS ---
Discharge Plan Disposition Patient Disposition: Home Condition: Good Discharge Details Clinical Impression: Episodic lightheadedness, Anxiety, Microscopic hematuria, Stress at home Primary Care Provider: Kushal Noyola ED Provider: Elina Shanks Home Meds and New Rx's Prescriptions: Continued duloxetine 60 mg capsule,delayed release(DR/EC) 60 mg PO DAILY Qty: 90 3RF losartan 100 mg tablet 100 mg PO DAILY Qty: 90 3RF metoprolol tartrate 25 mg tablet 25 mg PO DAILY Qty: 90 4RF omeprazole 40 mg capsule,delayed release(DR/EC) 40 mg PO DAILY PRN (Reason: acid reflux) Qty: 90 3RF famotidine 20 mg tablet 20 mg PO DAILY Qty: 90 3RF atorvastatin 20 mg tablet 20 mg PO QPM Qty: 90 3RF fluticasone propionate 16 GM spray,suspension 2 spray NS DAILY aspirin 81 mg capsule 81 mg PO DAILY Qty: 30 0RF Discharge Instructions Instructions: Lightheadedness (ED), Anxiety (ED) Additional Instructions: Your labs and imaging are reassuring here today. I am concerned that your symptoms are associated with increase in stress. Please try to consider options for assistance or stress reduction. Please follow up with Ray as soon as possible to discuss your concerns. Please keep a journal of your symptoms along with events around this, how long they last, when you take your medications. Encourage hydration. Consider the heart monitor we discussed. If you develop any new/worsening symptoms, please seek care urgently once again. Referrals: Kushal Noyola MD [Primary Care Provider] - Discharge Data Discharge Date/Time-TO BE ENTERED AT DEPARTURE: 02/09/24 12:40 HPI General Date/Time Provider Initiated Documentation: 02/09/24 09:34 . Limitations to Documentation: no limitations . Information obtained by: patient, family (granddaughter), RN notes reviewed and old records reviewed . History of Present Illness 83 year old F presents to the emergency department with the chief complaint of lightheadedness, stress, described as moderate, Quality is described as other (no pain, feeling lightheaded), Patient started experiencing this day(s) (1) and it has been now resolved (lasts one hour past two mornings). No relieving factors improve symptom(s), Movement worsens symptoms (when first gets out of bed) . Patient notes no other symptoms.; denies chest pain, cough, diaphoresis, fever/chills, headaches (reports MENG after, not during, her episodes of lightheadedness, associates with stress), loss of appetite, nausea/vomiting, rash, shortness of breath, syncope and weakness (feels generally fatigued). Patient did receive the following treatments prior to arrival, none Related Data Home Medications Medication Instructions Recorded Confirmed fluticasone propionate 50 2 spray NS DAILY 03/02/18 02/09/24 mcg/actuation nasal spray,suspension aspirin 81 mg capsule 81 mg PO DAILY #30 caps 03/24/22 02/09/24 famotidine 20 mg tablet 20 mg PO DAILY #90 tabs 02/10/23 02/09/24 duloxetine 60 mg capsule,delayed 60 mg PO DAILY #90 caps 05/11/23 02/09/24 release losartan 100 mg tablet 100 mg PO DAILY #90 tab-caps 05/11/23 02/09/24 metoprolol tartrate 25 mg tablet 25 mg PO DAILY #90 tabs 05/11/23 02/09/24 omeprazole 40 mg capsule,delayed 40 mg PO DAILY PRN acid reflux #90 05/11/23 02/09/24 release tab-caps atorvastatin 20 mg tablet 20 mg PO QPM #90 tabs 10/28/23 02/09/24 Previous Rx's Medication Instructions Recorded aspirin 81 mg capsule 81 mg PO DAILY #30 caps 03/24/22 famotidine 20 mg tablet 20 mg PO DAILY #90 tabs 02/10/23 duloxetine 60 mg capsule,delayed 60 mg PO DAILY #90 caps 05/11/23 release losartan 100 mg tablet 100 mg PO DAILY #90 tab-caps 05/11/23 metoprolol tartrate 25 mg tablet 25 mg PO DAILY #90 tabs 05/11/23 omeprazole 40 mg capsule,delayed 40 mg PO DAILY PRN acid reflux #90 05/11/23 release tab-caps atorvastatin 20 mg tablet 20 mg PO QPM #90 tabs 10/28/23 Allergies Allergy/AdvReac Type Severity Reaction Status Date / Time sertraline AdvReac Ineffective Verified 02/09/24 09:03 General Stated Complaint: Dizzy/Sync MAULIK: 3 Review of Systems Constitutional Constitutional: Reports as per HPI, Denies chills, Denies fever(s) and Denies poor appetite Eyes Eyes: Denies change in vision Cardiovascular Cardiovascular: Reports as per HPI, Denies dyspnea and Denies dyspnea on exer tion Respiratory Respiratory: Reports as per HPI, Denies chest congestion, Denies cough, Denies dyspnea and Denies dyspnea on exertion Gastrointestinal Gastrointestinal: Reports as per HPI, Denies abdominal pain, Denies diarrhea, Denies nausea and Denies vomiting Musculoskeletal Musculoskeletal: Reports as per HPI and Denies back pain Integumentary/Breasts Skin/Breast: Reports as per HPI and Denies rash Neurologic Neurologic: Reports as per HPI Exam Const General: cooperative, healthy appearing, comfortable, no acute distress and well developed Nutritional Appearance: average body habitus and well nourished Orientation: alert, awake and oriented x3 HENMT Head: normal to inspection Ears: hearing grossly normal bilaterally, external ears normal and TM's normal bilaterally Mouth: mucous membranes dry (lips and mucosa are dry) Teeth and gingiva: dentition normal (has upper false dentition) and gingiva normal Throat: posterior oropharynx normal and tonsils normal Chest Chest: normal inspection of the chest, normal palpation of entire chest wall and no crepitus Resp Effort & Inspection: normal respiratory effort, able to speak in complete sentences and no respiratory distress Auscultation: clear to auscultation bilaterally, no rales, no rhonchi and no wheezes Cardio Rate: regular rate Rhythm: regular rhythm Heart Sounds: S1 normal and S2 normal GI Inspection: normal to inspection, no edema and non-distended Palpation: soft, no hepatosplenomegaly, not firm, no guarding, not rigid and nontender Auscultation: normal bowel sounds Skin General skin exam: ecchymosis (large area of ecchymosis to right forearm) Trauma: laceration (healing laceration to right forearm) Neuro General: patient alert, patient awake and patient oriented x3 Cranial Nerves: CN's II-XI intact bilaterally Cognition: normal cognition Speech: speech normal Gait: normal gait Motor: muscle tone normal throughout, strength 5/5 throughout, no pronator drift and no movement abnormalities noted Sensory Exam: no sensory deficits noted Extrem General: abnormal to inspection (ecchymosis and small abrasion to right forearm), capillary refill normal, no pedal edema, no calf tenderness, normal gait and other (2+ distal pulses in all extremities) Psych Appearance: grossly normal and well kempt Mental Status: mental status grossly normal Speech and Movement: speech and movement normal Mood: congruent mood Affect: sad (tearful when talking about life stressors) Course Vital Signs Vital signs: Vital Signs Temperature 36.3 C L 02/09/24 09:36 Pulse 71 02/09/24 09:36 Respiratory Rate 22 02/09/24 09:36 Blood Pressure 168/79 H 02/09/24 09:36 Pulse Oximetry 99 02/09/24 09:36 Temperature 36.3 C L 02/09/24 09:36 Pulse 71 02/09/24 09:36 Respiratory Rate 22 02/09/24 09:36 Respiratory Effort Normal 02/09/24 09:55 Blood Pressure 168/79 H 02/09/24 09:36 Pulse Oximetry 99 02/09/24 09:36 Medical Decision Making Patient is a pleasant 83-year-old female with past medical history significant for nonischemic cardiomyopathy, breast cancer, anxiety, GERD, alcohol abuse, Graves' disease, hypertension, hyperlipidemia, depression, CVA, prediabetes, presenting today with c/c of feeling lightheaded when getting out of bed for the past 2 days. STates that it begins when she first stands out of bed, lasts about an hour. Feels pre-syncopal. Denies syncope. No CP, palpitations or SOB. No recent fevers/chills. States that she has had increased stress recently, she feels that the lightheadedness is associated with that. Reports she was not drinking enough fluids, feels like she has been dehydrated. Slightly decreased appetite associated with stressors. States that she lives in her own home with her , he is progressing with dementia. She reports that recently, she had adult protective services called on her b/c of issues around her . She is hesitant to reach out for help b/c of this recent experience. On exam, patient appears anxious, appears nontoxic. She has no neurological deficits. A&O. Lungs are clear, normal cardiac exam. 2+ distal pulses. No abdominal pain. Resting with the patient, she became very tearful. Starts discussing multiple stressors. It seems to be primarily centered around the lack of independence with losing her license and having Adult Protective Services called on her regarding care of her . No thoughts of self-harm, suicidal ideation. She does have good personal insight. Does have a history of anxiety. As the patient is having this only 1 time during the day it is not reproducible, she not having any chest pain or palpitations, I find cardiac source less likely. However, with patient's age and comorbidities, certainly feel that evaluation is appropriate. Patient reports that she is able to get up at night to the restroom and does not have any lightheadedness at that time, only first thing in the morning. She does associate this with a large amount of stress. She had previously been working with mental health but has not seen them in a while. No evidence to suggest acute risk to herself or others. She has had h istory of CVA, no evidence of neurologic deficit at this time and I do feel that imaging had months of conscious would be appropriate. Discussed this plan with the patient and her daughter who are in agreement. Patient does not want to speak with mental health or care management at this time. ECG reviewed by Dr. Navas, no acute changes. Hx of LBBB which is unchanged. Labs reviewed, no acute abnromalities noted. CT reviewed by radiologist: FINDINGS: Ventricles and Extra axial spaces: Normal in size and morphology for the patient's age. Hemorrhage: None. Cerebral parenchyma: No evidence of acute infarct or mass. Atrophy, consistent with the patient's age. Old right-sided lacunar infarcts. White matter changes of small vessel disease. Midline shift: None. Brainstem/Cerebellum: Normal. Calvarium: Normal. Visualized Paranasal sinuses:Clear. Mastoids: Clear. Soft Tissues: Unremarkable. ORBITS: Unremarkable. PITUITARY: Not enlarged. IMPRESSION: No acute intracranial process. Orthostatics negative. She is hypertensive, SBP ranging from 150s-200. She has been elevated historically. With her acute stress/anxiety and concerns about her current condition, I do not see need to adjust her medications. She follows her BP at home and it is normal at that time. No evidence of hypertensive urgency/emergency, no end organ damage, no CP or MENG. Discussed findings with patient and her granddaughter. Advise that I am concerned about her level of stress. This does seem to be weighing on her. She is wary of speaking with anybody and does not want further intervention at this time. We did discuss ways to help her with her feeling of being trapped in her own home including RCT. Again, at this time patient would like to hold off on involving others. However, she does report that she previously received mental health care with Ray through her primary care office, will reach out if she does feel safe and comfortable speaking with her and would like to follow-up with her. We also discussed a Holter monitor for further evaluation of her lightheadedness which she declines. Has had 1 historically and reports that it made her very anxious. I encouraged that she discuss this further with her primary care. Return precautions were discussed. All of her questions and concerns were addressed and she is in agreement this plan. Spoke with Lukasz Valiente who has helped with her MH in the past htorugh Dr. Noyola's office. She is going reach out to Amy and schedule an appointment this week. Quality:SDOH Health Related Social Needs: Health related social needs personal safety PFSH All Active Problems (Updated 02/09/24 @ 12:26 by CHIN Nicole) Stress at home (Acute) Episodic lightheadedness (Acute) Fall (Acute) Arm pain (Acute) Domestic concerns (Acute) Left facial numbness (Acute) Gait disturbance (Acute) Hematuria (Acute) Syncopal episodes (Chronic) Prediabetes (Acute) Migraine headache without aura (Acute) Medication overuse headache (Acute) Chronic headache (Acute) Memory loss (Acute) Acute CVA (cerebrovascular accident) (Acute) Essential hypertension (Acute) Age-related macular degeneration (Acute) Anxiety (Acute 03/29/13) panic Bundle branch block (Acute) left bundle branch block; Cardiomyopathy (Acute) echo 12/31 EF43% echo 2010 EF35-40% echo 06/04 EF45-50% diastolic dysfunction nonischemic Gastroesophageal reflux disease (Chronic) 07/07/14; EGD; [facility] Malignant neoplasm of female breast (Acute 10/22/01) stage 2 IDC RIGHT BREAST lumpectomy radiation chemo Followed at [facility] Microscopic hematuria (Acute 02/02/18) 03/04/18; NEGATIVE CYSTOSCOPY Osteopenia (Acute) Risk factors: Graves; Arimidex D/C'd Fosamax Dexa in 2011; repeat in 2 years Mood disorder (Acute) improved w/ cymbalta Right knee meniscal tear (Chronic) Status post breast lumpectomy (Acute) History of esophagogastroduodenoscopy (Acute) Vaginitis and vulvovaginitis (Acute) Herpetic lesion (Acute) inside left labia MICHEL (dyspnea on exertion) (Acute) Pain, joint, knee, right (Acute) Pain in left hip (Acute) Temporal headache (Acute) Medical History Nonischemic cardiomyopathy Breast cancer Anxiety GERD (gastroesophageal reflux disease) Stress incontinence Alcohol abuse Graves' disease (03/29/13) Idiopathic scoliosis Hypertension Hyperlipidemia (02/15/13) Depressive disorder Surgical History Hx of cataract removal with insertion of prosthetic lens Hx of tubal ligation Hx of appendectomy Cystoscopy 03/04/18 NEGATIVE Breast, Lumpectomy right lumpectomy-infiltration ductal; radiation and chemo Family History Mother Essential hypertension Heart disease Myocardial infarction Father Diabetes Heart disease Sister Alzheimer disease Brother Essential hypertension Heart disease Grandfather Heart disease Grandfather Personal history of malignant neoplasm Grandmother Heart disease Grandmother Heart disease Maternal Uncle Stroke Son No problems noted. Son No problems noted. Son No problems noted. Son No problems noted. Daughter No problems noted. Daughter No problems noted. Social History Smoking/Tobacco Use Status: Former Tobacco Use Quit Date: 11/23/95 Smoking risk assessment performed?: Yes Alcohol Intake: former Drug use: Never Substance use type: does not use Household members: other Details: 2 Housing: house Frequency: daily Do you feel safe at home: Yes Do you feel safe in your relationship?: Yes
--- NOTE | 2024-02-09 10:30 | RT.EKG_ITS ---
APPROVED REPORT Exam: Resting ECG Reason for Exam: lightheadedness Patient Location: E HR:65 bpm ECG Measurements Heart Rate 65 AXIS MD 213 P 42 QRSd 158 QRS -34 QT 507 T 122 QTc 527 Conclusion Sinus rhythm...normal P axis, V-rate 60- 99 Borderline prolonged MD interval...MD >212, V-rate 50- 90 Left bundle branch block...QRSd>120, broad/notched R ST elevation secondary to IVCD...Multiple VCG criteria sinus rhtyhm, LBBB unchanged from prior
--- NOTE | 2024-02-09 10:30 | DI.CT_ITS ---
Exam(s) CT HEAD WO EXAM: CT HEAD WO CLINICAL HISTORY: lightheadedness. TECHNIQUE: Imaging Protocol: Axial computed tomography images with coronal and sagittal reformatted images were created and reviewed COMPARISON: CT CT HEAD - STROKE PROTOCOL from 01/04/2024 FINDINGS: Ventricles and Extra axial spaces: Normal in size and morphology for the patient's age. Hemorrhage: None. Cerebral parenchyma: No evidence of acute infarct or mass. Atrophy, consistent with the patient's a ge. Old right-sided lacunar infarcts. White matter changes of small vessel disease. Midline shift: None. Brainstem/Cerebellum: Normal. Calvarium: Normal. Visualized Paranasal sinuses:Clear. Mastoids: Clear. Soft Tissues: Unremarkable. ORBITS: Unremarkable. PITUITARY: Not enlarged. IMPRESSION: No acute intracranial process. RADIATION DOSE DELIVERED: Total DLP DATA REPOSITORY: All CT scans at this facility are submitted to the National Radiology Data Registry (NRDR) Dose Index Registry (DIR) with the [employer] ([employer]). RADIATION OPTIMIZATION: All CT scans at this facility use at least one of these dose optimization te chniques: automated exposure control; mA and/or kV adjustment per patient size (includes targeted exa ms where dose is matched to clinical indication); or iterative reconstruction.
[2024-02-09] MEDS: Lactated Ringers 500 ML IV (10:49)
[2024-02-09 10:55] LABS: Abs Immature Grans 0.01 10^3/uL (0.0-0.06); Absolute Basophil Count 0.03 10^3/uL (0.0-0.2); Absolute Eosinophil Count 0.02 10^3/uL (0.0-0.7); Absolute Lymphocyte Count 0.92 10^3/uL (1.2-3.4); Absolute Monocyte Count 0.33 10^3/uL (0.1-0.8); Absolute Neutrophil Count 2.95 10^3/uL (1.2-6.7); Basophils % 0.7; Eosinophils % 0.5; HCT 36.9 % (36.0-46.0); HGB 11.7 g/dL (11.2-15.7); Immature Grans % 0.2; Lymphocytes % 21.6; MCH 27.9 pg (27.0-33.0); MCHC 31.7 % (32.0-36.0); MCV 88 fL (80-95); MPV 10.3 fL (8.0-11.0); Monocytes % 7.7; Neutrophils % 69.3; Platelet Count 249 10^3/uL (130-400); RBC 4.19 10^6/uL (3.93-5.22); RDW 14.6 % (11.7-14.6); RDW-SD 47.2 fL; WBC 4.26 10^3/uL (4.4-10.8)
[2024-02-09 11:23] LABS: ALT 20 U/L (14-59); AST 21 U/L (15-37); Albumin 3.9 g/dL (3.4-5.0); Alkaline Phosphatase 78 U/L (46-116); Anion Gap 7.5 mmol/L (3-11); BUN 12 mg/dL (7-18); Bilirubin, Total 0.3 mg/dL (0.2-1.0); CO2 29.5 mmol/L (21.0-32.0); CREATININE 0.9 mg/dL (0.55-1.02); Calcium 9.4 mg/dL (8.5-10.1); Chloride 101 mmol/L (98-107); Estimated GFR 62.65 (mL/min/1.73m2); Glucose 123 mg/dL (74-106); Magnesium 2.4 mg/dL (1.8-2.4); Potassium 4.2 mmol/L (3.5-5.1); Sodium 138 mmol/L (136-145); TSH 2.75 uIU/Ml (0.36-3.74); Total Protein 8.1 g/dL (6.4-8.2); Troponin I < 50 ng/L (< or =60)
[2024-02-09 11:34] LABS: Bilirubin Negative (Negative); Blood Trace-intact (Negative); Clarity Clear (Clear); Glucose Negative (Negative); Ketones Negative (Negative); Leukocyte Esterase Negative (Negative); Nitrite Negative (Negative); Urobilinogen 0.2 mg/dL (Up to 0.2); pH 6.5 (5-8)
[2024-02-09 11:40] LABS: Bacteria Rare HPF (Negative); C & S Indicated? No; Casts Negative LPF (Negative); Crystals Negative HPF (Negative); Epithelial Cells Rare HPF (Negative); Mucus Trace (Negative); WBC 0-2 HPF (0-5)
== END 2024-02-09 12:40 | disposition home or self-care (01) ==
PROVIDERS: Emergency Provider Physician Assistant; PCP Family Medicine
DX: R42 Dizziness and giddiness (principal); I10 Essential (primary) hypertension; R31.9 Hematuria, unspecified; F43.9 Reaction to severe stress, unspecified; F41.9 Anxiety disorder, unspecified; Z86.73 Personal history of transient ischemic attack (TIA), and cerebral infarction without residual deficits; Z83.438 Family history of other disorder of lipoprotein metabolism and other lipidemia
CPT/HCPCS: 80053; 93005; 96360; 99284; 70450; 81003; 81015; 83735; 84443; 84484; 85025; 93010; 99283

== ENCOUNTER → 2024-06-13 11:27 | Outpatient (BNVA) | payer MEDICARE, SELFPAY | PROVIDERS: PCP Family Medicine; Referring Provider Family Medicine; Visit Provider Psychiatry & Neurology Neurology | DX: I95.1 Orthostatic hypotension (principal); G43.009 Migraine without aura, not intractable, without status migrainosus; R41.3 Other amnesia; I63.9 Cerebral infarction, unspecified; G89.29 Other chronic pain; R26.9 Unspecified abnormalities of gait and mobility | CPT/HCPCS: 99214 ==

== ENCOUNTER 2025-02-01 03:05 | Outpatient (CLI) | payer MEDICARE, SELFPAY ==
--- NOTE | 2025-02-01 06:45 | DI.RAD_ITS ---
Exam(s) XR KNEE RT 3V AP,LAT,OLGA EXAM: XR KNEE RT 3V AP,LAT,OLGA CLINICAL HISTORY: rt knee pain,M25.561. TECHNIQUE: 2D digital imaging was performed of the right knee. Three views obtained. AP, lateral an d PA tunnel views were obtained. COMPARISON: There are no priors for comparison. FINDINGS: BONES: No acute fracture is present. No bony destructive lesion is seen. JOINTS: There is loss of the medial femoral tibial joint space with bone on bone. There osteophytes seen in the posterior patella and the medial femoral tibial joint. There is a small suprapatellar amelia int effusion. SOFT TISSUE: Vascular calcifications are present. IMPRESSION: Marked osteoarthritis of the right knee. DATA REPOSITORY: RADIATION DOSE DELIVERED:
== END 2025-02-01 03:25 ==
LOC: DI 03:05
PROVIDERS: PCP Family Medicine; Visit Provider Family Medicine
DX: M25.561 Pain in right knee (principal)
CPT/HCPCS: 73562

== ENCOUNTER → 2025-03-14 13:59 | Outpatient (BNVA) | payer MEDICARE, SELFPAY | PROVIDERS: PCP Family Medicine; Referring Provider Family Medicine; Visit Provider Psychiatry & Neurology Neurology | DX: R41.3 Other amnesia (principal); G89.29 Other chronic pain; G44.40 Drug-induced headache, not elsewhere classified, not intractable; G43.009 Migraine without aura, not intractable, without status migrainosus; R26.9 Unspecified abnormalities of gait and mobility; I95.1 Orthostatic hypotension; I10 Essential (primary) hypertension; Z86.73 Personal history of transient ischemic attack (TIA), and cerebral infarction without residual deficits; Z85.3 Personal history of malignant neoplasm of breast | CPT/HCPCS: 99215 ==

== ENCOUNTER → 2025-04-13 14:38 | Outpatient (BNVA) | payer MEDICARE, SELFPAY | PROVIDERS: PCP Family Medicine; Referring Provider Family Medicine; Visit Provider Psychiatry & Neurology Neurology | DX: R41.3 Other amnesia (principal); I63.9 Cerebral infarction, unspecified; G89.29 Other chronic pain; G44.40 Drug-induced headache, not elsewhere classified, not intractable; G43.009 Migraine without aura, not intractable, without status migrainosus; R26.9 Unspecified abnormalities of gait and mobility; I95.1 Orthostatic hypotension; I10 Essential (primary) hypertension | CPT/HCPCS: 99214 ==

== ENCOUNTER 2025-05-04 09:17 | Observation (INO) | payer MEDICARE, SELFPAY ==
[2025-05-04] VITALS (72 sets, daily range): BP systolic 115–191; BP diastolic 41–117; PULSE 49–64; RESP 11–22; TEMP 36.2–36.7; O2SAT 92–99
--- NOTE | 2025-05-04 09:00 | RT.EKG_ITS ---
APPROVED REPORT Exam: Resting ECG Reason for Exam: weakness Patient Location: E HR:55 bpm ECG Measurements Heart Rate 55 AXIS MD 229 P 63 QRSd 150 QRS -31 QT 481 T 126 QTc 460 Conclusion Sinus bradycardia...rate< 60 Prolonged MD interval...MD >220, V-rate 50- 90 Left bundle branch block...QRSd>120, broad/notched R ST elevation secondary to IVCD...Multiple VCG criteria
--- NOTE | 2025-05-04 09:45 | DI.CT_ITS ---
Exam(s) CT HEAD WO EXAM: CT HEAD WO CLINICAL HISTORY: headache. TECHNIQUE: Imaging Protocol: Axial computed tomography images with coronal and sagittal reformatted images were created and reviewed COMPARISON: CT CT HEAD WO from 02/09/2024 FINDINGS: There are no skull fractures. There is no fluid in the visualized paranasal sinuses. There is no evidence of intracranial hemorrhage, mass effect, or shift of midline structures. There are no extra-axial fluid collections. The ventricles are not enlarged or shifted and there is no blood within the ventricular system nor within the basal cisterns. Right-side lacunar infarct again noted, unchanged. There is otherwise relatively symmetrical see periventricular hypodensity consistent with chronic small vessel disease. IMPRESSION: No acute intracranial findings on this noninfused CT scan of the brain. Stable nonhemorrhagic right chronic lacunar infarct. No acute central cranial findings. Report called by myself to ER 05/04/2025 at 10:30 a.m. RADIATION DOSE DELIVERED: 880.69mGy.cm Total DLP DATA REPOSITORY: All CT scans at this facility are submitted to the National Radiology Data Registry (NRDR) Dose Index Registry (DIR) with the [employer] (ACR). RADIATION OPTIMIZATION: All CT scans at this facility use at least one of these dose optimization techniques: automated exposure control; mA and/or kV adjustment per patient size (includes targeted exams where dose is matched to clinical indication); or iterative reconstruction.
[2025-05-04] MEDS: LORazepam 0.5 MG TAB PO ×2 (10:17→17:53)
[2025-05-04 10:23] LABS: Abs Immature Grans 0.02 10^3/uL (0.0-0.06); Absolute Basophil Count 0.03 10^3/uL (0.0-0.2); Absolute Eosinophil Count 0.05 10^3/uL (0.0-0.7); Absolute Lymphocyte Count 1.04 10^3/uL (1.2-3.4); Absolute Monocyte Count 0.56 10^3/uL (0.1-0.8); Absolute Neutrophil Count 4.78 10^3/uL (1.2-6.7); Basophils % 0.5 %; Eosinophils % 0.8 %; HCT 38.3 % (36.0-46.0); HGB 12.6 g/dL (11.2-15.7); Immature Grans % 0.3 %; MCH 29.2 pg (27.0-33.0); MCHC 32.9 % (32.0-36.0); MCV 89 fL (80-95); MPV 10.2 fL (8.0-11.0); Monocytes % 8.6 %; Neutrophils % 73.8 %; Platelet Count 214 10^3/uL (130-400); RBC 4.32 10^6/uL (3.93-5.22); RDW 12.7 % (11.7-14.6); RDW-SD 41.6 fL; WBC 6.48 10^3/uL (4.4-10.8)
[2025-05-04 10:51] LABS: ALT 21 U/L (14-59); AST 25 U/L (15-37); Albumin 3.3 g/dL (3.4-5.0); Alkaline Phosphatase 60 U/L (46-116); Anion Gap 5.5 mmol/L (3-11); BUN 9 mg/dL (7-18); Bilirubin, Total 0.5 mg/dL (0.2-1.0); CO2 27.5 mmol/L (21.0-32.0); CREATININE 0.5 mg/dL (0.55-1.02); Calcium 8.8 mg/dL (8.5-10.1); Chloride 100 mmol/L (98-107); Estimated GFR 91.28 (mL/min/1.73m2); Glucose 110 mg/dL (74-106); Magnesium 1.9 mg/dL (1.8-2.4); Potassium 4.4 mmol/L (3.5-5.1); Sodium 133 mmol/L (136-145); TSH (W/Ref FT4) 3.07 uIU/mL (0.36-3.74); Total Protein 6.9 g/dL (6.4-8.2)
--- NOTE | 2025-05-04 10:58 | DI.RAD_ITS ---
Exam(s) XR CHEST 2V PA LATERAL EXAM: XR CHEST 2V PA LATERAL CLINICAL HISTORY: weakness. TECHNIQUE: 2D digital imaging was performed. COMPARISON: CR,XR XR CHEST 2V PA LATERAL from 03/22/2022 FINDINGS: 2 views: Heart size is normal. The mediastinum is not widened. Lungs are clear. No infiltrates nor pleural effusions. Some scarring in the posterior basal segment of the left lower lobe is unchanged. Chronically elevated right hemidiaphragm again noted, unchanged. IMPRESSION: No acute pulmonary findings.Chronically elevated right hemidiaphragm again noted. DATA REPOSITORY: RADIATION DOSE DELIVERED:
[2025-05-04] MEDS: Normal Saline 500 ML 250 ML IV (11:06)
[2025-05-04 11:35] LABS: Bilirubin Negative (Negative); Blood Small (Negative); Clarity Clear (Clear); Glucose Negative (Negative); Ketones Negative (Negative); Leukocyte Esterase Negative (Negative); Nitrite Negative (Negative); Specific Gravity 1.015 (1.005-1.025); Urobilinogen 0.2 mg/dL (Up to 0.2)
[2025-05-04 11:39] LABS: Bacteria Few HPF (Negative); C & S Indicated? No; Casts Negative LPF (Negative); Crystals Negative HPF (Negative); Epithelial Cells Moderate HPF (Negative); Mucus Negative (Negative); WBC Negative HPF (0-5)
--- NOTE | 2025-05-04 13:01 | PT.INIE ---
PT Notes Visit Reasons: Tavon-Weakness Physical Therapy Initial Evaluation Date: 05/03/2025 Referring Doctor: Lalita NEELY PT Orders: PT CONSULT: PT Eval Safety consult for discharge Precautions: standard Patient Profile/Admitting Diagnosis:Amy is an 84yo female presented to ED via EMS from home after reporting weakness and inability to walk at home with her family. Head CT no acute findings; old right lacunar infarct. PT Consult for safety. PMHX: Stress at home (Acute) Episodic lightheadedness (Acute) Fall (Acute) Arm pain (Acute) Domestic concerns (Acute) Left facial numbness (Acute) Gait disturbance (Acute) Hematuria (Acute) Syncopal episodes (Chronic) Prediabetes (Acute) Migraine headache without aura (Acute) Medication overuse headache (Acute) Chronic headache (Acute) Memory loss (Acute) Acute CVA (cerebrovascular accident) (Acute) Essential hypertension (Acute) Age-related macular degeneration (Acute) Anxiety (Acute 03/29/13) panic Bundle branch block (Acute) left bundle branch block; Cardiomyopathy (Acute) echo 12/31 EF43% echo 2010 EF35-40% echo 06/04 EF45-50% diastolic dysfunction nonischemic Gastroesophageal reflux disease (Chronic) 07/07/14; EGD; González BURNETT Malignant neoplasm of female breast (Acute 10/22/01) stage 2 IDC RIGHT BREAST lumpectomy radiation chemo Followed at [facility] Microscopic hematuria (Acute 02/02/18) 03/04/18; NEGATIVE CYSTOSCOPY Osteopenia (Acute) Risk factors: Graves; Arimidex D/C'd Fosamax Dexa in 2011; repeat in 2 years Mood disorder (Acute) improved w/ cymbaltaRight knee meniscal tear (Chronic) Status post breast lumpectomy (Acute) History of esophagogastroduodenoscopy (Acute) Vaginitis and vulvovaginitis (Acute) Herpetic lesion (Acute) inside left labiaDOE (dyspnea on exertion) (Acute) Pain, joint, knee, right (Acute) Pain in left hip (Acute) Temporal headache (Acute) Medical History Nonischemic cardiomyopathy Breast cancer Anxiety GERD (gastroesophageal reflux disease) Stress incontinence Alcohol abuse Graves' disease (03/29/13) Idiopathic scoliosis Hypertension Hyperlipidemia (02/15/13) Depressive disorder Surgical History Hx of cataract removal with insertion of prosthetic lens Hx of tubal ligation Hx of appendectomy Cystoscopy 03/04/18 NEGATIVEBreast, Lumpectomy right lumpectomy-infiltration ductal; radiation and chemo Social History/Home Situation: Lives in her home with family now providing support since her has been placed in a long-term. Pt ambulates with wheeled walker assist with home making. Nurse reports family states she has been having HHPT at home. Equipment Owned/DME: wheeled walker, ramp to enter home( per patient) Subjective:Pt reports she is tired. SHe states she has been waking early before sunrise each day. She states she goes to bed at 8pm. She reports she has been forgetting to use her walker and is now fearful of being alone. Pt reports she was cooking meals until 3 weeks ago and since has been having trouble. Objective: [] General Observation: female presenting with eyes closed on stretcher. telemetry in place. easily woke to her name. Mental Status:Alert and oriented to person and place, vague responses to question. flat affect. Pain: denies ROM: [] BUE: WNL BLE : WFL B ankle DF 5 degrees Strength: [] BUE: 5/5 BLE: Hip flexion: 3+ /5; hip abduction: 3 /5; hip extension: 3/5; knee extension: 3+/5; knee flexion: 3/5 ankle DF: 3 /5 ; ankle PF: 3 /5 Gait: Ambulation without AD CGA 100 feet small step length B Pt attempting to seek support from furniture to walk. when questioned regarding use of a device at home after initial walk pt reports she has a 4WW she uses but sometimes forgets to take with her but her family will remind her. ---Ambulation 100 feet with FWW SBA improved step length and stability. Balance: [] Static Sitting: Normal Dynamic Sitting: Good Static Standing: Good Dynamic Standing: Fair Special Tests: 4 STAGE BALANCE TEST: Feet together __27__ seconds 1/2 Stance ____18___ seconds Tandem stance __8__seconds after UE support to attain the position Single leg stance left___3_seconds, right__4__seconds after ue support to attain position Mobility Limitations Standardized Measure [] [facility] AM-PAC 6 clicks Basic Mobility Inpatient Short Form: [] Raw Score: 22 CMS Score: 20.91% Informed Consent/Education: Patient instructed in purpose of PT consult. Treatment : 01437 transfer training with and without FWW various surfaces SBA with and without device . pt able to take 5-8 steps without LOB without AD however >8 steps pt starts to seek out UE support when she does not have the FWW Assessment: Pt is an 84 yo female presenting with mild cognitive impairment with inconsistent response to questions. Pt requires cues for initiation of tasks. Since pt has family support at home and HHPT she is safe for return to home despite deficits/limitations. Patient presents with clinical signs and symptoms consistent with current/admitting diagnoses that have resulted to mobility limitations, gait instability, generalized weakness, and impairment of motor control as demonstrated by the following impairment level findings: 1. Decreased strength to BLE major muscle groups 2. Impaired standing balance 3. diminished functional activity tolerance 4. emotional stress/ vague responses to questions Impairments are contributing to the following functional limitations: 1. Inability to safely ambulate without assistive device 2. Increase completion time for mobility ADL performance 3. Increased fall risk Patient is assessed as a moderate complexity based on the following: History: 84-year-old female with impairment level findings, functional limitations, and past medical history as indicated above Examination: Demonstrable impairment in strength, balance, and mobility level with underlying impairments and functional limitations as documented above Presentation: evolving /stable Decision Making:moderate Goals: N/A. Plan of Care/Treatment Plan: N/A. DISCHARGE RECOMMENDATIONS:Home with family and continue HHPT . Pt may benefit from a sign on her walker to remind her to take the walker with her. TREATMENT CODE/TIME: 41146, [id number] Thank you for the opportunity to participate in the care of this patient. Addis Cheney, PT [facility]
--- NOTE | 2025-05-04 14:46 | W.ED.GENAD ---
Discharge Plan Discharge Details Chief Complaint: GenMedical Primary Care Provider: Kushal Noyola ED Provider: Lalita Clinton Home Meds and New Rx's Prescriptions: No Action memantine 10 mg tablet 10 mg PO BID Qty: 180 3RF estradiol 0.01 % (0.1 mg/gram) cream 0.5 g vaginal .Twice a week PRN (Reason: vaginal inritation) Qty: 42.5 4RF Rx Instructions: Insert in the vagina 2x per week. losartan 100 mg tablet 100 mg PO DAILY Qty: 90 3RF omeprazole 40 mg capsule,delayed release(DR/EC) 40 mg PO DAILY PRN (Reason: acid reflux) Qty: 90 3RF acyclovir 400 mg tablet 400 mg PO TID PRN (Reason: genital herpes) Qty: 30 1RF Rx Instructions: At first sign of lesion, take 400mg 3x per day for 5 days atorvastatin 20 mg tablet 20 mg PO QPM Qty: 90 3RF venlafaxine 37.5 mg capsule,extended release 24hr 37.5 mg PO DAILY Qty: 30 2RF metoprolol tartrate 25 mg tablet 50 mg PO DAILY Qty: 90 4RF Rx Instructions: dose increase 05/02/25 aspirin 81 mg capsule 81 mg PO DAILY Qty: 30 0RF HPI General Date/Time Provider Initiated Documentation: 05/04/25 09:34. HPI Narrative: The patient is an 84-year-old female with nonischemic cardiomyopathy, hypertension, anxiety, severe bundle-branch block, and dementia, presenting with worsening anxiety. She has longstanding anxiety and was started on medication a few weeks ago but feels they have been unhelpful. Her metoprolol dose was increased at this time. She feels lightheaded, overwhelmed, and nauseous. No current chest pain or shortness of breath. She states her anxiety feels similar to previous episodes. She is alert and oriented but initially stuttering and tangential. No suicidality reported. Her , who had Alzheimer's, was placed in long-term care yesterday. Despite having family living with her, she feels anxious about living independently, as she has never been left alone before. Related Data Home Medications ?Medication ?Instructions ?Recorded ?Confirmed aspirin 81 mg capsule 81 mg PO DAILY #30 caps 03/24/22 05/04/25 acyclovir 400 mg tablet 400 mg PO TID PRN genital herpes 05/10/24 05/04/25 #30 tabs estradiol 0.01% (0.1 mg/gram) 0.5 g vaginal .Twice a week PRN 06/30/24 05/04/25 vaginal cream vaginal inritation #42.5 grams losartan 100 mg tablet 100 mg PO DAILY #90 tab-caps 12/27/24 05/04/25 omeprazole 40 mg capsule,delayed 40 mg PO DAILY PRN acid reflux #90 12/27/24 05/04/25 release tab-caps atorvastatin 20 mg tablet 20 mg PO QPM #90 tabs 04/04/25 05/04/25 venlafaxine 37.5 mg 37.5 mg PO DAILY #30 caps 04/10/25 05/04/25 capsule,extended release 24 hr memantine 10 mg tablet 10 mg PO BID #180 tabs 04/13/25 05/04/25 metoprolol tartrate 25 mg tablet 50 mg (2 x 25 mg) PO DAILY #90 tabs 05/02/25 05/04/25 Previous Rx's ?Medication ?Instructions ?Recorded aspirin 81 mg capsule 81 mg PO DAILY #30 caps 03/24/22 acyclovir 400 mg tablet 400 mg PO TID PRN genital herpes 05/10/24 #30 tabs estradiol 0.01% (0.1 mg/gram) 0.5 g vaginal .Twice a week PRN 06/30/24 vaginal cream vaginal inritation #42.5 grams losartan 100 mg tablet 100 mg PO DAILY #90 tab-caps 12/27/24 omeprazole 40 mg capsule,delayed 40 mg PO DAILY PRN acid reflux #90 12/27/24 release tab-caps atorvastatin 20 mg tablet 20 mg PO QPM #90 tabs 04/04/25 venlafaxine 37.5 mg 37.5 mg PO DAILY #30 caps 04/10/25 capsule,extended release 24 hr memantine 10 mg tablet 10 mg PO BID #180 tabs 04/13/25 metoprolol tartrate 25 mg tablet 50 mg (2 x 25 mg) PO DAILY #90 tabs 05/02/25 Allergies Allergy/AdvReac Type Severity Reaction Status Date / Time sertraline AdvReac Ineffective Verified 05/04/25 09:27 General Stated Complaint: GenMedical MAULIK: 3 Exam Narrative Exam Narrative: Plan general Appearance: Alert and oriented. Vital signs: Within normal limits. HEENT: Dry mucous membranes. Pupils equal, round, and reactive to light and accommodation. Respiratory: Within normal limits. Skin: No visible trauma. Extremities: No peripheral edema. Neurological: Cranial nerves II-XII intact. Negative [id number], heel diaz, and pronator drift tests. Course Vital Signs Vital signs: Vital Signs Temperature 36.7 C 05/04/25 09:21 Pulse 54 L 05/04/25 09:21 Respiratory Rate 18 05/04/25 09:21 Blood Pressure 115/67 05/04/25 09:21 Pulse Oximetry 97 05/04/25 09:21 Temperature 36.7 C 05/04/25 09:27 Temperature Source Oral 05/04/25 09:27 Pulse 56 L 05/04/25 14:10 Pulse 57 L 05/04/25 14:10 Respiratory Rate 15 05/04/25 14:10 Respiratory Effort Normal, Non-Labored 05/04/25 09:29 Respiratory Depth Normal 05/04/25 09:29 Respiratory Pattern Normal 05/04/25 09:29 Blood Pressure 168/76 H 05/04/25 14:02 Blood Pressure Mean 97 05/04/25 14:02 Pulse Oximetry 98 05/04/25 14:10 Lab/Test Results Lab/Test Results: Laboratory Tests Range/Units 05/04/25 05/04/25 10:14 11:17 WBC (4.4-10.8) 10^3/uL 6.48 RBC (3.93-5.22) 10^6/uL 4.32 Hgb (11.2-15.7) g/dL 12.6 Hct (36.0-46.0) % 38.3 MCV (80-95) fL 89 MCH (27.0-33.0) pg 29.2 MCHC (32.0-36.0) % 32.9 RDW (11.7-14.6) % 12.7 Plt Count (130-400) 10^3/uL 214 MPV (8.0-11.0) fL 10.2 Immature Gran % % 0.3 Neutrophils % % 73.8 Lymphocytes % % 16.0 Monocytes % % 8.6 Eosinophils % % 0.8 Basophils % % 0.5 Nucleated RBC % (0.0-0.3) % 0.0 Absolute Neutrophils (1.2-6.7) 10^3/uL 4.78 Absolute Lymphocytes (1.2-3.4) 10^3/uL 1.04 L Absolute Monocytes (0.1-0.8) 10^3/uL 0.56 Absolute Eosinophils (0.0-0.7) 10^3/uL 0.05 Absolute Basophils (0.0-0.2) 10^3/uL 0.03 Sodium (136-145) mmol/L 133 L Potassium (3.5-5.1) mmol/L 4.4 Chloride (98-107) mmol/L 100 Carbon Dioxide (21.0-32.0) mmol/L 27.5 Anion Gap (3-11) mmol/L 5.5 BUN (7-18) mg/dL 9 Creatinine (0.55-1.02) mg/dL 0.5 L Est GFR (CKD-EPI 2020) (mL/min/1.73m2) 91.28 Glucose (74-106) mg/dL 110 H Calcium (8.5-10.1) mg/dL 8.8 Magnesium (1.8-2.4) mg/dL 1.9 Total Bilirubin (0.2-1.0) mg/dL 0.5 AST (15-37) U/L 25 ALT (14-59) U/L 21 Alkaline Phosphatase (46-116) U/L 60 Total Protein (6.4-8.2) g/dL 6.9 Albumin (3.4-5.0) g/dL 3.3 L TSH (0.36-3.74) uIU/mL 3.07 Urine Color (Yellow) Yellow Urine Clarity (Clear) Clear Urine pH (5-8) 8.0 Ur Specific [place] (1.005-1.025) 1.015 Urine Protein (Neg-Trace) mg/dL Negative Urine Ketones (Negative) mg/dL Negative Urine Blood (Negative) Small H Urine Nitrite (Negative) Negative Urine Bilirubin (Negative) Negative Urine Urobilinogen (Up to 0.2) mg/dL 0.2 Ur Leukocyte Esterase (Negative) Negative Urine RBC (0-2) HPF 3-5 H Urine WBC (0-5) HPF Negative Ur Epithelial Cells (Negative) HPF Moderate Urine Crystals (Negative) HPF Negative Urine Bacteria (Negative) HPF Few Urine Casts (Negative) LPF Negative Urine Mucus (Negative) Negative Ur Culture Indicated? No Urine Glucose (Negative) mg/dL Negative Medical Decision Making Results :CBC within normal limits. Sodium 133. Creatinine 0.5. Glucose 110. Urinalysis without infection but some RBCs. Magnesium and potassium within normal limits. EKG shows baseline bundle branch block. Initial Assessment: 84-year-old female with history of nonischemic cardiomyopathy, hypertension, anxiety, severe bundle-branch block, and dementia, presenting with worsening anxiety following 's placement in long-term care. Feels lightheaded, overwhelmed, and nauseous. No current chest pain or shortness of breath. Alert and oriented, stuttering initially, tangential. Sinus bradycardia, no respiratory distress, dry mucous membranes, pupils equal, round, reactive to light and accommodation, cranial nerves II through XII intact, negative [id number], negative heel diaz, negative pronator drift, no visible sign of trauma, no peripheral edema. ED Course: - Given 0.5 mg oral Ativan, marked improvement in anxiety, speech, and stress levels. - Labs reassuring: EKG shows baseline bundle branch block, CBC within normal limits, sodium 133, creatinine 0.5, glucose 110, urinalysis without evidence of infection, magnesium and potassium within normal limits. - Communication with PCP attempted but unsuccessful; nursing staff informed and will relay information to Dr. Noyola. - Care management involved due to panic and anxiety, considering geriatric placement and depression management. - Approximately 35 minutes of time present discussing options with family , patient, care management regarding disposition Final Assessment: Patient's anxiety improved with Ativan. Labs and EKG reassuring. Considering adjustment of metoprolol dose and alternative anxiety medications. Care management involved for geriatric placement and depression management. Clinical Impression: - Anxiety Disposition: - Admission: Patient requested admission for general psych placement. MDM Components Evaluation: - Number of Differential Diagnoses or Management Options: Anxiety - Amount and Complexity of Data Reviewed: EKG, CBC, sodium, creatinine, glucose, urinalysis, magnesium, potassium - Risk of Complication and Morbidity or Mortality: Elevated blood pressure may contribute to anxiety; potential need to adjust metoprolol dose. PFSH All Active Problems History of breast cancer (Acute) Anxiety and depression (Chronic) Orthostatic hypotension (Acute) Domestic concerns (Acute) Left facial numbness (Acute) Gait disturbance (Acute) Hematuria (Acute) Syncopal episodes (Chronic) Prediabetes (Acute) Migraine headache without aura (Acute) Medication overuse headache (Acute) Chronic headache (Acute) Memory loss (Acute) Acute CVA (cerebrovascular accident) (Acute) Essential hypertension (Acute) Age-related macular degeneration (Acute) Anxiety (Acute 03/29/13) panic Bundle branch block (Acute) left bundle branch block; Cardiomyopathy (Acute) echo 12/31 EF43% echo 2010 EF35-40% echo 06/04 EF45-50% diastolic dysfunction nonischemic Gastroesophageal reflux disease (Chronic) 07/07/14; EGD; González BURNETT Malignant neoplasm of female breast (Acute 10/22/01) stage 2 IDC RIGHT BREAST lumpectomy radiation chemo [facility] at [facility] Microscopic hematuria (Acute 02/02/18) 03/04/18; NEGATIVE CYSTOSCOPY Osteopenia (Acute) Risk factors: Graves; Arimidex D/C'd Fosamax Dexa in 2011; repeat in 2 years Mood disorder (Acute) improved w/ cymbalta Right knee meniscal tear (Chronic) Status post breast lumpectomy (Acute) History of esophagogastroduodenoscopy (Acute) Vaginitis and vulvovaginitis (Acute) Herpetic lesion (Acute) inside left labia MICHEL (dyspnea on exertion) (Acute) Pain, joint, knee, right (Acute) Pain in left hip (Acute) Temporal headache (Acute) Medical History Palliative care encounter Nonischemic cardiomyopathy Breast cancer Anxiety GERD (gastroesophageal reflux disease) Stress incontinence Alcohol abuse Graves' disease (03/29/13) Idiopathic scoliosis Hypertension Hyperlipidemia (02/15/13) Depressive disorder Surgical History Hx of cataract removal with insertion of prosthetic lens Hx of tubal ligation Hx of appendectomy Cystoscopy 03/04/18 NEGATIVE Breast, Lumpectomy right lumpectomy-infiltration ductal; radiation and chemo Family History Mother Essential hypertension Heart disease Myocardial infarction Father Diabetes Heart disease Sister Alzheimer disease Brother Essential hypertension Heart disease Grandfather Heart disease Grandfather Personal history of malignant neoplasm Grandmother Heart disease Grandmother Heart disease Maternal Uncle Stroke Son No problems noted. Son No problems noted. Son No problems noted. Son No problems noted. Daughter No problems noted. Daughter No problems noted. Social History Smoking/Tobacco Use Status: Former Tobacco Use Quit Date: 11/23/95 Smoking risk assessment performed?: Yes Alcohol Intake: former Drug use: Never Substance use type: does not use Household members: other Details: 2 Housing: house Frequency: daily Do you feel safe at home: Yes Do you feel safe in your relationship?: Yes
[2025-05-04] MEDS: Acetaminophen 325 MG TAB 650 MG PO (15:17)
--- NOTE | 2025-05-04 15:45 | W.PM.HP.N ---
Date of service: 05/04/25 Time of Service: 15:45 Assessment and Plan Assessment and plan (1) Anxiety and depression: Status: Chronic Assessment and plan: - Patient has a longstanding history of anxiety with panic episodes - This episode likely brought on by patient's being placed in long-term care yesterday - Will continue home venlafaxine - Was given half milligram p.o. lorazepam in the emergency department with improvement, will continue as needed - Appreciate care management assistance and placement at [facility] (2) Cardiomyopathy: Status: Acute Assessment and plan: - Continue home aspirin, statin, losartan - Will hold home metoprolol as patient appears to have some borderline bradycardia (3) Memory loss: Status: Acute Assessment and plan: - Unclear if formally diagnosed with Alzheimer's - Patient does also appear to have history of past CVA and alcohol abuse - Likely contributing factor in exacerbating anxiety (4) Bundle branch block: Status: Acute Assessment and plan: - Noted as left bundle, unchanged from previous History of Present Illness History of Present Illness Chief Complaint: anxiety Narrative: 84-year-old female with a past medical history of hypertension, nonischemic cardiomyopathy and dementia who presents to the emergency department with worsening anxiety. Patient has a longstanding history of anxiety was started on SSRI a few weeks ago but it does not appear to have been effective. She has had episodes of severe anxiety in the past and this feels somewhat similar. This was likely brought on in given that the patient's was placed in long-term care yesterday. Despite patient living with other family members, she has become significantly anxious prompting them to bring her to the emergency department. In the emergency department the patient had completely normal vital signs, CBC and CMP, and on physical exam she was only noted as being highly anxious which was improved with lorazepam. Discussion was had with care management and ultimately it was felt the best decision would be for patient to be admitted under observation status while attempting placement at [facility]. Review of Systems All systems reviewed & are unremarkable except as noted in HPI and below PFSH All Active Problems History of breast cancer (Acute) Anxiety and depression (Chronic) Orthostatic hypotension (Acute) Domestic concerns (Acute) Left facial numbness (Acute) Gait disturbance (Acute) Hematuria (Acute) Syncopal episodes (Chronic) Prediabetes (Acute) Migraine headache without aura (Acute) Medication overuse headache (Acute) Chronic headache (Acute) Memory loss (Acute) Acute CVA (cerebrovascular accident) (Acute) Essential hypertension (Acute) Age-related macular degeneration (Acute) Anxiety (Acute 03/29/13) panic Bundle branch block (Acute) left bundle branch block; Cardiomyopathy (Acute) echo 12/31 EF43% echo 2010 EF35-40% echo 06/04 EF45-50% diastolic dysfunction nonischemic Gastroesophageal reflux disease (Chronic) 07/07/14; EGD; González BURNETT Malignant neoplasm of female breast (Acute 10/22/01) stage 2 IDC RIGHT BREAST lumpectomy radiation chemo Followed at [facility] Microscopic hematuria (Acute 02/02/18) 03/04/18; NEGATIVE CYSTOSCOPY Osteopenia (Acute) Risk factors: Graves; Arimidex D/C'd Fosamax Dexa in 2011; repeat in 2 years Mood disorder (Acute) improved w/ cymbalta Right knee meniscal tear (Chronic) Status post breast lumpectomy (Acute) History of esophagogastroduodenoscopy (Acute) Vaginitis and vulvovaginitis (Acute) Herpetic lesion (Acute) inside left labia MICHEL (dyspnea on exertion) (Acute) Pain, joint, knee, right (Acute) Pain in left hip (Acute) Temporal headache (Acute) Medical History Palliative care encounter Nonischemic cardiomyopathy Breast cancer Anxiety GERD (gastroesophageal reflux disease) Stress incontinence Alcohol abuse Graves' disease (03/29/13) Idiopathic scoliosis Hypertension Hyperlipidemia (02/15/13) Depressive disorder Surgical History Hx of cataract removal with insertion of prosthetic lens Hx of tubal ligation Hx of appendectomy Cystoscopy 03/04/18 NEGATIVE Breast, Lumpectomy right lumpectomy-infiltration ductal; radiation and chemo Family History Mother Essential hypertension Heart disease Myocardial infarction Father Diabetes Heart disease Sister Alzheimer disease Brother Essential hypertension Heart disease Grandfather Heart disease Grandfather Personal history of malignant neoplasm Grandmother Heart disease Grandmother Heart disease Maternal Uncle Stroke Son No problems noted. Son No problems noted. Son No problems noted. Son No problems noted. Daughter No problems noted. Daughter No problems noted. Social History Smoking/Tobacco Use Status: Former Tobacco Use Quit Date: 11/23/95 Smoking risk assessment performed?: Yes Alcohol Intake: former Drug use: Never Substance use type: does not use Household members: other Details: 2 Housing: house Frequency: daily Do you feel safe at home: Yes Do you feel safe in your relationship?: Yes Meds Allergies and Home Medications Allergies Allergy/AdvReac Type Severity Reaction Status Date / Time sertraline AdvReac Ineffective Verified 05/04/25 09:27 Home Medications ?Medication ?Instructions ?Recorded ?Confirmed ?Type aspirin 81 mg capsule 81 mg PO DAILY #30 caps 03/24/22 05/04/25 Rx acyclovir 400 mg tablet 400 mg PO TID PRN genital herpes 05/10/24 05/04/25 Rx #30 tabs estradiol 0.01% (0.1 mg/gram) 0.5 g vaginal .Twice a week PRN 06/30/24 05/04/25 Rx vaginal cream vaginal inritation #42.5 grams losartan 100 mg tablet 100 mg PO DAILY #90 tab-caps 12/27/24 05/04/25 Rx omeprazole 40 mg capsule,delayed 40 mg PO DAILY PRN acid reflux #90 12/27/24 05/04/25 Rx release tab-caps atorvastatin 20 mg tablet 20 mg PO QPM #90 tabs 04/04/25 05/04/25 Rx venlafaxine 37.5 mg 37.5 mg PO DAILY #30 caps 04/10/25 05/04/25 Rx capsule,extended release 24 hr memantine 10 mg tablet 10 mg PO BID #180 tabs 04/13/25 05/04/25 Rx metoprolol tartrate 25 mg tablet 50 mg (2 x 25 mg) PO DAILY #90 tabs 05/02/25 05/04/25 Rx Exam Narrative Exam Narrative: well appearing but anxious elderly female laying in bed in no acute distress, awake, alert, oriented to person and place, heart RRR, lungs CTAB, abdomen soft, non-tender, non-distended Results Labs 05/04/25 10:14 05/04/25 10:14 Labs: Laboratory Results - last 24 hr 05/04/25 05/04/25 10:14 11:17 WBC 6.48 RBC 4.32 Hgb 12.6 Hct 38.3 MCV 89 MCH 29.2 MCHC 32.9 RDW 12.7 Plt Count 214 MPV 10.2 Immature Gran % 0.3 Neutrophils % 73.8 Lymphocytes % 16.0 Monocytes % 8.6 Eosinophils % 0.8 Basophils % 0.5 Nucleated RBC % 0.0 Absolute Neutrophils 4.78 Absolute Lymphocytes 1.04 L Absolute Monocytes 0.56 Absolute Eosinophils 0.05 Absolute Basophils 0.03 Sodium 133 L Potassium 4.4 Chloride 100 Carbon Dioxide 27.5 Anion Gap 5.5 BUN 9 Creatinine 0.5 L Est GFR (CKD-EPI 2020) 91.28 Glucose 110 H Calcium 8.8 Magnesium 1.9 Total Bilirubin 0.5 AST 25 ALT 21 Alkaline Phosphatase 60 Total Protein 6.9 Albumin 3.3 L TSH 3.07 Urine Color Yellow Urine Clarity Clear Urine pH 8.0 Ur Specific Mittie 1.015 Urine Protein Negative Urine Ketones Negative Urine Blood Small H Urine Nitrite Negative Urine Bilirubin Negative Urine Urobilinogen 0.2 Ur Leukocyte Esterase Negative Urine RBC 3-5 H Urine WBC Negative Ur Epithelial Cells Moderate Urine Crystals Negative Urine Bacteria Few Urine Casts Negative Urine Mucus Negative Ur Culture Indicated? No Urine Glucose Negative Last Vital Signs Temp 98.1 F 05/04/25 09:27 Pulse 56 L 05/04/25 14:10 Resp 15 05/04/25 14:10 BP 168/76 H 05/04/25 14:02 Pulse Ox 98 05/04/25 14:10 Time Spent Time spent with Patient: >75 minutes Time was spent: preparing to see the patient(eg.review tests), obtaining and/or reviewing separately otained hiistory, ordering medications,tests, procedures, referring, communicating with other health personal caregiver, indepentently interpreting results, counseling the patient and care coordination
--- NOTE | 2025-05-04 16:17 | W.PC.ACHO ---
Registration Status: REG ER Primary Language: Preferred Language: Frisian ED Information & Data Chief Complaint GenMedical 05/04/25 14:48 Triage Note Patient complaining of 05/04/25 09:21 nausea, dizzy and weakness for a day. Patient is having a lot of emotional stress. Patient's [place] went into [place] [facility] [place]. Patient is scared to live alone. EMS gave 4 mg of zofran and 1000 mg of tylenol Medical / Surgical History (Updated 04/11/25 @ 11:55 by Mikayla Lindquist RN) Palliative care encounter Nonischemic cardiomyopathy Breast cancer Anxiety GERD (gastroesophageal reflux disease) Stress incontinence Alcohol abuse Graves' disease (03/29/13) Idiopathic scoliosis Hypertension Hyperlipidemia (02/15/13) Depressive disorder (Updated 01/06/24 @ 00:05 by DARLENE SHEIKH) Hx of cataract removal with insertion of prosthetic lens Hx of tubal ligation Hx of appendectomy Cystoscopy Breast, Lumpectomy Most Recent Vital Signs Temperature 36.7 C 05/04/25 09:27 Temperature Source Oral 05/04/25 09:27 Pulse 55 L 05/04/25 16:01 Pulse 51 L 05/04/25 16:10 Respiratory Rate 15 05/04/25 16:10 Respiratory Effort Normal, Non-Labored 05/04/25 09:29 Respiratory Depth Normal 05/04/25 09:29 Respiratory Pattern Normal 05/04/25 09:29 Blood Pressure 146/51 H 05/04/25 16:01 Blood Pressure Mean 85 05/04/25 16:01 Pulse Oximetry 99 05/04/25 14:32 Allergies sertraline Adverse Reaction (Verified 05/04/25 09:27) Ineffective Precautions Isolation Standard precaution 05/04/25 09:28 IV IV Catheter Type [Right Wrist] Saline Lock IV Catheter Gauge [Right Wrist 20 ] Diagnostics 05/04/25 05/04/25 Range/Units 11:17 10:14 WBC 6.48 (4.4-10.8) 10^3/uL RBC 4.32 (3.93-5.22) 10^6/uL Hgb 12.6 (11.2-15.7) g/dL Hct 38.3 (36.0-46.0) % MCV 89 (80-95) fL MCH 29.2 (27.0-33.0) pg MCHC 32.9 (32.0-36.0) % RDW 12.7 (11.7-14.6) % Plt Count 214 (130-400) 10^3/uL MPV 10.2 (8.0-11.0) fL Immature Gran % 0.3 % Neutrophils % 73.8 % Lymphocytes % 16.0 % Monocytes % 8.6 % Eosinophils % 0.8 % Basophils % 0.5 % Nucleated RBC % 0.0 (0.0-0.3) % Absolute Neutrophils 4.78 (1.2-6.7) 10^3/uL Absolute Lymphocytes 1.04 L (1.2-3.4) 10^3/uL Absolute Monocytes 0.56 (0.1-0.8) 10^3/uL Absolute Eosinophils 0.05 (0.0-0.7) 10^3/uL Absolute Basophils 0.03 (0.0-0.2) 10^3/uL Sodium 133 L (136-145) mmol/L Potassium 4.4 (3.5-5.1) mmol/L Chloride 100 (98-107) mmol/L Carbon Dioxide 27.5 (21.0-32.0) mmol/L Anion Gap 5.5 (3-11) mmol/L BUN 9 (7-18) mg/dL Creatinine 0.5 L (0.55-1.02) mg/dL Est GFR (CKD-EPI 2020) 91.28 (mL/min/1.73m2) Glucose 110 H (74-106) mg/dL Calcium 8.8 (8.5-10.1) mg/dL Magnesium 1.9 (1.8-2.4) mg/dL Total Bilirubin 0.5 (0.2-1.0) mg/dL AST 25 (15-37) U/L ALT 21 (14-59) U/L Alkaline Phosphatase 60 (46-116) U/L Total Protein 6.9 (6.4-8.2) g/dL Albumin 3.3 L (3.4-5.0) g/dL TSH 3.07 (0.36-3.74) uIU/mL Urine Color Yellow (Yellow) Urine Clarity Clear (Clear) Urine pH 8.0 (5-8) Ur Specific [place] 1.015 (1.005-1.025) Urine Protein Negative (Neg-Trace) mg/dL Urine Ketones Negative (Negative) mg/dL Urine Blood Small H (Negative) Urine Nitrite Negative (Negative) Urine Bilirubin Negative (Negative) Urine Urobilinogen 0.2 (Up to 0.2) mg/dL Ur Leukocyte Esterase Negative (Negative) Urine RBC 3-5 H (0-2) HPF Urine WBC Negative (0-5) HPF Ur Epithelial Cells Moderate (Negative) HPF Urine Crystals Negative (Negative) HPF Urine Bacteria Few (Negative) HPF Urine Casts Negative (Negative) LPF Urine Mucus Negative (Negative) Ur Culture Indicated? No Urine Glucose Negative (Negative) mg/dL Intake and Output - 24 Hour Total 05/04/25 09:09 thru 05/04/25 13:13 Intake Total 500 Balance 500 Weight 61 kg Intake: IV 500 Falls Risk Assessment History of Falls No History 05/04/25 13:12 Contributing Factors No Factors 05/04/25 13:12 Ambulatory Aids Independent 05/04/25 13:12 Tubes/Lines None 05/04/25 13:12 Gait Evaluation No gait disturbance 05/04/25 13:12 Cognition No cognitive impairment 05/04/25 13:12 Fall Total Score 0 05/04/25 13:12 Level of Risk Standard/Low Risk 05/04/25 13:12 Problems (Updated 04/11/25 @ 11:55 by Mikayla Lindquist RN) Anxiety and depression (Chronic) Memory loss (Acute) Bundle branch block (Acute) Cardiomyopathy (Acute) v v v v v v v v v Sending and/or Receiving Nurses: Please use comment section below to note any information pertinent to the patient hand-off not included above. Information / Comments: report received all questions answered. Report received from: report received from Sara Kilgore RN@ [phone]
--- NOTE | 2025-05-04 16:44 | PDOC.CMIN ---
Date of service: 05/04/25 Time of Service: 16:47 Care Management Initial Assmt Initial Assessment Reason for Hospitalization: Anxiety Functional Status/Living Situation Patient Presentation: Amy was lying in bed in the ED when CM met with her. She was pleasant and engaged well in conversation; she appeared anxious and worried. Amy discussed how her was placed in long-term care yesterday, and although her family are staying with her now, she expressed a lot of fear around them leaving and her living on her own. She stated that she has always been a worrier, but that her anxiety is much worse than normal currently. CM also spoke to her son, Arturo, who is a good support for Amy. Arturo stated that Amy has always had anxiety, but that at times of higher stress she has had panic attacks in the past. He was not able to identify what has helped her in the past. He reported that he and other family members have been taking turns staying with her, leading up to this transition of their father being placed in termite treater helper care. CM spoke with both Amy and Arturo about Amy going to an inpatient geriatric psychiatric facility for medication management, which both agreed would be beneficial. CM sent a referral to [facility] for consideration. CM will continue to follow. Town of Residence: [place] Resides with: Child (children/family currently staying with Amy 15/06) Significant Other/Family: Local Caregiver/Guardian: sonArturo DPOA (financial) Natural Supports: very supportive family Employment Status: Retired Instrumental Activities of Daily Living (ADLs): Independent Activities/Hobbies/SocialSupport: Amy used to ride horses, which was therapeutic for her Medications Medication Management: No Issues/Barriers identified Physical Functioning/Mobility Assistive Device: FWW Advance Directives Advance Directives: Do you have an Advance Directive: N 04/11/13, 09:28 AD On File at [facility]: N 01/21/13, 13:31 Date Asked 05/04/25 Today, 09:23 AD Date Reviewed COLST On File at [facility] COLST Date Scanned Code Status Resuscitation Status Full Code Insurance Coverage/Financial Issues Insurance: VBA Care Team Visit Care Team Role Provider Type Kushal Noyola MD Primary Care Provider [facility] STAFF PHYSICIAN Renetta Gamble Other Providers BUSINESS RISK CONSULTANT Brooklyn Deng Other Providers BUSINESS RISK CONSULTANT Merry Sanchez Other Providers BUSINESS RISK CONSULTANT InPatient Reese Raminviet Other Providers OTHER Gabrielle Tdod RN Other Providers BUSINESS RISK CONSULTANT Virginia Menchaca Other Providers BUSINESS RISK CONSULTANT [facility] Provider PHYSICIANS QA SOFTWARE TESTER Beto Medina MD Admit Provider MD [facility] STAFF PHYSICIAN Attending Provider Discharge Potential Discharge Needs: Other (Geriatric psychiatric facility) Anticipated Barriers to Discharge: Bed availability Patient/Family Education Needs: Review discharge instructions, discuss Ask Me Three Transportation: Private vehicle Plan: Anticipate Amy will transfer to a geriatric psychiatric facility, if accepted. Referral sent to [facility]; will also send to [facility]. She will transport via private vehicle by family. She will follow up with her PCP and discharge plan of care; Zamzams family are meeting to discuss a plan for aftercare. CM will continue to follow. Social Determinants of Health Screening Social Determinants of health last assessed in clinic: 05/04/25 Will the Patient Participate in the Screening?: Yes Do you worry about having a steady place to live?: no Problems where you live: no known problems In the past 12 months, have you had to go without electric, gas, oil or water in your home?: no 1. Within the past 12 months, we worried whether our food would run out before we got money to buy more.: Never true 2. Within the past 12 months, the food we bought just didn't last and we didn't have money to get more.: Never true Has lack of transportation kept you from medical appointments or from doing things needed for daily living?: no Has anyone in your life made you feel unsafe or unsupported?: no How hard is it for you to pay for the very basics like food, housing, medical care, and heating? Would you say it is:: Not hard at all Do you want help finding or keeping work or a job?: I do not need or want help If for any reason you need help with day-to-day activities such as bathing, preparing meals, shopping, managing finances, etc., do you get the help you need?: I don?t need any help How often do you feel lonely or isolated from those around you?: Sometimes Do you speak a language other than Togolese at home?: No Does the patient want assistance with any of the above?: No Health Related Social Needs Health related social needs: feeling lonely/isolated (Z60.8) Health related social needs details: just was placed in custodial yesterday PFSH All Active Problems History of breast cancer (Acute) Anxiety and depression (Chronic) Orthostatic hypotension (Acute) Domestic concerns (Acute) Left facial numbness (Acute) Gait disturbance (Acute) Hematuria (Acute) Syncopal episodes (Chronic) Prediabetes (Acute) Migraine headache without aura (Acute) Medication overuse headache (Acute) Chronic headache (Acute) Memory loss (Acute) Acute CVA (cerebrovascular accident) (Acute) Essential hypertension (Acute) Age-related macular degeneration (Acute) Anxiety (Acute 03/29/13) panic Bundle branch block (Acute) left bundle branch block; Cardiomyopathy (Acute) echo 12/31 EF43% echo 2010 EF35-40% echo 06/04 EF45-50% diastolic dysfunction nonischemic Gastroesophageal reflux disease (Chronic) 07/07/14; EGD; González BURNETT Malignant neoplasm of female breast (Acute 10/22/01) stage 2 IDC RIGHT BREAST lumpectomy radiation chemo Followed at [facility] Microscopic hematuria (Acute 02/02/18) 03/04/18; NEGATIVE CYSTOSCOPY Osteopenia (Acute) Risk factors: Graves; Arimidex D/C'd Fosamax Dexa in 2011; repeat in 2 years Mood disorder (Acute) improved w/ cymbalta Right knee meniscal tear (Chronic) Status post breast lumpectomy (Acute) History of esophagogastroduodenoscopy (Acute) Vaginitis and vulvovaginitis (Acute) Herpetic lesion (Acute) inside left labia MICHEL (dyspnea on exertion) (Acute) Pain, joint, knee, right (Acute) Pain in left hip (Acute) Temporal headache (Acute) Medical History Palliative care encounter Nonischemic cardiomyopathy Breast cancer Anxiety GERD (gastroesophageal reflux disease) Stress incontinence Alcohol abuse Graves' disease (03/29/13) Idiopathic scoliosis Hypertension Hyperlipidemia (02/15/13) Depressive disorder Surgical History Hx of cataract removal with insertion of prosthetic lens Hx of tubal ligation Hx of appendectomy Cystoscopy 03/04/18 NEGATIVE Breast, Lumpectomy right lumpectomy-infiltration ductal; radiation and chemo Family History Mother Essential hypertension Heart disease Myocardial infarction Father Diabetes Heart disease Sister Alzheimer disease Brother Essential hypertension Heart disease Grandfather Heart disease Grandfather Personal history of malignant neoplasm Grandmother Heart disease Grandmother Heart disease Maternal Uncle Stroke Son No problems noted. Son No problems noted. Son No problems noted. Son No problems noted. Daughter No problems noted. Daughter No problems noted. Social History Smoking/Tobacco Use Status: Former Tobacco Use Quit Date: 11/23/95 Smoking risk assessment performed?: Yes Alcohol Intake: former Drug use: Never Substance use type: does not use Household members: other Details: 2 Housing: house Frequency: daily Do you feel safe at home: Yes Do you feel safe in your relationship?: Yes
[2025-05-04] MEDS: Memantine 5 MG TAB 10 MG PO (20:34)
[2025-05-04] MEDS: Atorvastatin 20 MG TAB PO (20:34)
[2025-05-04] MEDS: Normal Saline Flush 10 ML SYR IVP (20:34)
[2025-05-05 04:33] VITALS: BP 145/61; PULSE 59; RESP 18; TEMP 36.4; O2SAT 98
[2025-05-05] MEDS: LORazepam 0.5 MG TAB PO ×3 (04:33→18:17)
[2025-05-05 07:20] VITALS: BP 143/62; PULSE 58; RESP 16; TEMP 36.8; O2SAT 97
--- NOTE | 2025-05-05 09:15 | W.PALLCONSUL ---
Date of service: 05/05/25 Time of Service: 09:15 History of Present Illness Narrative: Amy was seen in her hospital room. She was alone at the time of the visit. She is admitted for anxiety with referral to [facility]. She has been seen by Dr. Steward in the past for Palliative care. She reports that she has always had anxiety but it has increased significantly lately, especially surrounding her being placed in the skilled nursing. Her , Valeriy was placed at [facility] 2 days ago. She was started on Effexor nearly a month ago. She may benefit from dose increase. Lorazepam PRN has been very helpful to her while in the hospital. She is anxious about being alone at home. Her family has been taking turns staying with her. She considers her sonArturo her biggest support. She does not know if she can stay home alone, it seems overwhelming to her at this point. Her preference would be to feel safe in her own home. She is considering assisted living for herself. She has talked to Arturo about assisted living and he thinks it would be good for her. At this point, she is doing her ADLs independently. She has not had any falls. She is doing fairly well physically. She has 6 children: SonArturo, lives in [place], [place]. He is building a new house this year. Arturo helps out the most. He takes care of her bills and made arrangements for Valeriy to go to [facility]. Her daughter, Veronica lives in [facility] [facility], [place]. Son, Oscar, lives in [facility] [place] [facility] but he is selling his house and she is not sure where he will go. Son, George, lives near [place]. Her daughter, Ayanna, lives in [place]. Son, Johanna that lives in [place]. Reviewed CODE STATUS. She has a COLST from 2021 that states FULL CODE. She is clear that she wishes to change this to DNR/DNI. She does not want a feeding tube, she would agree to trial of IVF and determine use or limitation of antibiotics when infection occurs with comfort as goal. New COLST completed. She did not have HCA paperwork on file. She would like to name her son, Arturo Taylor as her first HCA and her daughter, Vadim Thibodeaux to be her second agent. She also listed the rest of her children to be consulted about medical decisions. HCA- wants to name 1. Arturo Taylor, 2. Veronica Thibodeaux then the rest of the kids Discussed how Palliative could be helpful to her after discharge from the hospital, she is interested in outpatient f/u. I initially met with her independently then we met again when her son, Arturo and daughter, Veronica. Arturo described some of how things were going at home before she came to the ED. She apparently was not sleeping well at night due to anxiety. She was taking naps during the day but would be awakened by anxiety to near panic at times. Her children have reached out to Brenda at [facility] and found that there is a bed available to her. She agrees to going there at this time. Brenda is a caregiver and she also has horses, which amy enjoys. Assessment and Plan Assessment and plan (1) Anxiety and depression: Status: Chronic Assessment and plan: - Patient has a longstanding history of anxiety with panic episodes - This episode likely brought on by patient's being placed in long-term care 2 days ago. - She was started on venlafaxine nearly 4 weeks ago. Recommend increasing to 75 mg/day. - Continue low dose lorazepam PRN. Consider low dose seroquel at HS to help with sleep and anxiety. - Buspar could also be considered on a scheduled basis. - Referral has been sent to [facility]. - She would benefit from Palliative f/u after discharge. (2) Cardiomyopathy: Status: Acute Assessment and plan: - Continue home aspirin, statin, losartan - home metoprolol on hold in setting of borderline bradycardia (3) Memory loss: Status: Acute Assessment and plan: - Unclear if formally diagnosed with Alzheimer's - Patient does also appear to have history of past CVA and alcohol abuse - Likely contributing factor in exacerbating anxiety (4) Bundle branch block: Status: Acute Assessment and plan: - Noted as left bundle, unchanged from previous (5) Palliative care encounter: Assessment and plan: She has been seen by Dr. Steward in the past. She is seen today for continuity of care. She is interested in f/u after discharge. Will notify office. PROBLEM 6: Advanced care planning- unable to pull up when adding problem. Reviewed CODE STATUS. She has a COLST from 2021 that states FULL CODE. She is clear that she wishes to change this to DNR/DNI. She does not want a feeding tube, she would agree to trial of IVF and determine use or limitation of antibiotics when infection occurs with comfort as goal. New COLST completed. She did not have HCA paperwork on file. She would like to name her son, Arturo Taylor as her first HCA and her daughter, Vadim Thibodeaux to be her second agent. She also listed the rest of her children to be consulted about medical decisions. HCA- wants to name 1. Arturo Taylor, 2. Veronica Thibodeaux then the rest of the kids Her children have made arrangements for her to go to [facility]. The plan will be for her to there after [facility]. Review of Systems Narrative: Feeling less anxious than when she presented but not free from anxiety. Denies pain, SOB. PFSH All Active Problems History of breast cancer (Acute) Anxiety and depression (Chronic) Orthostatic hypotension (Acute) Domestic concerns (Acute) Left facial numbness (Acute) Gait disturbance (Acute) Hematuria (Acute) Syncopal episodes (Chronic) Prediabetes (Acute) Migraine headache without aura (Acute) Medication overuse headache (Acute) Chronic headache (Acute) Memory loss (Acute) Acute CVA (cerebrovascular accident) (Acute) Essential hypertension (Acute) Age-related macular degeneration (Acute) Anxiety (Acute 03/29/13) panic Bundle branch block (Acute) left bundle branch block; Cardiomyopathy (Acute) echo 12/31 EF43% echo 2010 EF35-40% echo 06/04 EF45-50% diastolic dysfunction nonischemic Gastroesophageal reflux disease (Chronic) 07/07/14; EGD; [facility] Malignant neoplasm of female breast (Acute 10/22/01) stage 2 IDC RIGHT BREAST lumpectomy radiation chemo Followed at [facility] Microscopic hematuria (Acute 02/02/18) 03/04/18; NEGATIVE CYSTOSCOPY Osteopenia (Acute) Risk factors: Graves; Arimidex D/C'd Fosamax Dexa in 2011; repeat in 2 years Mood disorder (Acute) improved w/ cymbalta Right knee meniscal tear (Chronic) Status post breast lumpectomy (Acute) History of esophagogastroduodenoscopy (Acute) Vaginitis and vulvovaginitis (Acute) Herpetic lesion (Acute) inside left labia MICHEL (dyspnea on exertion) (Acute) Pain, joint, knee, right (Acute) Pain in left hip (Acute) Temporal headache (Acute) Medical History Palliative care encounter Nonischemic cardiomyopathy Breast cancer Anxiety GERD (gastroesophageal reflux disease) Stress incontinence Alcohol abuse Graves' disease (03/29/13) Idiopathic scoliosis Hypertension Hyperlipidemia (02/15/13) Depressive disorder Surgical History Hx of cataract removal with insertion of prosthetic lens Hx of tubal ligation Hx of appendectomy Cystoscopy 03/04/18 NEGATIVE Breast, Lumpectomy right lumpectomy-infiltration ductal; radiation and chemo Family History Mother Essential hypertension Heart disease Myocardial infarction Father Diabetes Heart disease Sister Alzheimer disease Brother Essential hypertension Heart disease Grandfather Heart disease Grandfather Personal history of malignant neoplasm Grandmother Heart disease Grandmother Heart disease Maternal Uncle Stroke Son No problems noted. Son No problems noted. Son No problems noted. Son No problems noted. Daughter No problems noted. Daughter No problems noted. Social History Smoking/Tobacco Use Status: Former Tobacco Use Quit Date: 11/23/95 Smoking risk assessment performed?: Yes Alcohol Intake: former Drug use: Never Substance use type: does not use Household members: other Details: 2 Housing: house Frequency: daily Do you feel safe at home: Yes Do you feel safe in your relationship?: Yes Exam Narrative Exam Narrative: General: very pleasant, elderly female, lying in bed with HOB elevated. She is awake and alert, closes eyes frequently. Engages in the visit, answers questions appropriately. HEENT: normocephalic, atraumatic, EOMI, mmm Neck: Supple Respiratory: respirations appear even and unlabored at rest and with talking. Ext: moves all 4 extremities freely. PSYCH: appears calm, open, engages in discussion, normal affect. Results Last Vital Signs Temp 36.8 C 05/05/25 07:20 Pulse 58 L 05/05/25 07:20 Resp 16 05/05/25 07:20 BP 143/62 H 05/05/25 07:20 Pulse Ox 97 05/05/25 07:20 Labs 05/04/25 10:14 05/04/25 10:14 Labs: Laboratory Results - last 24 hr 05/04/25 05/04/25 10:14 11:17 WBC 6.48 RBC 4.32 Hgb 12.6 Hct 38.3 MCV 89 MCH 29.2 MCHC 32.9 RDW 12.7 Plt Count 214 MPV 10.2 Immature Gran % 0.3 Neutrophils % 73.8 Lymphocytes % 16.0 Monocytes % 8.6 Eosinophils % 0.8 Basophils % 0.5 Nucleated RBC % 0.0 Absolute Neutrophils 4.78 Absolute Lymphocytes 1.04 L Absolute Monocytes 0.56 Absolute Eosinophils 0.05 Absolute Basophils 0.03 Sodium 133 L Potassium 4.4 Chloride 100 Carbon Dioxide 27.5 Anion Gap 5.5 BUN 9 Creatinine 0.5 L Est GFR (CKD-EPI 2020) 91.28 Glucose 110 H Calcium 8.8 Magnesium 1.9 Total Bilirubin 0.5 AST 25 ALT 21 Alkaline Phosphatase 60 Total Protein 6.9 Albumin 3.3 L TSH 3.07 Urine Color Yellow Urine Clarity Clear Urine pH 8.0 Ur Specific [place] 1.015 Urine Protein Negative Urine Ketones Negative Urine Blood Small H Urine Nitrite Negative Urine Bilirubin Negative Urine Urobilinogen 0.2 Ur Leukocyte Esterase Negative Urine RBC 3-5 H Urine WBC Negative Ur Epithelial Cells Moderate Urine Crystals Negative Urine Bacteria Few Urine Casts Negative Urine Mucus Negative Ur Culture Indicated? No Urine Glucose Negative Time Spent Time Spent with Patient Time Spent(min): 114
[2025-05-05] MEDS: Enoxaparin 40 MG/0.4 ML SYR SC (09:24)
[2025-05-05] MEDS: Venlafaxine 37.5 MG CAPCR PO (09:25)
[2025-05-05] MEDS: Aspirin E.C. 81 MG TABEC PO (09:25)
[2025-05-05] MEDS: Memantine 5 MG TAB 10 MG PO ×2 (09:25→20:06)
[2025-05-05] MEDS: Losartan 50 MG TAB 100 MG PO (09:25)
--- NOTE | 2025-05-05 13:09 | TELEFU_ITS ---
Date of service: 05/05/25 Time of Service: 13:09 Nutrition Note NOTE: Amy admitted for anxiety with increases lately with [facility]. [facility] referral in place. She has had fair intake this admission with normal labs for total protein (albumin slightly low at 3.3). PT made aware of ONS available at meals and nourishment times if desired. ordered for regular diet. Down ~3kg from UBW. - encouraged protein eaten first at meals and offered snacks at 2 and 7pm - will consider. Will monitor intake, labs and weight closely this admission and work on offering ONS as accepted. Time Spent in Nutritional Counseling and Treatment: 5 min
--- NOTE | 2025-05-05 13:16 | NUR.NOTE ---
Nursing Note: Documentation by Wood Lizarraga, student DOGGER reviewed. I agree with assessment.
--- NOTE | 2025-05-05 14:19 | CMPROGNOTE_ITS ---
Date of service: 05/05/25 Time of Service: 14:19 Care Management Progress Note Progress Note Text Progress Note Text: Amy was lying in bed when CM met with her. Her daughter, Veronica and son, Arturo were in the room visiting. GREGORIA received a bed offer from [facility] for tomorrow, which Amy happily accepted. Her family will transport her tomorrow, 05/06/25 at 9am. CM informed the MD and RN of this plan, to which all agreed. CM contacted Amy's insurance, [employer], at the request of admissions at [facility]; no prior authorization was required. CM printed out the admission paperwork that was sent from admissions at [facility] and provided it to her son, Arturo, who will fill it out and bring it to the facility. Amy and her family are very happy with the plan. CM will continue to follow. Discharge Potential Discharge Needs: PCP F/U Appt Anticipated Barriers to Discharge: None Identified Patient/Family Education Needs: Review discharge instructions, discuss Ask Me Three Transportation: Private vehicle Plan: Amy will go to [facility] tomorrow morning at 9am. She will transport via private vehicle by family. Her son, Arturo, who is her DPOA and HCA will fill out admission paperwork and bring it to the facility. CM provided the RN to RN number to the rn relief charge ([phone]). She will follow up with her PCP and discharge plan of care. CM will continue to follow. Social Determinants of Health Screening Social Determinants of health last assessed in clinic: 05/05/25 Will the Patient Participate in the Screening?: Yes Do you worry about having a steady place to live?: no Problems where you live: no known problems In the past 12 months, have you had to go without electric, gas, oil or water in your home?: no 1. Within the past 12 months, we worried whether our food would run out before we got money to buy more.: Never true 2. Within the past 12 months, the food we bought just didn't last and we didn't have money to get more.: Never true Has lack of transportation kept you from medical appointments or from doing things needed for daily living?: no Has anyone in your life made you feel unsafe or unsupported?: no How hard is it for you to pay for the very basics like food, housing, medical care, and heating? Would you say it is:: Not hard at all Do you want help finding or keeping work or a job?: I do not need or want help If for any reason you need help with day-to-day activities such as bathing, preparing meals, shopping, managing finances, etc., do you get the help you need?: I don?t need any help How often do you feel lonely or isolated from those around you?: Sometimes Do you speak a language other than Surinamese at home?: No Does the patient want assistance with any of the above?: No Health Related Social Needs Health related social needs: feeling lonely/isolated (Z60.8) Health related social needs details: just was placed in skilled nursing yesterday
--- NOTE | 2025-05-05 15:17 | PHA.REVIEW2 ---
Pharmacy Admission Review Admission Clinical Review Admission Pharmacy Review: Memory loss (Acute) Bundle branch block (Acute) Cardiomyopathy (Acute) sertraline Adverse Reaction (Verified 05/04/25 09:27) Ineffective Resuscitation Status DNR/DNI Height 5 ft 4 in Weight 61 kg Comments Comments/Follow Ups: Watch BP, HR, SCr, labs and for med changes (possible renal dose adjustments). Venlafaxine dose has been increased from 37.5 mg to 75 mg by provider, increased dose is due to start tomorrow morning. Pharmacy Admission Review Renal Dosing Renal Dosing: BUN 9 mg/dL (7-18) 05/04/25 10:14 Creatinine 0.5 mg/dL (0.55-1.02) L 05/04/25 10:14 Medications needing adjustments: Reviewed (Crcl ~38.3 mL/min (if you round SCr to 1.0 such as meditech does) or ~58.1 mL/min (if you round to SCr to 0.6 and use IBW). Either way current med are okay) Anticoagulation Anticoagulation: Hgb 12.6 g/dL (11.2-15.7) 05/04/25 10:14 Hct 38.3 % (36.0-46.0) 05/04/25 10:14 Plt Count 214 10^3/uL (130-400) 05/04/25 10:14 Creatinine 0.5 mg/dL (0.55-1.02) L 05/04/25 10:14 DVT Prophylaxis: Reviewed Medications: Enoxaparin Opiate Usage Evaluate Pain Scale/Pains Meds: N/A Relevant Labs Relevant Labs: Sodium 133 mmol/L (136-145) L 05/04/25 10:14 Potassium 4.4 mmol/L (3.5-5.1) 05/04/25 10:14 Chloride 100 mmol/L (98-107) 05/04/25 10:14 Magnesium 1.9 mg/dL (1.8-2.4) 05/04/25 10:14 Electrolytes, C-Reactive P, ESR: Reviewed DM Control DM Control: Glucose 110 mg/dL (74-106) H 05/04/25 10:14 DM Control: Reviewed (Prediabetes noted in pt's medical history, last A1c on file was from 2021.) Cardiac Review BP, HR, EF%: Reviewed (BP has been up and down some and HR has been low most of admission so far. Home losartan dose is ordered, home metoprolol is on hold.) QTc Review QTc: N/A IV to PO Switch IV Medications: Reviewed Home Meds Home Med List reviewed: Reviewed Relevent Home Meds Not ordered & why?: All home meds are currently ordered but metoprolol order is on hold due to bradycardia per H&P. Current Meds Current Medication Order Review: Reviewed Comments Comments/Follow Ups: Watch BP, HR, SCr, labs and for med changes (possible renal dose adjustments). Venlafaxine dose has been increased from 37.5 mg to 75 mg by provider, increased dose is due to start tomorrow morning.
--- NOTE | 2025-05-05 15:44 | W.PM.PROGNOT ---
Date of Service Date of service: 05/05/25 Time of Service: 15:45 Assessment and Plan Assessment and plan (1) Anxiety and depression: Status: Chronic Assessment and plan: - Patient has a longstanding history of anxiety with panic episodes - This episode likely brought on by patient's being placed in long-term care yesterday - Will continue home venlafaxine at increased dose, now 75 mg daily - Was given half milligram p.o. lorazepam in the emergency department with improvement, will continue as needed - Appreciate care management assistance and placement at [facility] (2) Cardiomyopathy: Status: Acute Assessment and plan: - Continue home aspirin, statin, losartan - Will hold home metoprolol as patient appears to have some borderline bradycardia (3) Memory loss: Status: Acute Assessment and plan: - Unclear if formally diagnosed with Alzheimer's - Patient does also appear to have history of past CVA and alcohol abuse - Likely contributing factor in exacerbating anxiety (4) Bundle branch block: Status: Acute Assessment and plan: - Noted as left bundle, unchanged from previous Subjective Subjective Interval history since last seen: Patient states that she is doing well and got some good sleep last night. She and her family are happy that she has a bed available tomorrow at [facility]. Otherwise she has no other complaints or concerns at this time. Exam Narrative Exam Narrative: well appearing but anxious elderly female laying in bed in no acute distress, awake, alert, oriented to person and place, heart RRR, lungs CTAB, abdomen soft, non-tender, non-distended Objective Last Vital Signs Temp 98.2 F 05/05/25 07:20 Pulse 58 L 05/05/25 07:20 Resp 16 05/05/25 07:20 BP 143/62 H 05/05/25 07:20 Pulse Ox 97 05/05/25 07:20 Time Spent with Patient Time Spent with Patient: >50 minutes Time was spent: preparing to see the patient(eg.review tests), obtaining and/or reviewing separately otained hiistory, ordering medications,tests, procedures, referring, communicating with other health progressive care unit registered nurse, indepentently interpreting results, counseling the patient and care coordination
[2025-05-05 19:58] VITALS: BP 161/76; PULSE 75; RESP 20; TEMP 37; O2SAT 95
[2025-05-05] MEDS: Atorvastatin 20 MG TAB PO (20:06)
[2025-05-05 20:07] VITALS: BP 116/55
--- NOTE | 2025-05-06 07:00 | DSE_ITS ---
Date of service: 05/06/25 Time of Service: 07:00 DS: Diagnosis Discharge Diagnosis (1) Anxiety and depression: Status: Chronic (2) Cardiomyopathy: Status: Acute (3) Memory loss: Status: Acute (4) Bundle branch block: Status: Acute Discharge Plan Disposition Patient Disposition: Other Disposition Not Listed Other Facility: [facility] Condition: Good Discharge Details Reason For Visit: General observation for acute anxiety Admit Date/Time: 05/04/25 15:44 Admit Provider: Beto Medina Attending Provider: Beto Medina Primary Care Provider: Kushal Noyola Hospital Course Hospital Course: Patient initially presented to the hospital with an episode of severe anxiety after her was placed in long-term care facility. She was evaluated by psychiatry as well as care management and was determined to be candidate to stay in the hospital until bed would be made available at [facility]. Ultimately, bed was made available on 05/06/2025 and was determined that she was stable for discharge. Patient remained stable during hospitalization with only change being made was increasing her venlafaxine from 37.5 to 75 mg p.o. daily. Home Meds and New Rx's Prescriptions: Continued memantine 10 mg tablet 10 mg PO BID Qty: 180 3RF losartan 100 mg tablet 100 mg PO DAILY Qty: 90 3RF omeprazole 40 mg capsule,delayed release(DR/EC) 40 mg PO DAILY PRN (Reason: acid reflux) Qty: 90 3RF acyclovir 400 mg tablet 400 mg PO TID PRN (Reason: genital herpes) Qty: 30 1RF Rx Instructions: At first sign of lesion, take 400mg 3x per day for 5 days atorvastatin 20 mg tablet 20 mg PO QPM Qty: 90 3RF aspirin 81 mg capsule 81 mg PO DAILY Qty: 30 0RF Changed venlafaxine 37.5 mg capsule,extended release 24hr 75 mg PO DAILY Qty: 30 2RF Discontinued metoprolol tartrate 25 mg tablet 50 mg PO DAILY Qty: 90 4RF Rx Instructions: dose increase 05/02/25 Discharge Instructions Activity:: Activity as Tolerated Equipment/Supplies:: No Equipment Needed Diet:: As Tolerated Discharge Orders Discharge Orders: Discharge Order (Routine); Ordered 05/06/25 Ordered By: Beto Medina DS: Summary Time Spent with Patient providing and/or coordinating discharge services: Greater than 30 minutes Status at Discharge Functional status at discharge: independent ambulation Overall status at discharge: patient is back to baseline Mental Status: mental status grossly normal Speech and Movement: speech and movement normal Mood: congruent mood Affect: normal affect Quality:SDOH Health Related Social Needs: Health related social needs lonely/isolated Health related social needs details just was p laced in senior living yesterday Health related social needs details: just was placed in senior living yesterday Exam Narrative Exam Narrative: well appearing but anxious elderly female laying in bed in no acute distress, awake, alert, oriented to person and place, heart RRR, lungs CTAB, abdomen soft, non-tender, non-distended Psych Mental Status: mental status grossly normal Speech and Movement: speech and movement normal Mood: congruent mood Affect: normal affect DS: Data Vitals/I&O Vitals and I&O: Vital Signs Temperature 98.6 F 05/05/25 19:58 Temperature Source Temporal Artery Scan 05/05/25 19:58 Pulse 75 05/05/25 19:58 Pulse Rhythm Regular 05/04/25 16:28 Pulse 51 L 05/04/25 16:10 Respiratory Rate 20 05/05/25 19:58 Respiratory Effort Normal 05/04/25 16:28 Respiratory Depth Normal 05/04/25 16:28 Respiratory Pattern Normal 05/04/25 16:28 Blood Pressure 116/55 L 05/05/25 20:07 Blood Pressure Mean 75 05/05/25 20:07 Pulse Oximetry 95 05/05/25 19:58 Oxygen Delivery Method Room Air 05/05/25 19:58 Oxygen Flow Rate 0 05/05/25 19:58 Pain Level 0 05/05/25 19:58 Intake & Output 05/05/25 05/06/25 05/06/25 17:59 05:59 17:59 Intake Total 620 / 620 120 / 740 Output Total 500 / 500 500 / 1000 Balance 120 / 120 -380 / -260 Intake: Oral 620 / 620 120 / 740 Output: Urine 500 / 500 500 / 1000 Other: Urine Color Yellow Pale Yellow Urine Appearance Clear Clear Urine Odor None Normal Comment Pt voided in commode ind. with stand by assist. Stool Occult Blood Negative Stool Size Large Stool Characteristics Soft PFSH All Active Problems History of breast cancer (Acute) Anxiety and depression (Chronic) Orthostatic hypotension (Acute) Domestic concerns (Acute) Left facial numbness (Acute) Gait disturbance (Acute) Hematuria (Acute) Syncopal episodes (Chronic) Prediabetes (Acute) Migraine headache without aura (Acute) Medication overuse headache (Acute) Chronic headache (Acute) Memory loss (Acute) Acute CVA (cerebrovascular accident) (Acute) Essential hypertension (Acute) Age-related macular degeneration (Acute) Anxiety (Acute 03/29/13) panic Bundle branch block (Acute) left bundle branch block; Cardiomyopathy (Acute) echo 12/31 EF43% echo 2010 EF35-40% echo 06/04 EF45-50% diastolic dysfunction nonischemic Gastroesophageal reflux disease (Chronic) 07/07/14; EGD; [facility] Malignant neoplasm of female breast (Acute 10/22/01) stage 2 IDC RIGHT BREAST lumpectomy radiation chemo Followed at [facility] Microscopic hematuria (Acute 02/02/18) 03/04/18; NEGATIVE CYSTOSCOPY Osteopenia (Acute) Risk factors: Graves; Arimidex D/C'd Fosamax Dexa in 2011; repeat in 2 years Mood disorder (Acute) improved w/ cymbalta Right knee meniscal tear (Chronic) Status post breast lumpectomy (Acute) History of esophagogastroduodenoscopy (Acute) Vaginitis and vulvovaginitis (Acute) Herpetic lesion (Acute) inside left labia MICHEL (dyspnea on exertion) (Acute) Pain, joint, knee, right (Acute) Pain in left hip (Acute) Temporal headache (Acute) Medical History Palliative care encounter Nonischemic cardiomyopathy Breast cancer Anxiety GERD (gastroesophageal reflux disease) Stress incontinence Alcohol abuse Graves' disease (03/29/13) Idiopathic scoliosis Hypertension Hyperlipidemia (02/15/13) Depressive disorder Surgical History Hx of cataract removal with insertion of prosthetic lens Hx of tubal ligation Hx of appendectomy Cystoscopy 03/04/18 NEGATIVE Breast, Lumpectomy right lumpectomy-infiltration ductal; radiation and chemo Family History Mother Essential hypertension Heart disease Myocardial infarction Father Diabetes Heart disease Sister Alzheimer disease Brother Essential hypertension Heart disease Grandfather Heart disease Grandfather Personal history of malignant neoplasm Grandmother Heart disease Grandmother Heart disease Maternal Uncle Stroke Son No problems noted. Son No problems noted. Son No problems noted. Son No problems noted. Daughter No problems noted. Daughter No problems noted. Social History Smoking/Tobacco Use Status: Former Tobacco Use Quit Date: 11/23/95 Smoking risk assessment performed?: Yes Alcohol Intake: former Drug use: Never Substance use type: does not use Household members: other Details: 2 Housing: house Frequency: daily Do you feel safe at home: Yes Do you feel safe in your relationship?: Yes Time Spent with Patient Time Spent with Patient: <45 minutes Time was spent: preparing to see the patient(eg.review tests), obtaining and/or reviewing separately otained hiistory, ordering medications,tests, procedures, referring, communicating with other health care tech, indepentently interpreting results, counseling the patient and care coordination
[2025-05-06] MEDS: Memantine 5 MG TAB 10 MG PO (07:47)
[2025-05-06] MEDS: Aspirin E.C. 81 MG TABEC PO (07:47)
[2025-05-06] MEDS: Enoxaparin 40 MG/0.4 ML SYR SC (07:48)
[2025-05-06] MEDS: Losartan 50 MG TAB 100 MG PO (07:48)
[2025-05-06] MEDS: Venlafaxine 37.5 MG CAPCR 75 MG PO (07:48)
--- NOTE | 2025-05-06 08:00 | CMDISCH_ITS ---
Date of service: 05/06/25 Time of Service: 08:00 LACE Index Scoring Tool Questions: Length of Stay (in days): 2 Was the patient admitted via the E.D.?: Yes E.D. Visits: 1 Answers: Total Score: 6 Risk of Readmission: Low Risk Care Management Discharge Plan Reason for Hospitalization: General observation for acute anxiety Discharge Plan: Amy will be discharged to [facility], today; Before moving to a family long-term, in [place]. She will follow up with her community providers and continue per her plan of care. Amy will be transported privately by her son. Arturo was given admission paperwork to bring to [facility]. Patient/Family Education Needs: Review of discharge instructions, activity, limitations and plan of care. Discuss Ask Me Three. SDOH Health Related Social Needs: Health related social needs lonely/isolated Health related social needs details just [facility] Health related social needs details: just was placed in penitentiary yesterday
[2025-05-06] MEDS: LORazepam 0.5 MG TAB PO (08:48)
== END 2025-05-06 08:50 | disposition other institution (70) ==
LOC: ER 09:24 → MS 16:27
PROVIDERS: Admitting Provider Family Medicine; Emergency Provider Physician Assistant; PCP Family Medicine; Responsible Provider Family Medicine; Visit Provider Family Medicine
DX: F41.0 Panic disorder [episodic paroxysmal anxiety] (principal); F32.A Depression, unspecified; R41.3 Other amnesia; I45.4 Nonspecific intraventricular block; I42.8 Other cardiomyopathies; I44.7 Left bundle-branch block, unspecified; Z85.3 Personal history of malignant neoplasm of breast; I95.1 Orthostatic hypotension; R20.2 Paresthesia of skin; R26.9 Unspecified abnormalities of gait and mobility; R51.9 Headache, unspecified; R73.03 Prediabetes; Z86.73 Personal history of transient ischemic attack (TIA), and cerebral infarction without residual deficits; I10 Essential (primary) hypertension; K21.9 Gastro-esophageal reflux disease without esophagitis; E78.5 Hyperlipidemia, unspecified; E05.00 Thyrotoxicosis with diffuse goiter without thyrotoxic crisis or storm
CPT/HCPCS: 00123; 36415; 80053; 93005; 96360; 96361; 96372; 97162; 97530; 99285; J1650; 70450; 71046; 81003; 81015; 83735; 84443; 85025; 93010; 99223; 99233; 99239; G0378

== ENCOUNTER 2025-06-21 15:08 | Outpatient (REF) | payer MEDICARE, SELFPAY ==
[2025-06-21 20:53] LABS: RBC >50 HPF (0-2); WBC >50 HPF (0-5)
== END 2025-06-21 15:09 | disposition home or self-care (01) ==
LOC: LBN 15:08
PROVIDERS: PCP Family Medicine; Visit Provider Physician Assistant Medical
DX: R30.0 Dysuria (principal)
CPT/HCPCS: 87077; 81015; 87086; 87186

== ENCOUNTER → 2025-07-19 14:17 | Outpatient (BNVA) | payer MEDICARE, SELFPAY | PROVIDERS: PCP Family Medicine; Referring Provider Family Medicine; Visit Provider Psychiatry & Neurology Neurology | DX: R41.3 Other amnesia (principal); I63.9 Cerebral infarction, unspecified; G89.29 Other chronic pain; G44.40 Drug-induced headache, not elsewhere classified, not intractable; G43.009 Migraine without aura, not intractable, without status migrainosus; R26.9 Unspecified abnormalities of gait and mobility; I95.1 Orthostatic hypotension; I10 Essential (primary) hypertension | CPT/HCPCS: 99214 ==

== ENCOUNTER 2025-08-08 13:20 | Outpatient (REF) | payer MEDICARE, SELFPAY | END 2025-08-08 13:21 | disposition home or self-care (01) | LOC: LBN 13:20 | PROVIDERS: PCP Family Medicine; Visit Provider Family Medicine | DX: N39.0 Urinary tract infection, site not specified (principal) | CPT/HCPCS: 87077; 87086; 87186 ==

== ENCOUNTER 2025-09-05 18:16 | Outpatient (REF) | payer MEDICARE, SELFPAY | END 2025-09-05 18:17 | disposition home or self-care (01) | LOC: LBN 18:16 | PROVIDERS: PCP Family Medicine; Visit Provider Nurse Practitioner Family | DX: N39.0 Urinary tract infection, site not specified (principal); R30.0 Dysuria | CPT/HCPCS: 87077; 87086; 87186; 87480; 87510; 87660 ==

== ENCOUNTER → 2025-09-19 13:51 | Outpatient (BNVA) | payer MEDICARE, SELFPAY | PROVIDERS: PCP Family Medicine; Referring Provider Family Medicine; Visit Provider Psychiatry & Neurology Neurology | DX: I63.9 Cerebral infarction, unspecified (principal); R41.3 Other amnesia; G44.009 Cluster headache syndrome, unspecified, not intractable; G44.40 Drug-induced headache, not elsewhere classified, not intractable; R26.9 Unspecified abnormalities of gait and mobility; I95.1 Orthostatic hypotension; I10 Essential (primary) hypertension; Z79.02 Long term (current) use of antithrombotics/antiplatelets | CPT/HCPCS: 99215 ==